=== PATIENT | male | born 1955 | race Caucasian/White ===

== ENCOUNTER → 2016-11-27 | Outpatient (CLI) | payer OTHER ==
[~2016-11-27] MED LIST: FURO20TA PO; LISI-461 PO; MAGN400T5 PO; NUTR-31 PO; OXYC1TAB3 PO; POTA1CAP2 PO
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
== END | disposition home or self-care (01) ==
LOC: C.RDSM 14:36
PROVIDERS: ATTEND Physical Medicine & Rehabilitation Sports Medicine
DX: S92.345A Nondisplaced fracture of fourth metatarsal bone, left foot, initial encounter for closed fracture (principal); X58.XXXA Exposure to other specified factors, initial encounter

== ENCOUNTER → 2016-12-22 | Outpatient (CLI) | payer OTHER | END | disposition home or self-care (01) | LOC: C.RDSM 09:00 | PROVIDERS: ATTEND Physical Medicine & Rehabilitation Sports Medicine | DX: S92.345A Nondisplaced fracture of fourth metatarsal bone, left foot, initial encounter for closed fracture (principal); X58.XXXA Exposure to other specified factors, initial encounter ==

== ENCOUNTER → 2017-01-19 | Outpatient (CLI) | payer OTHER | END | disposition home or self-care (01) | LOC: C.RDSM 12:11 | PROVIDERS: ATTEND Physical Medicine & Rehabilitation Sports Medicine | DX: S92.345A Nondisplaced fracture of fourth metatarsal bone, left foot, initial encounter for closed fracture (principal); X58.XXXA Exposure to other specified factors, initial encounter ==

== ENCOUNTER 2017-02-02 07:20 | Emergency (ER) | payer OTHER ==
[~2017-02-02] VITALS: Ht 180.3 cm; Wt 112.0 kg
[~2017-02-02 07:20] MED LIST changes: -FURO20TA PO; -MAGN400T5 PO; -NUTR-31 PO; -POTA1CAP2 PO
[2017-02-02 07:30] VITALS: TEMP 36.6; Ht 180.3 cm; Wt 112.0 kg
[2017-02-02] MEDS ORDERED: LISINOPRIL 10 MG TAB PO STA (07:32)
--- NOTE | 2017-02-02 07:52 | EMERGENCY ROOM VISIT NOTE ---
History Report prepared by June: Jesse Tay Under the Supervision of: Dr. Frankie Gibbons M.D. First contact with patient: 07:27 Chief Complaint: TESTICULAR PAIN Stated Complaint: SWOLLEN TESTICULAR History of Present Illness The patient is a 61 year old male who presents to the Emergency Room with complaints of persistent testicular swelling since last night. The patient has never experienced swelling like this before. He also has some swelling of the lower extremities. He has not had any problems urinating, and denies shortness of breath. He is not on a diuretic. 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 He denies excessive salt intake. The patient is on Lisinopril 10 mg for hypertension, which he has not taken this morning. The patient follows up with Dr. Del Toro ([facility]). The patient was prescribed drops for left otitis media when he last saw his family doctor. He did not have testicular swelling at that time. Source of History: patient Onset: last night Position: other (testicular) Quality: other (swelling) Timing: other (persistent) Associated Symptoms: No SOB, No urinary symptoms Review of Systems See HPI for pertinent positives & negatives. A total of 10 systems reviewed and were otherwise negative. Past Medical & Surgical Medical Problems: (1) HTN (hypertension) (2) Tongue cancer Family History Stroke Social History Smoking Status: Current Every Day Smoker Alcohol Use: heavy Marital Status: single Housing Status: lives with friends Current/Historical Medications Scheduled Furosemide (Lasix), 20 MG PO QD Lisinopril (Zestril), 10 MG PO DAILY Magnesium Oxide (Mag-Ox), 1 TAB PO DAILY Nutritional Supplements (Boost High Protein), 1 DOSE PO DAILY Potassium Chloride (Potassium Chloride Er), 1 CAP PO DAILY Allergies Coded Allergies: Acetaminophen (Verified Allergy, Intermediate, CONTRAINDICATED, 02/02/17) Aspirin (Verified Allergy, Intermediate, STOMACH BLEEDING, 02/02/17) NSAIDs (Verified Allergy, Intermediate, GI PROBLEMS, 02/02/17) Codeine (Verified Allergy, Mild, high fever, 02/02/17) Bumble Bee (Unverified Allergy, Unknown, go into shock, 02/02/17) I lay down on my back and put my legs up in the air Physical Exam Vital Signs Date Time Temp Pulse Resp B/P Pulse Ox O2 Delivery O2 Flow Rate FiO2 02/02/17 10:33 86 20 150/85 94 Room Air 02/02/17 09:48 83 02/02/17 09:44 89 02/02/17 08:58 84 18 143/90 95 Room Air 02/02/17 07:49 91 20 132/82 95 Room Air 02/02/17 07:45 91 02/02/17 07:30 36.6 90 16 168/103 94 Room Air Physical Exam GENERAL: Patient is in no acute distress. Smell of alcohol is on his breath. HEENT: No acute trauma, normocephalic atraumatic, mucous membranes moist, no nasal congestion, no scleral icterus. NECK: No stridor, no adenopathy, no meningismus, trachea is midline. LUNGS: Clear to auscultation bilaterally, no wheeze, no rhonchi, breath sounds equal. HEART: 3/6 systolic murmur with an irregular rhythm and mildly tachycardic rate. ABDOMEN: Soft, nontender, bowel sounds positive, no hernias, no peritonitis. EXTREMITIES: Mild bilateral pedal edema. NEUROLOGIC: Oriented x 3, no acute motor or sensory deficits, no focal weakness. SKIN: No rash, no jaundice, no diaphoresis. GROIN: Penile shaft and scrotal edema, no cellulitis, testicles appear normal, no obvious hernia, circumcised. Medical Decision & Procedures ER Provider Diagnostic Interpretation: Radiology results as stated below per my review and radiologist interpretation: CHEST ONE VIEW PORTABLE CLINICAL HISTORY: Altered mental status. Weakness. COMPARISON STUDY: 04/11/2014 FINDINGS: The cardiac and mediastinal contours remain stable. There is no failure. There is no focal pulmonary consolidation. There is stable left basilar scarring.[ IMPRESSION: Stable left basilar pleural scarring. No acute findings. Electronically signed by: Timothy Valentin M.D. 02/02/2017 8:12 AM Dictated Date/Time: 02/02/2017 8:11 AM TESTICULAR ULTRASOUND CLINICAL HISTORY: Scrotal swelling COMPARISON STUDY: No previous studies for comparison. FINDINGS: The right testis measures 23 x 12 x 18 mm. There are 2 hypoechoic intratesticular nodules on the right each of which measures 4 mm. The left testis measures 22 x 12 x 18 mm. No intratesticular masses are visualized on the left. There is no evidence of testicular torsion. There are small bilateral epididymal cysts. There is extensive scrotal wall edema. IMPRESSION: 1. There are 2 indeterminate hypoechoic right-sided intratesticular masses, each of which measures 4 mm 2. No evidence of testicular torsion 3. Extensive scrotal wall edema Electronically signed by: Timothy Valentin M.D. 02/02/2017 8:42 AM Dictated Date/Time: 02/02/2017 8:39 AM Laboratory Results 02/02/17 07:45 Red Blood Count 4.09, Mean Corpuscular Volume 96.3, Mean Corpuscular Hemoglobin 34.5, Mean Corpuscular Hemoglobin Concent 35.8, Mean Platelet Volume 9.6, Neutrophils (%) (Auto) 75.2, Lymphocytes (%) (Auto) 11.5, Monocytes (%) (Auto) 10.9, Eosinophils (%) (Auto) 2.0, Basophils (%) (Auto) 0.2, Neutrophils # (Auto ) 4.06, Lymphocytes # (Auto) 0.62, Monocytes # (Auto) 0.59, Eosinophils # (Auto ) 0.11, Basophils # (Auto) 0.01 02/02/17 07:45 Test 02/02/17 00:00 02/02/17 07:45 Urine Color YELLOW Urine Appearance CLEAR (CLEAR) Urine pH 6.0 (4.5-7.5) Urine Specific [place] 1.011 (1.000-1.030) Urine Protein NEG (NEG) Urine Glucose (UA) NEG (NEG) Urine Ketones NEG (NEG) Urine Occult Blood NEG (NEG) Urine Nitrite NEG (NEG) Urine Bilirubin NEG (NEG) Urine Urobilinogen NEG (NEG) Urine Leukocyte Esterase NEG (NEG) White Blood Count 5.40 K/uL (4.8-10.8) Red Blood Count 4.09 M/uL (4.7-6.1) Hemoglobin 14.1 g/dL (14.0-18.0) Hematocrit 39.4 % (42-52) Mean Corpuscular Volume 96.3 fL (80-100) Mean Corpuscular Hemoglobin 34.5 pg (25-34) Mean Corpuscular Hemoglobin Concent 35.8 g/dl (32-36) Platelet Count 162 K/uL (130-400) Mean Platelet Volume 9.6 fL (7.4-10.4) Neutrophils (%) (Auto) 75.2 % Lymphocytes (%) (Auto) 11.5 % Monocytes (%) (Auto) 10.9 % Eosinophils (%) (Auto) 2.0 % Basophils (%) (Auto) 0.2 % Neutrophils # (Auto) 4.06 K/uL (1.4-6.5) Lymphocytes # (Auto) 0.62 K/uL (1.2-3.4) Monocytes # (Auto) 0.59 K/uL (0.11-0.59) Eosinophils # (Auto) 0.11 K/uL (0-0.5) Basophils # (Auto) 0.01 K/uL (0-0.2) RDW Standard Deviation 48.7 fL (36.4-46.3) RDW Coefficient of Variation 13.9 % (11.5-14.5) Immature Granulocyte % (Auto) 0.2 % Immature Granulocyte # (Auto) 0.01 K/uL (0.00-0.02) Prothrombin Time 10.0 SECONDS (9.0-12.0) Prothromb Time International Ratio 0.9 (0.9-1.1) Activated Partial Thromboplast Time 28.2 SECONDS (21.0-31.0) Partial Thromboplastin Ratio 1.1 Anion Gap 8.0 mmol/L (3-11) Est Creatinine Clear Calc Drug Dose 163.2 ml/min Estimated GFR () 125.8 Estimated GFR (Non- 108.6 BUN/Creatinine Ratio 17.1 (10-20) Calcium Level 9.4 mg/dl (8.5-10.1) Magnesium Level 1.7 mg/dl (1.8-2.4) Total Bilirubin 0.6 mg/dl (0.2-1) Aspartate Amino Transf (AST/SGOT) 45 U/L (15-37) Alanine Aminotransferase (ALT/SGPT) 49 U/L (12-78) Alkaline Phosphatase 97 U/L (45-117) Troponin I < 0.015 ng/ml (0-0.045) Pro-B-Type Natriuretic Peptide 86 pg/ml (0-900) Total Protein 7.8 gm/dl (6.4-8.2) Albumin 3.7 gm/dl (3.4-5.0) Globulin 4.1 gm/dl (2.5-4.0) Albumin/Globulin Ratio 0.9 (0.9-2) Thyroid Stimulating Hormone (TSH) 2.100 uIu/ml (0.300-4.500) Laboratory results reviewed by me. Medications Administered Medications (Trade) Dose Ordered Sig/Misa Route Start Time Stop Time Status Last Admin Dose Admin Lisinopril (Zestril Tab) 10 mg NOW STAT PO 02/02/17 07:32 02/02/17 07:36 DC 02/02/17 07:48 10 MG Magnesium Sulfate (Magnesium Sulfate) 1 gm NOW STAT IV 02/02/17 08:29 02/02/17 08:30 DC 02/02/17 08:58 1 GM Furosemide (Lasix Inj) 20 mg NOW STAT IV 02/02/17 10:19 02/02/17 10:20 DC 02/02/17 10:33 20 MG ECG Indication: other (edema) Rate (beats per minute): 92 Rhythm: sinus rhythm Findings: PVC, no acute ischemic change ED Course 0729: The patient was evaluated in room A4b. A complete history and physical exam was performed. 0732: Zestril 10 mg PO. 0829: Magnesium Sulfate 1 gm IV. 1000: Updated the patient on the workup. 1016: Spoke with Dr. Del Toro, who said to go ahead with the Lasix. The patient should follow up this coming week. 1019: Lasix 20 mg IV. 1035: Reevaluated the patient. Discussed results and discharge instructions: He verbalized understanding and agreement. The patient is ready for discharge. Medical Decision Differential diagnosis includes fluid overload and CHF, A-fib or A-flutter, electrolyte imbalance, anemia, renal failure, UTI, venous insufficiency, alcoholism, liver failure. There is no leukocytosis or concerning anemia. Renal panel testing shows a low magnesium, no kidney failure. There is no hepatitis or thyroid dysfunction. Scrotal ultrasound shows some possible lesions to one testicle, the blood flow was adequate. Urologic follow-up was recommended. There was scrotal edema. Chest film does not show pneumonia or CHF. BNP is not elevated making CHF less likely. EKG shows a sinus rhythm with PVCs, no acute ischemic change. Cardiac enzyme testing times one is not elevated making cardiac ischemia less likely. Urinalysis does not show infection. The patient was given his typical dose of oral lisinopril, 10 mg. He was given a dose of IV Lasix and a gram of IV magnesium. The patient has edema to the scrotal area, there is no cellulitis currently. The patient is being discharged on Lasix, some magnesium and potassium. I discussed this case and the patient's care with his family doctor. The patient will be seen in the office in a few days for a recheck. The patient was told to follow with urology for the testicular lesions noted. He was told to try to stay off his feet and to watch closely for any signs of infection including redness or fever. Patient was encouraged to avoid salt in his diet. He was told return to this ER for worsening symptoms. Consults Time Called: 1000 Consulting Physician: Dr. Del Toro, [facility] Returned Call: [phone] She said to go ahead with the Lasix. The patient should follow up this coming week. Impression Primary Impression: Scrotal edema Additional Impression: Fluid overload Scribe Attestation The scribe's documentation has been prepared under my direction and personally reviewed by me in its entirety. I confirm that the note above accurately reflects all work, treatment, procedures, and medical decision making performed by me. Departure Information Dispostion Home / Self-Care Prescriptions Magnesium Oxide (MAG-OX) 400 Mg Tab 1 TAB PO DAILY for 5 Days, #5 TAB 5 Refills Prov: Frankie Gibbons M.D. 02/02/17 Potassium Chloride (POTASSIUM CHLORIDE ER) 10 Meq Cap 1 CAP PO DAILY for 5 Days, #5 CAP 3 Refills Prov: Frankie Gibbons M.D. 02/02/17 Furosemide (LASIX) 20 Mg Tab 20 MG PO QD for 5 Days, #5 TABS Prov: Frankie Gibbons M.D. 02/02/17 Referrals No Doctor, Assigned (PCP) Forms HOME CARE DOCUMENTATION FORM, IMPORTANT VISIT INFORMATION, WORK / SCHOOL INSTRUCTIONS Patient Instructions My [facility] Additional Instructions lasix daily for 5 more days try to stay off of your feet and off of the [employer] specialist for a few days use the potassium and magnesium as directed for now return for fever, worsening symptoms see your [facility] md next week--call for an appt for sunday or sunday Problem Qualifiers
[2017-02-02 07:57] LABS: BASO % 0.2 %; BASO ABS # 0.01 K/uL (0-0.2); COMPLETE YES; HEMATOCRIT 39.4 % (42-52); IG% 0.2 %; LYMPH % 11.5 %; LYMPH ABS # 0.62 K/uL (1.2-3.4); MEAN CELL VOLUME 96.3 fL (80-100); MEAN CORPUSCULAR HEMOGLOBIN 34.5 pg (25-34); MEAN CORPUSCULAR HGB CONC 35.8 g/dl (32-36); MEAN PLATELET VOLUME 9.6 fL (7.4-10.4); MONO % 10.9 %; NEUT % 75.2 %; PLATELET COUNT 162 K/uL (130-400); RED BLOOD COUNT 4.09 M/uL (4.7-6.1)
[2017-02-02 08:07] LABS: INR 0.9 (0.9-1.1); PARTIAL THROMBOPLASTIN RATIO 1.1
--- NOTE | 2017-02-02 08:14 | DIAGNOSTIC IMAGING REPORT ---
CHEST ONE VIEW PORTABLE CLINICAL HISTORY: Altered mental status. Weakness. COMPARISON STUDY: 04/11/2014 FINDINGS: The cardiac and mediastinal contours remain stable. There is no failure. There is no focal pulmonary consolidation. There is stable left basilar scarring.[ IMPRESSION: Stable left basilar pleural scarring. No acute findings. Electronically signed by: Timothy Valentin M.D. 02/02/2017 8:12 AM Dictated Date/Time: 02/02/2017 8:11 AM
[2017-02-02] MEDS ORDERED: NUTR-31 PO (08:16)
[2017-02-02 08:22] LABS: ALT/SGPT 49 U/L (12-78); AST/SGOT 45 U/L (15-37); BLOOD UREA NITROGEN 11 mg/dl (7-18); BUN/CREATININE RATIO 17.1 (10-20); CALCIUM 9.4 mg/dl (8.5-10.1); CARBON DIOXIDE 28 mmol/L (21-32); CHLORIDE 96 mmol/L (98-107); CREATININE 0.62 mg/dl (0.60-1.40); GLUCOSE 87 mg/dl (70-99); MAGNESIUM 1.7 mg/dl (1.8-2.4); POTASSIUM 3.4 mmol/L (3.5-5.1); SODIUM 132 mmol/L (136-145)
[2017-02-02] MEDS ORDERED: MAGNESIUM SULFATE 1GM / D5W 1 GM BAG IV STA (08:29)
[2017-02-02 08:33] LABS: ALB/GLOB RATIO 0.9 (0.9-2); ALKALINE PHOSPHATASE 97 U/L (45-117)
--- NOTE | 2017-02-02 08:43 | DIAGNOSTIC IMAGING REPORT ---
TESTICULAR ULTRASOUND CLINICAL HISTORY: Scrotal swelling COMPARISON STUDY: No previous studies for comparison. FINDINGS: The right testis measures 23 x 12 x 18 mm. There are 2 hypoechoic intratesticular nodules on the right each of which measures 4 mm. The left testis measures 22 x 12 x 18 mm. No intratesticular masses are visualized on the left. There is no evidence of testicular torsion. There are small bilateral epididymal cysts. There is extensive scrotal wall edema. IMPRESSION: 1. There are 2 indeterminate hypoechoic right-sided intratesticular masses, each of which measures 4 mm 2. No evidence of testicular torsion 3. Extensive scrotal wall edema Electronically signed by: Timothy Valentin M.D. 02/02/2017 8:42 AM Dictated Date/Time: 02/02/2017 8:39 AM
[2017-02-02 10:08] LABS: URINE APPEARANCE CLEAR (CLEAR); URINE BILIRUBIN NEG (NEG); URINE COLOR YELLOW; URINE NITRITE NEG (NEG); URINE SPECIFIC GRAVITY 1.011 (1.000-1.030); UROBILINOGEN NEG (NEG); ZZUR CULT IF INDIC CLEAN CATCH NO
[2017-02-02 10:10] LABS: MANUAL MICROSCOPIC REQUIRED? NO; REVIEW REQ? NO
[2017-02-02] MEDS ORDERED: FUROSEMIDE 40 MG/4 ML VIAL IV STA (10:19)
[2017-02-02] MEDS ORDERED: MAGN400T5 PO (10:32)
[2017-02-02] MEDS ORDERED: FURO20TA PO (10:32)
[2017-02-02] MEDS ORDERED: POTA1CAP2 PO (10:32)
[2017-02-02 10:33] VITALS: BP 150/85; PULSE 86; O2SAT 94
== END 2017-02-02 10:41 | disposition home or self-care (01) ==
LOC: C.EDB 07:21 → C.EDA 10:41
DX: N50.89 Other specified disorders of the male genital organs (principal); N50.3 Cyst of epididymis; E87.70 Fluid overload, unspecified; I10 Essential (primary) hypertension; F17.200 Nicotine dependence, unspecified, uncomplicated; Z85.810 Personal history of malignant neoplasm of tongue; Z79.899 Other long term (current) drug therapy; Z88.5 Allergy status to narcotic agent; Z88.6 Allergy status to analgesic agent; Z88.8 Allergy status to other drugs, medicaments and biological substances; Z82.3 Family history of stroke

== ENCOUNTER → 2017-03-02 | Outpatient (CLI) | payer OTHER ==
[~2017-03-02] MED LIST changes: +FURO20TA PO; +MAGN400T5 PO; +NUTR-31 PO; -OXYC1TAB3 PO; +POTA1CAP2 PO
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
== END | disposition home or self-care (01) ==
LOC: C.RDSM 09:40
PROVIDERS: ATTEND Physician Assistant
DX: M79.672 Pain in left foot (principal)

== ENCOUNTER 2017-09-02 17:16 | Inpatient (IN) | payer OTHER ==
[~2017-09-02] VITALS: Ht 180.3 cm; Wt 101.8 kg
--- NOTE | 2017-09-02 17:25 | EMERGENCY ROOM VISIT NOTE ---
History Report prepared by June: Barrie Irene Under the Supervision of: Dr. Amanuel Rangel D.O. First contact with patient: 17:19 Chief Complaint: ALLERGIC REACTION Stated Complaint: ALLERGIC REACTION History of Present Illness The patient is a 61 year old male who presents to the Emergency Room with complaints of persistent facial swelling and pain that started an hour and a half ago. 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 The patient states that after using the new tooth paste, he noticed facial swelling. He says that the swelling is only in the front, and is not affecting the tongue or the back of his throat. He notes that he has an infection in the bone of his jaw, and was on Amoxicillin for it but it ran out after a while. He denies any nausea, vomiting, shortness of breath, chest pain, or leg swelling. He does smoke cigarettes. Source of History: patient Onset: An hour and half ago Position: other (front of face) Symptom Intensity: using new tooth paste Quality: other (swelling, pain) Timing: other (persistent) Associated Symptoms: No chest pain, No SOB, No nausea, No vomiting Note: Denies leg swelling. Review of Systems See HPI for pertinent positives & negatives. A total of 10 systems reviewed and were otherwise negative. Past Medical & Surgical Medical Problems: (1) HTN (hypertension) (2) Tongue cancer Family History Stroke Social History Smoking Status: Current Every Day Smoker Alcohol Use: heavy Marital Status: single Housing Status: lives with friends Current/Historical Medications Scheduled Lisinopril/Hctz (Zestoretic 20MG/12.5MG), 1 TAB PO DAILY Magnesium Oxide (Mg Supplement (Magnesium Oxide), 1 TAB PO DAILY Potassium Chloride (K-Tabs), 2 TAB PO DAILY Sodium Fluoride (Dental) (Prevident [address]), 1 DOSE UD Scheduled PRN Diclofenac Sodium (Topical) (Voltaren 1% Top Gel), 1 APPL TOP QID PRN for Pain Furosemide (Furosemide), 1 TAB PO DAILY PRN for SWELLING Allergies Coded Allergies: Acetaminophen (Verified Allergy, Intermediate, CONTRAINDICATED, 09/02/17) Aspirin (Verified Allergy, Intermediate, STOMACH BLEEDING, 09/02/17) NSAIDs (Verified Allergy, Intermediate, GI PROBLEMS, 09/02/17) Codeine (Verified Allergy, Mild, high fever, 09/02/17) Bumble Bee (Unverified Allergy, Unknown, go into shock, 09/02/17) I lay down on my back and put my legs up in the air Physical Exam Vital Signs Date Time Temp Pulse Resp B/P (MAP) Pulse Ox O2 Delivery O2 Flow Rate FiO2 09/02/17 21:29 88 09/02/17 20:42 91 139/100 94 Room Air 09/02/17 19:30 90 18 123/88 96 Room Air 09/02/17 17:31 97 18 146/87 96 Room Air 09/02/17 17:30 100 09/02/17 17:26 97 Room Air 09/02/17 17:22 36.7 103 16 163/98 97 Room Air Physical Exam GENERAL: Patient is awake, alert, and in no acute distress. Patient is resting comfortably and showing no signs of anxiety EYES: The conjunctivae are clear. The pupils are round and reactive. EARS, NOSE, MOUTH AND THROAT: There was significant anterior angioedema involving mostly the upper lip. The posterior oropharynx was clear. NECK: The neck is nontender and supple. RESPIRATORY: Normal respiratory effort is noted there is no evidence of wheezing rhonchi or rales CARDIOVASCULAR: Regular rate and rhythm noted there no murmurs rubs or gallops normal S1 normal S2 GASTROINTESTINAL: The abdomen is soft. Bowel sounds are present in all quadrants. Abdomen is nontender MUSCULOSKELETAL/EXTREMITIES: There is no evidence of gross deformity full range of motion is noted in the hips and shoulders SKIN: There is no obvious evidence of any rash. There are no petechiae, pallor or cyanosis noted. NEUROLOGIC: Patient is awake alert and oriented x3. Medical Decision & Procedures ER Provider Diagnostic Interpretation: X-ray results as stated below per interpretation by me and the radiologist. CHEST ONE VIEW PORTABLE HISTORY: 61 years-old Male ABDOMINAL PAIN/GI acute generalized abdominal pain with allergic reaction COMPARISON: Chest radiograph 02/02/2017 TECHNIQUE: Portable AP view of the chest FINDINGS: Cardiomediastinal and hilar silhouettes are within normal limits. No pneumothorax, or overt pulmonary edema. Unchanged subsegmental left basilar opacity with blunting of the left costophrenic angle. Bones of the chest appear grossly intact. IMPRESSION: Unchanged scarring/atelectasis of the left lung base without acute cardiopulmonary process. The above report was generated using voice recognition software. It may contain grammatical, syntax or spelling errors. Electronically signed by: Luis F Curtis M.D. 09/02/2017 5:55 PM Dictated Date/Time: 09/02/2017 5:53 PM Laboratory Results 09/02/17 17:25 Red Blood Count 3.74, Mean Corpuscular Volume 98.7, Mean Corpuscular Hemoglobin 34.8, Mean Corpuscular Hemoglobin Concent 35.2, Mean Platelet Volume 8.9, Neutrophils (%) (Auto) 69.0, Lymphocytes (%) (Auto) 13.7, Monocytes (%) (Auto) 15.7, Eosinophils (%) (Auto) 1.2, Basophils (%) (Auto) 0.2, Neutrophils # (Auto ) 3.43, Lymphocytes # (Auto) 0.68, Monocytes # (Auto) 0.78, Eosinophils # (Auto ) 0.06, Basophils # (Auto) 0.01 09/02/17 17:25 Test 09/02/17 17:25 09/02/17 19:30 White Blood Count 4.97 K/uL (4.8-10.8) Red Blood Count 3.74 M/uL (4.7-6.1) Hemoglobin 13.0 g/dL (14.0-18.0) Hematocrit 36.9 % (42-52) Mean Corpuscular Volume 98.7 fL (80-100) Mean Corpuscular Hemoglobin 34.8 pg (25-34) Mean Corpuscular Hemoglobin Concent 35.2 g/dl (32-36) Platelet Count 196 K/uL (130-400) Mean Platelet Volume 8.9 fL (7.4-10.4) Neutrophils (%) (Auto) 69.0 % Lymphocytes (%) (Auto) 13.7 % Monocytes (%) (Auto) 15.7 % Eosinophils (%) (Auto) 1.2 % Basophils (%) (Auto) 0.2 % Neutrophils # (Auto) 3.43 K/uL (1.4-6.5) Lymphocytes # (Auto) 0.68 K/uL (1.2-3.4) Monocytes # (Auto) 0.78 K/uL (0.11-0.59) Eosinophils # (Auto) 0.06 K/uL (0-0.5) Basophils # (Auto) 0.01 K/uL (0-0.2) RDW Standard Deviation 49.4 fL (36.4-46.3) RDW Coefficient of Variation 13.8 % (11.5-14.5) Immature Granulocyte % (Auto) 0.2 % Immature Granulocyte # (Auto) 0.01 K/uL (0.00-0.02) Prothrombin Time 9.9 SECONDS (9.0-12.0) Prothromb Time International Ratio 0.9 (0.9-1.1) Activated Partial Thromboplast Time 28.4 SECONDS (21.0-31.0) Partial Thromboplastin Ratio 1.1 Anion Gap 7.0 mmol/L (3-11) Est Creatinine Clear Calc Drug Dose 151.8 ml/min Estimated GFR () 123.4 Estimated GFR (Non- 106.5 BUN/Creatinine Ratio 24.7 (10-20) Calcium Level 9.5 mg/dl (8.5-10.1) Total Bilirubin 0.4 mg/dl (0.2-1) Direct Bilirubin 0.1 mg/dl (0-0.2) Aspartate Amino Transf (AST/SGOT) 15 U/L (15-37) Alanine Aminotransferase (ALT/SGPT) 23 U/L (12-78) Alkaline Phosphatase 112 U/L (45-117) Total Creatine Kinase 51 U/L (39-308) Creatine Kinase MB 0.8 ng/ml (0.5-3.6) Creatine Kinase MB Ratio 1.6 (0-3.0) Troponin I < 0.015 ng/ml (0-0.045) Total Protein 8.1 gm/dl (6.4-8.2) Albumin 3.7 gm/dl (3.4-5.0) Lipase 141 U/L (73-393) Ethyl Alcohol mg/dL 92.0 mg/dl (0-3) Urine Color YELLOW Urine Appearance CLEAR (CLEAR) Urine pH 6.5 (4.5-7.5) Urine Specific [place] 1.011 (1.000-1.030) Urine Protein NEG (NEG) Urine Glucose (UA) NEG (NEG) Urine Ketones NEG (NEG) Urine Occult Blood NEG (NEG) Urine Nitrite NEG (NEG) Urine Bilirubin NEG (NEG) Urine Urobilinogen NEG (NEG) Urine Leukocyte Esterase NEG (NEG) Urine Opiates Screen NEG (NEG) Urine Methadone, Qualitative NEG (NEG) Urine Barbiturates NEG (NEG) Urine Phencyclidine (PCP) Level NEG (NEG) Ur Amphetamine/Methamphetamine NEG (NEG) MDMA (Ecstasy) Screen NEG (NEG) Urine Benzodiazepines Screen NEG (NEG) Urine Cocaine Metabolite NEG (NEG) Urine Marijuana (THC) POS (NEG) Laboratory results per my review. Medications Administered Medications (Trade) Dose Ordered Sig/Misa Route Start Time Stop Time Status Last Admin Dose Admin Dexamethasone Sodium Phosphate (Decadron Inj) 10 mg NOW STAT IV 09/02/17 17:29 09/02/17 17:31 DC 09/02/17 17:35 10 MG Diphenhydramine HCl (Benadryl Inj) 25 mg NOW STAT IV 09/02/17 17:29 09/02/17 17:31 DC 09/02/17 17:36 25 MG Famotidine (Pepcid 20mg Iv Push) 20 mg ONE STAT IV 09/02/17 17:29 09/02/17 17:31 DC 09/02/17 17:36 20 MG ECG Indication: other (allergic reaction) Rate (beats per minute): 90 Rhythm: normal sinus Findings: no ectopy, other (no acute ST segment abnormalities) Change: no significant change (from 02/02/17) ED Course 1719: The patient was evaluated in room B1. A complete history and physical examination were performed. 1729: Ordered Pepcid 20mg IV Push 20 mg, Benadryl Inj 25 mg IV, Decadron Inj 10 mg IV. 1825: I discussed the patient's case with Dr. Erwin Serrano publishing director. The patient will be evaluated for further management. 1830: Upon reevaluation, the patient is resting. I discussed results and treatment plan with him. He verbalizes agreement and understanding. The patient will be evaluated for further management and care. Medical Decision Differential diagnosis: Etiologies such as allergic reaction, anaphylaxis, urticaria, Ge-Walker syndrome, toxic epidermal necrolysis, erythema multiforme, cellulitis, as well as others were entertained. Nursing notes reviewed. Additional history is obtained from the patient's significant other. The patient is a 61-year-old male who presented to the emergency department for evaluation of lip swelling. The patient presented with angioedema of the upper lip. He was treated with steroids and antihistamines and H2 blockers in the emergency department. He was reevaluated multiple times. His condition did not improve. For this reason he was given FFP the emergency department. I discussed the patient's laboratory and radiographic studies with him. Given his ongoing symptoms I also discussed his case with the on-call [facility] hospitalist as well as the [employer]. They've agreed to evaluate the patient in the emergency apartment for further management and disposition. Medication Reconcilliation Current Medication List: was personally reviewed by me Blood Pressure Screening Patient's blood pressure: Elevated blood pressure Consults Time Called: 1819 Consulting Physician: Dr. Erwin Serrano publishing director Returned Call: 1824 I discussed the patient's case with Dr. Erwin Serrano publishing director. The patient will be evaluated for further management. Impression Primary Impression: Angioedema Critical Care I have personally spent greater than 45 minutes of critical care time in the direct management of this patient. This includes bedside care, interpretation of diagnostic studies, and testing, discussion with consultants, patient, and family members, and other required patient management activities. This 45 minutes is in excess of all separately billable procedures. Scribe Attestation The scribe's documentation has been prepared under my direction and personally reviewed by me in its entirety. I confirm that the note above accurately reflects all work, treatment, procedures, and medical decision making performed by me. Departure Information Dispostion Being Evaluated By Hospitalist Referrals No Doctor, Assigned (PCP) Patient Instructions My [facility] Problem Qualifiers Primary Impression: Angioedema Encounter type: initial encounter Qualified Codes: T78.3XXA - Angioneurotic edema, initial encounter
[2017-09-02] MEDS ORDERED: DEXAMETHASONE SOD INJ 4 MG/ML VIAL IV STA (17:29)
[2017-09-02] MEDS ORDERED: FAMOTIDINE 20MG/5ML IV PUSH IV STA (17:29)
[2017-09-02] MEDS ORDERED: DiphenhydrAMINE HCL 50 MG/ML VIAL IV STA (17:29)
[2017-09-02 17:42] LABS: BASO % 0.2 %; BASO ABS # 0.01 K/uL (0-0.2); EOS % 1.2 %; EOS ABS # 0.06 K/uL (0-0.5); HEMATOCRIT 36.9 % (42-52); IG# 0.01 K/uL (0.00-0.02); LYMPH % 13.7 %; LYMPH ABS # 0.68 K/uL (1.2-3.4); MEAN CELL VOLUME 98.7 fL (80-100); MEAN CORPUSCULAR HEMOGLOBIN 34.8 pg (25-34); MEAN CORPUSCULAR HGB CONC 35.2 g/dl (32-36); MEAN PLATELET VOLUME 8.9 fL (7.4-10.4); MONO % 15.7 %; MONO ABS # 0.78 K/uL (0.11-0.59); NEUT ABS # 3.43 K/uL (1.4-6.5); PLATELET COUNT 196 K/uL (130-400); RED CELL DISTRIBUTION WIDTH CV 13.8 % (11.5-14.5); RED CELL DISTRIBUTION WIDTH SD 49.4 fL (36.4-46.3); WHITE BLOOD COUNT 4.97 K/uL (4.8-10.8)
[2017-09-02 17:52] LABS: INR 0.9 (0.9-1.1); PTT PATIENT 28.4 SECONDS (21.0-31.0)
--- NOTE | 2017-09-02 17:56 | DIAGNOSTIC IMAGING REPORT ---
CHEST ONE VIEW PORTABLE HISTORY: 61 years-old Male ABDOMINAL PAIN/GI acute generalized abdominal pain with allergic reaction COMPARISON: Chest radiograph 02/02/2017 TECHNIQUE: Portable AP view of the chest FINDINGS: Cardiomediastinal and hilar silhouettes are within normal limits. No pneumothorax, or overt pulmonary edema. Unchanged subsegmental left basilar opacity with blunting of the left costophrenic angle. Bones of the chest appear grossly intact. IMPRESSION: Unchanged scarring/atelectasis of the left lung base without acute cardiopulmonary process. The above report was generated using voice recognition software. It may contain grammatical, syntax or spelling errors. Electronically signed by: Luis F Curtis M.D. 09/02/2017 5:55 PM Dictated Date/Time: 09/02/2017 5:53 PM
[2017-09-02] MEDS ORDERED: LISI-787 PO (18:01)
[2017-09-02] MEDS ORDERED: DICL1GEL12 TOP (18:10)
[2017-09-02] MEDS ORDERED: POTA10TA PO (18:10)
[2017-09-02] MEDS ORDERED: MAGN400T7 PO (18:10)
[2017-09-02] MEDS ORDERED: LSX20 PO (18:10)
[2017-09-02] MEDS ORDERED: SODI1PST (18:10)
[2017-09-02 18:12] LABS: ALBUMIN 3.7 gm/dl (3.4-5.0); ALKALINE PHOSPHATASE 112 U/L (45-117); ALT/SGPT 23 U/L (12-78); AST/SGOT 15 U/L (15-37); BLOOD UREA NITROGEN 16 mg/dl (7-18); CALCIUM 9.5 mg/dl (8.5-10.1); CARBON DIOXIDE 27 mmol/L (21-32); CREATININE 0.65 mg/dl (0.60-1.40); GLUCOSE 89 mg/dl (70-99); POTASSIUM 3.4 mmol/L (3.5-5.1); SODIUM 126 mmol/L (136-145); TOTAL PROTEIN 8.1 gm/dl (6.4-8.2)
[2017-09-02 18:20] LABS: CKMB 0.8 ng/ml (0.5-3.6); LIPASE 141 U/L (73-393)
--- NOTE | 2017-09-02 20:17 | Critical Care Consultation ---
Critical Care Consultation Date of Consultation: Sep 02, 2017. Attending Physician: Dr. Harris Thomas Reason for Consultation: Angioedema History of Present Illness Joaquín Cardoso is a 61 yo male who presented to the ED for swelling approx 1.5hrs after using a new prescription toothpaste prescribed by his dentist. Notably pt is also on Lisinopril. Pt did not report dysphagia, tongue swelling or difficulty breathing. He smokes about 4 cigarettes a day currently, but prior smoked 2.5 packs x 32 years. Pt drinks White [place] and Vodka and is at risk for DTs while hospitalized. 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 Pt states that he was suppose to undergo "replacement" of his jaw but he has refused because he has a cousin that was "put in a coma" for surgery and then never woke up. Pt has a 2x3" bandaid that he states he replaces 4 times a day. He was recently prescribed a 14 day course of Amoxicillin of which he only completed 13 days. Pt spoke to me about often forgetting to take his medications regularly, so I suspect noncompliance is playing a role. Pr documentation of Dr. 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 Pt is able to list a large number of medical providers that he see. He follows with Dr. Del Toro of [facility] for primary care. Outpt records were not assessable. Pt denies recent illness, myalgias, malaise. fever, chills or dizziness. He denies dysphagia, tongue swelling, shortness of breath, chest pain, palpitations , N/V/D, abd pain, change in bowel or bladder habits. Denies numbness, tingling , burning or weakness. Past Medical/Surgical History Medical Problems: HTN (hypertension) Metachronous floor of mouth SCC Leukoplakia Jaw Infection Tobacco Abuse Alcohol Abuse Chemo/Radiation therapy Cisplatin Surgical Hx: Excision of Mouth Tumor Laser Therapy to mouth tumor FNA Family History Stroke Social History Smoking Status: Current Every Day Smoker Alcohol Use: heavy Marital Status: single Housing Status: lives with friends Allergies Coded Allergies: Acetaminophen (Verified Allergy, Intermediate, CONTRAINDICATED, 09/02/17) Aspirin (Verified Allergy, Intermediate, STOMACH BLEEDING, 09/02/17) NSAIDs (Verified Allergy, Intermediate, GI PROBLEMS, 09/02/17) Codeine (Verified Allergy, Mild, high fever, 09/02/17) Bumble Bee (Unverified Allergy, Unknown, go into shock, 09/02/17) I lay down on my back and put my legs up in the air Home Medications Scheduled Lisinopril/Hctz (Zestoretic 20MG/12.5MG), 1 TAB PO DAILY Magnesium Oxide (Mg Supplement (Magnesium Oxide), 1 TAB PO DAILY Potassium Chloride (K-Tabs), 2 TAB PO DAILY Sodium Fluoride (Dental) (Prevident [address]), 1 DOSE UD Scheduled PRN Diclofenac Sodium (Topical) (Voltaren 1% Top Gel), 1 APPL TOP QID PRN for Pain Furosemide (Furosemide), 1 TAB PO DAILY PRN for SWELLING Review of Systems 12 systems reviewed and negative other than previously mentioned in the HPI. Physical Exam Date Time Temp Pulse Resp B/P (MAP) Pulse Ox O2 Delivery O2 Flow Rate FiO2 09/02/17 19:30 90 18 123/88 96 Room Air 09/02/17 17:31 97 18 146/87 96 Room Air 09/02/17 17:30 100 09/02/17 17:26 97 Room Air 09/02/17 17:22 36.7 103 16 163/98 97 Room Air Vital Signs - as noted Laboratory Data - as noted Physical Exam: General - NAD, Sitting in bed arguing on and off with Stephanie Head: Angioedema noted around mouth Eyes - PERRL, EOMI No icterus, gaze conjugate ENT - Mucosa dry, no swelling noted on the interior of mouth, many fillings and an upper partial in place, no loose teeth noted, bandaid in place. (Observed pt replacing, noted clean dry and intact, until pt bit down on single molar on left side then foul smell discharge noted) Neck - Supple, trachea midline, no masses or lymphadenopathy, no JVD or bruits Lungs - No paradoxical chest wall movement, clear to auscultation bilaterally, no wheezes, rales, or rhonchi Heart - Reg rate and rhythm, No murmur, rubs, clicks, or gallops appreciated Abdomen - BS present, no bruits noted, tympanic to percussion, soft, nontender, nondistended, no organomegaly Extremities - No edema, pedal pulses intact Neuro - A&OX4 Strength extremities equal and appropriate bilaterally Reflexes: normal and equal CN:PERRL, EOMI, no facial asymmetry, uvula/tongue midline Laboratory Results Last 24 Hours Test 09/02/17 17:25 09/02/17 19:30 White Blood Count 4.97 K/uL Red Blood Count 3.74 M/uL Hemoglobin 13.0 g/dL Hematocrit 36.9 % Mean Corpuscular Volume 98.7 fL Mean Corpuscular Hemoglobin 34.8 pg Mean Corpuscular Hemoglobin Concent 35.2 g/dl Platelet Count 196 K/uL Mean Platelet Volume 8.9 fL Neutrophils (%) (Auto) 69.0 % Lymphocytes (%) (Auto) 13.7 % Monocytes (%) (Auto) 15.7 % Eosinophils (%) (Auto) 1.2 % Basophils (%) (Auto) 0.2 % Neutrophils # (Auto) 3.43 K/uL Lymphocytes # (Auto) 0.68 K/uL Monocytes # (Auto) 0.78 K/uL Eosinophils # (Auto) 0.06 K/uL Basophils # (Auto) 0.01 K/uL RDW Standard Deviation 49.4 fL RDW Coefficient of Variation 13.8 % Immature Granulocyte % (Auto) 0.2 % Immature Granulocyte # (Auto) 0.01 K/uL Prothrombin Time 9.9 SECONDS Prothromb Time International Ratio 0.9 Activated Partial Thromboplast Time 28.4 SECONDS Partial Thromboplastin Ratio 1.1 Sodium Level 126 mmol/L Potassium Level 3.4 mmol/L Chloride Level 92 mmol/L Carbon Dioxide Level 27 mmol/L Anion Gap 7.0 mmol/L Blood Urea Nitrogen 16 mg/dl Creatinine 0.65 mg/dl Est Creatinine Clear Calc Drug Dose 151.8 ml/min Estimated GFR () 123.4 Estimated GFR (Non- 106.5 BUN/Creatinine Ratio 24.7 Random Glucose 89 mg/dl Calcium Level 9.5 mg/dl Total Bilirubin 0.4 mg/dl Direct Bilirubin 0.1 mg/dl Aspartate Amino Transf (AST/SGOT) 15 U/L Alanine Aminotransferase (ALT/SGPT) 23 U/L Alkaline Phosphatase 112 U/L Total Creatine Kinase 51 U/L Creatine Kinase MB 0.8 ng/ml Creatine Kinase MB Ratio 1.6 Troponin I < 0.015 ng/ml Total Protein 8.1 gm/dl Albumin 3.7 gm/dl Lipase 141 U/L Ethyl Alcohol mg/dL 92.0 mg/dl Urine Color YELLOW Urine Appearance CLEAR Urine pH 6.5 Urine Specific [place] 1.011 Urine Protein NEG Urine Glucose (UA) NEG Urine Ketones NEG Urine Occult Blood NEG Urine Nitrite NEG Urine Bilirubin NEG Urine Urobilinogen NEG Urine Leukocyte Esterase NEG Diagnostic Results CHEST ONE VIEW PORTABLE HISTORY: 61 years-old Male ABDOMINAL PAIN/GI acute generalized abdominal pain with allergic reaction COMPARISON: Chest radiograph 02/02/2017 TECHNIQUE: Portable AP view of the chest FINDINGS: Cardiomediastinal and hilar silhouettes are within normal limits. No pneumothorax, or overt pulmonary edema. Unchanged subsegmental left basilar opacity with blunting of the left costophrenic angle. Bones of the chest appear grossly intact. IMPRESSION: Unchanged scarring/atelectasis of the left lung base without acute cardiopulmonary process. The above report was generated using voice recognition software. It may contain grammatical, syntax or spelling errors. Electronically signed by: Luis F Curtis M.D. 09/02/2017 5:55 PM Dictated Date/Time: 09/02/2017 5:53 PM Assessment & Plan (1) Open wound (2) Noncompliance (3) Hypokalemia (4) Angioedema (5) HTN (hypertension) PLAN: Neuro: * Substance Abuse * ETOH, Tobacco, and Marijuana * Multivitamin, Thiamine and Folic Acid in place * CIWA precautions * Monitor for DTs; Alcohol 92.0 * Marijuana Positive Resp: * Airway Monitoring 2/2 Angioedema * Likely 2/2 Lisinopril use; however, pt susp of new toothpaste * Discontinue both ACEi and Toothpaste * Transfuse 2 Units of FFP: consent obtained in ED * Continue Solumedrol, Benadryl * Pt educated in regards to alerting staff immediately of dysphagia, tongue swelling or trouble breathing * Supplemental O2 as needed * Monitor closely CV: * Monitor on telemetry * Will require alternate antihypertensive therapy * Discontinue Lisinopril Fluids/Renal: * Hyponatremia: * Continue NSS @ 80 in addition to Multi Vit/Thiamine/Folic Acid * Cr WNL * Monitor daily ID: * Spoke with Dr. Fried, will hold on abx currently * Wound Consult place for drainage from jaw * Afebrile without leukocytosis GI/Nutrition: * NPO except meds overnight while monitoring airway * May advance diet tomorrow as swelling recedes Heme: Repeat CBC tomorrow Endocrine: Accu-Checks per protocol, started insulin infusion for 2 blood sugars greater than 180 CCT: 0 Minutes; Level 3 inpatient billing. This time is exclusive of all separately billable procedures. Thank you for involving us in the care of this patient. Please refer to Dr. Ramin Fried's addendum for further recommendations. I have personally evaluated and examined this patient. I agree with assessment and plan of Luc Stiles PA-C. Patient tolerating oral secretions, no difficulty in speaking, largest concern is angioedema secondary to KOREY inhibitor use. Problem Qualifiers (1) Angioedema: Encounter type: initial encounter Qualified Codes: T78.3XXA - Angioneurotic edema, initial encounter
--- NOTE | 2017-09-02 20:59 | History and Physical ---
History & Physical Date & Time of Service: Sep 02, 2017 at 20:59 Chief Complaint: Allergic Reaction Primary Care Physician: Britt Del Toro D.O. 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 Patient states he used a new prescription toothpaste given by his dentist today and 1 1/2 hours later he started noticing the upper lip getting swollen and later his face started swelling as well. Patient states he ate store bought chips and salsa today. He takes lisinopril for HTN but had no issues with its use previously. Denies any history of fever, chills, SOB, cough, wheezing, chest pain, nausea, vomiting, abd pain, headache, dizziness, dysphagia, odynophagia, no new medication use, Insect bite, trauma, recent travel, similar symptoms in the past. Past Medical/Surgical History Medical Problems: (1) HTN (hypertension) Status: Chronic (2) Tongue cancer Status: Chronic Family History Stroke No significant family history Social History Smoking Status: Current Every Day Smoker Alcohol Use: heavy Drug Use: marijuana Marital Status: single Immunizations History of Influenza Vaccine: N/A History of Tetanus Vaccine?: Unknown History of Pneumococcal: Unknown History of Hepatitis B Vaccine: Unknown Multi-Drug Resistant Organisms History of MDRO: No Allergies Coded Allergies: Acetaminophen (Verified Allergy, Intermediate, CONTRAINDICATED, 09/02/17) Aspirin (Verified Allergy, Intermediate, STOMACH BLEEDING, 09/02/17) NSAIDs (Verified Allergy, Intermediate, GI PROBLEMS, 09/02/17) Codeine (Verified Allergy, Mild, high fever, 09/02/17) Bumble Bee (Unverified Allergy, Unknown, go into shock, 09/02/17) I lay down on my back and put my legs up in the air Home Medications Scheduled Lisinopril/Hctz (Zestoretic 20MG/12.5MG), 1 TAB PO DAILY Magnesium Oxide (Mg Supplement (Magnesium Oxide), 1 TAB PO DAILY Potassium Chloride (K-Tabs), 2 TAB PO DAILY Sodium Fluoride (Dental) (Prevident [address]), 1 DOSE UD Scheduled PRN Diclofenac Sodium (Topical) (Voltaren 1% Top Gel), 1 APPL TOP QID PRN for Pain Furosemide (Furosemide), 1 TAB PO DAILY PRN for SWELLING Review of Systems See HPI for pertinent positives & negatives. A total of 10 systems reviewed and were otherwise negative. Physical Exam Vital Signs Date Time Temp Pulse Resp B/P (MAP) Pulse Ox O2 Delivery O2 Flow Rate FiO2 09/02/17 20:42 91 139/100 94 Room Air 09/02/17 19:30 90 18 123/88 96 Room Air 09/02/17 17:31 97 18 146/87 96 Room Air 09/02/17 17:30 100 09/02/17 17:26 97 Room Air 09/02/17 17:22 36.7 103 16 163/98 97 Room Air General Appearance: WD/WN, no apparent distress Head: normocephalic, atraumatic, + pertinent finding (Swelling of Upper lip, face) Eyes: normal inspection, PERRL, EOMI, sclerae normal ENT: normal ENT inspection, hearing grossly normal Neck: supple, trachea midline Respiratory/Chest: chest non-tender, lungs clear, normal breath sounds, no respiratory distress, no accessory muscle use Cardiovascular: regular rate, rhythm, no edema, no murmur Abdomen/GI: normal bowel sounds, non tender, soft Back: normal inspection Extremities/Musculoskelatal: normal inspection, no pedal edema 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, no motor/sensory deficits, alert, normal mood/affect, oriented x 3 Skin: normal color, warm/dry Diagnostics Laboratory Results Results Past 24 Hours Test 09/02/17 17:25 09/02/17 19:30 Range/Units White Blood Count 4.97 4.8-10.8 K/uL Red Blood Count 3.74 4.7-6.1 M/uL Hemoglobin 13.0 14.0-18.0 g/dL Hematocrit 36.9 42-52 % Mean Corpuscular Volume 98.7 80-100 fL Mean Corpuscular Hemoglobin 34.8 25-34 pg Mean Corpuscular Hemoglobin Concent 35.2 32-36 g/dl Platelet Count 196 130-400 K/uL Mean Platelet Volume 8.9 7.4-10.4 fL Neutrophils (%) (Auto) 69.0 % Lymphocytes (%) (Auto) 13.7 % Monocytes (%) (Auto) 15.7 % Eosinophils (%) (Auto) 1.2 % Basophils (%) (Auto) 0.2 % Neutrophils # (Auto) 3.43 1.4-6.5 K/uL Lymphocytes # (Auto) 0.68 1.2-3.4 K/uL Monocytes # (Auto) 0.78 0.11-0.59 K/uL Eosinophils # (Auto) 0.06 0-0.5 K/uL Basophils # (Auto) 0.01 0-0.2 K/uL RDW Standard Deviation 49.4 36.4-46.3 fL RDW Coefficient of Variation 13.8 11.5-14.5 % Immature Granulocyte % (Auto) 0.2 % Immature Granulocyte # (Auto) 0.01 0.00-0.02 K/uL Prothrombin Time 9.9 9.0-12.0 SECONDS Prothromb Time International Ratio 0.9 0.9-1.1 Activated Partial Thromboplast Time 28.4 21.0-31.0 SECONDS Partial Thromboplastin Ratio 1.1 Sodium Level 126 136-145 mmol/L Potassium Level 3.4 3.5-5.1 mmol/L Chloride Level 92 98-107 mmol/L Carbon Dioxide Level 27 21-32 mmol/L Anion Gap 7.0 3-11 mmol/L Blood Urea Nitrogen 16 7-18 mg/dl Creatinine 0.65 0.60-1.40 mg/dl Est Creatinine Clear Calc Drug Dose 151.8 ml/min Estimated GFR () 123.4 Estimated GFR (Non- 106.5 BUN/Creatinine Ratio 24.7 10-20 Random Glucose 89 70-99 mg/dl Calcium Level 9.5 8.5-10.1 mg/dl Total Bilirubin 0.4 0.2-1 mg/dl Direct Bilirubin 0.1 0-0.2 mg/dl Aspartate Amino Transf (AST/SGOT) 15 15-37 U/L Alanine Aminotransferase (ALT/SGPT) 23 12-78 U/L Alkaline Phosphatase 112 45-117 U/L Total Creatine Kinase 51 39-308 U/L Creatine Kinase MB 0.8 0.5-3.6 ng/ml Creatine Kinase MB Ratio 1.6 0-3.0 Troponin I < 0.015 0-0.045 ng/ml Total Protein 8.1 6.4-8.2 gm/dl Albumin 3.7 3.4-5.0 gm/dl Lipase 141 73-393 U/L Ethyl Alcohol mg/dL 92.0 0-3 mg/dl Urine Color YELLOW Urine Appearance CLEAR CLEAR Urine pH 6.5 4.5-7.5 Urine Specific [place] 1.011 1.000-1.030 Urine Protein NEG NEG Urine Glucose (UA) NEG NEG Urine Ketones NEG NEG Urine Occult Blood NEG NEG Urine Nitrite NEG NEG Urine Bilirubin NEG NEG Urine Urobilinogen NEG NEG Urine Leukocyte Esterase NEG NEG Urine Opiates Screen NEG NEG Urine Methadone, Qualitative NEG NEG Urine Barbiturates NEG NEG Urine Phencyclidine (PCP) Level NEG NEG Ur Amphetamine/Methamphetamine NEG NEG MDMA (Ecstasy) Screen NEG NEG Urine Benzodiazepines Screen NEG NEG Urine Cocaine Metabolite NEG NEG Urine Marijuana (THC) POS NEG Diagnostic Radiology CXR: Unchanged scarring/atelectasis of the left lung base without acute cardiopulmonary process. EKG EKG: NSR, Incomplete RBBB Impression Assessment and Plan Angioedema: Likely secondary to Lisinopril, ? 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
[2017-09-02] MEDS ORDERED: ALBUT/IPRATROP 3MG/0.5MG NEB 3 ML VIAL INH PRN (21:00)
[2017-09-02] MEDS ORDERED: LEVALBUTEROL 0.63MG/3 ML NEB INH PRN (21:00)
[2017-09-02] MEDS ORDERED: ONDANSETRON INJ 2 MG/ML 2 ML VIAL IV PRN (21:00)
[2017-09-02] MEDS ORDERED: DiphenhydrAMINE INJ 25 MG in SYRINGE 0 ML IV SCH (21:15)
[2017-09-02] MEDS ORDERED: LORAZEPAM 2 MG/ML 1 ML VIAL IV PRN (21:15)
[2017-09-02 21:38] VITALS: BP 139/93; PULSE 89; TEMP 36.7; O2SAT 94
[2017-09-02 21:45] VITALS: BP 141/90; PULSE 88; TEMP 36.8; O2SAT 93
[2017-09-02 22:00] VITALS: BP 151/91; PULSE 90; TEMP 36.8; O2SAT 94
[2017-09-02] MEDS ORDERED: ENOXAPARIN 40 MG/0.4 ML SYR SQ SCH (22:00)
[2017-09-02 22:27] VITALS: BP 163/104; PULSE 106; TEMP 37.1; O2SAT 94
[2017-09-02 22:30] VITALS: BP 163/104; PULSE 92; TEMP 37.1; O2SAT 93; Ht 180.3 cm; Wt 101.8 kg
[2017-09-02] MEDS: METHYLPREDNISOLONE IV 60 MG in SYRINGE 0 ML IV SCH (23:20)
[2017-09-02] MEDS: MULTI-VITAMIN INFUSION INJ 10 ML, THIAMINE HCL INJ 100 MG, FoLIC ACID INJ 1 MG in SODIU... IV SCH (23:21)
[2017-09-02] MEDS: NSS + 20MEQ KCL 1000ML 1,000 ML IV SCH (23:21)
[2017-09-03] VITALS (25 sets, daily range): BP systolic 126–161; BP diastolic 66–97; PULSE 73–96; TEMP 36.3–37.2; O2SAT 92–98
[2017-09-03] MEDS: DiphenhydrAMINE HCL 50 MG/ML VIAL IV. SCH ×3 (00:07→12:13)
[2017-09-03] MEDS ORDERED: FAMOTIDINE IV INJ 20 MG in SYRINGE 3 ML IV SCH ×2 (06:00→18:00)
[2017-09-03 06:32] LABS: HEMOGLOBIN 11.8 g/dL (14.0-18.0); LYMPH % 8.6 %; LYMPH ABS # 0.24 K/uL (1.2-3.4); MEAN CELL VOLUME 99.7 fL (80-100); MEAN CORPUSCULAR HEMOGLOBIN 34.6 pg (25-34); MEAN CORPUSCULAR HGB CONC 34.7 g/dl (32-36); MONO % 1.8 %; MONO ABS # 0.05 K/uL (0.11-0.59); NEUT % 89.6 %; NEUT ABS # 2.49 K/uL (1.4-6.5); PLATELET COUNT 182 K/uL (130-400); RED CELL DISTRIBUTION WIDTH CV 13.9 % (11.5-14.5); RED CELL DISTRIBUTION WIDTH SD 50.5 fL (36.4-46.3); WHITE BLOOD COUNT 2.78 K/uL (4.8-10.8)
[2017-09-03] MEDS: METHYLPREDNISOLONE IV 60 MG in SYRINGE 0 ML IV SCH ×2 (06:37→15:32)
[2017-09-03 07:08] LABS: ALBUMIN 3.3 gm/dl (3.4-5.0); CALCIUM 8.7 mg/dl (8.5-10.1); CREATININE 0.68 mg/dl (0.60-1.40); POTASSIUM 3.6 mmol/L (3.5-5.1)
[2017-09-03 07:11] LABS: TOTAL PROTEIN 7.3 gm/dl (6.4-8.2)
[2017-09-03] MEDS ORDERED: THIAMINE HCL 100 MG TAB PO SCH (09:00)
[2017-09-03] MEDS: MULTI-VITAMIN INFUSION INJ 10 ML, THIAMINE HCL INJ 100 MG, FoLIC ACID INJ 1 MG in SODIU... IV SCH (09:24)
[2017-09-03] MEDS ORDERED: HYDROCHLOROTHIAZIDE 25 MG TAB PO ONE (09:30)
--- NOTE | 2017-09-03 10:54 | Progress Note ---
Internal Med Progress Note Date of Service: Sep 03, 2017. Provider Documentation: SUBJECTIVE: sitting on the bed comfortably hemodynamics stable has swelling on rigt side of face and lips denies sob or dysphagia afebrile no pains OBJECTIVE: Vital Signs-as noted below Exam: General-alert and awake and not in distress HEENT- normal hearing. Right side face swelling involving lips Neck-no neck masses Lungs-cta b/l no wheezing no crackles present Heart-s1 and s2 heard regular rate and rhythm no murmurs Abdomen-soft BS present non tender no distension Extremities- no edema no erythema Neuro-alert and awake moves extremities Lab data as noted below. ASSESSMENT & PLAN: Angioedema: secondary to Lisinopril, ? 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 Pathological fracture of left mandible attributed to radiation therapy Consulted wound care needs f/u Alcohol use disorder Banana bag Will monitor for withdrawal Ativan PRN DVT Px: Lovenox SQ Code Status: Full Code Disposition: Monitor in ICU for now Vital Signs: Date Time Temp Pulse Resp B/P (MAP) Pulse Ox O2 Delivery O2 Flow Rate FiO2 09/03/17 08:01 36.8 84 16 140/95 (110) 97 Nasal Cannula 2.0 09/03/17 08:00 86 16 09/03/17 07:36 88 18 137/90 (106) 98 09/03/17 07:35 96 Room Air 09/03/17 07:00 73 19 95 09/03/17 06:00 78 18 134/89 (104) 95 Nasal Cannula 2.0 09/03/17 04:00 36.8 76 18 150/86 (107) 94 Nasal Cannula 2.0 09/03/17 04:00 94 Nasal Cannula 2.0 09/03/17 02:00 37.0 80 18 127/70 (89) 92 09/03/17 01:57 37.0 85 18 126/66 92 09/03/17 01:13 37.1 82 18 148/95 92 09/03/17 00:52 37.0 83 18 161/94 92 09/03/17 00:19 94 Room Air 93.0 09/03/17 00:00 37.2 80 18 154/94 (114) 93 Room Air 09/03/17 00:00 94 Room Air 09/02/17 22:30 37.1 92 18 163/104 93 Room Air 09/02/17 22:27 37.1 106 18 163/104 94 09/02/17 22:00 36.8 90 20 151/91 94 09/02/17 21:45 36.8 88 20 141/90 93 09/02/17 21:38 36.7 89 20 139/93 94 09/02/17 21:29 88 09/02/17 20:42 91 139/100 94 Room Air 09/02/17 19:30 90 18 123/88 96 Room Air 09/02/17 17:31 97 18 146/87 96 Room Air 09/02/17 17:30 100 09/02/17 17:26 97 Room Air 09/02/17 17:22 36.7 103 16 163/98 97 Room Air Lab Results: Results Past 24 Hours Test 09/02/17 17:25 09/02/17 19:30 09/03/17 00:57 09/03/17 05:25 Range/Units White Blood Count 4.97 4.8-10.8 K/uL Red Blood Count 3.74 4.7-6.1 M/uL Hemoglobin 13.0 14.0-18.0 g/dL Hematocrit 36.9 42-52 % Mean Corpuscular Volume 98.7 80-100 fL Mean Corpuscular Hemoglobin 34.8 25-34 pg Mean Corpuscular Hemoglobin Concent 35.2 32-36 g/dl Platelet Count 196 130-400 K/uL Mean Platelet Volume 8.9 7.4-10.4 fL Neutrophils (%) (Auto) 69.0 % Lymphocytes (%) (Auto) 13.7 % Monocytes (%) (Auto) 15.7 % Eosinophils (%) (Auto) 1.2 % Basophils (%) (Auto) 0.2 % Neutrophils # (Auto) 3.43 1.4-6.5 K/uL Lymphocytes # (Auto) 0.68 1.2-3.4 K/uL Monocytes # (Auto) 0.78 0.11-0.59 K/uL Eosinophils # (Auto) 0.06 0-0.5 K/uL Basophils # (Auto) 0.01 0-0.2 K/uL RDW Standard Deviation 49.4 36.4-46.3 fL RDW Coefficient of Variation 13.8 11.5-14.5 % Immature Granulocyte % (Auto) 0.2 % Immature Granulocyte # (Auto) 0.01 0.00-0.02 K/uL Prothrombin Time 9.9 9.0-12.0 SECONDS Prothromb Time International Ratio 0.9 0.9-1.1 Activated Partial Thromboplast Time 28.4 21.0-31.0 SECONDS Partial Thromboplastin Ratio 1.1 Sodium Level 126 136-145 mmol/L Potassium Level 3.4 3.5-5.1 mmol/L Chloride Level 92 98-107 mmol/L Carbon Dioxide Level 27 21-32 mmol/L Anion Gap 7.0 3-11 mmol/L Blood Urea Nitrogen 16 7-18 mg/dl Creatinine 0.65 0.60-1.40 mg/dl Est Creatinine Clear Calc Drug Dose 151.8 ml/min Estimated GFR () 123.4 Estimated GFR (Non- 106.5 BUN/Creatinine Ratio 24.7 10-20 Random Glucose 89 70-99 mg/dl Calcium Level 9.5 8.5-10.1 mg/dl Total Bilirubin 0.4 0.2-1 mg/dl Direct Bilirubin 0.1 0-0.2 mg/dl Aspartate Amino Transf (AST/SGOT) 15 15-37 U/L Alanine Aminotransferase (ALT/SGPT) 23 12-78 U/L Alkaline Phosphatase 112 45-117 U/L Total Creatine Kinase 51 39-308 U/L Creatine Kinase MB 0.8 0.5-3.6 ng/ml Creatine Kinase MB Ratio 1.6 0-3.0 Troponin I < 0.015 0-0.045 ng/ml Total Protein 8.1 6.4-8.2 gm/dl Albumin 3.7 3.4-5.0 gm/dl Lipase 141 73-393 U/L Ethyl Alcohol mg/dL 92.0 0-3 mg/dl Urine Color YELLOW Urine Appearance CLEAR CLEAR Urine pH 6.5 4.5-7.5 Urine Specific [place] 1.011 1.000-1.030 Urine Protein NEG NEG Urine Glucose (UA) NEG NEG Urine Ketones NEG NEG Urine Occult Blood NEG NEG Urine Nitrite NEG NEG Urine Bilirubin NEG NEG Urine Urobilinogen NEG NEG Urine Leukocyte Esterase NEG NEG Urine Opiates Screen NEG NEG Urine Methadone, Qualitative NEG NEG Urine Barbiturates NEG NEG Urine Phencyclidine (PCP) Level NEG NEG Ur Amphetamine/Methamphetamine NEG NEG MDMA (Ecstasy) Screen NEG NEG Urine Benzodiazepines Screen NEG NEG Urine Cocaine Metabolite NEG NEG Urine Marijuana (THC) POS NEG Bedside Glucose 159 152 70-99 mg/dl Test 09/03/17 05:59 Range/Units White Blood Count 2.78 4.8-10.8 K/uL Red Blood Count 3.41 4.7-6.1 M/uL Hemoglobin 11.8 14.0-18.0 g/dL Hematocrit 34.0 42-52 % Mean Corpuscular Volume 99.7 80-100 fL Mean Corpuscular Hemoglobin 34.6 25-34 pg Mean Corpuscular Hemoglobin Concent 34.7 32-36 g/dl Platelet Count 182 130-400 K/uL Mean Platelet Volume 9.0 7.4-10.4 fL Neutrophils (%) (Auto) 89.6 % Lymphocytes (%) (Auto) 8.6 % Monocytes (%) (Auto) 1.8 % Eosinophils (%) (Auto) 0.0 % Basophils (%) (Auto) 0.0 % Neutrophils # (Auto) 2.49 1.4-6.5 K/uL Lymphocytes # (Auto) 0.24 1.2-3.4 K/uL Monocytes # (Auto) 0.05 0.11-0.59 K/uL Eosinophils # (Auto) 0.00 0-0.5 K/uL Basophils # (Auto) 0.00 0-0.2 K/uL RDW Standard Deviation 50.5 36.4-46.3 fL RDW Coefficient of Variation 13.9 11.5-14.5 % Immature Granulocyte % (Auto) 0.0 % Immature Granulocyte # (Auto) 0.00 0.00-0.02 K/uL Sodium Level 133 136-145 mmol/L Potassium Level 3.6 3.5-5.1 mmol/L Chloride Level 98 98-107 mmol/L Carbon Dioxide Level 27 21-32 mmol/L Anion Gap 8.0 3-11 mmol/L Blood Urea Nitrogen 14 7-18 mg/dl Creatinine 0.68 0.60-1.40 mg/dl Est Creatinine Clear Calc Drug Dose 142.1 ml/min Estimated GFR () 121.2 Estimated GFR (Non- 104.5 BUN/Creatinine Ratio 20.2 10-20 Random Glucose 134 70-99 mg/dl Calcium Level 8.7 8.5-10.1 mg/dl Phosphorus Level 3.0 2.5-4.9 mg/dl Magnesium Level 2.1 1.8-2.4 mg/dl Total Bilirubin 0.5 0.2-1 mg/dl Direct Bilirubin 0.2 0-0.2 mg/dl Aspartate Amino Transf (AST/SGOT) 13 15-37 U/L Alanine Aminotransferase (ALT/SGPT) 22 12-78 U/L Alkaline Phosphatase 92 45-117 U/L Total Protein 7.3 6.4-8.2 gm/dl Albumin 3.3 3.4-5.0 gm/dl Microbiology Results 09/02/17 MRSA DNA Surveillance Screen - Final, Complete Specimen Negative for MRSA by DNA Probe
[2017-09-03] MEDS: NSS + 20MEQ KCL 1000ML 1,000 ML IV SCH (12:11)
[2017-09-03] MEDS ORDERED: LORAZEPAM 2 MG/ML 1 ML VIAL IV PRN ×2 (15:45)
[2017-09-03] MEDS ORDERED: PRED10TA PO (17:02)
[2017-09-03] MEDS ORDERED: THIA50TA3 PO (17:02)
[2017-09-03] MEDS ORDERED: CARV6.252 PO (17:02)
[2017-09-03] MEDS ORDERED: RANI150T3 PO (17:02)
[2017-09-03] MEDS ORDERED: HYDR25TA5 PO (17:02)
[2017-09-03] MEDS ORDERED: CETI10TA10 PO (17:02)
[2017-09-03] MEDS ORDERED: MULTTAB PO (17:02)
--- NOTE | 2017-09-03 17:05 | Discharge Instructions ---
Discharge Instructions Date of Service Sep 03, 2017. Admission Reason for Admission: Angioedema Discharge Discharge Diagnosis / Problem: angioedema Discharge Goals Goal(s): Decrease discomfort, Improve function Activity Recommendations Activity Limitations: resume your previous activity . Instructions / Follow-Up Instructions / Follow-Up FOLLOWUP WITH FAMILY DOCTOR ON Aug AT 1:15PM. Current Hospital Diet Patient's current hospital diet: AHA Diet (Heart Healthy) Discharge Diet Recommended Diet: AHA Diet (Heart Healthy) Pending Studies Studies pending at discharge: no Medical Emergencies . Who to Call and When: Medical Emergencies: If at any time you feel your situation is an emergency, please call 911 immediately. . Non-Emergent Contact Non-Emergency issues call your: Primary Care Provider . . "Provider Documentation" section prepared by Rocco Larry. . VTE Core Measure Inpt VTE Proph given/why not?: Enoxaparin (Lovenox)SQ
[2017-09-03] MEDS ORDERED: LISI-461 PO (17:12)
[2017-09-03] MEDS ORDERED: BUPR150T7 PO (17:12)
--- NOTE | 2017-09-03 18:40 | Critical Care Progress Note ---
Critical Care Progress Note Date of Service Sep 03, 2017. Attending Dr. Mo Subjective denies sob or chest pain, no pain in the jaw, no dysphagia, no dysphonia. Objective VSS, no hypoxia, minimal swelling in the lips, lower jaw deformity noted due to SBRT, S1S2, RRR, lungs are clear, abdomen is benign. no edema. Current SOFA Score SOFA Score Response (Comments) Value PaO2/FiO2 (mmHg) < 400 1 SaO2 / FIO2 221 - 301 1 Platelets (x10) > 150 0 Bilirubin (mg/dL) < 1.2 0 Noy Coma Score 15 0 Level of Hypotension No Hypotension 0 Creatinine (mg/dL) < 1.2 0 Total 2 Assessment & Plan 1- oral squamous CA, s/p XRTX, off chemo. 2- COPD, active smoker. 3- ETOH abuse. 4- angioedema related to recent use of toothpaste ( per pt). but also on ACEI. 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 Plan: 1- continue steroids, change to oral prednisone 40 mg po daily for 5 days total. 2- continue H2 blockers and H1 blockers for 14 days total. 3- the pt is needing more ativan but he is awake alert and answering properly. 4- oral intake. he tolerate all types of food. 5- DVT prophylaxis. 6- GI prophylaxis. 7- culture the fistula output. 8- the pt in fact can be discharge home with the above, since yaneli is a daily alcohol drinker and not willing to stop, it would be more reasonable to be discharge , advise him to seek help to quit alcohol and smoking, rather than going to a withdrawal storm. 9- follow up with his PCP and ONC. discussed with the staff on rounds in details. CCT 35 min. Consults & Procedures Consultants: ENT Procedures: none. Data I & O: 24-Hour Column 09/04/17 08:00 Intake Total 1630 ml Output Total 400 ml Balance 1230 ml Vital Signs: Date Time Temp Pulse Resp B/P (MAP) Pulse Ox O2 Delivery O2 Flow Rate FiO2 09/03/17 17:20 36.3 91 18 96 Room Air 09/03/17 16:00 36.3 91 18 141/97 (112) 96 Room Air 09/03/17 16:00 96 Room Air 09/03/17 15:00 82 15 09/03/17 14:00 83 18 09/03/17 13:57 83 17 146/90 (108) 96 Room Air 09/03/17 13:00 88 20 96 09/03/17 12:00 91 22 09/03/17 11:10 96 Nasal Cannula 2.0 09/03/17 11:00 36.8 85 27 97 Nasal Cannula 2.0 09/03/17 10:02 76 18 142/89 (106) 97 09/03/17 10:00 78 20 98 09/03/17 09:00 96 20 98 09/03/17 08:01 36.8 84 16 140/95 (110) 97 Nasal Cannula 2.0 09/03/17 08:00 86 16 09/03/17 07:36 88 18 137/90 (106) 98 09/03/17 07:35 96 Room Air 09/03/17 07:00 73 19 95 09/03/17 06:00 78 18 134/89 (104) 95 Nasal Cannula 2.0 09/03/17 04:00 36.8 76 18 150/86 (107) 94 Nasal Cannula 2.0 09/03/17 04:00 94 Nasal Cannula 2.0 09/03/17 02:00 37.0 80 18 127/70 (89) 92 09/03/17 01:57 37.0 85 18 126/66 92 09/03/17 01:13 37.1 82 18 148/95 92 09/03/17 00:52 37.0 83 18 161/94 92 09/03/17 00:19 94 Room Air 93.0 09/03/17 00:00 37.2 80 18 154/94 (114) 93 Room Air 09/03/17 00:00 94 Room Air 09/02/17 22:30 37.1 92 18 163/104 93 Room Air 09/02/17 22:27 37.1 106 18 163/104 94 09/02/17 22:00 36.8 90 20 151/91 94 09/02/17 21:45 36.8 88 20 141/90 93 09/02/17 21:38 36.7 89 20 139/93 94 09/02/17 21:29 88 09/02/17 20:42 91 139/100 94 Room Air 09/02/17 19:30 90 18 123/88 96 Room Air Laboratory Results: Last 24 Hours Test 09/02/17 19:30 09/03/17 00:57 09/03/17 05:25 09/03/17 05:59 Urine Color YELLOW Urine Appearance CLEAR Urine pH 6.5 Urine Specific [place] 1.011 Urine Protein NEG Urine Glucose (UA) NEG Urine Ketones NEG Urine Occult Blood NEG Urine Nitrite NEG Urine Bilirubin NEG Urine Urobilinogen NEG Urine Leukocyte Esterase NEG Urine Opiates Screen NEG Urine Methadone, Qualitative NEG Urine Barbiturates NEG Urine Phencyclidine (PCP) Level NEG Ur Amphetamine/Methamphetamine NEG MDMA (Ecstasy) Screen NEG Urine Benzodiazepines Screen NEG Urine Cocaine Metabolite NEG Urine Marijuana (THC) POS Bedside Glucose 159 mg/dl 152 mg/dl White Blood Count 2.78 K/uL Red Blood Count 3.41 M/uL Hemoglobin 11.8 g/dL Hematocrit 34.0 % Mean Corpuscular Volume 99.7 fL Mean Corpuscular Hemoglobin 34.6 pg Mean Corpuscular Hemoglobin Concent 34.7 g/dl Platelet Count 182 K/uL Mean Platelet Volume 9.0 fL Neutrophils (%) (Auto) 89.6 % Lymphocytes (%) (Auto) 8.6 % Monocytes (%) (Auto) 1.8 % Eosinophils (%) (Auto) 0.0 % Basophils (%) (Auto) 0.0 % Neutrophils # (Auto) 2.49 K/uL Lymphocytes # (Auto) 0.24 K/uL Monocytes # (Auto) 0.05 K/uL Eosinophils # (Auto) 0.00 K/uL Basophils # (Auto) 0.00 K/uL RDW Standard Deviation 50.5 fL RDW Coefficient of Variation 13.9 % Immature Granulocyte % (Auto) 0.0 % Immature Granulocyte # (Auto) 0.00 K/uL Sodium Level 133 mmol/L Potassium Level 3.6 mmol/L Chloride Level 98 mmol/L Carbon Dioxide Level 27 mmol/L Anion Gap 8.0 mmol/L Blood Urea Nitrogen 14 mg/dl Creatinine 0.68 mg/dl Est Creatinine Clear Calc Drug Dose 142.1 ml/min Estimated GFR () 121.2 Estimated GFR (Non- 104.5 BUN/Creatinine Ratio 20.2 Random Glucose 134 mg/dl Calcium Level 8.7 mg/dl Phosphorus Level 3.0 mg/dl Magnesium Level 2.1 mg/dl Total Bilirubin 0.5 mg/dl Direct Bilirubin 0.2 mg/dl Aspartate Amino Transf (AST/SGOT) 13 U/L Alanine Aminotransferase (ALT/SGPT) 22 U/L Alkaline Phosphatase 92 U/L Total Protein 7.3 gm/dl Albumin 3.3 gm/dl
--- NOTE | 2017-09-03 19:16 | Discharge Summary ---
Discharge Summary Date of Service Sep 03, 2017. Discharge Summary Admission Date: Sep 02, 2017 at 21:08 Discharge Date: Sep 03, 2017 Discharge Disposition: Home Principal Diagnosis: ANGIOEDEMA Secondary Diagnoses/Problems: (1) HTN (hypertension) Status: Chronic (2) Tongue cancer Status: Chronic Procedures: CXR: Unchanged scarring/atelectasis of the left lung base without acute cardiopulmonary process. Consultations: CRITICAL CARE Medication Reconciliation New Medications: Carvedilol (Coreg) 6.25 Mg Tab 1 TAB PO BID for 30 Days, #60 TAB 1 Refill Cetirizine Hcl (Zyrtec) 10 Mg Tab 10 MG PO DAILY for 14 Days, #14 TAB Multivitamins/Minerals (Mvi With Minerals) Tab 1 TAB PO DAILY for 30 Days, TAB Prednisone Tab (Prednisone) 10 Mg Tab 40 MG PO UD, #20 TAB PREDNISONE 40MG PO DAILY X 2 DAYS THEN PREDNISONE 30MG PO DAILY X 2 DAYS THEN PREDNISONE 20MG PO DAILY X 2 DAYS THEN PREDNISONE 10MG PO DAILY X 2 DAYS THEN STOP. Ranitidine Hcl (Zantac) 150 Mg Tab 150 MG PO BID for 14 Days, #28 TAB Thiamine Hcl (Vitamin B-1) 50 Mg Tab 50 MG PO DAILY for 30 Days, #30 TAB Continued Medications: Bupropion Hcl (Wellbutrin Sr) 150 Mg Tab 1 TAB PO BID for 30 Days, #60 TAB 2 Refills Diclofenac Sodium (Topical) (Voltaren 1% Top Gel) 1 % Gel 1 APPL TOP QID PRN for Pain Furosemide (Furosemide) 20 Mg Tab 1 TAB PO DAILY PRN for SWELLING Magnesium Oxide (Mg Supplement (Magnesium Oxide) 241.3 Mg Tab 1 TAB PO DAILY WITH LASIX Potassium Chloride (K-Tabs) 10 Meq Tab 2 TAB PO DAILY WITH LASIX Discontinued Medications: Lisinopril (Lisinopril) 10 Mg Tab 10 MG PO DAILY, #30 Sodium Fluoride (Dental) (Prevident [address]) 1.1 % Pst 1 DOSE UD Admission Information HPI (per Admitting provider): Patient is a 61 yr male with 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 Patient states he used a new prescription toothpaste given by his dentist today and 1 1/2 hours later he started noticing the upper lip getting swollen and later his face started swelling as well. Patient states he ate store bought chips and salsa today. He takes lisinopril for HTN but had no issues with its use previously. Denies any history of fever, chills, SOB, cough, wheezing, chest pain, nausea, vomiting, abd pain, headache, dizziness, dysphagia, odynophagia, no new medication use, Insect bite, trauma, recent travel, similar symptoms in the past. Physical Exam (per Admitting): General Appearance: WD/WN, no apparent distress Head: normocephalic, atraumatic, + pertinent finding (Swelling of Upper lip , face) Eyes: normal inspection, PERRL, EOMI, sclerae normal ENT: normal ENT inspection, hearing grossly normal Neck: supple, trachea midline Respiratory/Chest: chest non-tender, lungs clear, normal breath sounds, no respiratory distress, no accessory muscle use Cardiovascular: regular rate, rhythm, no edema, no murmur Abdomen/GI: normal bowel sounds, non tender, soft Back: normal inspection Extremities/Musculoskelatal: normal inspection, no pedal edema Neurologic/Psych: cotton baler II-XII nml as tested, no motor/sensory deficits, alert , normal mood/affect, oriented x 3 Skin: normal color, warm/dry Hospital Course Angioedema: secondary to Lisinopril, ? 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 Discharge Instructions Discharge Instructions Date of Service Sep 03, 2017. Admission Reason for Admission: Angioedema Discharge Discharge Diagnosis / Problem: angioedema Discharge Goals Goal(s): Decrease discomfort, Improve function Activity Recommendations Activity Limitations: resume your previous activity . Instructions / Follow-Up Instructions / Follow-Up FOLLOWUP WITH FAMILY DOCTOR ON Aug AT 1:15PM. Current Hospital Diet Patient's current hospital diet: AHA Diet (Heart Healthy) Discharge Diet Recommended Diet: AHA Diet (Heart Healthy) Pending Studies Studies pending at discharge: no Medical Emergencies . Who to Call and When: Medical Emergencies: If at any time you feel your situation is an emergency, please call 911 immediately. . Non-Emergent Contact Non-Emergency issues call your: Primary Care Provider . . "Provider Documentation" section prepared by Rocco Larry. . VTE Core Measure Inpt VTE Proph given/why not?: Enoxaparin (Lovenox)SQ
[2017-09-04] MEDS ORDERED: HYDROCHLOROTHIAZIDE 25 MG TAB PO SCH (09:00)
== END 2017-09-03 17:47 | disposition home or self-care (01) | DRG 916 ==
LOC: C.EDB 17:17 → C.MSICU 21:08 → ENRESERV 21:27
PROVIDERS: ADMIT Internal Medicine; ATTEND Internal Medicine
DX: T78.3XXA Angioneurotic edema, initial encounter (principal); E87.1 Hypo-osmolality and hyponatremia; I10 Essential (primary) hypertension; E87.6 Hypokalemia; E87.8 Other disorders of electrolyte and fluid balance, not elsewhere classified; J44.9 Chronic obstructive pulmonary disease, unspecified; F10.10 Alcohol abuse, uncomplicated; F17.210 Nicotine dependence, cigarettes, uncomplicated; T46.4X5A Adverse effect of angiotensin-converting-enzyme inhibitors, initial encounter; Z79.899 Other long term (current) drug therapy; Z85.810 Personal history of malignant neoplasm of tongue; Z88.6 Allergy status to analgesic agent; Z92.3 Personal history of irradiation; F12.10 Cannabis abuse, uncomplicated; X58.XXXA Exposure to other specified factors, initial encounter

== ENCOUNTER → 2017-11-19 | Outpatient (CLI) | payer OTHER ==
[~2017-11-19] MED LIST changes: +BUPR150T7 PO; +CARV6.252 PO; +DICL1GEL12 TOP; -FURO20TA PO; -LISI-461 PO; +LSX20 PO; -MAGN400T5 PO; +MAGN400T7 PO; -NUTR-31 PO; +POTA10TA PO; -POTA1CAP2 PO; +PRED10TA PO
== END | disposition home or self-care (01) ==
LOC: C.RDSM 12:01
PROVIDERS: ATTEND Physical Medicine & Rehabilitation Sports Medicine
DX: M25.561 Pain in right knee (principal)

== ENCOUNTER → 2018-04-19 | Outpatient (CLI) | payer OTHER ==
[~2018-04-19] MED LIST changes: -PRED10TA PO
--- NOTE | 2018-04-19 08:47 | DIAGNOSTIC IMAGING REPORT ---
R KNEE 3 VIEWS, R TIBIA/FIBULA 2 VIEWS HISTORY: 62 years-old Male RIGHT KNEE AND LOWER LEG PAIN acute right knee and right lower leg pain status post fall COMPARISON: MRI right knee 11/22/2017, right knee radiographs 11/19/2017 TECHNIQUE: 3 views of the right knee and 2 views of the right tibia and fibula FINDINGS: KNEE: Moderate osteoarthritis about the medial compartment with mild to moderate lateral and mild patellofemoral compartment osteoarthritis. Moderate sized joint effusion. Peripheral arterial calcifications are noted. There is an acute minimally displaced fracture involving the proximal metaphyseal portion of the fibula. Mild soft tissue swelling circumferentially about the knee. TIBIA/FIBULA: Acute proximal fibular fracture as above. No definite fracture of the tibia. Dystrophic appearing calcifications within the region of the posterior leg distally. IMPRESSION: 1. Acute minimally displaced fracture of the proximal metaphyseal fibula. 2. Soft tissue swelling about the knee with moderate joint effusion. 3. Tricompartmental osteoarthritis of the knee. The above report was generated using voice recognition software. It may contain grammatical, syntax or spelling errors. Electronically signed by: Luis F Curtis M.D. 04/19/2018 8:46 AM Dictated Date/Time: 04/19/2018 8:41 AM
== END | disposition home or self-care (01) ==
LOC: C.RDSM 13:06
PROVIDERS: ATTEND Physician Assistant
DX: M17.11 Unilateral primary osteoarthritis, right knee (principal); M25.461 Effusion, right knee; S89.201A Unspecified physeal fracture of upper end of right fibula, initial encounter for closed fracture; X58.XXXA Exposure to other specified factors, initial encounter

== ENCOUNTER → 2018-04-26 | Outpatient (CLI) | payer OTHER | END | disposition home or self-care (01) | LOC: C.RDSM 09:10 | PROVIDERS: ATTEND Physical Medicine & Rehabilitation Sports Medicine | DX: M25.561 Pain in right knee (principal); M25.571 Pain in right ankle and joints of right foot; S82.81 Torus fracture of upper end of fibula; X58.XXXA Exposure to other specified factors, initial encounter ==

== ENCOUNTER 2019-04-17 15:38 | Observation (INO) ==
--- OUTSIDE RECORDS SUMMARY | 2019-04-17 15:42 | External Medical Summary | Continuity of Care Document ---
:1955 Author Name Violetta Estrada, Provider Address Unavailable Unavailable , Care Team Providers Name Role Phone Jamila Del Toro PA-C Unavailable [email or web address] BERNA MORENO M.D., Haroon Unavailable Unavailable Anderson Stone Unavailable Unavailable Annie Cabral DO Unavailable [email or web address] [place] Todd TENORIO Unavailable Unavailable DERDEL Unavailable Unavailable KOURTNEY S Unavailable Unavailable Unavailable Unavailable Unavailable Problems Klinefelters syndrome (758.7) (Q98.4) Vitamin D deficiency (268.9) (E55.9) Lymphadenopathy (785.6) (R59.1) Osteoarthritis of knee (715.36) (M17.10) Impaired fasting glucose (790.21) (R73.01) Peripheral neuropathy (356.9) (G62.9) History of Hypercholesterolemia (272.0) (E78.00) Status: Resolved Hyponatremia (276.1) (E87.1) Depression (311) (F32.9) Dermatosis (709.9) (L98.9) Opioid abuse (305.50) (F11.10) Candidiasis (112.9) (B37.9) Noncompliance with treatment plan (V15.81) (Z91.11) Chronic Duodenitis (535.60) Iron Deficiency Anemia Secondary To Chronic Blood Loss (280. 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 Tdap On: 02-Mar-2011 12:17 Lot #: [id number], [employer] Social History - Smoking Status Smoker. current status unknown Plan of Treatment Planned Observations Planned Goals not documented Results No Known Results Results not documented
[2019-04-17 16:03] LABS: Eosinophils # (auto) 0.04 K/uL (0-0.5); Eosinophils % (auto) 0.5 %; Hematocrit (blood only) 37.9 % (42-52); Hemoglobin 12.9 g/dL (14.0-18.0); Immature Granulocytes # (auto) 0.03 K/uL (0.00-0.02); Immature Granulocytes % (auto) 0.3 %; Lymphocytes # (auto) 0.59 K/uL (1.2-3.4); Lymphocytes % (auto) 6.9 %; Mean Corpuscular Volume 98.7 fL (80-100); Mean Platelet Volume 9.8 fL (7.4-10.4); Monocytes # (auto) 0.59 K/uL (0.11-0.59); Monocytes % (auto) 6.9 %; Neutrophils # (auto) 7.33 K/uL (1.4-6.5); Neutrophils % (auto) 85.4 %; Platelet Count 140 K/uL (130-400); RDW Coefficient of Variation 14.6 % (11.5-14.5); RDW Standard Deviation 52.7 fL (36.4-46.3); Red Blood Count 3.84 M/uL (4.7-6.1); White Blood Count 8.58 K/uL (4.8-10.8)
[2019-04-17 16:11] LABS: Albumin Level 3.3 gm/dl (3.4-5.0); BUN Creatinine Ratio 35.8 (10-20); Calcium 8.9 mg/dl (8.5-10.1); Creatinine Clr Calc Pharmacy 158.1 ml/min; Est GFR (African American) 125.8; Est GFR (Non-African American) 108.5; Potassium 3.3 mmol/L (3.5-5.1)
[2019-04-17 16:14] LABS: Bilirubin,Total 0.6 mg/dl (0.2-1); Globulin 3.2 gm/dl (2.5-4.0); Total Protein 6.5 gm/dl (6.4-8.2)
--- NOTE | 2019-04-17 16:19 | CT Scan Report ---
CT SCAN OF THE BRAIN WITHOUT IV CONTRAST CLINICAL HISTORY: Fall. COMPARISON STUDY: CT of the brain dated 04/16/2018. TECHNIQUE: Unenhanced axial CT scan of the brain is performed from the vertex to the skull base. A d ose lowering technique was utilized adhering to the principles of ALARA. CT DOSE: 2206.54 mGy.cm FINDINGS: Brain parenchyma: Mild subcortical and periventricular microangiopathic disease is similar to previou s. There is no hemorrhage, mass effect, or evidence of acute territorial ischemia by CT criteria. Gra y-white matter differentiation is preserved. No extra-axial fluid collection is seen. Ventricles, sulci, cisterns: Normal in configuration. Intracranial vasculature: There is atherosclerotic calcification of the cavernous carotid and vertebr al arteries. Calvarium: There is no depressed calvarial fracture. Sinuses and mastoids: The visualized paranasal sinuses are clear. The mastoid air cells are well pneu matized. Orbits: The bony orbits are grossly intact. IMPRESSION: There is no hemorrhage, mass effect, or evidence of acute territorial ischemia by CT ashley arndt. Electronically signed by: Frankie Ma M.D. 04/17/2019 4:17 PM
--- NOTE | 2019-04-17 16:21 | CT Scan Report ---
CT cervical spine wo con CT DOSE: HISTORY: Trauma. Mental status change. fall hit head/ neck pain TECHNIQUE: Multiaxial CT images of the cervical spine were performed and reformatted in the sagittal and coronal plane without the use of contrast. A dose lowering technique was utilized adhering to th e principles of ALARA. COMPARISON: None. FINDINGS: Severe degenerative disc changes throughout the entire cervical region. No evidence for com pression deformity. Note is made of potential compression deformity of T2 which is only partially julius ntified on this study. Grade 2 anterolisthesis C4 on C5 secondary to a unilateral posterior spondylolysis with considerable superimposed bilateral degenerative change of the posterior facets. C1-C2 complex demonstrates moderate degenerative change with no acute process. IMPRESSION: 1. Severe degenerative change. 2. Grade 2 anterolisthesis C4 on C5 felt to be secondary to congenital and degenerative changes of th e posterior elements. 3. Probable compression deformity inadequately evaluated on this study of the T2 vertebral body. CT of the thoracic spine is suggested. The above report was generated using voice recognition software. It may contain grammatical, syntax or spelling errors. Electronically signed by: Fidencio Ramirez M.D. 04/17/2019 4:20 PM
--- NOTE | 2019-04-17 16:33 | CT Scan Report ---
CT SCAN OF THE THORACIC SPINE WITHOUT IV CONTRAST CLINICAL HISTORY: Fall. Thoracic back pain. COMPARISON STUDY: Chest CT dated 08/29/2018. PET/CT dated 07/03/2018. TECHNIQUE: CT scan of the thoracic spine is performed from the lower cervical spine to the upper lumb ar spine. Images are reviewed in the axial, sagittal, and coronal planes. IV contrast was not adminis tered for this examination. A dose lowering technique was utilized adhering to the principles of KINGS Pat[place]. FINDINGS: The skeletal structures are osteopenic.There is an acute compression fracture of the T2 ho tebral body with moderate loss of height. Fracture involves the anterior cortex, the posterior cortex , as well as the superior and inferior endplates. There are small fragments retropulsed by up to 3 mm . There is also a minimal acute superior endplate compression fracture of T3. No retropulsed fragment s are seen. There is a mild chronic superior endplate compression deformity of T6. This is unchanged from previous. Vertebral body height is otherwise maintained throughout the thoracic spine. There is mild hyperkyphosis. Small anterior osteophytes are seen throughout. The transverse and spinous proces ses are intact. Multilevel degenerative disc space narrowing is noted. Small posterior disc osteophyt e complexes are seen at several levels in the mid to lower thoracic region. The largest is at T5-T6. There is no evidence of large disc herniation or high-grade central canal stenosis by CT. Paravertebr al edema is noted at T2 and T3. The paraspinous soft tissues are otherwise normal in appearance. Emph ysematous change is noted. There is no evidence of pneumothorax involving the visualized lung parench yma. Scarring/atelectasis is seen at both lung bases. No airspace consolidation or pleural effusion i s identified. IMPRESSION: 1. There is a complex compression fracture of T2 with moderate loss of height, involvement of the pos terior cortex, and mildly retropulsed fragments. The posterior elements are not involved. This fractu re may be unstable. 2. There is a minimal acute superior endplate compression fracture of T3. 3. No additional fracture is identified. 4. Emphysema. 5. Additional findings as above. Electronically signed by: Frankie Ma M.D. 04/17/2019 4:31 PM
--- NOTE | 2019-04-17 17:46 | XRay Report ---
SINGLE VIEW CHEST CLINICAL HISTORY: Left-sided chest wall pain. FINDINGS: An AP, portable, upright chest radiograph is compared to study dated 12/18/2018. The examina tion is significantly degraded by portable technique and patient rotation. The patient's head partial ly obscures the lung apices. The heart is mildly enlarged and there is atherosclerotic calcification of the thoracic aorta. The pulmonary vasculature is noncongested. Patchy airspace opacities are iden tified at both lung bases. No large pleural effusion or pneumothorax is seen. The skeletal structures are osteopenic. There are healed left-sided rib fractures, similar to previous. IMPRESSION: 1. Cardiomegaly without radiographic evidence of congestive failure. 2. Dependent airspace opacities are present at both lung bases. This could represent atelectasis vers us pneumonia/aspiration pneumonitis. Clinical correlation will be required and radiographic follow-up to resolution is recommended. Electronically signed by: Frankie Ma M.D. 04/17/2019 5:45 PM
[2019-04-17] MEDS ORDERED: fentaNYL citrate 100 MCG/2 ML VIAL IV STA (17:56)
--- NOTE | 2019-04-17 19:17 | CT Scan Report ---
CT SCAN OF THE CHEST WITHOUT IV CONTRAST CLINICAL HISTORY: Fall. COMPARISON STUDY: Chest x-ray dated 12/18/2018. CT scan of the thoracic spine performed the same day 04/17/2019. Chest CT dated 08/29/2018. TECHNIQUE: CT scan of the thorax was performed from the thoracic inlet to the upper abdomen. Images are reviewed in the axial, sagittal, and coronal planes. IV contrast was not administered for this ex amination as per the referring clinician. Note that the examination is suboptimal without IV contrast . The examination is degraded by streak artifact from the arms which could not be elevated above the chest. A dose lowering technique was utilized adhering to the principles of ALARA. FINDINGS: Thyroid: Imaged portions of the thyroid gland are normal in size and attenuation. Low-attenuation thy roid nodules measure up to 1.6 cm. Thoracic aorta: There is mild atherosclerotic calcification of the thoracic aorta, which is normal in caliber and demonstrates standard 3-vessel arch anatomy. Heart: The heart is normal in size and without pericardial effusion. There is calcification of the ao rtic valve leaflets. The pulmonary trunk is normal in caliber. Lungs and pleural spaces: Emphysematous change is noted. There is no airspace consolidation, pleural effusion, or pneumothorax. Foci of scarring/atelectasis are present at the lung bases. The trachea an d central airways are clear. A 3 mm pleural-based nodule in the right lower lobe as seen on image #19 1. This is unchanged from previous. Mediastinum: There is no mediastinal hematoma or lymphadenopathy. May: Not well assessed without IV contrast. Axillae: There is no axillary lymphadenopathy. Upper abdomen: Partially visualized upper abdominal viscera is within normal limits. Skeletal structures: The skeletal structures are osteopenic. Again seen is an acute compression fract ure of the T2 vertebral body with moderate loss of height. Fracture involves the anterior cortex, the posterior cortex, as well as the superior and inferior endplates. There are small fragments retropul sed by up to 3 mm. There is also a minimal acute superior endplate compression fracture of T3. No ret ropulsed fragments are seen at T3. There is a mild chronic superior endplate compression deformity of T6. There are chronic/healed bilateral rib fractures. No acute rib fracture is seen. No lytic or elif stic bony lesions are seen. IMPRESSION: 1. Again seen are acute compression fractures of T2 and T3. See report of thoracic spine CT performed concurrently for detailed findings. 2. No additional acute fracture is identified. 3. Emphysema. 4. There is no airspace consolidation, pleural effusion, or pneumothorax. 5. Additional findings as above. Electronically signed by: Frankie Ma M.D. 04/17/2019 7:15 PM
[2019-04-17] MEDS ORDERED: LORazepam 1 MG/2 ML VIAL IV PRN (21:46)
[2019-04-17] MEDS ORDERED: DICLOFENAC SOD 1% GEL 100 GM TUBE EXT PRN (21:46)
[2019-04-17] MEDS ORDERED: ONDANSETRON INJ 2 MG/ML 2 ML VIAL IV PRN (21:46)
[2019-04-17] MEDS ORDERED: GABAPENTIN 1200MG ALCOHOL WITHDRAWAL LOAD PO STA (21:46)
[2019-04-17] MEDS ORDERED: LIDOCAINE HCL 5% OINT 30 GM TUBE TOP PRN (21:46)
[2019-04-17] MEDS ORDERED: NITROGLYCERIN SL 0.4 MG/TAB TAB SL PRN (21:46)
[2019-04-17] MEDS ORDERED: FUROSEMIDE 20 MG TAB PO PRN (21:46)
[2019-04-17] MEDS ORDERED: GABAPENTIN 600 MG TAB PO SCH (22:00)
[2019-04-17] MEDS: MoRPHine SULFATE 4 MG/ML 1 ML CARP\\VIAL IV PRN (22:03)
[2019-04-17] MEDS ORDERED: MULTI-VITAMIN INFUSION 10 ML, THIAMINE HCL 100 MG, FOLIC ACID 1 MG in SODIUM CHLORIDE 0... IV SCH (22:30)
[2019-04-17] MEDS: BusPIRone 15 MG TAB PO SCH (22:50)
[2019-04-17] MEDS: PENTOXIFYLLINE 400MG EXT REL TAB PO SCH (22:51)
--- NOTE | 2019-04-17 23:05 | Emergency Department Note ---
Entered by Juana Nguyen acting as a scribe for Iam Finn DO History of Present Illness General Chief complaint: Fall Stated complaint: FALL, BACK PAIN Source: patient History of Present Illness Provider complaint: fall Onset (ago): hour(s) ([employer]) Location: left Relieved By: + none Exacerbated By: + none Associated symptoms: + chest pain (left) and + other (+upper back pain, +lightheaded,+dizzy, -numbness or wekaness in legs); no headaches The patient is a 63 year old male who presents to the Emergency Room with complaints of a fall. The patient states that he was on his tractor when he felt lightheaded and dizzy and fell on his left side. The patient reports that he has left chest pain and upper back pain. He denies any headache, numbness or weakness in legs. He reports that he has a history of sickle cell carcinoma. No other exacerbating or remitting factors. Home Medications Home Medications Medication Instructions Recorded Confirmed Type atorvastatin 40 mg PO QAM 07/24/18 04/17/19 History diclofenac sodium 2 g TOPICAL QID PRN 07/24/18 04/17/19 History lidocaine 1 applic TOPICAL BID PRN 07/24/18 04/17/19 History metoprolol succinate 100 mg PO QAM 07/24/18 04/17/19 History oxycodone 5 mg PO Q6H PRN 07/24/18 04/17/19 History pentoxifylline 400 mg PO TID 07/24/18 04/17/19 History phenol [Chloraseptic] 1 - 2 spray MUCOUS MEMBRANE Q6 PRN 07/24/18 04/17/19 History Immunotherapy Drug 12/18/18 04/17/19 History furosemide [Lasix] 20 mg PO BID PRN 01/09/19 04/17/19 History buspirone 15 mg PO TID 04/17/19 04/17/19 History magnesium oxide 400 mg PO DAILY 04/17/19 04/17/19 History multivitamin with minerals 1 tab PO DAILY 04/17/19 04/17/19 History pembrolizumab [Keytruda] 0 mg IV .[id number] 04/17/19 04/17/19 History thiamine HCl (vitamin B1) 50 mg PO DAILY 04/17/19 04/17/19 History Allergies Allergy/AdvReac Type Severity Reaction Status Date / Time acetaminophen Allergy Intermediate CONTRAINDIC Verified 04/17/19 17:10 ATED aspirin Allergy Intermediate STOMACH Verified 04/17/19 17:10 BLEEDING NSAIDS (Non-Steroidal Allergy Intermediate GI PROBLEMS Verified 04/17/19 17:10 Anti-Inflamma codeine Allergy Mild high fever Verified 04/17/19 17:10 lisinopril Allergy Mild edema Verified 04/17/19 17:10 bee venom protein (honey bee) Allergy Unknown go into Verified 04/17/19 17:10 shock Past Med/Surg History Medical History Anxiety Brain aneurysm surgery scheduled @ [facility] [place] 08/20/18 Cardiac murmur Depression Hyperlipidemia Hypertension Osteoarthritis Spinal cord injury 16 yrs old---accident--broke neck and back--normal rom Tongue cancer 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", chemo Surgical History H/O skin graft off leg to mouth History of colonoscopy History of esophagogastroduodenoscopy (EGD) History of lung surgery "scrap inside and outside of my lungs for strep pneumonia" History of tooth extraction most of teeth Family History Other No pertinent family history Social History Preferred Language: [place] Communication Ability: Effective [employer] Teacher Required: No Beliefs That Will Affect Care: None Current Living Situation: Other Current Living Situation Comment: with friend Stephanie Other Information That Helps Us Care for You: No Feels Safe at Home: Yes Safety Concerns: Feels Safe At This Time Smoking Status: Current every day smoker Tobacco Type: cigarettes Cigarettes Per Day: 2-3 cigarettes/day Do You Dip or Chew Tobacco: No Second Hand Exposure: No Tobacco Cessation Education Requested by Patient: No Hx Alcohol Use: Yes Alcohol type: hard liquor Hx Substance Use: Yes substance use type: marijuana Substance Use Type Other:: CBD and THC Review of Systems See HPI for pertinent positives & negatives. and A total of 10 systems reviewed and were otherwise negative Physical Exam Vital Signs Vital Signs - 24 hr 04/17/19 15:50 04/17/19 16:05 04/17/19 17:25 Temperature 36.5 C Temperature Source Oral Sepsis Recent Fever Within 48 Hours No Sepsis Action Taken by Nursing No Action Required Pulse Rate 97 H Pulse Rate [Apical] 64 Pulse Rhythm [Apical] Regular Respiratory Rate 22 18 Respiratory Effort / Characteristics Non-Labored Non-Labored Respiratory Depth Normal Normal Blood Pressure [Right Arm] 141/81 H Blood Pressure Mean [Right Arm] 101 Pulse Oximetry 96 96 95 Oxygen Delivery Method Room Air Room Air Room Air 04/17/19 19:25 Temperature Temperature Source Sepsis Recent Fever Within 48 Hours Sepsis Action Taken by Nursing Pulse Rate Pulse Rate [Apical] 67 Pulse Rhythm [Apical] Respiratory Rate 21 Respiratory Effort / Characteristics Non-Labored Respiratory Depth Normal Blood Pressure [Right Arm] 135/81 Blood Pressure Mean [Right Arm] 99 Pulse Oximetry 94 Oxygen Delivery Method Room Air GENERAL: alert, well appearing, siting up in bed, well nourished, disheveled, non-toxic, talking in full sentences, hole in upper left mandible communicating with oropharynx. HEAD: normal cephalic, atraumatic EYE EXAM: normal conjunctiva OROPHARYNX: no exudate, no erythema, lips, buccal mucosa, and tongue normal and mucous membranes are moist EARS: TMs clear b/l NECK: supple, no nuchal rigidity, no adenopathy, non-tender CHEST: stable to compression anteriorly and posteriorly, acute reproducible te nderness to left chest wall. LUNGS: clear to auscultation. Normal chest wall mechanics HEART: no murmurs, S1 normal and S2 normal ABDOMEN: abdomen soft, non-tender, normo-active bowel sounds, no masses, no rebound or guarding. PELVIS: stable to compression anteriorly and posteriorly BACK: Back is symmetrical on inspection and there is no deformity, midline mid cervical tenderness tracking down to upper thoracic, no CVA tenderness. UPPER EXTREMITIES: full active and passive range of motion of all joints without tenderness to palpation LOWER EXTREMITIES: full active and passive range of motion of all joints without tenderness to palpation NEURO EXAM: Normal sensorium, cranial nerves II-XII grossly intact, normal speech, no gross weakness of arms, no gross weakness of legs. GCS: 15. Course 1549: The patient was evaluated in room A9B, and a complete history and physical examination were performed. 1727: I reevaluated the patient updated him on his results, the patient states that he is still in a lot of pain. 1805: I discussed the patient's case with Dr. Tiny Serrano Hospitalist, he will accept the patient for further evaluation. Consultations Consultation #1: Dr. Tiny Serrano Hospitalist Time: 18:06 Administered Medications Buspirone HCl (Buspar) 15 mg PO TID [facility] Stop: 05/17/19 21:45 Last Admin: 04/17/19 22:50 Dose: 15 mg Documented by: [id number] Morphine Sulfate (Morphine Sulfate) 3 mg IV Q3H PRN PRN Reason: Pain Stop: 05/01/19 21:45 Last Admin: 04/17/19 22:03 Dose: 3 mg Documented by: [id number] Pentoxifylline (Trental) 400 mg PO TID [facility] Stop: 05/17/19 21:45 Last Admin: 04/17/19 22:51 Dose: 400 mg Documented by: [id number] Discontinued Medications Fentanyl Citrate (Fentanyl Citrate) 50 mcg IV NOW STA Stop: 04/17/19 17:57 Last Admin: 04/17/19 18:03 Dose: 50 mcg Documented by: [id number] Gabapentin (Neurontin) 1,200 mg PO TODAY@2200 [facility] Stop: 04/17/19 22:01 Last Admin: 04/17/19 22:51 Dose: 1,200 mg Documented by: [id number] Medical Decision Making Differential Diagnosis Differential diagnoses include major intracranial, cervical, spinal, thoracic, abdominal, pelvic and neurologic injury. Fracture, contusion, sprain, strain, laceration, abrasions included as well. Medical Records Attestation: I reviewed the patient's medical records. Home Medications Current Medication List: was personally reviewed by me Laboratory Data Attestation: I reviewed the patient's lab results. Result diagrams: 04/17/19 15:23 04/17/19 15:23 Lab Results 04/17/19 04/17/19 04/17/19 Range/Units 15:23 15:23 15:23 WBC 8.58 (4.8-10.8) K/uL RBC 3.84 L (4.7-6.1) M/uL Hgb 12.9 L (14.0-18.0) g/dL Hct 37.9 L (42-52) % MCV 98.7 (80-100) fL MCH 33.6 (25-34) pg MCHC 34.0 (32-36) g/dL RDW Std Deviation 52.7 H (36.4-46.3) fL RDW Coeff of Ulises 14.6 H (11.5-14.5) % Plt Count 140 (130-400) K/uL MPV 9.8 (7.4-10.4) fL Immature Gran % (Auto) 0.3 % Neut % (Auto) 85.4 % Lymph % (Auto) 6.9 % Harlan % (Auto) 6.9 % Eos % (Auto) 0.5 % Baso % (Auto) 0.0 % Immature Gran # (Auto) 0.03 H (0.00-0.02) K/uL Neut # (Auto) 7.33 H (1.4-6.5) K/uL Lymph # (Auto) 0.59 L (1.2-3.4) K/uL Harlan # (Auto) 0.59 (0.11-0.59) K/uL Eos # (Auto) 0.04 (0-0.5) K/uL Baso # (Auto) 0.00 (0-0.2) K/uL Sodium 136 (136-145) mmol/L Potassium 3.3 L (3.5-5.1) mmol/L Chloride 100 (98-107) mmol/L Carbon Dioxide 30 (21-32) mmol/L Anion Gap 6.0 (3-11) BUN 21 H (7-18) mg/dl Creatinine 0.60 (0.6-1.4) mg/dl Est Cr Clr Drug Dosing 158.1 ml/min Est GFR ( Amer) 125.8 Est GFR (Non-Af Amer) 108.5 BUN/Creatinine Ratio 35.8 H (10-20) Glucose 79 (70-99) mg/dl Calcium 8.9 (8.5-10.1) mg/dl Total Bilirubin 0.6 (0.2-1) mg/dl AST 20 (15-37) U/L ALT 31 (12-78) U/L Alkaline Phosphatase 102 (45-117) U/L Total Protein 6.5 (6.4-8.2) gm/dl Albumin 3.3 L (3.4-5.0) gm/dl Globulin 3.2 (2.5-4.0) gm/dl Albumin/Globulin Ratio 1.0 (0.9-2) Hepatitis C Ab Screen Neg (Neg) Imaging Data Radiologist's Impression: Radiology results as stated below per my review and the radiologist's interpretation: CT cervical spine wo con CT DOSE: HISTORY: Trauma. Mental status change. fall hit head/ neck pain TECHNIQUE: Multiaxial CT images of the cervical spine were performed and reformatted in the sagittal and coronal plane without the use of contrast. A dose lowering technique was utilized adhering to the principles of ALARA. COMPARISON: None. FINDINGS: Severe degenerative disc changes throughout the entire cervical region. No evidence for compression deformity. Note is made of potential compression deformity of T2 which is only partially identified on this study. Grade 2 anterolisthesis C4 on C5 secondary to a unilateral posterior spondylolysis with considerable superimposed bilateral degenerative change of the posterior facets. C1-C2 complex demonstrates moderate degenerative change with no acute process. IMPRESSION: 1. Severe degenerative change. 2. Grade 2 anterolisthesis C4 on C5 felt to be secondary to congenital and degenerative changes of the posterior elements. 3. Probable compression deformity inadequately evaluated on this study of the T2 vertebral body. CT of the thoracic spine is suggested. The above report was generated using voice recognition software. It may contain grammatical, syntax or spelling errors. Electronically signed by: Fidencio Ramirez M.D. 04/17/2019 4:[address] SCAN OF THE BRAIN WITHOUT IV CONTRAST CLINICAL HISTORY: Fall. COMPARISON STUDY: CT of the brain dated 04/16/2018. TECHNIQUE: Unenhanced axial CT scan of the brain is performed from the vertex to the skull base. A dose lowering technique was utilized adhering to the principles of ALARA. CT DOSE: 2206.54 mGy.cm FINDINGS: Brain parenchyma: Mild subcortical and periventricular microangiopathic disease is similar to previous. There is no hemorrhage, mass effect, or evidence of acute territorial ischemia by CT criteria. Amaya-white matter differentiation is preserved. No extra-axial fluid collection is seen. Ventricles, sulci, cisterns: Normal in configuration. Intracranial vasculature: There is atherosclerotic calcification of the cavernous carotid and vertebral arteries. Calvarium: There is no depressed calvarial fracture. Sinuses and mastoids: The visualized paranasal sinuses are clear. The mastoid air cells are well pneumatized. Orbits: The bony orbits are grossly intact. IMPRESSION: There is no hemorrhage, mass effect, or evidence of acute territorial ischemia by CT criteria. Electronically signed by: Frankie Ma M.D. 04/17/2019 4:[address] SCAN OF THE THORACIC SPINE WITHOUT IV CONTRAST CLINICAL HISTORY: Fall. Thoracic back pain. COMPARISON STUDY: Chest CT dated 08/29/2018. PET/CT dated 07/03/2018. TECHNIQUE: CT scan of the thoracic spine is performed from the lower cervical spine to the upper lumbar spine. Images are reviewed in the axial, sagittal, and coronal planes. IV contrast was not administered for this examination. A dose lowering technique was utilized adhering to the principles of ALARA. FINDINGS: The skeletal structures are osteopenic.There is an acute compression fracture of the T2 vertebral body with moderate loss of height. Fracture involves the anterior cortex, the posterior cortex, as well as the superior and inferior endplates. There are small fragments retropulsed by up to 3 mm. There is also a minimal acute superior endplate compression fracture of T3. No retropulsed fragments are seen. There is a mild chronic superior endplate compression deformity of T6. This is unchanged from previous. Vertebral body height is otherwise maintained throughout the thoracic spine. There is mild hype rkyphosis. Small anterior osteophytes are seen throughout. The transverse and spinous processes are intact. Multilevel degenerative disc space narrowing is noted. Small posterior disc osteophyte complexes are seen at several levels in the mid to lower thoracic region. The largest is at T5-T6. There is no evidence of large disc herniation or high-grade central canal stenosis by CT. Paravertebral edema is noted at T2 and T3. The paraspinous soft tissues are otherwise normal in appearance. Emphysematous change is noted. There is no evidence of pneumothorax involving the visualized lung parenchyma. Scarring/atelectasis is seen at both lung bases. No airspace consolidation or pleural effusion is identified. IMPRESSION: 1. There is a complex compression fracture of T2 with moderate loss of height, involvement of the posterior cortex, and mildly retropulsed fragments. The posterior elements are not involved. This fracture may be unstable. 2. There is a minimal acute superior endplate compression fracture of T3. 3. No additional fracture is identified. 4. Emphysema. 5. Additional findings as above. Electronically signed by: Frankie Ma M.D. 04/17/2019 4:31 PM SINGLE VIEW CHEST CLINICAL HISTORY: Left-sided chest wall pain. FINDINGS: An AP, portable, upright chest radiograph is compared to study dated 12/18/2018. The examination is significantly degraded by portable technique and patient rotation. The patient's head partially obscures the lung apices. The heart is mildly enlarged and there is atherosclerotic calcification of the thoracic aorta. The pulmonary vasculature is noncongested. Patchy airspace opacities are identified at both lung bases. No large pleural effusion or pneumothorax is seen. The skeletal structures are osteopenic. There are healed left-sided rib fractures, similar to previous. IMPRESSION: 1. Cardiomegaly without radiographic evidence of congestive failure. 2. Dependent airspace opacities are present at both lung bases. This could represent atelectasis versus pneumonia/aspiration pneumonitis. Clinical correlation will be required and radiographic follow-up to resolution is recommended. Electronically signed by: Frankie Ma M.D. 04/17/2019 5:[address] SCAN OF THE CHEST WITHOUT IV CONTRAST CLINICAL HISTORY: Fall. COMPARISON STUDY: Chest x-ray dated 12/18/2018. CT scan of the thoracic spine performed the same day 04/17/2019. Chest CT dated 08/29/2018. TECHNIQUE: CT scan of the thorax was performed from the thoracic inlet to the upper abdomen. Images are reviewed in the axial, sagittal, and coronal planes. IV contrast was not administered for this examination as per the referring clinician. Note that the examination is suboptimal without IV contrast. The examination is degraded by streak artifact from the arms which could not be elevated above the chest. A dose lowering technique was utilized adhering to the principles of ALARA. FINDINGS: Thyroid: Imaged portions of the thyroid gland are normal in size and attenuation. Low-attenuation thyroid nodules measure up to 1.6 cm. Thoracic aorta: There is mild atherosclerotic calcification of the thoracic aorta, which is normal in caliber and demonstrates standard 3-vessel arch anatom y. Heart: The heart is normal in size and without pericardial effusion. There is calcification of the aortic valve leaflets. The pulmonary trunk is normal in caliber. Lungs and pleural spaces: Emphysematous change is noted. There is no airspace consolidation, pleural effusion, or pneumothorax. Foci of scarring/atelectasis are present at the lung bases. The trachea and central airways are clear. A 3 mm pleural-based nodule in the right lower lobe as seen on image #191. This is unchanged from previous. Mediastinum: There is no mediastinal hematoma or lymphadenopathy. May: Not well assessed without IV contrast. Axillae: There is no axillary lymphadenopathy. Upper abdomen: Partially visualized upper abdominal viscera is within normal limits. Skeletal structures: The skeletal structures are osteopenic. Again seen is an acute compression fracture of the T2 vertebral body with moderate loss of height. Fracture involves the anterior cortex, the posterior cortex, as well as the superior and inferior endplates. There are small fragments retropulsed by up to 3 mm. There is also a minimal acute superior endplate compression fracture of T3. No retropulsed fragments are seen at T3. There is a mild chronic superior endplate compression deformity of T6. There are chronic/healed bilateral rib fractures. No acute rib fracture is seen. No lytic or blastic bony lesions are seen. IMPRESSION: 1. Again seen are acute compression fractures of T2 and T3. See report of thoracic spine CT performed concurrently for detailed findings. 2. No additional acute fracture is identified. 3. Emphysema. 4. There is no airspace consolidation, pleural effusion, or pneumothorax. 5. Additional findings as above. Electronically signed by: Frankie Ma M.D. 04/17/2019 7:15 PM Blood Pressure Blood Pressure Findings: Elevated blood pressure Blood Pressure Disposition: further management by hospitalist PAO Narrative Patient is a 63-year-old male with past medical history of hypertension and cancer the presents the ER for mechanical fall where he was trying to SWAT a bug . He fell backwards and has having severe neck pain. No tingling numbness or weakness in his extremities. IV was established blood work was obtained. Labs show an anemia of 12.9. No significant leukocytosis. BP with mild hypokalemia. LFTs bilirubin was unremarkable. Patient was given IV fentanyl. CT of the head and cervical spine and thoracic spine are remarkable for T2-T3 fractures. Patient was placed in [facility]. CT of the chest was otherwise unremarkable. Chest x-ray with bilateral atelectasis. Patient was given IV fluids. He was updated bedside. Discussed with Dr. Schneider from orthopedics who recommended cervical collar. Due to pain patient was admitted to the hospital for further work-up. Impression & Plan T2 vertebral fracture, Neck pain Discharge Plan Visit Data *Final* Discharge Date/Time: 04/17/19 21:37 Chief Complaint: Fall Stated Complaint: FALL, BACK PAIN ED Provider: Iam Finn Discharge Problem: T2 vertebral fracture, Neck pain Patient Disposition: Admitted As Inpatient Discharge Instructions Interventions: ED Discharge Assessment Last Done: 04/17/19 21:37 The scribe's documentation has been prepared under my direction and personally reviewed by me in its entirety. I confirm that the note above accurately reflects all work, treatment, procedures, and medical decision making performed by me.
[2019-04-18] MEDS: MoRPHine SULFATE 4 MG/ML 1 ML CARP\\VIAL IV PRN ×3 (01:39→09:38)
[2019-04-18] MEDS: SODIUM CHLORIDE 0.9% 1000ML 1,000 ML IV SCH ×2 (02:11→13:46)
[2019-04-18] MEDS: OXYCODONE HCL IR 5 MG TAB (IMMEDIATE RELEASE) PO PRN ×2 (02:59→11:56)
[2019-04-18] MEDS: GABAPENTIN 600 MG TAB PO SCH ×2 (05:39→11:56)
[2019-04-18 06:05] LABS: Eosinophils # (auto) 0.05 K/uL (0-0.5); Hematocrit (blood only) 34.9 % (42-52); Hemoglobin 11.5 g/dL (14.0-18.0); Immature Granulocytes # (auto) 0.03 K/uL (0.00-0.02); Immature Granulocytes % (auto) 0.6 %; Lymphocytes # (auto) 0.34 K/uL (1.2-3.4); Lymphocytes % (auto) 6.7 %; Mean Corpuscular Volume 99.7 fL (80-100); Mean Platelet Volume 9.3 fL (7.4-10.4); Monocytes # (auto) 0.36 K/uL (0.11-0.59); Monocytes % (auto) 7.1 %; Neutrophils # (auto) 4.26 K/uL (1.4-6.5); Neutrophils % (auto) 84.6 %; Platelet Count 100 K/uL (130-400); RDW Coefficient of Variation 14.9 % (11.5-14.5); RDW Standard Deviation 53.5 fL (36.4-46.3); White Blood Count 5.04 K/uL (4.8-10.8)
[2019-04-18 06:44] LABS: BUN Creatinine Ratio 25.1 (10-20); Calcium 7.9 mg/dl (8.5-10.1); Creatinine Clr Calc Pharmacy 189.7 ml/min; Est GFR (African American) 135.6; Potassium 3.8 mmol/L (3.5-5.1)
--- NOTE | 2019-04-18 06:52 | History and Physical Report ---
DATE OF ADMISSION: 04/17/2019 CHIEF COMPLAINT: Status post fall and back pain. 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 The patient says he was riding his tractor and was trying to pluck berries when he fell off a tractor, he fell on his belly, he had significant pain able to go home and was complaining of back pain, so he was brought in here. Imaging studies revealed patient was having compression fracture of T2 with moderate loss of height, involvement of posterior cortex and mildly retropulsed fragments, the posterior elements were not involved, this fracture may be unstable and also end-plate compression fracture of T3. The patient was having severe pain, so we were called for admission. The patient is in a neck collar. He is also having wounds in both jaws, more on the left side and they are draining which is chronic as per patient. The patient says he is mostly on a soft diet. Has some headache. No blurred vision, no difficulty swallowing. He says he is having a lot of chest pain when he takes deep breath and also belly pain because he fell on the belly. Denies any nausea or vomiting. Had some diarrhea, no blood in the stools. Normal bladder movements. No burning micturition. Has some swelling in the lower extremities. The patient says he drinks about 7 shots of mixed drink every day and 2 cigarettes every day. His hemodynamics are stable. ALLERGIES: LISINOPRIL/HYDROCHLOROTHIAZIDE, YELLOW JACKET VENOM, ASPIRIN, HYDROCODONE, IBUPROFEN AND TYLENOL. PAST MEDICAL HISTORY: As mentioned above. PAST SURGICAL HISTORY: Colonoscopy, EGDs, several teeth extractions, face laceration repair, left thoracoscopy with decortication, vertebral artery catheter placement. CURRENT MEDICATIONS: The patient is on pentoxifylline ER 400 mg p.o. t.i.d., oxycodone 5 mg every 4 hours p.r.n., magnesium oxide 400 mg p.o. daily, buspirone 15 mg p.o. t.i.d., fentanyl 25 mcg q.3 days, lidocaine 5% ointment p.r.n., Toprol-XL 100 mg p.o. daily, thiamine 50 mg p.o. daily, probiotic 1 capsule daily, atorvastatin 40 mg p.o. daily, multivitamin 1 tablet daily, Boost 3 times a day, Voltaren 1% gel as directed. FAMILY HISTORY: Significant for father and mother are alive. SOCIAL HISTORY: Smokes 2 cigarettes every day for the last several years. Alcohol, says he drinks mixed drinks, about 7 drinks every day. Smokes marijuana at concerts as per the records. REVIEW OF SYMPTOMS: As per HPI. Rest of the review of systems is negative. PHYSICAL EXAMINATION: GENERAL: The patient is of moderate build, not in acute distress. VITAL SIGNS: Temperature 36.5, pulse 67, respiratory rate 21, blood pressure 135/81, oxygen 94% on room air. HEENT: No pallor, no icterus. Pupils equal, round, reactive to light. NECK: In neck collar. CARDIOVASCULAR: S1, S2 heard, regular rate and rhythm, no murmur, no gallop. RESPIRATORY SYSTEM: Normal AP diameter. No accessory muscle use. No wheezing, no crackles. ABDOMEN: mild erythema seen on the abdomen and diffuse tenderness. No distention. Mild guarding, no rigidity. CENTRAL NERVOUS SYSTEM: Alert and oriented. Moves extremities. Nonfocal. EXTREMITIES: Chronic lower extremity mild erythema and edema seen. LABORATORY DATA: WBC 8.5, hemoglobin 12.9, hematocrit 37.9, platelets 140. Sodium 136, potassium 3.6, chloride 100, bicarbonate 30, BUN 21, creatinine 0.6, serum glucose 79, calcium 8.9, total bilirubin 0.6, AST 20, ALT 31, alkaline phosphatase 102. CT of the chest; compression fracture of T2-T3. No additional fracture is identified. Emphysema. No evidence of consolidation, pleural effusions or pneumothorax. Chest x-ray; cardiomegaly without radiographic evidence of congestive failure. Thoracic spine CT; compression fracture of T2 with moderate loss of height, involvement of the posterior cortex and mild retropulsed fragments, the posterior elements are not involved, this fracture may be unstable, there is minimal acute superior end-plate compression fracture of T3. CT of the head; there is no hemorrhage, mass effect, or evidence of acute territorial ischemia seen by CT criteria. Cervical spine CT; grade 2 anterolisthesis of C4 on C5, probably secondary to congenital degenerative changes of the posterior elements, probable compression deformity not able to be clearly evaluated on the study of the T2 vertebral body. ASSESSMENT AND PLAN: This is a 63-year-old male who presents with fall and has a T2-T3 compression fracture. 1. Fall with T2-T3 compression fracture. Pain control, physical therapy and occupational therapy. Further management as per orthopedics. Monitor on medical floor. 2. Alcoholism. The patient has 7 shots of mixed drink every day. He says he never gets withdrawal symptoms but we will place him on alcohol withdrawal protocol with gabapentin and Ativan p.r.n., we will give banana bag. Continue home thiamine and multivitamins daily. 3. Squamous cell carcinoma of the floor of the mouth, status post surgery and radiation, currently on Keytruda immunotherapy. Has wounds on the jaws. We will consult wound care. Followup set up with hematology-oncology. 4. Hypertension, on Toprol-XL. We will monitor. 5. History of cerebral aneurysm without rupture, followed with neurosurgery. 6. Hyperlipidemia, on statin. 7. Deep vein thrombosis prophylaxis, sequential compression devices for now. 8. Disposition: Observe on medical/surgery telemetry. Level 1 full code. MTDD
[2019-04-18 07:57] LABS: Folate (Folic Acid) > 24.00 ng/ml (>5.38); Vitamin B12 291 pg/ml (211-911)
[2019-04-18] MEDS: PENTOXIFYLLINE 400MG EXT REL TAB PO SCH ×2 (08:32→13:43)
[2019-04-18] MEDS: BusPIRone 15 MG TAB PO SCH ×2 (08:32→13:43)
[2019-04-18] MEDS ORDERED: METOPROLOL SUCC 50MG EXT REL TAB PO SCH (09:00)
[2019-04-18] MEDS ORDERED: MAGNESIUM OXIDE 400 MG TAB PO SCH (09:00)
[2019-04-18] MEDS ORDERED: ATORVASTATIN 40 MG TAB PO SCH (09:00)
[2019-04-18] MEDS ORDERED: THIAMINE HCL 50 MG TABLET PO SCH (09:00)
[2019-04-18] MEDS ORDERED: CEROVITE ADV FORMULA TAB PO SCH (09:00)
--- NOTE | 2019-04-18 10:29 | Consultation Report ---
DATE OF CONSULTATION: 04/18/2019 CHIEF COMPLAINT: Neck pain. HISTORY OF PRESENT ILLNESS: The patient is pleasant, I am meeting him for the first time this morning at approximately 7:30. He was on a tractor. He fell off evidently swatting a fly, fell off to his lumbar spine, cervical spine, complained of back pain, neck pain and trapezius pain and some chest discomfort. He was brought via emergency transport to our hospital for evaluation and treatment. I am seeing him this morning. He has upper back pain. He has neck pain as well. He has pain with inhalation and exhalation and some chest discomfort. He does have a compression fracture of the T2 of the thoracic spine with moderate height loss. The posterior elements are not involved, so I do think it is a relatively stable injury. It is an injury where it is a borderline stability or instability. He was admitted because of pain control. He could not be discharged home. PAST MEDICAL HISTORY: Significant and pertinent for status post chemoradiation, immunotherapy, depression, alcohol abuse, hypertension. He also has had fairly major jaw surgery with arthritis and chemotherapy, has some erosion of the skin underneath the mandible. This part lays him to the fact that to brace him and even operate on him would be very, very difficult and could be fraught with many complicating issues. PAST SURGICAL HISTORY: Colonoscopy, teeth extraction, face laceration repair, left thoracoscopy with decortication of jaw. He also has facial surgery and facial wound surgery from his cancer and his osteoarthritis. MEDICATIONS: Listed. FAMILY HISTORY: Insignificant. SOCIAL HISTORY: Two packs a day. Drinks alcohol 7-8 drinks every day. REVIEW OF SYSTEMS: Denies any blurred vision, double vision, tinnitus or vertigo. Does have some chest discomfort. Does have some chest pain, some shortness of breath. Denies any abdominal discomfort. He is alert, oriented, moves extremities. No deficits to the extremities. X-rays were evaluated. He has a significant spondylosis of cervical spine pseudosubluxation of 4 and 5, severe degenerative changes, now a new injury which is a T2 compression fracture. IMPRESSION: A 63-year-old gentleman with a T2-T3 compression fracture of the spine, alcoholism, squamous cell carcinoma status post surgery, status post immunotherapy, several wounds on his jaw, hypertension, hyperlipidemia. PLAN: This is a very difficult call if it was a little higher up in the spine or cervical spine, any neurological issues, surgery would be a good alternative. Surgery, although not contraindicated is not indicated today as I think his fracture is relatively stable. In addition, he has so many other comorbidities including skin issues that I do think his surgery coming from the front of the spine, splitting his chest or at least taking down the clavicle on the left hand side could lead to some really grave consequences. In addition, I explained to the patient that to fix this from an anterior approach or a posterior approach from a surgical point of view would be on my level of expertise and the patient is well aware of this as well. On the other hand, brace treatment is ideal to a certain degree, but compliance I know will be a difficult. I know that the brace will probably erode into his skin. He will need a collar component plus a chest component to stabilize his spine. I will order a brace to see if it can be fitted, to see if he may wear the brace. He will need pain control. He will need outpatient management. On the serious side of things, if his condition worsens particularly from a neurological deficit, he would have to be transferred out to a Spine Center or Trauma Reconstructive Center. I do not know that could be hand up in [facility] or down in [place] or even a more major [facility] which may be in the [facility] area. I will continue to follow the patient.
--- NOTE | 2019-04-18 15:07 | Hospitalist Progress Note ---
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 Fall with T2-T3 compression fracture. -Mechanical fall/leading to loss of balance and fell backward CT of thoracic spine: -there is a complex compression fracture of T2 with moderate loss of height, involvement of the posterior cortex, and mildly retropulsed fragments. The posterior elements are not involved. This fracture may be unstable. - There is a minimal acute superior endplate compression fracture of T3. Spinal orthopedics consulted, appreciate input, patient does not have any neurological deficit, Poor surgical candidate secondary to metastatic malignancy-squamous cell carcinoma(risk of poor wound healing) multiple comorbidities Conservative approach would be appropriate Patient has minimum pain or discomfort Already takes pain medication for metastatic cancer, reports has been helping with his back pain Stable to be discharged home, with outpatient follow-up with orthopedics (3) Squamous cell carcinoma: Squamous cell carcinoma of the floor of the mouth-with a history of smoking/alcohol abuse status post surgery and radiation treatment Currently on palliative Keytruda immunotherapy. Has metastatic open wound on jaw, Follows with hematology oncology (4) Alcohol abuse: he patient has 7 shots of mixed drink every day. Last drink was on Sunday per patient No sign of withdrawal symptom-patient insist he never gets withdrawal symptoms when he stopped drinking for 2 to 3 days for travel Continue with home medication of thiamine multivitamin Counseling provided to quit alcohol drinking given advanced, cell carcinoma Patient is not convinced, says he "has been drinking like this his whole life, does not feel it will make any difference at this stage after quitting ' (5) Tobacco abuse disorder: History of long-term heavy tobacco abuse Used to smoke in spite of advanced, cell carcinoma Smoking cessation counseling provided Subjective Patient states that he feels fine, Back pain has almost gone, able to sit up, walk around Insist that he needs to be out of hospital by 4 PM No fever or chills, no cough Evaluated by doctors after spine orthopedics earlier patient is not a surgical candidate, recommends back brace But given patient is ambulatory without much symptoms do not need any brace or support Orthopedic follow-up in clinic in 3 to 4 weeks/earlier for any worsening of symptoms Physical Exam Constitutional: + ill appearing Eyes: PERRL, conjunctivae normal, anicteric sclerae ENMT: Open wound on left lower cheek from squamous cell carcinoma with active drainage Severe erosion and oral cavity, secondary to invasive squamous cell carcinoma Respiratory: normal respiratory effort, lungs clear to auscultation Cardiovascular: RRR, no murmur, no edema Gastrointestinal (Abdomen): normal bowel sounds, soft, nontender, no hepa tosplenomegaly Musculoskeletal: Spine: + limited thoraco-lumbar ROM (Due to pain, no loss of balance ambulating independently, patient managed to get out of bed to chair and stand up without any discomfort at all) Has minimum pain on back Skin: Open drainage ulcer on left cheek secondary to invasive small cell carcinoma Neurologic: PERRL, EOMI, accommodation nl, no face palsy, no dysarthria Results & Data Vital Signs (Past 12 Hours) Vital Signs Temp Pulse Pulse Resp BP BP Pulse Ox 04/18/19 14:33 36.8 C 70 18 131/81 150/82 H 95 04/18/19 14:00 68 04/18/19 11:33 36.8 C 70 18 150/82 H 95 04/18/19 07:36 37.0 C 66 18 157/80 H 97 04/18/19 04:00 36.8 C 73 18 131/81 96 (1) T2 vertebral fracture Encounter type: initial encounter Fracture morphology: unspecified fracture morphology Fracture type: closed Qualified Code(s): S22.029A - Unspecified fracture of second thoracic vertebra, initial encounter for closed fracture
--- NOTE | 2019-04-18 16:10 | Discharge Summary ---
Date of Service April 18, 2019 Admission HPI Per Admitting Provider DICTATED BY: Rocco Larry MD DATE OF ADMISSION: 04/17/2019 CHIEF COMPLAINT: Status post fall and back pain. 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 The patient says he was riding his tractor and was trying to pluck berries when he fell off a tractor, he fell on his belly, he had significant pain able to go home and was complaining of back pain, so he was brought in here. Imaging studies revealed patient was having compression fracture of T2 with moderate loss of height, involvement of posterior cortex and mildly retropulsed fragments, the posterior elements were not involved, this fracture may be unstable and also end-plate compression fracture of T3. The patient was having severe pain, so we were called for admission. The patient is in a neck collar. He is also having wounds in both jaws, more on the left side and they are draining which is chronic as per patient. The patient says he is mostly on a soft diet. Has some headache. No blurred vision, no difficulty swallowing. He says he is having a lot of chest pain when he takes deep breath and also belly pain because he fell on the belly. Denies any nausea or vomiting. Had some diarrhea, no blood in the stools. Normal bladder movements. No burning micturition. Has some swelling in the lower extremities. The patient says he drinks about 7 shots of mixed drink every day and 2 cigarettes every day. His hemodynamics are stable. Principal Diagnosis Squamous cell carcinoma face/alcohol abuse/tobacco abuse, fall, compression fracture of thoracic vertebrae Discharge Exam Constitutional + ill appearing Eyes PERRL, conjunctivae normal, anicteric sclerae Respiratory normal respiratory effort, lungs clear to auscultation Cardiovascular RRR, no murmur, no edema Gastrointestinal (Abdomen) normal bowel sounds, soft, nontender, no hepatosplenomegaly Musculoskeletal Spine: + limited thoraco-lumbar ROM (Due to pain, no loss of balance ambulating independently, patient managed to get out of bed to chair and stand up without any discomfort at all) Neurologic PERRL, EOMI, accommodation nl, no face palsy, no dysarthria Discharge Data Allergies Allergy/AdvReac Type Severity Reaction Status Date / Time acetaminophen Allergy Intermediate CONTRAINDIC Verified 04/17/19 17:10 ATED aspirin Allergy Intermediate STOMACH Verified 04/17/19 17:10 BLEEDING NSAIDS (Non-Steroidal Allergy Intermediate GI PROBLEMS Verified 04/17/19 17:10 Anti-Inflamma codeine Allergy Mild high fever Verified 04/17/19 17:10 lisinopril Allergy Mild edema Verified 04/17/19 17:10 bee venom protein (honey bee) Allergy Unknown go into Verified 04/17/19 17:10 shock Consultations 04/17/19 21:46 Consult Case Management - Discharge Planning Routine 04/18/19 08:00 Consult Orthopedic Surgery Routine Ordered Studies 04/17/19 15:53 CT cervical spine wo con Stat CT head/brain wo con Stat CT thoracic spine wo con Stat 04/17/19 17:55 CT chest wo con Stat Hospital Course (1) Fall: 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 Fall with T2-T3 compression fracture. -Mechanical fall/leading to loss of balance and fell backward CT of thoracic spine: -there is a complex compression fracture of T2 with moderate loss of height, involvement of the posterior cortex, and mildly retropulsed fragments. The posterior elements are not involved. This fracture may be unstable. - There is a minimal acute superior endplate compression fracture of T3. Spinal orthopedics consulted, appreciate input, patient does not have any neurological deficit, Poor surgical candidate secondary to metastatic malignancy-squamous cell carcinoma(risk of poor wound healing) multiple comorbidities Conservative approach would be appropriate Patient has minimum pain or discomfort Already takes pain medication for metastatic cancer, reports has been helping with his back pain Stable to be discharged home, with outpatient follow-up with orthopedics (3) Squamous cell carcinoma: Squamous cell carcinoma of the floor of the mouth-with a history of smoking/alcohol abuse status post surgery and radiation treatment Currently on palliative Keytruda immunotherapy. Has metastatic open wound on jaw, Follows with hematology oncology (4) Alcohol abuse: he patient has 7 shots of mixed drink every day. Last drink was on Sunday per patient No sign of withdrawal symptom-patient insist he never gets withdrawal symptoms when he stopped drinking for 2 to 3 days for travel Continue with home medication of thiamine multivitamin Counseling provided to quit alcohol drinking given advanced, cell carcinoma Patient is not convinced, says he "has been drinking like this his whole life, does not feel it will make any difference at this stage after quitting ' (5) Tobacco abuse disorder: History of long-term heavy tobacco abuse Used to smoke in spite of advanced, cell carcinoma Smoking cessation counseling provided Total Time Total Time Spent Total Time Spent (In Minutes): Approximately 40 minutes Total Time Includes: Examination of the Patient, Discharge Planning, Medication Reconciliation and Communication With Other Providers Discharge Plan Discharge Items Patient Disposition: Home - Self-Care Reason For Visit: FALL Discharge Diagnosis: Squamous cell carcinoma face/alcohol abuse/tobacco abuse, fall, compression fracture of thoracic vertebrae Discharge Goals: Decrease discomfort Activity: As commented below Activity Comment: As tolerated Non-emergency contact: Primary Care Provider Call non-emergency contact if: you have any medication questions Follow-up/Referrals: Britt Del Toro DO [Primary Care Provider] - 04/24/19 1:15 pm Raj Romero DO [Surgeon] - (In 4-6 weeks) Diet: Regular Addtl Provider Instructions: Hospital follow-up with Dr. Britt Sherman on , April 24, 2019 at 1:15 PM Orthopedics follow-up with Dr. Romero in 4 to 6 weeks Prescriptions: Continued lidocaine 5 % Ointment 1 applic TOPICAL BID PRN (Reason: Pain) RF: 0 atorvastatin 40 mg Tablet 40 mg PO QAM RF: 0 Chloraseptic 0.5 % Aerosol,Melrude 1 - 2 spray Mucous Membrane Q6 PRN (Reason: Pain) RF: 0 metoprolol succinate 100 mg Tablet Extended Release 24 Hr 100 mg PO QAM RF: 0 pentoxifylline 400 mg Tablet Extended Release 400 mg PO TID RF: 0 oxycodone 5 mg Tablet 5 mg PO Q6H PRN (Reason: Pain) RF: 0 diclofenac sodium 1 % Gel 2 g TOPICAL QID PRN (Reason: Pain) RF: 0 Immunotherapy Drug 1 RF: 0 furosemide [Lasix] 20 mg Tablet 20 mg PO BID PRN (Reason: EDEMA/FLUID RETENTION) RF: 0 Keytruda 25 mg/mL Solution IV .[id number] RF: 0 magnesium oxide 400 mg 400 mg PO DAILY RF: 0 multivitamin with minerals 1 tab 1 tab PO DAILY RF: 0 buspirone 15 mg 15 mg PO TID RF: 0 thiamine HCl (vitamin B1) 50 mg 50 mg PO DAILY RF: 0 Stand-Alone Forms: [facility] Discharge Orders: Discharge Order (Routine); Ordered 04/18/19 Ordered By: Shelby Palomino Admission Data Admit Date/Time: 04/17/19 20:32 Attending Provider: Shelby Palomino Admit Provider: Rocco Larry Primary Care Provider: Britt Del Toro Other Providers: Raj Romero Service: Telemetry Medical Other Interventions: Discharge Summary Assessment (RN) Last Done: 04/18/19 14:33
[2019-04-18] MEDS ORDERED: GABAPENTIN 600 MG TAB PO SCH (22:00)
[2019-04-20] MEDS ORDERED: GABAPENTIN 600 MG TAB PO SCH
[2019-04-21] MEDS ORDERED: GABAPENTIN 600 MG TAB PO SCH (12:00)
== END 2019-04-18 16:29 | disposition home or self-care (01) ==
LOC: 2N 15:38 → ED 15:38 → 2N 21:37

== ENCOUNTER 2020-05-25 09:54 | Inpatient (IN) ==
[2020-05-25 11:26] LABS: Hemoglobin 10.9 g/dL (14.0-18.0); Immature Granulocytes # (auto) 0.08 K/uL (0.00-0.02); Lymphocytes # (auto) 0.66 K/uL (1.2-3.4); Lymphocytes % (auto) 8.1 %; Mean Corpuscular Hemoglobin 31.8 pg (25-34); Mean Corpuscular Hgb Conc 32.1 g/dL (32-36); Mean Corpuscular Volume 99.1 fL (80-100); Mean Platelet Volume 9.3 fL (7.4-10.4); Monocytes # (auto) 0.34 K/uL (0.11-0.59); Monocytes % (auto) 4.2 %; Neutrophils # (auto) 7.04 K/uL (1.4-6.5); Neutrophils % (auto) 86.7 %; Nucleated RBC # (auto) 0.03 K/uL (0-0); Nucleated RBC % (auto) 0.4 %; Platelet Count 139 K/uL (130-400); RDW Coefficient of Variation 17.1 % (11.5-14.5); RDW Standard Deviation 60.6 fL (36.4-46.3); Red Blood Count 3.43 M/uL (4.7-6.1); White Blood Count 8.12 K/uL (4.8-10.8)
[2020-05-25 11:43] LABS: Partial Thromboplastin Ratio 0.7; Partial Thromboplastin Time 20.9 Seconds (21.0-31.0); Prothrombin Time 10.6 Seconds (9.0-12.0)
[2020-05-25 11:45] LABS: Albumin Level 3.2 gm/dl (3.4-5.0); BUN Creatinine Ratio 25.4 (10-20); Calcium 9.3 mg/dl (8.5-10.1); Creatinine Clr Calc Pharmacy 166.4 ml/min; Est GFR (African American) 128.5; Est GFR (Non-African American) 110.9; Potassium 3.9 mmol/L (3.5-5.1)
[2020-05-25 11:48] LABS: Bilirubin,Total 0.5 mg/dl (0.2-1); Globulin 3.2 gm/dl (2.5-4.0); Total Protein 6.4 gm/dl (6.4-8.2)
[2020-05-25] MEDS ORDERED: MULTI-VITAMIN INFUSION 10 ML, THIAMINE HCL 100 MG, FOLIC ACID 1 MG in SODIUM CHLORIDE 0... IV ONE (13:37)
--- NOTE | 2020-05-25 13:45 | History & Physical Report ---
Date of Service May 25, 2020 Assessment & Plan (1) Venous stasis ulcer: (2) Infestation by maggots: (3) Stage II pressure ulcer of left buttock: This is a 64-year-old male who has significant past medical history of HTN, HLD, alcoholism, chronic tobacco abuse, squamous cell carcinoma of the mouth, brain aneurysm, depression who presents to ED at recommendation of wound care secondary to worsening wounds of the left lower extremity with visibility of maggots. admit to med/surg consult wound care physician and nurse obtain wound cultures, blood cultures already drawn consult general surgery given maggots to wound cover with broad spectrum IV antibiotics Zosyn and Vanco XR to LLE B/L Arterial Duplex MRI to LLE to r/o osteomyelitis (4) Alcohol abuse: heavy ETOH use with 5 white russians 18oz daily Give Banana Bag x 1 daily folic acid and thiamine supplementation Librum Taper with prn IV lorazepam (5) Tobacco abuse disorder: encourage smoking cessation pt declined nicotine patch (6) Squamous cell carcinoma: SCC of mouth, follows Dr. Cohen Has been receiving Keytruda since 09/2018, currently on hold due to deteriorating condition s/p surgery and radiation therapy s/p excision with split thickness skin graft Dr. Stone in 2012 (7) HTN (hypertension): Bp controlled continue metoprolol Disposition: admit to med/surg Follow up: PCP Dr. Del Toro upon discharge Pt was seen and examined alongside with Dr. Carter, please see addendum History of Present Illness Chief Complaint: Worsening LLE wound with maggots. Primary Care Provider: Britt Del Toro, This is a 64-year-old male who has significant past medical history of HTN, HLD, alcoholism, chronic tobacco abuse, squamous cell carcinoma of the mouth, brain aneurysm, depression who presents to ED at recommendation of wound care secondary to worsening wounds of the left lower extremity with visibility of maggots. He was initially seen and evaluated by wound clinic on 05/19/2020 and found to have venostasis ulcerations on the left lower extremity along with a stage II pressure ulcer of left buttock. He underwent debridement at that time, cultures were obtained and he was started on Bactrim DS. Wound culture grew Serratia marcescens and stenotrophomonas maltophilia, both sensitive to Bactrim. He elicits increased pain and swelling in the left lower extremity. He denies any known history of arterial disease to the lower extremities. He did undergo CANDACE to the lower extremities which was negative. Per patient wound has been worsening and he noted maggots attached to wound, which prompted him to seek care immediately. He denies any recent fever, chills, sweats, lightheadedness, dizziness, chest pain, shortness of breath, nausea, vomiting, abdominal pain. Patient is mostly confined to wheelchair secondary to prior cervical and thoracic vertebral fractures due to injury. He is a everyday smoker and does drink 5 white Nepalese alcoholic beverages daily. His last drink was at 9 AM. Overall appetite has been stable. He notes his immunotherapy for squamous cell carcinoma of mouth is currently on hold. He had been receiving Keytruda. Follows Dr. Singh. In ED patient remained hemodynamically stable. Lab work notable for WBC 8.12, H&H 10.9 and 34.0, platelet 139, sodium 135, creatinine 0.56, ethyl alcohol less than 3.0. Prior to my evaluation he did not undergo any imaging studies and was not treated with any IV medications. Per ED provider patient did have visible maggots on wound of left lower extremity, which have since been removed. Allergies Allergy/AdvReac Type Severity Reaction Status Date / Time acetaminophen Allergy Intermediate CONTRAINDIC Verified 05/25/20 12:57 ATED aspirin Allergy Intermediate STOMACH Verified 05/25/20 12:57 BLEEDING NSAIDS (Non-Steroidal Allergy Intermediate GI PROBLEMS Verified 05/25/20 12:57 Anti-Inflamma codeine Allergy Mild high fever Verified 05/25/20 12:57 lisinopril Allergy Mild edema Verified 05/25/20 12:57 bee venom protein (honey bee) Allergy Unknown go into Verified 05/25/20 12:57 shock Home Medications Home Medications Medication Instructions Recorded Confirmed Type atorvastatin 40 mg PO QAM 07/24/18 05/25/20 History diclofenac sodium 2 g TOPICAL QID PRN 07/24/18 05/25/20 History lidocaine 1 applic TOPICAL DAILY PRN 07/24/18 05/25/20 History oxycodone 5 mg PO Q6H PRN 07/24/18 05/25/20 History pentoxifylline 400 mg PO TID 07/24/18 05/25/20 History Immunotherapy Drug 12/18/18 05/25/20 History furosemide [Lasix] 20 mg PO BID PRN 01/09/19 05/25/20 History albuterol sulfate 90 mcg/actuation 2 puff INHALATION Q4H PRN 05/19/20 05/25/20 History aerosol inhaler bupropion HCl 150 mg 24 hr tablet, 150 mg PO QAM 05/19/20 05/25/20 History extended release dexamethasone 4 mg tablet 4 mg PO DAILY 05/19/20 05/25/20 History fentanyl 50 mcg/hr transdermal 1 patch TRANSDERMAL Q72H 05/19/20 05/25/20 History patch magnesium oxide,aspartate,citr 400 mg PO DAILY cap 05/19/20 05/25/20 History metoprolol succinate 100 mg 100 mg PO BID 05/19/20 05/25/20 History tablet,extended release 24 hr mirtazapine 15 mg tablet 15 mg PO HS 05/19/20 05/25/20 History ondansetron HCl 4 mg tablet 4 - 8 mg PO Q8H PRN 05/19/20 05/25/20 History ascorbic acid (vitamin C) [Vitamin 500 mg PO DAILY 05/25/20 05/25/20 History C] buspirone 15 mg PO TID 05/25/20 05/25/20 History fentanyl 12 mcg TRANSDERMAL Q72H 05/25/20 05/25/20 History ljalyprojcc-vrwrr-xcp-vit C-Mn 2 tab PO BID 05/25/20 05/25/20 History lactobacillus combination no.4 0 mmu cells PO DAILY 05/25/20 05/25/20 History [Probiotic] menthol-zinc oxide [Calmoseptine] 1 applic TOPICAL DAILY PRN 05/25/20 05/25/20 History nystatin 1 applic TOPICAL TID 05/25/20 05/25/20 History potassium chloride 40 meq PO DAILY 05/25/20 05/25/20 History thiamine HCl (vitamin B1) [Vitamin 50 mg PO DAILY 05/25/20 05/25/20 History B-1] Past Med/Surg History Medical History Anxiety Brain aneurysm LILIA Aneursym Cardiac murmur Depression Hyperlipidemia Hypertension Major depressive disorder Osteoarthritis 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", chemo Surgical History H/O skin graft off leg to mouth History of colonoscopy History of esophagogastroduodenoscopy (EGD) History of lung surgery "scrap inside and outside of my lungs for strep pneumonia" History of tooth extraction most of teeth Family History Other No pertinent family history Social History (Updated 05/25/20 @ 13:52 by Sammi Adorno PA-C) Smoking Status: Light tobacco smoker Cigarettes Per Day: 5 cigarettes/day; Second Hand Exposure: No; Tobacco Cessation Education Requested by Patient: No Hx Alcohol Use: Yes Alcohol type: hard liquor Alcohol Intake Frequency: 4 or More x per/Week Alcohol Intake Frequency Comment: daily 5 -18oz drinks with 2-3 shots per drink Hx Substance Use: Yes Last Used Substance: Hours (ago) Last Used Substance Other:: last night Substance Use Type Other:: occasioally Preferred Language: [place] Communication Ability: Effective 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: No Beliefs That Will Affect Care: None marital status: Current Living Situation: Significant Other Current Living Situation Comment: with friend Stephanie current occupational status: retired and disabled Other Information That Helps Us Care for You: No Feels Safe at Home: Yes Review of Systems Review of Systems: All systems reviewed & are unremarkable except as noted in HPI & below Physical Exam Physical Exam: Constitutional: Chronically ill appearing M, poor nutritional status, arshad facies,vitals as above, NAD, sitting up in bed, answers questions appropriately, poorly groomed Head: Normocephalic, Atraumatic Eyes: PERRL, conjunctivae normal, anicteric sclerae ENMT: external ear and nose normal, oropharynx +thrush, absent dentition Neck: trachea midline, no thyromegaly normal visual inspection Respiratory: normal respiratory effort, lungs clear to auscultation, no wheeze, rales, rhonchi. Normal insp/exp effort, no accessory muscle use Cardiovascular: RRR, no murmur, b/l edema R > L, cool extremities, b/l pedal pulse +1 Vessels: no JVD or carotid bruit Chest: normal inspection of chest Abdomen: normal bowel sounds, soft, nontender, no hepatosplenomegaly Musculoskeletal: no cyanosis or clubbing,active ROM to all ext Skin: +LLE pre tibial surface wounds with yellow/white wound bodies, surrounding erythema, erythema to b/l lower ext, no visible maggots during my eval, warm and dry normal turgor Neurologic: PERRL, EOMI, accommodation nl, no face palsy, no dysarthria CN's II-XI intact bilaterally and moves all extremities Psychiatric: A+Ox3, euthymic affect Lymphatic: no cervical or axillary lymphadenopathy : deferred Results & Data Results & Data ([facility]) Vital Signs (Past 12 Hours) Vital Signs Temp Pulse Resp BP Pulse Ox 05/25/20 13:00 105 H 23 141/82 H 95 05/25/20 12:31 86 21 148/66 H 96 05/25/20 12:00 81 19 141/83 H 96 05/25/20 11:30 98 H 15 133/76 96 05/25/20 11:00 91 H 15 137/64 98 05/25/20 10:31 81 19 111/66 98 05/25/20 10:08 36.8 C 88 18 149/78 H 96 Laboratory Results Short CBC 05/25/20 Range/Units 11:12 WBC 8.12 (4.8-10.8) K/uL Hgb 10.9 L (14.0-18.0) g/dL Hct 34.0 L (42-52) % Plt Count 139 (130-400) K/uL BMP 05/25/20 11:12 Sodium 135 L Potassium 3.9 Chloride 102 Carbon Dioxide 26 BUN 14 Creatinine 0.56 L Glucose 75 Calcium 9.3 Liver Function 05/25/20 Range/Units 11:12 Total Bilirubin 0.5 (0.2-1) mg/dl AST 12 L (15-37) U/L ALT 17 (12-78) U/L Alkaline Phosphatase 101 (45-117) U/L Albumin 3.2 L (3.4-5.0) gm/dl Code Status & VTE Plan Code Status Full Code VTE Prophylaxis Plan VTE Prophylaxis will be ordered: Yes (1) Venous stasis ulcer Laterality: left Non-pressure ulcer stage: unspecified non-pressure ulcer stage Varicose vein presence: without varicose veins Venous stasis ulcer site: other part of lower leg Qualified Code(s): I87.2 - Venous insufficiency (chronic) (peripheral); L97.829 - Non-pressure chronic ulcer of other part of left lower leg with unspecified severity
--- NOTE | 2020-05-25 14:10 | XRay Report ---
XR tibia fibula LT 2V CLINICAL HISTORY: Open wounds. Evaluate for osteomyelitis. COMPARISON: Left knee radiographs and CT of the left knee January 09, 2019. FINDINGS: There is no fracture or evidence for osteomyelitis within the left tibia or fibula. Anteri or left lower leg soft tissue swelling is noted with several lucencies suggestive of wounds. No radio paque foreign bodies identified. IMPRESSION: Multiple left lower leg wounds. No radiographic evidence for osteomyelitis. ACT 112: Negative or not required by law. Electronically signed by: Francisco Fuller M.D. 05/25/2020 2:08 PM
--- NOTE | 2020-05-25 14:20 | Communication Note ---
Date of Service: May 25, 2020 Attending Addendum: care coordinated with GYPSY Adorno please refer to her notes for full details, I agree with her notes patient seen and examined, records reviewed by myself as well on exam, patient seen resting in bed, comfortable not in distress minimal discomfort LLE no fever/chills no other symptoms VS noted and reviewed oriented x 3, not in distress, speaks in sentences with no effort nor accessory muscle use head and neck: (+) poor dentition, oral thrush normal rate, regular rhythm, no murmurs clear breath sounds bilaterally non distended, soft, nontender RLE: (+) grade 1 edema, no warmth, tenderness; (+) dry sking LLE: (+) small open wounds, with surrounding mild erythema, warmth, (+ )moderate tenderness pulses- fair no neuro deficits WBC 8.1 Hg 10.9 Crea 0.56 Tib/Fib xray: There is no fracture or evidence for osteomyelitis within the left tibia or fibula. Anterior left lower leg soft tissue swelling is noted with several lucencies suggestive of wounds. No radiopaque foreign bodies identified. IMPRESSION: Multiple left lower leg wounds. No radiographic evidence for osteomyelitis. Arterial Doppler: 1. There is no sonographic evidence of high-grade stenosis or focal vessel cutoff throughout the arteries of the right or left lower extremity. 2. Extensive left lower extremity deep venous thrombosis as above. ASSESSMENT AND PLAN 64 year old male with history of chronic LLE wounds, follows with wound care center, history of squamous cell CA of the mouth s/p Chemo presenting with worsening of LLE leg swelling and pain. Infection of chronic right lower extremity wounds maggots noted to be present during initial evaluation by ER GYPSY Tib/fib x-ray: No signs of osteomyelitis Lower extremity MRI: Pending Wound culture and blood cultures ordered IV vancomycin and Zosyn started General surgery, wound care service consulted Acute DVT right lower extremity Risk factors: Poor mobilization at home, underlying cancer of the tongue--> follows with Dr. Cohen Doppler study: Extensive deep venous thrombosis is identified throughout the left lower extremity. This extends from the common femoral vein distally to the popliteal vein. This is occlusive in the midportion of the superficial femoral vein. Superficial venous thrombus is seen within the profunda femoris vein. Patient has cerebral artery aneurysm measuring 7 to 8 mm in length, 6 to 7 mm in width-follows with [facility] with neurosurgery, per follow-up visit last year, recommendation is continued yearly surveillance, CT angiogram performed as an outpatient April 2020 showed aneurysm is overall similar to 2018 Patient also has osteoradionecrosis Discussed above with Dr. Diaz, recommendation to proceed with heparin anticoagulation with bolus and standard dose Dr. Cohen will be back tomorrow as per Dr. Diaz, recommend to discuss discharge anticoagulation regimen with him Alcoholism Alcohol withdrawal protocol, including Librium taper Plan of care discussed with patient in detail and at length All questions were answered He is understanding, agreeable, comfortable plan of care other diagnoses and plan of care as per GYPSY Cottrell'mauricio notes Temo Carter MD
--- NOTE | 2020-05-25 14:33 | Emergency Department Note ---
History of Present Illness General Chief complaint: Wound Time Seen by Provider: 05/25/20 10:04 History of Present Illness Maximum Pain Intensity: 0 This is a 64-year-old male presenting to the emergency department for evaluation of venous stasis ulcers to the left lower extremity. The patient has a past history of tongue cancer and is considered immunocompromised. The patient is currently under the care of the wound clinic, who currently have him on an unknown antibiotic. They did recently start him on Bactrim, as he has had past cultures showing a Bactrim sensitivity. The patient has not had fevers or chills, but noticed maggots on his leg coming from his wounds today. He did contact the wound clinic who referred him to the ER for further evaluation. The patient rates his current discomfort a 0/10. He has not had fevers or chills Home Medications Home Medications Medication Instructions Recorded Confirmed Type atorvastatin 40 mg PO QAM 07/24/18 05/25/20 History diclofenac sodium 2 g TOPICAL QID PRN 07/24/18 05/25/20 History lidocaine 1 applic TOPICAL DAILY PRN 07/24/18 05/25/20 History oxycodone 5 mg PO Q6H PRN 07/24/18 05/25/20 History pentoxifylline 400 mg PO TID 07/24/18 05/25/20 History Immunotherapy Drug 12/18/18 04/17/19 History furosemide [Lasix] 20 mg PO BID PRN 01/09/19 05/25/20 History albuterol sulfate 90 mcg/actuation 2 puff INHALATION Q4H PRN 05/19/20 05/25/20 History aerosol inhaler bupropion HCl 150 mg 24 hr tablet, 150 mg PO QAM 05/19/20 05/25/20 History extended release dexamethasone 4 mg tablet 4 mg PO DAILY 05/19/20 05/25/20 History fentanyl 50 mcg/hr transdermal 1 patch TRANSDERMAL Q72H 05/19/20 05/25/20 History patch magnesium oxide,aspartate,citr 400 mg PO DAILY cap 05/19/20 05/25/20 History metoprolol succinate 100 mg 100 mg PO BID 05/19/20 05/25/20 History tablet,extended release 24 hr mirtazapine 15 mg tablet 15 mg PO HS 05/19/20 05/25/20 History ondansetron HCl 4 mg tablet 4 - 8 mg PO Q8H PRN 05/19/20 05/25/20 History ascorbic acid (vitamin C) [Vitamin 500 mg PO DAILY 05/25/20 05/25/20 History C] buspirone 15 mg PO BID 05/25/20 05/25/20 History fentanyl 12 mcg TRANSDERMAL Q72H 05/25/20 05/25/20 History jriomdzxmkt-qgnuz-ids-vit C-Mn 2 tab PO BID 05/25/20 05/25/20 History lactobacillus combination no.4 0 mmu cells PO DAILY 05/25/20 05/25/20 History [Probiotic] menthol-zinc oxide [Calmoseptine] 1 applic TOPICAL DAILY PRN 05/25/20 05/25/20 History nystatin 1 applic TOPICAL TID 05/25/20 05/25/20 History potassium chloride 40 meq PO DAILY 05/25/20 05/25/20 History thiamine HCl (vitamin B1) [Vitamin 50 mg PO DAILY 05/25/20 05/25/20 History B-1] Allergies Allergy/AdvReac Type Severity Reaction Status Date / Time acetaminophen Allergy Intermediate CONTRAINDIC Verified 05/25/20 12:57 ATED aspirin Allergy Intermediate STOMACH Verified 05/25/20 12:57 BLEEDING NSAIDS (Non-Steroidal Allergy Intermediate GI PROBLEMS Verified 05/25/20 12:57 Anti-Inflamma codeine Allergy Mild high fever Verified 05/25/20 12:57 lisinopril Allergy Mild edema Verified 05/25/20 12:57 bee venom protein (honey bee) Allergy Unknown go into Verified 05/25/20 12:57 shock Past Med/Surg History Medical History Anxiety Brain aneurysm LILIA Aneursym Cardiac murmur Depression Hyperlipidemia Hypertension Major depressive disorder Osteoarthritis 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", chemo Surgical History H/O skin graft off leg to mouth History of colonoscopy History of esophagogastroduodenoscopy (EGD) History of lung surgery "scrap inside and outside of my lungs for strep pneumonia" History of tooth extraction most of teeth Family History Other No pertinent family history Social History (Updated 05/25/20 @ 13:52 by Sammi Adorno PA-C) Smoking Status: Current every day smoker Cigarettes Per Day: 5 cigarettes/day; Second Hand Exposure: No; Hx Alcohol Use: Yes Alcohol type: hard liquor Alcohol Intake Frequency: 4 or More x per/Week Alcohol Intake Frequency Comment: daily 5 -18oz drinks with 2-3 shots per drink Hx Substance Use: Yes Substance Use Type Other:: CBD and THC Preferred Language: [place] Communication Ability: Effective Career Services Representative Required: No Beliefs That Will Affect Care: None marital status: Current Living Situation: Other Current Living Situation Comment: with friend Stephanie current occupational status: retired and disabled Feels Safe at Home: Yes Review of Systems A total of 10 systems reviewed and were otherwise negative Physical Exam Vital Signs Vital Signs - 24 hr 05/25/20 10:08 05/25/20 10:31 05/25/20 11:00 Temperature 36.8 C Temperature Source Oral Pulse Rate 88 81 91 H Pulse Rate from SpO2 Sensor 79 Respiratory Rate 18 19 15 Respiratory Effort / Characteristics Non-Labored Spontaneous Respiratory Depth Normal Respiratory Pattern Regular Blood Pressure 149/78 H 111/66 137/64 Blood Pressure Mean 101 82 99 Pulse Oximetry 96 98 98 Oxygen Delivery Method Room Air Sepsis Recent Fever Within 48 Hours No Sepsis New/Unexplained Change in Mental Status No Sepsis Action Taken by Nursing No Action Required 05/25/20 11:30 05/25/20 12:00 05/25/20 12:31 Temperature Temperature Source Pulse Rate 98 H 81 86 Pulse Rate from SpO2 Sensor Respiratory Rate 15 19 21 Respiratory Effort / Characteristics Respiratory Depth Respiratory Pattern Blood Pressure 133/76 141/83 H 148/66 H Blood Pressure Mean 103 104 95 Pulse Oximetry 96 96 96 Oxygen Delivery Method Sepsis Recent Fever Within 48 Hours Sepsis New/Unexplained Change in Mental Status Sepsis Action Taken by Nursing 05/25/20 13:00 05/25/20 13:30 05/25/20 14:00 Temperature Temperature Source Pulse Rate 105 H 83 81 Pulse Rate from SpO2 Sensor Respiratory Rate 23 13 15 Respiratory Effort / Characteristics Respiratory Depth Respiratory Pattern Blood Pressure 141/82 H 133/73 129/73 Blood Pressure Mean 98 93 105 Pulse Oximetry 95 98 96 Oxygen Delivery Method Sepsis Recent Fever Within 48 Hours Sepsis New/Unexplained Change in Mental Status Sepsis Action Taken by Nursing 05/25/20 14:12 Temperature Temperature Source Pulse Rate Pulse Rate from SpO2 Sensor Respiratory Rate Respiratory Effort / Characteristics Respiratory Depth Respiratory Pattern Blood Pressure Blood Pressure Mean Pulse Oximetry Oxygen Delivery Method Room Air Sepsis Recent Fever Within 48 Hours Sepsis New/Unexplained Change in Mental Status Sepsis Action Taken by Nursing VITALS: Vitals are noted on the nurse's note and reviewed by myself. Vital signs stable. GENERAL: Chronically ill-appearing white male who is seated upright in a fully lit ER room. HEAD: Normocephalic atraumatic. EARS: External ear normal. External auditory canals clear, tympanic membranes p early katz without erythema or effusion bilaterally. HEART: Regular rate and rhythm without murmurs gallops or rubs. LUNGS: Clear to auscultation bilaterally without wheezes, rales or rhonchi. No retractions or accessory muscle use. ABDOMEN: Positive normal bowel sounds x 4. Soft, nontender, without masses or organomegaly. No guarding or rebound tenderness. MUSCULOSKELETAL: No tenderness to palpation. Mild bilateral lower extremity edema. NEURO: Patient was alert and oriented to person place and time. CN II through XII grossly intact. SKIN: The skin was with several 1 to 2 cm venous stasis ulcers noted on the left lower extremity essentially over the anterior tibia as well as 1 over the top of the left foot. There are 2 maggots distinctly noted with in the most proximal wound, which were removed. Course Administered Medications Multivitamins 10 ml/ Thiamine HCl 100 mg/ Folic Acid 1 mg/Sodium Chloride 1,011.2 mls @ 500 mls/hr IV .Q2H2M ONE Stop: 05/25/20 15:38 Last Admin: 05/25/20 14:23 Dose: 500 mls/hr Documented by: [id number] Medical Decision Making Differential Diagnosis Differential diagnosis includes: Etiologies such as cellulitis, abscess, osteomyelitis, MRSA infection, DVT, necrotizing fasciitis, dermatitis, drug eruption, as well as others were entertained Laboratory Data Result diagrams: 05/25/20 11:12 05/25/20 11:12 Lab Results 05/25/20 05/25/20 05/25/20 Range/Units 10:59 11:10 11:12 WBC 8.12 (4.8-10.8) K/uL RBC 3.43 L (4.7-6.1) M/uL Hgb 10.9 L (14.0-18.0) g/dL Hct 34.0 L (42-52) % MCV 99.1 (80-100) fL MCH 31.8 (25-34) pg MCHC 32.1 (32-36) g/dL RDW Std Deviation 60.6 H (36.4-46.3) fL RDW Coeff of Ulises 17.1 H (11.5-14.5) % Plt Count 139 (130-400) K/uL MPV 9.3 (7.4-10.4) fL Immature Gran % (Auto) 1.0 % Neut % (Auto) 86.7 % Lymph % (Auto) 8.1 % Barton % (Auto) 4.2 % Eos % (Auto) 0.0 % Baso % (Auto) 0.0 % Neut # (Auto) 7.04 H (1.4-6.5) K/uL Lymph # (Auto) 0.66 L (1.2-3.4) K/uL Barton # (Auto) 0.34 (0.11-0.59) K/uL Eos # (Auto) 0.00 (0-0.5) K/uL Baso # (Auto) 0.00 (0-0.2) K/uL Immature Gran # (Auto) 0.08 H (0.00-0.02) K/uL Absolute Nucleated RBC 0.03 H (0-0) K/uL Nucleated RBC % (auto) 0.4 % PT (9.0-12.0) Seconds INR (0.9-1.1) APTT (21.0-31.0) Seconds PTT Ratio Sodium (136-145) mmol/L Potassium (3.5-5.1) mmol/L Chloride (98-107) mmol/L Carbon Dioxide (21-32) mmol/L Anion Gap (3-11) BUN (7-18) mg/dl Creatinine (0.6-1.4) mg/dl Est Cr Clr Drug Dosing ml/min Est GFR ( Amer) Est GFR (Non-Af Amer) BUN/Creatinine Ratio (10-20) Glucose (70-99) mg/dl Lactate 1.9 (0.4-2.0) mmol/L Calcium (8.5-10.1) mg/dl Total Bilirubin (0.2-1) mg/dl AST (15-37) U/L ALT (12-78) U/L Alkaline Phosphatase (45-117) U/L Total Protein (6.4-8.2) gm/dl Albumin (3.4-5.0) gm/dl Globulin (2.5-4.0) gm/dl Albumin/Globulin Ratio (0.9-2) Ethyl Alcohol mg/dL < 3.0 (0-3) mg/dl 05/25/20 05/25/20 Range/Units 11:12 11:12 WBC (4.8-10.8) K/uL RBC (4.7-6.1) M/uL Hgb (14.0-18.0) g/dL Hct (42-52) % MCV (80-100) fL MCH (25-34) pg MCHC (32-36) g/dL RDW Std Deviation (36.4-46.3) fL RDW Coeff of Ulises (11.5-14.5) % Plt Count (130-400) K/uL MPV (7.4-10.4) fL Immature Gran % (Auto) % Neut % (Auto) % Lymph % (Auto) % Barton % (Auto) % Eos % (Auto) % Baso % (Auto) % Neut # (Auto) (1.4-6.5) K/uL Lymph # (Auto) (1.2-3.4) K/uL Barton # (Auto) (0.11-0.59) K/uL Eos # (Auto) (0-0.5) K/uL Baso # (Auto) (0-0.2) K/uL Immature Gran # (Auto) (0.00-0.02) K/uL Absolute Nucleated RBC (0-0) K/uL Nucleated RBC % (auto) % PT 10.6 (9.0-12.0) Seconds INR 1.0 (0.9-1.1) APTT 20.9 L (21.0-31.0) Seconds PTT Ratio 0.7 Sodium 135 L (136-145) mmol/L Potassium 3.9 (3.5-5.1) mmol/L Chloride 102 (98-107) mmol/L Carbon Dioxide 26 (21-32) mmol/L Anion Gap 8.0 (3-11) BUN 14 (7-18) mg/dl Creatinine 0.56 L (0.6-1.4) mg/dl Est Cr Clr Drug Dosing 166.4 ml/min Est GFR ( Amer) 128.5 Est GFR (Non-Af Amer) 110.9 BUN/Creatinine Ratio 25.4 H (10-20) Glucose 75 (70-99) mg/dl Lactate (0.4-2.0) mmol/L Calcium 9.3 (8.5-10.1) mg/dl Total Bilirubin 0.5 (0.2-1) mg/dl AST 12 L (15-37) U/L ALT 17 (12-78) U/L Alkaline Phosphatase 101 (45-117) U/L Total Protein 6.4 (6.4-8.2) gm/dl Albumin 3.2 L (3.4-5.0) gm/dl Globulin 3.2 (2.5-4.0) gm/dl Albumin/Globulin Ratio 1.0 (0.9-2) Ethyl Alcohol mg/dL (0-3) mg/dl MDM Narrative Physical exam and history were performed. Nursing notes, EMR, and Medication List were personally reviewed. Patient appears to have multiple venous stasis ulcers as well as infestation by maggots. This is highly concerning considering the patient's chronicity of his ulcers and immunocompromised status. IV access was established and labs were obtained. The patient was hydrated with normal saline. Blood cultures were gathered. The patient's blood work is as above and was reviewed. He does not have a significantly elevated white blood cell count. He is slightly anemic at 10.9. INR is 1.0. He does not have significant electrolyte imbalance. Glucose is 75. Transaminases are not diagnostic. Alcohol is negative. Overall the patient does not appear well for discharge home. He is currently on outpatient antibiotics, and admittedly he feels that his wounds are improving, although now he does have maggots distinctly within the wounds on my examination. At this time the case was discussed with the on-call hospitalist team, who agreed to evaluate the patient here in the ER. The patient certainly may need surgical evaluation for cleanout, however I will leave that to the hospitalist team to determine. The patient was pleased with this plan and remained in stable condition until evaluated by the hospitalist team. The chart was completed utilizing [employer] Speech Voice Recognition Software. Grammatical errors, random word insertions, pronoun errors, and incomplete sentences are an occasional consequence of this system due to software limitations, ambient noise, and hardware issues. Any formal questions or concerns about the content, text, or information contained within the body of this dictation should be directly addressed to the provider for clarification. . Impression & Plan Venous stasis ulcer, Infestation by maggots Discharge Plan Visit Data Chief Complaint: Wound ED Provider: Amanuel Rangel ED Midlevel Provider: Shayan Sprague Discharge Problem: Venous stasis ulcer, Infestation by maggots Discharge Instructions Interventions: ED Discharge Assessment Last Done: 05/25/20 14:12 Forms Stand Alone Forms: [facility] Prescriptions Prescriptions: No Action potassium chloride 10 mEq capsule, extended release 10 meq PO BID RF: 0 bupropion HCl [Wellbutrin XL] 150 mg tablet extended release 24 hr 150 mg PO QAM RF: 0 metoprolol succinate [Toprol XL] 100 mg tablet extended release 24 hr 100 mg PO BID RF: 0 mirtazapine [Remeron] 15 mg tablet 15 mg PO HS RF: 0 albuterol sulfate 90 mcg/actuation HFA aerosol inhaler 2 puff inhalation Q4H PRN (Reason: shortness of breath or wheezing) RF: 0 fentanyl [Duragesic] 50 mcg/hr patch 72 hour 1 patch transdermal Q72H RF: 0 ondansetron HCl [Zofran] 4 mg tablet 4 - 8 mg PO Q8H PRN (Reason: nausea and vomiting) RF: 0 magnesium oxide,aspartate,citr 400 mg magnesium capsule 400 mg PO DAILY RF: 0 dexamethasone [Decadron] 4 mg tablet 4 mg PO DAILY RF: 0 lidocaine 5 % Ointment 1 applic TOPICAL DAILY PRN (Reason: Pain) RF: 0 atorvastatin 40 mg Tablet 40 mg PO QAM RF: 0 pentoxifylline 400 mg Tablet Extended Release 400 mg PO TID RF: 0 oxycodone 5 mg Tablet 5 mg PO Q6H PRN (Reason: Pain) RF: 0 diclofenac sodium 1 % Gel 2 g TOPICAL QID PRN (Reason: Pain) RF: 0 (DME) Immunotherapy Drug 1 RF: 0 furosemide [Lasix] 20 mg Tablet 20 mg PO BID PRN (Reason: EDEMA/FLUID RETENTION) RF: 0 potassium chloride 20 mEq packet 40 meq PO DAILY RF: 0 ascorbic acid (vitamin C) [Vitamin C] 500 mg Tablet 500 mg PO DAILY RF: 0 nystatin 100,000 unit/gram powder 1 applic TOPICAL TID RF: 0 thiamine HCl (vitamin B1) [Vitamin B-1] 50 mg tablet 50 mg PO DAILY RF: 0 buspirone 15 mg tablet 15 mg PO BID RF: 0 anfjmdowcpk-nemzm-kke-vit C-Mn 500-400-166.6 mg Tablet 2 tab PO BID RF: 0 fentanyl 12 mcg/hr patch 72 hour 12 mcg transdermal Q72H RF: 0 Calmoseptine 0.44-20.6 % ointment 1 applic TOPICAL DAILY PRN (Reason: .) RF: 0 Probiotic 3 billion cell Capsule 0 mmu cells PO DAILY RF: 0 Referrals Referrals: Britt Del Toro DO [Primary Care Provider] - Discharge Problem: Venous stasis ulcer Qualifiers: Venous stasis ulcer site: other part of lower leg Varicose vein presence: without varicose veins Laterality: left Non-pressure ulcer stage: unspecified non-pressure ulcer stage Qualified Code(s): I87.2 - Venous insufficiency (chronic) (peripheral)
[2020-05-25] MEDS ORDERED: PIPERACILL/TAZOBAC CONSULT ACTIVE PRN (14:51)
[2020-05-25] MEDS ORDERED: OXYCODONE HCL IR 5 MG TAB (IMMEDIATE RELEASE) PO PRN (14:51)
[2020-05-25] MEDS ORDERED: POLYETHYLENE (MIRALAX) 17 GM PACK PO PRN (14:51)
[2020-05-25] MEDS ORDERED: ALUMINUM/MAGNESIUM SUSP 30 ML UDC PO PRN (14:51)
[2020-05-25] MEDS ORDERED: VANCOMYCIN CONSULT ACTIVE PRN (14:51)
[2020-05-25] MEDS ORDERED: ONDANSETRON INJ 2 MG/ML 2 ML VIAL IV PRN (14:51)
[2020-05-25] MEDS ORDERED: chlordiazePOXIDE ALCOHOL WITHDRAWL 50MG PO STA (14:51)
[2020-05-25] MEDS ORDERED: MAGNESIUM HYDROXIDE SUSP 30 ML UDC PO PRN (14:51)
[2020-05-25] MEDS ORDERED: ALBUTEROL HFA 8 GM INHALER INH PRN (14:51)
--- NOTE | 2020-05-25 15:35 | Surgery Consultation ---
Date of Consultation May 25, 2020 Assessment & Plan (1) Venous stasis ulcer: Multiple small venous stasis ulcers of the anterior left lower extremity with fibrinous tissue present. No induration or fluctuance to suggest abscess formation in setting of maggot infestation. Good distal pulses present. + 2 edema of the foot/ankle. Plan: No surgical intervention required at this time. Wound doctor seeing patient tomorrow, may need superficial debridement vs Santyl Continue abx Please call us with any further concerns/questions. (2) Infestation by maggots: Dr. Lang was present during my examination and agrees with above. Supervising Physician Co-Signing Physician Notes We interviewed and examined this patient I agree with the above note. He has multiple superficial ulceration-like lesions on his left lower leg anterior foot and heel. There is no evidence of abscess. There is minimal cellulitis. These lesions are being cared for by the the wound care team. There is no indication for surgical intervention at this time. History of Present Illness Reason for Consultation: Lower extremity wound with maggot infestation Requesting Physician: Temo Carter MD Attending Physician: Temo Carter MD History of Present Illness Joaquín is a 64 year-old male with history of squamous cell carcinoma of tongue, HTN,, alcohol abuse, and venous stasis ulcers of left lower extremity and foot who follows with wound care center who presented to emergency department today with complaint of maggots in his one wound on his left leg. Just recently saw wound care clinic on 05/19/20 in which there was superficial debridement of wounds. Our services consulted for possible wound debridement/washout given maggot infestation. Dr. Fajardo with wound care also consulted and contacted and is going to see patient tomorrow. Advised imaging and antibiotics. Tib/fib xray showing no signs of osteomyelitis Allergies Allergy/AdvReac Type Severity Reaction Status Date / Time acetaminophen Allergy Intermediate CONTRAINDIC Verified 05/25/20 12:57 ATED aspirin Allergy Intermediate STOMACH Verified 05/25/20 12:57 BLEEDING NSAIDS (Non-Steroidal Allergy Intermediate GI PROBLEMS Verified 05/25/20 12:57 Anti-Inflamma codeine Allergy Mild high fever Verified 05/25/20 12:57 lisinopril Allergy Mild edema Verified 05/25/20 12:57 bee venom protein (honey bee) Allergy Unknown go into Verified 05/25/20 12:57 shock Home Medications Home Medications Medication Instructions Recorded Confirmed Type atorvastatin 40 mg PO QAM 07/24/18 05/25/20 History diclofenac sodium 2 g TOPICAL QID PRN 07/24/18 05/25/20 History lidocaine 1 applic TOPICAL DAILY PRN 07/24/18 05/25/20 History oxycodone 5 mg PO Q6H PRN 07/24/18 05/25/20 History pentoxifylline 400 mg PO TID 07/24/18 05/25/20 History Immunotherapy Drug 12/18/18 05/25/20 History furosemide [Lasix] 20 mg PO BID PRN 01/09/19 05/25/20 History albuterol sulfate 90 mcg/actuation 2 puff INHALATION Q4H PRN 05/19/20 05/25/20 History aerosol inhaler bupropion HCl 150 mg 24 hr tablet, 150 mg PO QAM 05/19/20 05/25/20 History extended release dexamethasone 4 mg tablet 4 mg PO DAILY 05/19/20 05/25/20 History fentanyl 50 mcg/hr transdermal 1 patch TRANSDERMAL Q72H 05/19/20 05/25/20 History patch magnesium oxide,aspartate,citr 400 mg PO DAILY cap 05/19/20 05/25/20 History metoprolol succinate 100 mg 100 mg PO BID 05/19/20 05/25/20 History tablet,extended release 24 hr mirtazapine 15 mg tablet 15 mg PO HS 05/19/20 05/25/20 History ondansetron HCl 4 mg tablet 4 - 8 mg PO Q8H PRN 05/19/20 05/25/20 History ascorbic acid (vitamin C) [Vitamin 500 mg PO DAILY 05/25/20 05/25/20 History C] buspirone 15 mg PO TID 05/25/20 05/25/20 History fentanyl 12 mcg TRANSDERMAL Q72H 05/25/20 05/25/20 History clobjriicez-bjawm-ugm-vit C-Mn 2 tab PO BID 05/25/20 05/25/20 History lactobacillus combination no.4 0 mmu cells PO DAILY 05/25/20 05/25/20 History [Probiotic] menthol-zinc oxide [Calmoseptine] 1 applic TOPICAL DAILY PRN 05/25/20 05/25/20 History nystatin 1 applic TOPICAL TID 05/25/20 05/25/20 History potassium chloride 40 meq PO DAILY 05/25/20 05/25/20 History thiamine HCl (vitamin B1) [Vitamin 50 mg PO DAILY 05/25/20 05/25/20 History B-1] Patient History Medical History Anxiety Brain aneurysm LILIA Aneursym Cardiac murmur Depression Hyperlipidemia Hypertension Major depressive disorder Osteoarthritis 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", chemo Surgical History H/O skin graft off leg to mouth History of colonoscopy History of esophagogastroduodenoscopy (EGD) History of lung surgery "scrap inside and outside of my lungs for strep pneumonia" History of tooth extraction most of teeth Family History Other No pertinent family history Social History (Updated 05/25/20 @ 13:52 by Sammi Adorno PA-C) Smoking Status: Light tobacco smoker Cigarettes Per Day: 5 cigarettes/day; Second Hand Exposure: No; Tobacco Cessation Education Requested by Patient: No Hx Alcohol Use: Yes Alcohol type: hard liquor Alcohol Intake Frequency: 4 or More x per/Week Alcohol Intake Frequency Comment: daily 5 -18oz drinks with 2-3 shots per drink Hx Substance Use: Yes Last Used Substance: Hours (ago) Last Used Substance Other:: last night Substance Use Type Other:: occasioally Preferred Language: Cypriot Communication Ability: Effective 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 Erythema surrounding however no induration or fluctuance to suggest abscess formation. No identifiable maggots which were previsously removed. Psychiatric: Orientation: alert and oriented x 3 Results & Data ([facility]) Vital Signs (Past 12 Hours) Vital Signs Temp Pulse Resp BP Pulse Ox 05/25/20 14:00 81 15 129/73 96 05/25/20 13:30 83 13 133/73 98 05/25/20 13:00 105 H 23 141/82 H 95 05/25/20 12:31 86 21 148/66 H 96 05/25/20 12:00 81 19 141/83 H 96 05/25/20 11:30 98 H 15 133/76 96 05/25/20 11:00 91 H 15 137/64 98 05/25/20 10:31 81 19 111/66 98 05/25/20 10:08 36.8 C 88 18 149/78 H 96 Laboratory Results 05/25/20 05/25/20 05/25/20 Range/Units 11:12 11:12 11:12 WBC 8.12 (4.8-10.8) K/uL RBC 3.43 L (4.7-6.1) M/uL Hgb 10.9 L (14.0-18.0) g/dL Hct 34.0 L (42-52) % MCV 99.1 (80-100) fL MCH 31.8 (25-34) pg MCHC 32.1 (32-36) g/dL RDW Std Deviation 60.6 H (36.4-46.3) fL RDW Coeff of Ulises 17.1 H (11.5-14.5) % Plt Count 139 (130-400) K/uL MPV 9.3 (7.4-10.4) fL Immature Gran % (Auto) 1.0 % Neut % (Auto) 86.7 % Lymph % (Auto) 8.1 % [place] % (Auto) 4.2 % Eos % (Auto) 0.0 % Baso % (Auto) 0.0 % Neut # (Auto) 7.04 H (1.4-6.5) K/uL Lymph # (Auto) 0.66 L (1.2-3.4) K/uL [place] # (Auto) 0.34 (0.11-0.59) K/uL Eos # (Auto) 0.00 (0-0.5) K/uL Baso # (Auto) 0.00 (0-0.2) K/uL Immature Gran # (Auto) 0.08 H (0.00-0.02) K/uL Absolute Nucleated RBC 0.03 H (0-0) K/uL Nucleated RBC % (auto) 0.4 % PT 10.6 (9.0-12.0) Seconds INR 1.0 (0.9-1.1) APTT 20.9 L (21.0-31.0) Seconds PTT Ratio 0.7 Sodium 135 L (136-145) mmol/L Potassium 3.9 (3.5-5.1) mmol/L Chloride 102 (98-107) mmol/L Carbon Dioxide 26 (21-32) mmol/L Anion Gap 8.0 (3-11) BUN 14 (7-18) mg/dl Creatinine 0.56 L (0.6-1.4) mg/dl Est Cr Clr Drug Dosing 166.4 ml/min Est GFR ( Amer) 128.5 Est GFR (Non-Af Amer) 110.9 BUN/Creatinine Ratio 25.4 H (10-20) Glucose 75 (70-99) mg/dl Lactate (0.4-2.0) mmol/L Calcium 9.3 (8.5-10.1) mg/dl Total Bilirubin 0.5 (0.2-1) mg/dl AST 12 L (15-37) U/L ALT 17 (12-78) U/L Alkaline Phosphatase 101 (45-117) U/L Total Protein 6.4 (6.4-8.2) gm/dl Albumin 3.2 L (3.4-5.0) gm/dl Globulin 3.2 (2.5-4.0) gm/dl Albumin/Globulin Ratio 1.0 (0.9-2) Ethyl Alcohol mg/dL (0-3) mg/dl 05/25/20 05/25/20 Range/Units 11:10 10:59 WBC (4.8-10.8) K/uL RBC (4.7-6.1) M/uL Hgb (14.0-18.0) g/dL Hct (42-52) % MCV (80-100) fL MCH (25-34) pg MCHC (32-36) g/dL RDW Std Deviation (36.4-46.3) fL RDW Coeff of Ulises (11.5-14.5) % Plt Count (130-400) K/uL MPV (7.4-10.4) fL Immature Gran % (Auto) % Neut % (Auto) % Lymph % (Auto) % [place] % (Auto) % Eos % (Auto) % Baso % (Auto) % Neut # (Auto) (1.4-6.5) K/uL Lymph # (Auto) (1.2-3.4) K/uL [place] # (Auto) (0.11-0.59) K/uL Eos # (Auto) (0-0.5) K/uL Baso # (Auto) (0-0.2) K/uL Immature Gran # (Auto) (0.00-0.02) K/uL Absolute Nucleated RBC (0-0) K/uL Nucleated RBC % (auto) % PT (9.0-12.0) Seconds INR (0.9-1.1) APTT (21.0-31.0) Seconds PTT Ratio Sodium (136-145) mmol/L Potassium (3.5-5.1) mmol/L Chloride (98-107) mmol/L Carbon Dioxide (21-32) mmol/L Anion Gap (3-11) BUN (7-18) mg/dl Creatinine (0.6-1.4) mg/dl Est Cr Clr Drug Dosing ml/min Est GFR ( Amer) Est GFR (Non-Af Amer) BUN/Creatinine Ratio (10-20) Glucose (70-99) mg/dl Lactate 1.9 (0.4-2.0) mmol/L Calcium (8.5-10.1) mg/dl Total Bilirubin (0.2-1) mg/dl AST (15-37) U/L ALT (12-78) U/L Alkaline Phosphatase (45-117) U/L Total Protein (6.4-8.2) gm/dl Albumin (3.4-5.0) gm/dl Globulin (2.5-4.0) gm/dl Albumin/Globulin Ratio (0.9-2) Ethyl Alcohol mg/dL < 3.0 (0-3) mg/dl Diagnostic Findings XR tibia fibula LT 2V CLINICAL HISTORY: Open wounds. Evaluate for osteomyelitis. COMPARISON: Left knee radiographs and CT of the left knee January 09, 2019. FINDINGS: There is no fracture or evidence for osteomyelitis within the left tibia or fibula. Anterior left lower leg soft tissue swelling is noted with several lucencies suggestive of wounds. No radiopaque foreign bodies identified. IMPRESSION: Multiple left lower leg wounds. No radiographic evidence for osteomyelitis. (1) Venous stasis ulcer Laterality: left Non-pressure ulcer stage: unspecified non-pressure ulcer stage Varicose vein presence: without varicose veins Venous stasis ulcer site: other part of lower leg Qualified Code(s): I87.2 - Venous insufficiency (chronic) (peripheral); L97.829 - Non-pressure chronic ulcer of other part of left lower leg with unspecified severity
[2020-05-25] MEDS ORDERED: PIPERACILLIN/TAZOBACTAM 3.375 GM in DEXTROSE 5% 100 ML IV ONE (16:00)
--- NOTE | 2020-05-25 16:08 | Pharmacy Report ---
Pharmacy Abx Initial Consult - Date of Service May 25, 2020 - Pharmacy Dosing Scope Date of Consult: 05/25/20 Consultation requested by: Sammi Adorno Pharmacy is consulted to initiate Zosyn/Vancomycin IV dosing therapy, order appropriate labs and adjust drug dose/frequency. - Subjective The patient is a 64 year old M admitted on 05/25/20 13:00 with LLE extremity cellulitis and Stage II buttock ulcer - Objective Height: 6 ft Weight: 98.7 kg Vital Signs (Past 12hrs): Vital Signs Temp Pulse Resp BP Pulse Ox 05/25/20 14:00 81 15 129/73 96 05/25/20 13:30 83 13 133/73 98 05/25/20 13:00 105 H 23 141/82 H 95 05/25/20 12:31 86 21 148/66 H 96 05/25/20 12:00 81 19 141/83 H 96 05/25/20 11:30 98 H 15 133/76 96 05/25/20 11:00 91 H 15 137/64 98 05/25/20 10:31 81 19 111/66 98 05/25/20 10:08 36.8 C 88 18 149/78 H 96 Lab Results (24hrs): Laboratory Tests (24 Hours) 05/25/20 05/25/20 11:12 11:12 WBC 8.12 Neut # (Auto) 7.04 H Creatinine 0.56 L Est Cr Clr Drug Dosing 166.4 Micro Results: 05/25/20 15:15 Gram Stain - Pending Leg,Right Wound Culture - Pending 05/25/20 10:50 Aerobic Blood Culture - Pending Blood Anaerobic Blood Culture - Pending 05/25/20 11:12 Aerobic Blood Culture - Pending Blood Anaerobic Blood Culture - Pending - Risk Factors for Resistance * Immunocompromised (chronic steroid therapy) - Assessment & Plan Assessment 64 year old M with h/o squamous cell carcinoma of the mouth and chronic steroid use with LLE extremity cellulitis and Stage II buttock ulcer SCr 0.56, will dose cautiously although stated CrCl above 100, especially with concomitant IV Zosyn Plan Vancomycin/Zosyn for treatment of cellulitis Vancomycin IV * Estimated PK Parameters: Vd 0.7 L/kg, Jakob 0.112 hr-1, t1/2 6.1 hr * Loading dose: 2500 mg (25.3 mg/kg) * Maintenance dose: 1250 mg IV (12.7 mg/kg) every 8 hours * Goal trough level for cellulitis: 13 to 20 mcg/mL * Trough level ordered for 05/27/20 before the noon dose Piperacillin/tazobactam * 3.375 g bolus administered over 30 minutes, then 3.375 g IV extended infusion every 8 hours for CrCl greater than 20 mL/min Pharmacy will continue to follow and will adjust dose/frequency as necessary. Thank you.
[2020-05-25] MEDS ORDERED: VANCOMYCIN HCL 2,500 MG in SODIUM CHLORIDE 0.9% 500 ML IV ONE (17:30)
[2020-05-25] MEDS: FOLIC ACID 1 MG TAB PO SCH (17:53)
[2020-05-25] MEDS: THIAMINE HCL 100 MG TAB PO SCH (17:53)
[2020-05-25] MEDS: NYSTATIN SUSP 500,000 U/5 ML UDC PO SCH ×2 (17:55→21:05)
[2020-05-25] MEDS: chlordiazePOXIDE HCl 25 MG CAP PO SCH ×2 (17:55→21:14)
[2020-05-25] MEDS: CHECK FENTANYL PATCH PLACEMENT SCH (17:56)
[2020-05-25] MEDS ORDERED: fentaNYL 50 MCG/HR TDSY TD SCH ×2 (18:30→21:00)
[2020-05-25] MEDS ORDERED: fentaNYL 12 MCG/HR TDSY TD SCH ×2 (18:30→21:00)
--- NOTE | 2020-05-25 18:48 | Ultrasound Report ---
ULTRASOUND BILATERAL LOWER EXTREMITY ARTERIAL CLINICAL HISTORY: Venous ulcers. COMPARISON STUDY: No priors. TECHNIQUE: Real-time, grayscale, and color Doppler sonography of the arteries of the right and left l ower extremities performed from the inguinal crease to the foot. FINDINGS: Right lower extremity: Atherosclerotic plaque and irregularity is seen throughout the arteries of the right lower extremity: There are triphasic waveforms in the common femoral artery with velocities me asuring up to 81 cm/s. The profunda femoris artery is patent with velocities measuring up to 72 cm/s. There are triphasic waveforms seen in the superficial femoral and popliteal arteries. Velocities in the superficial femoral artery measure up to 107 cm/s, and velocities in the popliteal artery measure up to 64 cm/s. There is three-vessel runoff to the foot. Velocities within the calf arteries measure up to 94 cm/s. The dorsalis pedis artery is patent with velocities measuring up to 37 cm/s. Left lower extremity: Atherosclerotic plaque and irregularity seen throughout the arteries of the lef t lower extremity. There are triphasic waveforms in the common femoral artery with velocities measuri ng up to 100 cm/s. The profunda femoris artery is patent with velocities measuring up to 56 cm/s. The re are triphasic waveforms seen throughout the superficial femoral and popliteal arteries. Velocities in the superficial femoral artery measure up to 117 cm/s and velocities in the popliteal artery rasheed ure up to 85 cm/s. There is three-vessel runoff to the foot. Velocities within the calf arteries rasheed ure up to 104 cm/s. The dorsalis pedis artery is patent with velocities measuring up to 83 cm/s. Extensive deep venous thrombosis is identified throughout the left lower extremity. This extends from the common femoral vein distally to the popliteal vein. This is occlusive in the midportion of the s uperficial femoral vein. Superficial venous thrombus is seen within the profunda femoris vein. IMPRESSION: 1. There is no sonographic evidence of high-grade stenosis or focal vessel cutoff throughout the fabi antoine of the right or left lower extremity. 2. Extensive left lower extremity deep venous thrombosis as above. Dictated: 05/25/2020 5:59 PM Transcribed: 05/25/2020 6:30 PM Valentina [id number] [facility] Electronically signed by: Frankie Ma M.D. 05/25/2020 6:46 PM
[2020-05-25] MEDS ORDERED: HEPARIN IV BOLUS 7,000 UNITS in SYRINGE 0 ML IV ONE (20:15)
[2020-05-25 20:18] LABS: Eosinophils # (auto) 0.01 K/uL (0-0.5); Eosinophils % (auto) 0.2 %; Immature Granulocytes # (auto) 0.05 K/uL (0.00-0.02); Immature Granulocytes % (auto) 0.9 %; Lymphocytes # (auto) 0.51 K/uL (1.2-3.4); Lymphocytes % (auto) 9.2 %; Monocytes # (auto) 0.38 K/uL (0.11-0.59); Monocytes % (auto) 6.9 %; Neutrophils # (auto) 4.57 K/uL (1.4-6.5); Neutrophils % (auto) 82.8 %; Nucleated RBC # (auto) 0.02 K/uL (0-0); Nucleated RBC % (auto) 0.3 %; Platelet Count 120 K/uL (130-400); RDW Coefficient of Variation 16.9 % (11.5-14.5); RDW Standard Deviation 60.2 fL (36.4-46.3); Red Blood Count 3.03 M/uL (4.7-6.1); White Blood Count 5.52 K/uL (4.8-10.8)
[2020-05-25 20:22] LABS: Mean Corpuscular Hgb Conc 33.3 g/dL (32-36)
[2020-05-25 20:29] LABS: Partial Thromboplastin Ratio 0.8; Partial Thromboplastin Time 21.9 Seconds (21.0-31.0); Prothrombin Time 10.9 Seconds (9.0-12.0)
[2020-05-25] MEDS: HEPARIN SODIUM/DEXTROSE 25,000 UNITS/500 ML BAG IV SCH (20:58)
[2020-05-25] MEDS ORDERED: ENOXAPARIN INJ 40 MG/0.4 ML SYR SQ SCH (21:00)
[2020-05-25] MEDS ORDERED: [UNRECOGNIZED DRUG - OTHER] PO SCH (21:00)
[2020-05-25] MEDS: BusPIRone 15 MG TAB PO SCH (21:04)
[2020-05-25] MEDS: MIRTAZAPINE TAB 15 MG TAB PO SCH (21:06)
[2020-05-25] MEDS: METOPROLOL SUCC 50MG EXT REL TAB PO SCH (21:07)
[2020-05-25] MEDS: PENTOXIFYLLINE 400MG EXT REL TAB PO SCH (21:09)
[2020-05-26] MEDS ORDERED: GADOBUTROL 65ML VIAL IV ONE (00:23)
[2020-05-26] MEDS: CHECK FENTANYL PATCH PLACEMENT SCH ×4 (00:49→23:44)
[2020-05-26] MEDS: PIPERACILLIN/TAZOBACTAM 3.375 GM in DEXTROSE 5% 100 ML IV SCH ×4 (00:49→22:14)
[2020-05-26 03:11] LABS: Eosinophils # (auto) 0.02 K/uL (0-0.5); Eosinophils % (auto) 0.4 %; Hematocrit (blood only) 28.4 % (42-52); Hemoglobin 9.4 g/dL (14.0-18.0); Immature Granulocytes # (auto) 0.06 K/uL (0.00-0.02); Immature Granulocytes % (auto) 1.3 %; Lymphocytes # (auto) 0.55 K/uL (1.2-3.4); Lymphocytes % (auto) 11.9 %; Mean Corpuscular Hemoglobin 32.1 pg (25-34); Mean Corpuscular Hgb Conc 33.1 g/dL (32-36); Mean Corpuscular Volume 96.9 fL (80-100); Monocytes % (auto) 6.5 %; Neutrophils % (auto) 79.9 %; Platelet Count 106 K/uL (130-400); RDW Standard Deviation 59.4 fL (36.4-46.3); Red Blood Count 2.93 M/uL (4.7-6.1); White Blood Count 4.63 K/uL (4.8-10.8)
[2020-05-26 03:32] LABS: Ovalocytes 1+
[2020-05-26 03:36] LABS: BUN Creatinine Ratio 27.8 (10-20); Calcium 8.1 mg/dl (8.5-10.1); Creatinine Clr Calc Pharmacy 182.8 ml/min; Est GFR (African American) 133.5; Est GFR (Non-African American) 115.2; Potassium 3.2 mmol/L (3.5-5.1)
[2020-05-26] MEDS: VANCOMYCIN HCL 1,250 MG in SODIUM CHLORIDE 0.9% 250 ML IV SCH ×3 (03:54→20:08)
[2020-05-26] MEDS: chlordiazePOXIDE HCl 25 MG CAP PO SCH ×4 (03:54→23:44)
[2020-05-26 05:11] LABS: Partial Thromboplastin Ratio > 5.0
[2020-05-26 05:13] LABS: Partial Thromboplastin Time > 139.0 Seconds (21.0-31.0)
[2020-05-26 06:53] LABS: Partial Thromboplastin Ratio > 5.0
[2020-05-26 07:03] LABS: Partial Thromboplastin Time > 139.0 Seconds (21.0-31.0)
[2020-05-26 08:37] LABS: Partial Thromboplastin Time 54.6 Seconds (21.0-31.0)
--- NOTE | 2020-05-26 08:46 | Magnetic Resonance Report ---
MR lower leg LT wo/w con HISTORY: 64 years-old Male rule out osteomyelitis patient presents with reported cellulitis of the l eft lower extremity. COMPARISON: Left tibia and fibula radiographs of same day TECHNIQUE: Planar multisequence MRI of the left lower leg was obtained both with and without the use of 9.8 mL Gadavist FINDINGS: Motion degraded exam. There is at least moderate diffuse muscular atrophy. Study is not tailored to a ssess the intrinsic structures of the knee and ankle. No acute fracture, medullary or cortical bone m arrow edema. No marrow replacing lesion or osseous erosions. The visualized portions of the tendons a nd ligaments appear unremarkable. There is moderate to extensive diffuse subcutaneous edema. Mild dif fuse muscular edema is noted within the anterior and posterior compartments. No abnormal enhancement. There are multiple cutaneous ulcerations noted within the pretibial distribution. There is an ovoid 1.1 x 2.3 x 5.3 cm subcutaneous fluid collection noted along the lateral left mid leg approximately 1 8 cm from the knee articulation. This lesion is T1 intermediate signal demonstrates minimal periphera l enhancement. IMPRESSION: 1. Motion degraded exam. 2. Moderate to extensive diffuse subcutaneous edema suggestive of probable cellulitis. Additionally, there are multiple pretibial cutaneous ulcerations. 3. Ovoid peripherally enhancing subcutaneous 1.1 x 2.3 x 5.3 cm fluid collection within the lateral l eft mid leg. Correlate clinically to exclude abscess. 4. Mild diffuse intramuscular edema may reflect concomitant myositis. 5. No acute fracture, bone marrow edema or osseous erosions to suggest osteomyelitis. ACT 112: Negative or not required by law. The above report was generated using voice recognition software. It may contain grammatical, syntax o r spelling errors. Electronically signed by: Luis F Curtis M.D. 05/26/2020 8:45 AM
[2020-05-26] MEDS: BusPIRone 15 MG TAB PO SCH ×3 (08:59→20:10)
[2020-05-26] MEDS: METOPROLOL SUCC 50MG EXT REL TAB PO SCH ×2 (08:59→20:11)
[2020-05-26] MEDS: PENTOXIFYLLINE 400MG EXT REL TAB PO SCH ×3 (08:59→20:10)
[2020-05-26] MEDS: ASCORBIC ACID 500 MG TAB PO SCH (09:00)
[2020-05-26] MEDS: THIAMINE HCL 100 MG TAB PO SCH (09:00)
[2020-05-26] MEDS: ATORVASTATIN 40 MG TAB PO SCH (09:00)
[2020-05-26] MEDS: BuPROPion XL 150 MG TABCR PO SCH (09:01)
[2020-05-26] MEDS: dexAMETHasone 4 MG TAB PO SCH (09:01)
[2020-05-26] MEDS: FOLIC ACID 1 MG TAB PO SCH (09:01)
[2020-05-26] MEDS: POTASSIUM CHLORIDE PWD 20 MEQ PACK PO SCH (09:02)
[2020-05-26] MEDS: NYSTATIN SUSP 500,000 U/5 ML UDC PO SCH ×4 (09:04→20:11)
[2020-05-26] MEDS: MAGNESIUM OXIDE 400 MG TAB PO SCH (09:04)
[2020-05-26] MEDS ORDERED: SODIUM CHLORIDE 0.9% 1000ML 1,000 ML IV ONE (12:19)
--- NOTE | 2020-05-26 12:20 | Surgery Progress Note ---
Date of Service May 26, 2020 Assessment & Plan (1) Venous stasis ulcer: Multiple small venous stasis ulcers of the anterior left lower extremity with fibrinous tissue present. No induration or fluctuance to suggest abscess formation in setting of maggot infestation. Good distal pulses present. + 2 edema of the foot/ankle. Plan: No surgical intervention required at this time. Wound care team evaluated patient, planning to continue Santyl and Antibiotics for now. Continue medical management our services signing off (2) Infestation by maggots: Dr. Lang has seen patient and agrees with above. Admission and Anticipated Discharge Date Admission Date: May 25, 2020 Supervising Physician Co-Signing Physician Notes I interviewed and examined this patient I agree with the above note. There is no need for surgical intervention at this time. Wound management as per the wound care team. We can sign off. Please let us know if there is anything else we can do to help with this patient. Subjective no new complaints by patient wound care nurse and Dr. Fajardo in the room, just finished evaluation patient and wounds dressed. Plan is to continue Santyl and antibiotics. No need for debridement at this time. Physical Exam Constitutional: no acute distress and not ill appearing Respiratory: normal respiratory effort; no respiratory distress Psychiatric: Orientation: alert and oriented x 3 Results & Data ([facility]) Vital Signs (Past 12 Hours) Vital Signs Temp Pulse Resp BP Pulse Ox 05/26/20 07:45 36.7 C 65 16 99/54 L 94 05/26/20 03:40 36.4 C L 67 16 106/68 96 Laboratory Results 05/26/20 05/26/20 05/26/20 Range/Units 07:56 06:17 04:18 WBC (4.8-10.8) K/uL RBC (4.7-6.1) M/uL Hgb (14.0-18.0) g/dL Hct (42-52) % MCV (80-100) fL MCH (25-34) pg MCHC (32-36) g/dL RDW Std Deviation (36.4-46.3) fL RDW Coeff of Ulises (11.5-14.5) % Plt Count (130-400) K/uL MPV (7.4-10.4) fL Immature Gran % (Auto) % Neut % (Auto) % Lymph % (Auto) % [place] % (Auto) % Eos % (Auto) % Baso % (Auto) % Neut # (Auto) (1.4-6.5) K/uL Lymph # (Auto) (1.2-3.4) K/uL [place] # (Auto) (0.11-0.59) K/uL Eos # (Auto) (0-0.5) K/uL Baso # (Auto) (0-0.2) K/uL Immature Gran # (Auto) (0.00-0.02) K/uL Absolute Nucleated RBC (0-0) K/uL Nucleated RBC % (auto) % Ovalocytes PT (9.0-12.0) Seconds INR (0.9-1.1) APTT 54.6 H* > 139.0 H* (21.0-31.0) Seconds PTT Ratio 2.0 > 5.0 Sodium (136-145) mmol/L Potassium (3.5-5.1) mmol/L Chloride (98-107) mmol/L Carbon Dioxide (21-32) mmol/L Anion Gap (3-11) BUN (7-18) mg/dl Creatinine (0.6-1.4) mg/dl Est Cr Clr Drug Dosing ml/min Est GFR ( Amer) Est GFR (Non-Af Amer) BUN/Creatinine Ratio (10-20) Glucose (70-99) mg/dl Calcium (8.5-10.1) mg/dl Hepatitis C Ab Screen Neg 05/26/20 05/26/20 05/26/20 Range/Units 04:18 03:01 03:01 WBC 4.63 L (4.8-10.8) K/uL RBC 2.93 L (4.7-6.1) M/uL Hgb 9.4 L (14.0-18.0) g/dL Hct 28.4 L (42-52) % MCV 96.9 (80-100) fL MCH 32.1 (25-34) pg MCHC 33.1 (32-36) g/dL RDW Std Deviation 59.4 H (36.4-46.3) fL RDW Coeff of Ulises 17.0 H (11.5-14.5) % Plt Count 106 L (130-400) K/uL MPV 9.0 (7.4-10.4) fL Immature Gran % (Auto) 1.3 % Neut % (Auto) 79.9 % Lymph % (Auto) 11.9 % [place] % (Auto) 6.5 % Eos % (Auto) 0.4 % Baso % (Auto) 0.0 % Neut # (Auto) 3.70 (1.4-6.5) K/uL Lymph # (Auto) 0.55 L (1.2-3.4) K/uL [place] # (Auto) 0.30 (0.11-0.59) K/uL Eos # (Auto) 0.02 (0-0.5) K/uL Baso # (Auto) 0.00 (0-0.2) K/uL Immature Gran # (Auto) 0.06 H (0.00-0.02) K/uL Absolute Nucleated RBC (0-0) K/uL Nucleated RBC % (auto) % Ovalocytes 1+ PT (9.0-12.0) Seconds INR (0.9-1.1) APTT > 139.0 H* (21.0-31.0) Seconds PTT Ratio > 5.0 Sodium 141 (136-145) mmol/L Potassium 3.2 L D (3.5-5.1) mmol/L Chloride 109 H (98-107) mmol/L Carbon Dioxide 25 (21-32) mmol/L Anion Gap 7.0 (3-11) BUN 14 (7-18) mg/dl Creatinine 0.51 L (0.6-1.4) mg/dl Est Cr Clr Drug Dosing 182.8 ml/min Est GFR ( Amer) 133.5 Est GFR (Non-Af Amer) 115.2 BUN/Creatinine Ratio 27.8 H (10-20) Glucose 75 (70-99) mg/dl Calcium 8.1 L (8.5-10.1) mg/dl Hepatitis C Ab Screen 05/26/20 05/26/20 05/25/20 Range/Units 03:01 03:01 20:04 WBC (4.8-10.8) K/uL RBC (4.7-6.1) M/uL Hgb (14.0-18.0) g/dL Hct (42-52) % MCV (80-100) fL MCH (25-34) pg MCHC (32-36) g/dL RDW Std Deviation (36.4-46.3) fL RDW Coeff of Ulises (11.5-14.5) % Plt Count (130-400) K/uL MPV (7.4-10.4) fL Immature Gran % (Auto) % Neut % (Auto) % Lymph % (Auto) % [place] % (Auto) % Eos % (Auto) % Baso % (Auto) % Neut # (Auto) (1.4-6.5) K/uL Lymph # (Auto) (1.2-3.4) K/uL [place] # (Auto) (0.11-0.59) K/uL Eos # (Auto) (0-0.5) K/uL Baso # (Auto) (0-0.2) K/uL Immature Gran # (Auto) (0.00-0.02) K/uL Absolute Nucleated RBC (0-0) K/uL Nucleated RBC % (auto) % Ovalocytes PT 10.9 (9.0-12.0) Seconds INR 1.0 (0.9-1.1) APTT Cancelled 21.9 (21.0-31.0) Seconds PTT Ratio Cancelled 0.8 Sodium (136-145) mmol/L Potassium (3.5-5.1) mmol/L Chloride (98-107) mmol/L Carbon Dioxide (21-32) mmol/L Anion Gap (3-11) BUN (7-18) mg/dl Creatinine (0.6-1.4) mg/dl Est Cr Clr Drug Dosing ml/min Est GFR ( Amer) Est GFR (Non-Af Amer) BUN/Creatinine Ratio (10-20) Glucose (70-99) mg/dl Calcium (8.5-10.1) mg/dl Hepatitis C Ab Screen Cancelled 05/25/20 Range/Units 20:04 WBC 5.52 (4.8-10.8) K/uL RBC 3.03 L (4.7-6.1) M/uL Hgb 10.0 L (14.0-18.0) g/dL Hct 30.0 L (42-52) % MCV 99.0 (80-100) fL MCH 33.0 (25-34) pg MCHC 33.3 (32-36) g/dL RDW Std Deviation 60.2 H (36.4-46.3) fL RDW Coeff of Ulises 16.9 H (11.5-14.5) % Plt Count 120 L (130-400) K/uL MPV 9.0 (7.4-10.4) fL Immature Gran % (Auto) 0.9 % Neut % (Auto) 82.8 % Lymph % (Auto) 9.2 % [place] % (Auto) 6.9 % Eos % (Auto) 0.2 % Baso % (Auto) 0.0 % Neut # (Auto) 4.57 (1.4-6.5) K/uL Lymph # (Auto) 0.51 L (1.2-3.4) K/uL [place] # (Auto) 0.38 (0.11-0.59) K/uL Eos # (Auto) 0.01 (0-0.5) K/uL Baso # (Auto) 0.00 (0-0.2) K/uL Immature Gran # (Auto) 0.05 H (0.00-0.02) K/uL Absolute Nucleated RBC 0.02 H (0-0) K/uL Nucleated RBC % (auto) 0.3 % Ovalocytes PT (9.0-12.0) Seconds INR (0.9-1.1) APTT (21.0-31.0) Seconds PTT Ratio Sodium (136-145) mmol/L Potassium (3.5-5.1) mmol/L Chloride (98-107) mmol/L Carbon Dioxide (21-32) mmol/L Anion Gap (3-11) BUN (7-18) mg/dl Creatinine (0.6-1.4) mg/dl Est Cr Clr Drug Dosing ml/min Est GFR ( Amer) Est GFR (Non-Af Amer) BUN/Creatinine Ratio (10-20) Glucose (70-99) mg/dl Calcium (8.5-10.1) mg/dl Hepatitis C Ab Screen (1) Venous stasis ulcer Laterality: left Non-pressure ulcer stage: unspecified non-pressure ulcer stage Varicose vein presence: without varicose veins Venous stasis ulcer site: other part of lower leg Qualified Code(s): I87.2 - Venous insufficiency (ch ronic) (peripheral); L97.829 - Non-pressure chronic ulcer of other part of left lower leg with unspecified severity
--- NOTE | 2020-05-26 12:42 | Hospitalist Progress Note ---
Date of Service May 26, 2020 Assessment & Plan (1) Venous stasis ulcer: (2) Infestation by maggots: (3) Stage II pressure ulcer of left buttock: Patient is a 64 yr male with H/O HTN, HLD, alcoholism, chronic tobacco abuse, squamous cell carcinoma of the mouth, brain aneurysm, depression who presents with worsening wounds of the left lower extremity with visibility of maggots. Multiple leg wound infection Venous stasis ulcer Stage II left buttock pressure ulcer Myositis Immunocompromised state--on chronic prednisone for SCC --Left LE MRI:Motion degraded exam. Moderate to extensive diffuse subcutaneous edema suggestive of probable cellulitis. Additionally, there are multiple pretibial cutaneous ulcerations. Ovoid peripherally enhancing subcutaneous 1.1 x 2.3 x 5.3 cm fluid collection within the lateral left mid leg. Correlate clinically to exclude abscess. Mild diffuse intramuscular edema may reflect concomitant myositis. No acute fracture, bone marrow edema or osseous erosions to suggest osteomyelitis. --Arterial Doppler:There is no sonographic evidence of high-grade stenosis or focal vessel cutoff throughout the arteries of the right or left lower extremity. Extensive left lower extremity deep venous thrombosis as above. --Blood Culture: No growth to date --Wound Culture:pending --No osteomyelitis on imaging studies. --Continue vancomycin, Zosyn --Appreciate surgery input --Continue wound care --IV fluids --Wound care provider consulted Acute Left LE DVT Arterial Doppler as above Risk Factors: Poor mobilization, H/O cancer Started on IV heparin We will plan to initiate oral anticoagulation as able Plan to discuss with oncology Dr. Cohen prior to transitioning to oral anticoagulation Hypokalemia Likely secondary to poor oral intake, diuretics Normal magnesium levels Currently diuretics held Replete electrolytes as needed (4) Alcohol abuse: Continue alcohol withdrawal protocol with Librium Monitor for withdrawal symptoms Continue thiamine, folic acid Counseled to quit drinking (5) Tobacco abuse disorder: Encourage smoking cessation Declined nicotine patch (6) Squamous cell carcinoma: SCC of mouth S/P Surgery and Radiation therapy Had excision with split thickness skin graft Dr. Stone in [address] Cohen Received Keytruda since 09/2018 Currently Keytruda held due to deteriorating condition Follow-up with oncology as outpatient (7) HTN (hypertension): Blood pressure relatively low continue metoprolol with holding parameters IV fluids DVT Px: IV Heparin Code Status Full Code Disposition: To be determined Admission and Anticipated Discharge Date Admission Date: May 25, 2020 Subjective Patient is seen and examined at bedside Complains of leg pain, chronic jaw pain Denies chest pain, shortness of breath, dizziness, nausea, abdominal pain Requesting to increase pain medication No significant withdrawal symptoms Offers no other complaints Review of Systems Review of Systems: All systems reviewed & are unremarkable except as noted in HPI & below Physical Exam Physical Exam: Physical Exam: Vitals signs as noted above General Appearance: Chronically appearing, poorly groomed, no apparent distress Head: normocephalic, Atraumatic, +Thrush,+ poor dentition, +Jaw deformity Eyes: normal inspection, EOMI Neck: supple, Trachea midline Respiratory/Chest: Normal breath sounds, CTA, No accessory muscle use Cardiovascular: S1, S2, No murmur Abdomen/GI:Soft, Non tender, Bowel sounds present Extremities/Musculoskelatal:normal inspection, Venous stasis changes, LLE open wounds, erythema, edema, tender, RLE edema Neurologic/Psych:AAOX3, Bedbound, could not perform complete neurological exam. Skin: normal color, warm Results & Data Results & Data ([facility]) Vital Signs (Past 12 Hours) Vital Signs Temp Pulse Resp BP Pulse Ox 05/26/20 07:45 36.7 C 65 16 99/54 L 94 05/26/20 03:40 36.4 C L 67 16 106/68 96 Laboratory Results Short CBC 05/25/20 05/26/20 Range/Units 20:04 03:01 WBC 5.52 4.63 L (4.8-10.8) K/uL Hgb 10.0 L 9.4 L (14.0-18.0) g/dL Hct 30.0 L 28.4 L (42-52) % Plt Count 120 L 106 L (130-400) K/uL BMP 05/26/20 03:01 Sodium 141 Potassium 3.2 L D Chloride 109 H Carbon Dioxide 25 BUN 14 Creatinine 0.51 L Glucose 75 Calcium 8.1 L (1) Venous stasis ulcer Venous stasis ulcer site: other part of lower leg Varicose vein presence: without varicose veins Laterality: left Non-pressure ulcer stage: unspecified non-pressure ulcer stage Qualified Code(s): I87.2 - Venous insufficiency (chronic) (peripheral); L97.829 - Non-pressure chronic ulcer of other part of left lower leg with unspecified severity
--- NOTE | 2020-05-26 15:11 | Wound Consultation ---
Date of Consultation May 26, 2020 Assessment & Plan (1) Venous stasis ulcer: No debridement was done. We will continue to dress wounds with Santyl. Discussed case with Dr. Lang. There is no plan for surgical debridement at this time as clinically there is no signs of abscess. Continue antibiotics. We will see patient in the office after discharge. Thank you for limited to spent the care of this patient. Please call with any questions. (2) Infestation by maggots: (3) Stage III pressure ulcer of left buttock: Is present on admission. No debridement was required at this time. Wound will be dressed with Aquacel Ag and OPTi foam. History of Present Illness Reason for Consultation: cellulitis of leg Attending Physician: Harris Thomas MD History of Present Illness This is a 64-year-old male with a history of T2 vertebral fracture, squamous cell carcinoma of the jaw, hypertension and venous stasis ulcer who was admitted with infestation by maggots and cellulitis of his leg. Patient was seen last week in the wound clinic today establish care. In the room patient called stating that he had maggot infestation. Patient was seen in the emergency department and was admitted. Patient with no new complaints. Allergies Allergy/AdvReac Type Severity Reaction Status Date / Time acetaminophen Allergy Intermediate CONTRAINDIC Verified 05/25/20 12:57 ATED aspirin Allergy Intermediate STOMACH Verified 05/25/20 12:57 BLEEDING NSAIDS (Non-Steroidal Allergy Intermediate GI PROBLEMS Verified 05/25/20 12:57 Anti-Inflamma codeine Allergy Mild high fever Verified 05/25/20 12:57 lisinopril Allergy Mild edema Verified 05/25/20 12:57 bee venom protein (honey bee) Allergy Unknown go into Verified 05/25/20 12:57 shock Home Medications Home Medications Medication Instructions Recorded Confirmed Type atorvastatin 40 mg PO QAM 07/24/18 05/25/20 History diclofenac sodium 2 g TOPICAL QID PRN 07/24/18 05/25/20 History lidocaine 1 applic TOPICAL DAILY PRN 07/24/18 05/25/20 History oxycodone 5 mg PO Q6H PRN 07/24/18 05/25/20 History pentoxifylline 400 mg PO TID 07/24/18 05/25/20 History Immunotherapy Drug 12/18/18 05/25/20 History furosemide [Lasix] 20 mg PO BID PRN 01/09/19 05/25/20 History albuterol sulfate 90 mcg/actuation 2 puff INHALATION Q4H PRN 05/19/20 05/25/20 History aerosol inhaler bupropion HCl 150 mg 24 hr tablet, 150 mg PO QAM 05/19/20 05/25/20 History extended release dexamethasone 4 mg tablet 4 mg PO DAILY 05/19/20 05/25/20 History fentanyl 50 mcg/hr transdermal 1 patch TRANSDERMAL Q72H 05/19/20 05/25/20 History patch magnesium oxide,aspartate,citr 400 mg PO DAILY cap 05/19/20 05/25/20 History metoprolol succinate 100 mg 100 mg PO BID 05/19/20 05/25/20 History tablet,extended release 24 hr mirtazapine 15 mg tablet 15 mg PO HS 05/19/20 05/25/20 History ondansetron HCl 4 mg tablet 4 - 8 mg PO Q8H PRN 05/19/20 05/25/20 History ascorbic acid (vitamin C) [Vitamin 500 mg PO DAILY 05/25/20 05/25/20 History C] buspirone 15 mg PO TID 05/25/20 05/25/20 History fentanyl 12 mcg TRANSDERMAL Q72H 05/25/20 05/25/20 History gplodinfvuq-acylw-bdz-vit C-Mn 2 tab PO BID 05/25/20 05/25/20 History lactobacillus combination no.4 0 mmu cells PO DAILY 05/25/20 05/25/20 History [Probiotic] menthol-zinc oxide [Calmoseptine] 1 applic TOPICAL DAILY PRN 05/25/20 05/25/20 History nystatin 1 applic TOPICAL TID 05/25/20 05/25/20 History potassium chloride 40 meq PO DAILY 05/25/20 05/25/20 History thiamine HCl (vitamin B1) [Vitamin 50 mg PO DAILY 05/25/20 05/25/20 History B-1] Patient History Medical History Anxiety Brain aneurysm LILIA Aneursym Cardiac murmur Depression Hyperlipidemia Hypertension Major depressive disorder Osteoarthritis 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", chemo Surgical History H/O skin graft off leg to mouth History of colonoscopy History of esophagogastroduodenoscopy (EGD) History of lung surgery "scrap inside and outside of my lungs for strep pneumonia" History of tooth extraction most of teeth Family History Other No pertinent family history Social History Smoking Status: Light tobacco smoker Cigarettes Per Day: 5 cigarettes/day; Second Hand Exposure: No; Tobacco Cessation Education Requested by Patient: No Hx Alcohol Use: Yes Alcohol type: hard liquor Alcohol Intake Frequency: 4 or More x per/Week Alcohol Intake Frequency Comment: daily 5 -18oz drinks with 2-3 shots per drink Hx Substance Use: Yes Last Used Substance: Hours (ago) Last Used Substance Other:: last night Substance Use Type Other:: occasioally Preferred Language: Bulgarian Communication Ability: Effective Blending Supervisor Required: No Beliefs That Will Affect Care: None marital status: Current Living Situation: Significant Other Current Living Situation Comment: with friend Stephanie current occupational status: retired and disabled Other Information That Helps Us Care for You: No Feels Safe at Home: Yes Review of Systems Review of Systems: All systems reviewed & are unremarkable except as noted in HPI & below Physical Exam Physical Exam: Temp Pulse Resp BP Pulse Ox 36.3 C L 68 17 99/65 L 94 05/26/20 15:03 05/26/20 15:03 05/26/20 15:03 05/26/20 15:03 05/26/20 15:03 Constitutional: WD/WN, vitals as above Eyes: PERRL, conjunctivae normal, anicteric sclerae ENMT: external ear and nose normal, oropharynx normal Skin: Wound measuring as recorded by nursing documentation. Wounds are covered with fibrin and slough. Left leg is erythematous and tender. Neurologic: awake; not confused Psychiatric: A+Ox3, euthymic affect Results & Data ([facility]) Vital Signs (Past 12 Hours) Vital Signs Temp Pulse Resp BP Pulse Ox 05/26/20 07:45 36.7 C 65 16 99/54 L 94 05/26/20 03:40 36.4 C L 67 16 106/68 96 Laboratory Results 05/26/20 05/26/20 05/26/20 Range/Units 07:56 06:17 04:18 WBC (4.8-10.8) K/uL RBC (4.7-6.1) M/uL Hgb (14.0-18.0) g/dL Hct (42-52) % MCV (80-100) fL MCH (25-34) pg MCHC (32-36) g/dL RDW Std Deviation (36.4-46.3) fL RDW Coeff of Ulises (11.5-14.5) % Plt Count (130-400) K/uL MPV (7.4-10.4) fL Immature Gran % (Auto) % Neut % (Auto) % Lymph % (Auto) % Borden % (Auto) % Eos % (Auto) % Baso % (Auto) % Neut # (Auto) (1.4-6.5) K/uL Lymph # (Auto) (1.2-3.4) K/uL Borden # (Auto) (0.11-0.59) K/uL Eos # (Auto) (0-0.5) K/uL Baso # (Auto) (0-0.2) K/uL Immature Gran # (Auto) (0.00-0.02) K/uL Absolute Nucleated RBC (0-0) K/uL Nucleated RBC % (auto) % Ovalocytes PT (9.0-12.0) Seconds INR (0.9-1.1) APTT 54.6 H* > 139.0 H* (21.0-31.0) Seconds PTT Ratio 2.0 > 5.0 Sodium (136-145) mmol/L Potassium (3.5-5.1) mmol/L Chloride (98-107) mmol/L Carbon Dioxide (21-32) mmol/L Anion Gap (3-11) BUN (7-18) mg/dl Creatinine (0.6-1.4) mg/dl Est Cr Clr Drug Dosing ml/min Est GFR ( Amer) Est GFR (Non-Af Amer) BUN/Creatinine Ratio (10-20) Glucose (70-99) mg/dl Calcium (8.5-10.1) mg/dl Hepatitis C Ab Screen Neg 05/26/20 05/26/20 05/26/20 Range/Units 04:18 03:01 03:01 WBC 4.63 L (4.8-10.8) K/uL RBC 2.93 L (4.7-6.1) M/uL Hgb 9.4 L (14.0-18.0) g/dL Hct 28.4 L (42-52) % MCV 96.9 (80-100) fL MCH 32.1 (25-34) pg MCHC 33.1 (32-36) g/dL RDW Std Deviation 59.4 H (36.4-46.3) fL RDW Coeff of Ulises 17.0 H (11.5-14.5) % Plt Count 106 L (130-400) K/uL MPV 9.0 (7.4-10.4) fL Immature Gran % (Auto) 1.3 % Neut % (Auto) 79.9 % Lymph % (Auto) 11.9 % Borden % (Auto) 6.5 % Eos % (Auto) 0.4 % Baso % (Auto) 0.0 % Neut # (Auto) 3.70 (1.4-6.5) K/uL Lymph # (Auto) 0.55 L (1.2-3.4) K/uL Borden # (Auto) 0.30 (0.11-0.59) K/uL Eos # (Auto) 0.02 (0-0.5) K/uL Baso # (Auto) 0.00 (0-0.2) K/uL Immature Gran # (Auto) 0.06 H (0.00-0.02) K/uL Absolute Nucleated RBC (0-0) K/uL Nucleated RBC % (auto) % Ovalocytes 1+ PT (9.0-12.0) Seconds INR (0.9-1.1) APTT > 139.0 H* (21.0-31.0) Seconds PTT Ratio > 5.0 Sodium 141 (136-145) mmol/L Potassium 3.2 L D (3.5-5.1) mmol/L Chloride 109 H (98-107) mmol/L Carbon Dioxide 25 (21-32) mmol/L Anion Gap 7.0 (3-11) BUN 14 (7-18) mg/dl Creatinine 0.51 L (0.6-1.4) mg/dl Est Cr Clr Drug Dosing 182.8 ml/min Est GFR ( Amer) 133.5 Est GFR (Non-Af Amer) 115.2 BUN/Creatinine Ratio 27.8 H (10-20) Glucose 75 (70-99) mg/dl Calcium 8.1 L (8.5-10.1) mg/dl Hepatitis C Ab Screen 05/26/20 05/26/20 05/25/20 Range/Units 03:01 03:01 20:04 WBC (4.8-10.8) K/uL RBC (4.7-6.1) M/uL Hgb (14.0-18.0) g/dL Hct (42-52) % MCV (80-100) fL MCH (25-34) pg MCHC (32-36) g/dL RDW Std Deviation (36.4-46.3) fL RDW Coeff of Ulises (11.5-14.5) % Plt Count (130-400) K/uL MPV (7.4-10.4) fL Immature Gran % (Auto) % Neut % (Auto) % Lymph % (Auto) % Borden % (Auto) % Eos % (Auto) % Baso % (Auto) % Neut # (Auto) (1.4-6.5) K/uL Lymph # (Auto) (1.2-3.4) K/uL Borden # (Auto) (0.11-0.59) K/uL Eos # (Auto) (0-0.5) K/uL Baso # (Auto) (0-0.2) K/uL Immature Gran # (Auto) (0.00-0.02) K/uL Absolute Nucleated RBC (0-0) K/uL Nucleated RBC % (auto) % Ovalocytes PT 10.9 (9.0-12.0) Seconds INR 1.0 (0.9-1.1) APTT Cancelled 21.9 (21.0-31.0) Seconds PTT Ratio Cancelled 0.8 Sodium (136-145) mmol/L Potassium (3.5-5.1) mmol/L Chloride (98-107) mmol/L Carbon Dioxide (21-32) mmol/L Anion Gap (3-11) BUN (7-18) mg/dl Creatinine (0.6-1.4) mg/dl Est Cr Clr Drug Dosing ml/min Est GFR ( Amer) Est GFR (Non-Af Amer) BUN/Creatinine Ratio (10-20) Glucose (70-99) mg/dl Calcium (8.5-10.1) mg/dl Hepatitis C Ab Screen Cancelled 05/25/20 Range/Units 20:04 WBC 5.52 (4.8-10.8) K/uL RBC 3.03 L (4.7-6.1) M/uL Hgb 10.0 L (14.0-18.0) g/dL Hct 30.0 L (42-52) % MCV 99.0 (80-100) fL MCH 33.0 (25-34) pg MCHC 33.3 (32-36) g/dL RDW Std Deviation 60.2 H (36.4-46.3) fL RDW Coeff of Ulises 16.9 H (11.5-14.5) % Plt Count 120 L (130-400) K/uL MPV 9.0 (7.4-10.4) fL Immature Gran % (Auto) 0.9 % Neut % (Auto) 82.8 % Lymph % (Auto) 9.2 % Borden % (Auto) 6.9 % Eos % (Auto) 0.2 % Baso % (Auto) 0.0 % Neut # (Auto) 4.57 (1.4-6.5) K/uL Lymph # (Auto) 0.51 L (1.2-3.4) K/uL Borden # (Auto) 0.38 (0.11-0.59) K/uL Eos # (Auto) 0.01 (0-0.5) K/uL Baso # (Auto) 0.00 (0-0.2) K/uL Immature Gran # (Auto) 0.05 H (0.00-0.02) K/uL Absolute Nucleated RBC 0.02 H (0-0) K/uL Nucleated RBC % (auto) 0.3 % Ovalocytes PT (9.0-12.0) Seconds INR (0.9-1.1) APTT (21.0-31.0) Seconds PTT Ratio Sodium (136-145) mmol/L Potassium (3.5-5.1) mmol/L Chloride (98-107) mmol/L Carbon Dioxide (21-32) mmol/L Anion Gap (3-11) BUN (7-18) mg/dl Creatinine (0.6-1.4) mg/dl Est Cr Clr Drug Dosing ml/min Est GFR ( Amer) Est GFR (Non-Af Amer) BUN/Creatinine Ratio (10-20) Glucose (70-99) mg/dl Calcium (8.5-10.1) mg/dl Hepatitis C Ab Screen Diagnostic Findings X-ray tibia fibula left 2 view IMPRESSION: Multiple left lower leg wounds. No radiographic evidence for osteomyelitis. Lower extremity MRI:IMPRESSION: 1. Motion degraded exam. 2. Moderate to extensive diffuse subcutaneous edema suggestive of probable cellulitis. Additionally, there are multiple pretibial cutaneous ulcerations. 3. Ovoid peripherally enhancing subcutaneous 1.1 x 2.3 x 5.3 cm fluid collection within the lateral left mid leg. Correlate clinically to exclude abscess. 4. Mild diffuse intramuscular edema may reflect concomitant myositis. 5. No acute fracture, bone marrow edema or osseous erosions to suggest osteomyelitis. Ultrasound bilateral lower extremity arterial:IMPRESSION: 1. There is no sonographic evidence of high-grade stenosis or focal vessel cutoff throughout the arteries of the right or left lower extremity. 2. Extensive left lower extremity deep venous thrombosis as above. PG Care Time/CCT Total # of Minutes Spent Total Time Spent with Patient: Total time spent is greater than 50% in coordination of care (as documented) at patient's floor/unit and/or counseling patient: Coding Level of Care Code 31388 Inpt Consult Level 3 Diagnoses Venous stasis ulcer I87.2; L97.829 Laterality: left Non-pressure ulcer stage: unspecified non-pressure ulcer stage Varicose vein presence: without varicose veins Venous stasis ulcer site: other part of lower leg Infestation by maggots B87.9 Stage III pressure ulcer of left buttock L89.323 (1) Venous stasis ulcer Laterality: left Non-pressure ulcer stage: unspecified non-pressure ulcer stage Varicose vein presence: without varicose veins Venous stasis ulcer site: other part of lower leg Qualified Code(s): I87.2 - Venous insufficiency (chronic) (peripheral); L97.829 - Non-pressure chronic ulcer of other part of left lower leg with unspecified severity
[2020-05-26] MEDS: COLLAGENASE OINT 30 GM TUBE EXT SCH (15:48)
[2020-05-26 15:51] LABS: Partial Thromboplastin Ratio 2.8
[2020-05-26 15:53] LABS: Partial Thromboplastin Time 77.2 Seconds (21.0-31.0)
[2020-05-26] MEDS ORDERED: POTASSIUM CHLORIDE 20 MEQ TABCR PO ONE (16:00)
[2020-05-26] MEDS: HEPARIN SODIUM/DEXTROSE 25,000 UNITS/500 ML BAG IV SCH (18:47)
[2020-05-26] MEDS: MIRTAZAPINE TAB 15 MG TAB PO SCH (20:11)
[2020-05-26] MEDS: OXYCODONE HCL IR 5 MG TAB (IMMEDIATE RELEASE) PO PRN (20:12)
[2020-05-26 22:58] LABS: Partial Thromboplastin Ratio 3.1
[2020-05-26 23:00] LABS: Partial Thromboplastin Time 86.3 Seconds (21.0-31.0)
[2020-05-27] MEDS: OXYCODONE HCL IR 5 MG TAB (IMMEDIATE RELEASE) PO PRN ×2 (00:26→06:16)
[2020-05-27] MEDS: VANCOMYCIN HCL 1,250 MG in SODIUM CHLORIDE 0.9% 250 ML IV SCH (04:09)
[2020-05-27 05:59] LABS: Hematocrit (blood only) 28.6 % (42-52); Hemoglobin 9.2 g/dL (14.0-18.0); Mean Corpuscular Hemoglobin 32.2 pg (25-34); Mean Corpuscular Hgb Conc 32.2 g/dL (32-36); Mean Platelet Volume 9.2 fL (7.4-10.4); Platelet Count 120 K/uL (130-400); RDW Coefficient of Variation 17.4 % (11.5-14.5); RDW Standard Deviation 63.1 fL (36.4-46.3); Red Blood Count 2.86 M/uL (4.7-6.1); White Blood Count 3.58 K/uL (4.8-10.8)
[2020-05-27 06:19] LABS: Partial Thromboplastin Ratio 2.5
[2020-05-27 06:35] LABS: BUN Creatinine Ratio 31.4 (10-20); Calcium 8.1 mg/dl (8.5-10.1); Creatinine Clr Calc Pharmacy 211.8 ml/min; Est GFR (African American) 141.9; Est GFR (Non-African American) 122.4; Magnesium 1.8 mg/dl (1.8-2.4); Potassium 3.4 mmol/L (3.5-5.1)
[2020-05-27] MEDS: PIPERACILLIN/TAZOBACTAM 3.375 GM in DEXTROSE 5% 100 ML IV SCH ×3 (07:18→22:13)
[2020-05-27] MEDS: CHECK FENTANYL PATCH PLACEMENT SCH ×3 (07:32→23:26)
[2020-05-27] MEDS: chlordiazePOXIDE HCl 25 MG CAP PO SCH ×3 (07:36→23:28)
[2020-05-27] MEDS: BuPROPion XL 150 MG TABCR PO SCH (08:37)
[2020-05-27] MEDS: ASCORBIC ACID 500 MG TAB PO SCH (08:37)
[2020-05-27] MEDS: POTASSIUM CHLORIDE PWD 20 MEQ PACK PO SCH (08:40)
[2020-05-27] MEDS: ATORVASTATIN 40 MG TAB PO SCH (08:40)
[2020-05-27] MEDS: dexAMETHasone 4 MG TAB PO SCH (08:40)
[2020-05-27] MEDS: METOPROLOL SUCC 50MG EXT REL TAB PO SCH ×2 (08:41→20:43)
[2020-05-27] MEDS: MAGNESIUM OXIDE 400 MG TAB PO SCH (08:42)
[2020-05-27] MEDS: BusPIRone 15 MG TAB PO SCH ×3 (08:42→20:43)
[2020-05-27] MEDS: THIAMINE HCL 100 MG TAB PO SCH (08:42)
[2020-05-27] MEDS: PENTOXIFYLLINE 400MG EXT REL TAB PO SCH ×3 (08:43→20:52)
[2020-05-27] MEDS: FOLIC ACID 1 MG TAB PO SCH (08:43)
[2020-05-27] MEDS: NYSTATIN SUSP 500,000 U/5 ML UDC PO SCH ×4 (08:44→20:43)
[2020-05-27] MEDS ORDERED: VANCOMYCIN TROUGH ONE (11:30)
--- NOTE | 2020-05-27 12:27 | Pharmacy Report ---
Pharmacy Abx Dose Short Note - Date of Service May 27, 2020 - Assessment & Plan Assessment 64 year old M receiving vancomycin/zosyn for treatment of LLE skin cellulitis/buttock ulcer Day # 3 of antimicrobial therapy. Plan Vancomycin * Trough level came back supratherapeutic at ~24 mcg/ml - goal 15-20 mcg/ml * Will hold current vancomycin dosing and adjust to vancomycin Q12 hr dosing to achieve a lower trough level * Estimated kinetics based upon level: t1/2~10 hrs, ke~0.069hr-1, CrCl >100 * Plan to restart vancomycin dosing when estimated level closer to ~15 mcg/ml Pharmacy will continue to follow and will adjust dose/frequency as necessary. Thank you.
[2020-05-27 13:34] LABS: Partial Thromboplastin Ratio 1.5
[2020-05-27] MEDS ORDERED: HEPARIN SODIUM/DEXTROSE 25,000 UNITS/500 ML BAG IV SCH (14:30)
--- NOTE | 2020-05-27 14:57 | Hospitalist Progress Note ---
Date of Service May 27, 2020 Assessment & Plan (1) Venous stasis ulcer: (2) Infestation by maggots: (3) Stage II pressure ulcer of left buttock: Patient is a 64 yr male with H/O HTN, HLD, alcoholism, chronic tobacco abuse, squamous cell carcinoma of the mouth, brain aneurysm, depression who presents with worsening wounds of the left lower extremity with visibility of maggots. Multiple leg wound infection Venous stasis ulcer Stage II left buttock pressure ulcer Myositis Immunocompromised state--on chronic prednisone for SCC --Left LE MRI:Motion degraded exam. Moderate to extensive diffuse subcutaneous edema suggestive of probable cellulitis. Additionally, there are multiple pretibial cutaneous ulcerations. Ovoid peripherally enhancing subcutaneous 1.1 x 2.3 x 5.3 cm fluid collection within the lateral left mid leg. Correlate clinically to exclude abscess. Mild diffuse intramuscular edema may reflect concomitant myositis. No acute fracture, bone marrow edema or osseous erosions to suggest osteomyelitis. --Arterial Doppler:There is no sonographic evidence of high-grade stenosis or focal vessel cutoff throughout the arteries of the right or left lower extremity. Extensive left lower extremity deep venous thrombosis as above. --Blood Culture: No growth to date --Left foot Wound Culture: Morganella, Serratia --Buttock wound Culture: Low counts next probable skin microbiota --No osteomyelitis on imaging studies. --Continue Zosyn Day #3 --IV Vancomycin discontinued --Appreciate surgery/Wound Care input --Received IV fluids --Continue local Wound care --No plan for debridement --Needs follow-up with wound clinic upon discharge Acute Left LE DVT Arterial Doppler as above Risk Factors: Poor mobilization, H/O cancer Continue IV heparin for today Discussed with Oncology Dr. Cohen on 05/27/20 Plan to transition to Eliquis as able Hypokalemia Likely secondary to poor oral intake, diuretics Normal magnesium levels Currently diuretics held Replete electrolytes as needed (4) Alcohol abuse: Continue alcohol withdrawal protocol with Librium Monitor for withdrawal symptoms Continue thiamine, folic acid Counseled to quit drinking (5) Tobacco abuse disorder: Encourage smoking cessation Declined nicotine patch (6) Squamous cell carcinoma: SCC of mouth S/P Surgery and Radiation therapy Had excision with split thickness skin graft Dr. Stone in [address] Cohen Received Keytruda since 09/2018 Currently Keytruda held due to deteriorating condition No plan to restart Keytruda unless co-morbidities improved/resolved Discussed with on 05/27/20 Palliative care consulted to address goals of care (7) HTN (hypertension): Blood pressure stable continue metoprolol monitor DVT Px: IV Heparin Plan to transition to Eliquis Code Status Full Code Disposition: To be determined Palliative care consulted to address goals of care Case management consult Admission and Anticipated Discharge Date Admission Date: May 25, 2020 Subjective Patient is seen and examined at bedside Reports persistent left leg pain Feels better when compared to yesterday Discussed with oncology, palliative care today Plan to transition to Eliquis as able Denies chest pain, shortness of breath, dizziness, nausea, abdominal pain No alcohol withdrawal symptoms Review of Systems Review of Systems: All systems reviewed & are unremarkable except as noted in HPI & below Physical Exam Physical Exam: Physical Exam: Vitals signs as noted above General Appearance: Chronically appearing, poorly groomed, no apparent distress Head: normocephalic, Atraumatic, +Thrush,+ poor dentition, +Jaw deformity Eyes: normal inspection, EOMI Neck: supple, Trachea midline Respiratory/Chest: Normal breath sounds, CTA, No accessory muscle use Cardiovascular: S1, S2, No murmur Abdomen/GI:Soft, Non tender, Bowel sounds present Extremities/Musculoskelatal:normal inspection, Venous stasis changes, LLE open wounds, erythema, edema, tender, RLE edema Neurologic/Psych:AAOX3, Bedbound, could not perform complete neurological exam. Skin: normal color, warm Results & Data Results & Data ([facility]) Vital Signs (Past 12 Hours) Vital Signs Temp Pulse Resp BP Pulse Ox 05/27/20 07:30 36.3 C L 82 16 126/82 92 Laboratory Results Short CBC 05/27/20 Range/Units 05:38 WBC 3.58 L (4.8-10.8) K/uL Hgb 9.2 L (14.0-18.0) g/dL Hct 28.6 L (42-52) % Plt Count 120 L (130-400) K/uL BMP 05/27/20 05:38 Sodium 139 Potassium 3.4 L Chloride 108 H Carbon Dioxide 25 BUN 14 Creatinine 0.44 L Glucose 95 Calcium 8.1 L (1) Venous stasis ulcer Venous stasis ulcer site: other part of lower leg Varicose vein presence: without varicose veins Laterality: left Non-pressure ulcer stage: unspecified non-pressure ulcer stage Qualified Code(s): I87.2 - Venous insufficiency (chronic) (peripheral); L97.829 - Non-pressure chronic ulcer of other part of left lower leg with unspecified severity
--- NOTE | 2020-05-27 15:16 | Palliative Care Consultation ---
Date of Consultation May 27, 2020 Assessment & Plan (1) Palliative care encounter: Patient is well-known to me-has been a patient in the palliative care clinic since September [id number]. 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 He has left lower extremity vascular wounds-followed by wound clinic. Has been on multiple p.o. antibiotics at home. Patient was sent to the emergency room when he called wound clinic and reported maggots in his wounds. Patient started on IV Zosyn. -Patient seen and examined alone in his room, was called back to his room after his friend and Stephanie FORDE arrived. -Patient is active with [facility]-his functional status is declining to the point where he will no longer be able to receive his Keytruda -Discussed transitioning to hospice with patient and his friend, MAURISIO Brown at bedside. -If patient would like to continue IV antibiotics he will need to continue with home health until course of IV antibiotics is completed and then can transition to hospice-patient is agreeable. -Patient's cancer is progressing-has eaten through the mandible-increased pain due to dislocation of bone. Patient is on Decadron for bone pain as well as fentanyl patches at 100 mcg every 72 hours with oxycodone as needed. Patient takes 5 to 10 mg as needed to control pain. -Patient is not a surgical candidate for repair of his mandible -Patient with draining wounds from both sides of the jaw-has been on Flagyl in the past to control odor and halitosis. -Have addressed CODE STATUS in the past-do not have access to my clinic charts at this time, would advise patient to transition to hospice and agreed to DNR status -Patient has named Stephanie as his healthcare surrogate if KATHARINEA. -Informed Stephanie that patient is good and needs paid caregivers to help with care at home, patient has a brother who does assist financially. -PPS 30 to 40% (2) Squamous cell carcinoma: No longer a candidate for further Keytruda due to poor functional status (3) Cancer associated pain: Was increased to fentanyl 100 mcg on 05/17, continue oxycodone codon 5 to 10 mg as needed (4) Mouth cancer: (5) Ulcer of left foot: Followed at wound care clinic History of Present Illness Requesting Physician: Dr Thomas Attending Physician: Harris Thomas MD History of Present Illness Patient is well-known to me-has been a patient in the palliative care clinic since September [id number]. 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 He has left lower extremity vascular wounds-followed by wound clinic. Has been on multiple p.o. antibiotics at home. Patient was sent to the emergency room when he called wound clinic and reported maggots in his wounds. Patient started on IV Zosyn. -Patient seen and examined alone in his room, was called back to his room after his friend and Stephanie FORDE arrived. -Patient is active with [facility]-his functional status is declining to the point where he will no longer be able to receive his Keytruda -Discussed transitioning to hospice with patient and his friend, MAURISIO Brown at bedside. -If patient would like to continue IV antibiotics he will need to continue with home health until course of IV antibiotics is completed and then can transition to hospice-patient is agreeable. -Patient's cancer is progressing-has eaten through the mandible-increased pain due to dislocation of bone. Patient is on Decadron for bone pain as well as fentanyl patches at 100 mcg every 72 hours with oxycodone as needed. Patient takes 5 to 10 mg as needed to control pain. -Patient is not a surgical candidate for repair of his mandible -Patient with draining wounds from both sides of the jaw-has been on Flagyl in the past to control odor and halitosis. -Have addressed CODE STATUS in the past-do not have access to my clinic charts at this time, would advise patient to transition to hospice and agreed to DNR status -Patient has named Stephnaie as his healthcare surrogate if KATHARINEA. -Informed Stephanie that patient is good and needs paid caregivers to help with care at home, patient has a brother who does assist financially. -PPS 30 to 40% Allergies Allergy/AdvReac Type Severity Reaction Status Date / Time acetaminophen Allergy Intermediate CONTRAINDIC Verified 05/25/20 12:57 ATED aspirin Allergy Intermediate STOMACH Verified 05/25/20 12:57 BLEEDING NSAIDS (Non-Steroidal Allergy Intermediate GI PROBLEMS Verified 05/25/20 12:57 Anti-Inflamma codeine Allergy Mild high fever Verified 05/25/20 12:57 lisinopril Allergy Mild edema Verified 05/25/20 12:57 bee venom protein (honey bee) Allergy Unknown go into Verified 05/25/20 12:57 shock Home Medications Home Medications Medication Instructions Recorded Confirmed Type atorvastatin 40 mg PO QAM 07/24/18 05/25/20 History diclofenac sodium 2 g TOPICAL QID PRN 07/24/18 05/25/20 History lidocaine 1 applic TOPICAL DAILY PRN 07/24/18 05/25/20 History oxycodone 5 mg PO Q6H PRN 07/24/18 05/25/20 History pentoxifylline 400 mg PO TID 07/24/18 05/25/20 History Immunotherapy Drug 12/18/18 05/25/20 History furosemide [Lasix] 20 mg PO BID PRN 01/09/19 05/25/20 History albuterol sulfate 90 mcg/actuation 2 puff INHALATION Q4H PRN 05/19/20 05/25/20 History aerosol inhaler bupropion HCl 150 mg 24 hr tablet, 150 mg PO QAM 05/19/20 05/25/20 History extended release dexamethasone 4 mg tablet 4 mg PO DAILY 05/19/20 05/25/20 History fentanyl 50 mcg/hr transdermal 1 patch TRANSDERMAL Q72H 05/19/20 05/25/20 History patch magnesium oxide,aspartate,citr 400 mg PO DAILY cap 05/19/20 05/25/20 History metoprolol succinate 100 mg 100 mg PO BID 05/19/20 05/25/20 History tablet,extended release 24 hr mirtazapine 15 mg tablet 15 mg PO HS 05/19/20 05/25/20 History ondansetron HCl 4 mg tablet 4 - 8 mg PO Q8H PRN 05/19/20 05/25/20 History ascorbic acid (vitamin C) [Vitamin 500 mg PO DAILY 05/25/20 05/25/20 History C] buspirone 15 mg PO TID 05/25/20 05/25/20 History fentanyl 12 mcg TRANSDERMAL Q72H 05/25/20 05/25/20 History kzkyxpzqjpq-pyasq-auf-vit C-Mn 2 tab PO BID 05/25/20 05/25/20 History lactobacillus combination no.4 0 mmu cells PO DAILY 05/25/20 05/25/20 History [Probiotic] menthol-zinc oxide [Calmoseptine] 1 applic TOPICAL DAILY PRN 05/25/20 05/25/20 History nystatin 1 applic TOPICAL TID 05/25/20 05/25/20 History potassium chloride 40 meq PO DAILY 05/25/20 05/25/20 History thiamine HCl (vitamin B1) [Vitamin 50 mg PO DAILY 05/25/20 05/25/20 History B-1] Patient History Medical History Anxiety Brain aneurysm LILIA Aneursym Cardiac murmur Depression Hyperlipidemia Hypertension Major depressive disorder Osteoarthritis 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", chemo Surgical History H/O skin graft off leg to mouth History of colonoscopy History of esophagogastroduodenoscopy (EGD) History of lung surgery "scrap inside and outside of my lungs for strep pneumonia" History of tooth extraction most of teeth Family History Other No pertinent family history Social History Smoking Status: Light tobacco smoker Cigarettes Per Day: 5 cigarettes/day; Second Hand Exposure: No; Tobacco Cessation Education Requested by Patient: No Hx Alcohol Use: Yes Alcohol type: hard liquor Alcohol Intake Frequency: 4 or More x per/Week Alcohol Intake Frequency Comment: daily 5 -18oz drinks with 2-3 shots per drink Hx Substance Use: Yes Last Used Substance: Hours (ago) Last Used Substance Other:: last night Substance Use Type Other:: occasioally Preferred Language: Thai Communication Ability: Effective 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 Beliefs That Will Affect Care: None marital status: Current Living Situation: Significant Other Current Living Situation Comment: with friend Stephanie current occupational status: retired and disabled Other Information That Helps Us Care for You: No Feels Safe at Home: Yes Review of Systems Review of Systems: Patient denies fever, chills, chest pain, increased shortness of breath, or abdominal pain Positive for left lower extremity wounds, bilateral draining jaw wounds, pain related to his cancer as well as dysphasia Physical Exam Physical Exam: PE: Patient awake and alert, no acute distress HEENT: Minimal drainage from his jaw wounds, increased facial swelling significant from the last time I saw him. Respiratory: Unlabored CV: Regular rate, no edema Abdomen: Soft, nontender Neuro: Alert, oriented, confused at times Results & Data ([facility]) Vital Signs (Past 12 Hours) Vital Signs Temp Pulse Resp BP Pulse Ox 05/27/20 07:30 97.3 F L 82 16 126/82 92 PG Care Time/CCT Total # of Minutes Spent Total Time Spent with Patient: Total time spent 70 minutes with greater than 50% of the time spent at bedside on 2 separate visits discussing patient's current status, and goals of care. Discussed with patient's healthcare surrogate and Stephanie FORDE, collaborated with attending physician. Coding Level of Care Code 42602 Inpt Consult Level 3 Diagnoses Palliative care encounter Z51.5 Squamous cell carcinoma Cancer associated pain G89.3 Mouth cancer C06.9 Ulcer of left foot L97.529 Time Spent (min) 70
[2020-05-27] MEDS ORDERED: fentaNYL 100 MCG/HR TDSY TD SCH (15:30)
[2020-05-27] MEDS ORDERED: LORazepam 1 MG/2 ML VIAL IV ONE (16:15)
[2020-05-27] MEDS: COLLAGENASE OINT 30 GM TUBE EXT SCH (16:42)
[2020-05-27] MEDS: HEPARIN SODIUM/DEXTROSE 25,000 UNITS/500 ML BAG IV SCH (17:50)
[2020-05-27] MEDS ORDERED: VANCOMYCIN HCL 1,250 MG in SODIUM CHLORIDE 0.9% 250 ML IV SCH (20:00)
[2020-05-27] MEDS: LORazepam 1 MG/2 ML VIAL IV PRN (20:39)
[2020-05-27] MEDS: MIRTAZAPINE TAB 15 MG TAB PO SCH (20:43)
[2020-05-27 21:38] LABS: Partial Thromboplastin Ratio 1.8; Partial Thromboplastin Time 51.1 Seconds (21.0-31.0)
[2020-05-28] MEDS: LORazepam 1 MG/2 ML VIAL IV PRN ×2 (00:51→21:59)
[2020-05-28] MEDS ORDERED: LORazepam 1 MG/2 ML VIAL IV PRN ×2 (02:16→05:00)
[2020-05-28] MEDS: HEPARIN SODIUM/DEXTROSE 25,000 UNITS/500 ML BAG IV SCH ×2 (03:33→16:10)
[2020-05-28] MEDS ORDERED: LORazepam 1.5 MG/3 ML VIAL IV PRN (04:53)
[2020-05-28] MEDS ORDERED: ATIVAN IV ALCOHOL WITHDRAWL IV PRN (05:00)
[2020-05-28] MEDS ORDERED: LORazepam 3 MG/6 ML VIAL IV PRN (05:00)
[2020-05-28] MEDS: LORazepam 2 MG/4 ML VIAL IV PRN ×5 (05:19→16:29)
[2020-05-28] MEDS: PIPERACILLIN/TAZOBACTAM 3.375 GM in DEXTROSE 5% 100 ML IV SCH ×3 (05:24→20:54)
[2020-05-28 05:30] LABS: Hematocrit (blood only) 30.1 % (42-52); Hemoglobin 9.7 g/dL (14.0-18.0); Mean Corpuscular Hemoglobin 31.9 pg (25-34); Mean Corpuscular Hgb Conc 32.2 g/dL (32-36); Mean Platelet Volume 9.2 fL (7.4-10.4); Platelet Count 140 K/uL (130-400); RDW Coefficient of Variation 17.7 % (11.5-14.5); RDW Standard Deviation 63.3 fL (36.4-46.3); Red Blood Count 3.04 M/uL (4.7-6.1)
[2020-05-28 05:52] LABS: Partial Thromboplastin Ratio 1.8
[2020-05-28 05:54] LABS: Partial Thromboplastin Time 51.1 Seconds (21.0-31.0)
[2020-05-28 06:12] LABS: BUN Creatinine Ratio 30.6 (10-20); Calcium 8.6 mg/dl (8.5-10.1); Creatinine Clr Calc Pharmacy 186.4 ml/min; Est GFR (African American) 134.6; Est GFR (Non-African American) 116.1; Magnesium 1.9 mg/dl (1.8-2.4); Potassium 4.2 mmol/L (3.5-5.1)
[2020-05-28] MEDS: D5W AND NSS 1,000 ML IV SCH ×2 (06:44→19:56)
--- NOTE | 2020-05-28 08:38 | Hospitalist Progress Note ---
Date of Service May 28, 2020 Assessment & Plan (1) Encephalopathy: Confused, lethargic, agitated. 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 Suspect delirium secondary to alcohol withdrawal as discussed below. Meds (benzodiazepines, narcotics) may be contributing factors. (2) Alcohol withdrawal: Reportedly drinks 5 White Russians / day. Confusion / agitation / tremors consistent with alcohol withdrawal. Receiving thiamine, folate, chlordiazepoxide, lorazepam. Chlordiazepoxide may be contributing to lethargy / confusion. Try transitioning to gabapentin protocol (although may not be able to take oral meds). (3) Venous stasis ulcer: Multiple ulcers left lower extremity. Infested with maggots. Seen by Wound Care Team and General Surgery. No apparent osteo per MRI. Wound culture growing Morganella morganii and Serratia marcescens. Continue IV antibiotic therapy with piperacillin / tazobactam. (4) Stage III pressure ulcer of left buttock: Wound Care Team consulted. Local care + repositioning. (5) DVT (deep venous thrombosis): Duplex left lower extremity demonstrated extensive DVT- present on admission. Started on IV heparin. History of intracranial aneurysm noted. Benefits of anticoagulation outweigh risks. Patient pulling on IV lines. Transition from IV heparin to SQ enoxaparin. Probable discharge on DOAC. 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 Status post surgical resection, radiation therapy, chemotherapy, immunotherapy with Keytruda. [place] not to be candidate for ongoing treatments due to poor functional status. (7) Cancer associated pain: Titrate analgesics. (8) Palliative care encounter: Recurrent squamous cell carcinoma of mouth. Palliative Medicine consulted. (9) HTN (hypertension): Continue metoprolol- change to IV if unable to take oral meds. (10) Do not resuscitate status: Advanced directives discussed with Palliative Medicine & his friend Stephanie who is his Health Care Proxy. Patient completed a POLST indicating no attempted resuscitation, no feeding tubes, no other extraordinary measures. Stephanie confirms that POLST is consistent with his wishes. Code status changed to DNR. (11) Discharge planning issues: Tentative plan at this time is discharge to home with hospice. Critically ill with poor prognosis. Not medically stable for safe discharge at this time. Friend Stephanie given update by phone. Admission and Anticipated Discharge Date Admission Date: May 25, 2020 Subjective Recheck for multiple. Patient seen in their room around 0810. Very confused and agitated. Denies any problems. Review of Systems: (unreliable due to confusion) Constitutional- no fever. Cardiac- no chest pain. Pulmonary- no cough or SOB. GI- no nausea, vomiting, diarrhea - no urinary symptoms. Otherwise, as noted above. Physical Exam Constitutional: + ill appearing and + altered mental status Respiratory: no respiratory distress Auscultation: lungs clear to auscultation bilaterally Cardiovascular: Rate/Rhythm: regular rate and regular rhythm Vessels: no JVD Extremities: + edema (trace pretibal); no calf tenderness Gastrointestinal (Abdomen): normal bowel sounds, soft, nontender, no h epatosplenomegaly Musculoskeletal: Extremities: + extremities abnormal to inspection (wounds left leg dressed) and no cyanosis Skin: some mottling of lower extremities Psychiatric: Orientation: + not alert and + not oriented x 3 (oriented to person, place, not year or circumstances) Motor Behavior: + tremor Results & Data Results & Data ([facility]) Vital Signs (Past 12 Hours) Vital Signs Temp Pulse Resp BP Pulse Ox 05/28/20 07:50 36.4 C L 67 18 122/77 95 05/28/20 03:45 36.8 C 59 L 18 123/68 97 05/28/20 02:45 36.5 C 60 18 118/74 93 05/28/20 01:50 36.5 C 62 20 128/74 93 05/27/20 22:57 36.5 C 67 18 112/80 94 05/27/20 22:00 36.3 C L 67 22 118/80 94 Laboratory Results Laboratory Results - last 24 hr 05/28/20 05/28/20 05/28/20 05:13 05:13 05:13 WBC 4.60 L RBC 3.04 L Hgb 9.7 L Hct 30.1 L MCV 99.0 MCH 31.9 MCHC 32.2 RDW Std Deviation 63.3 H RDW Coeff of Ulises 17.7 H Plt Count 140 MPV 9.2 APTT 51.1 H* PTT Ratio 1.8 Sodium 140 Potassium 4.2 D Chloride 109 H Carbon Dioxide 25 Anion Gap 6.0 BUN 15 Creatinine 0.50 L Est Cr Clr Drug Dosing 186.4 Est GFR ( Amer) 134.6 Est GFR (Non-Af Amer) 116.1 BUN/Creatinine Ratio 30.6 H Glucose 69 L Calcium 8.6 Magnesium 1.9 Folate 05/28/20 05:13 WBC RBC Hgb Hct MCV MCH MCHC RDW Std Deviation RDW Coeff of Ulises Plt Count MPV APTT PTT Ratio Sodium Potassium Chloride Carbon Dioxide Anion Gap BUN Creatinine Est Cr Clr Drug Dosing Est GFR ( Amer) Est GFR (Non-Af Amer) BUN/Creatinine Ratio Glucose Calcium Magnesium Folate 6.62 Microbiology 05/25/20 11:12 Blood Aerobic Blood Culture - Preliminary No growth in Aerobic bottle after 48 hours. 05/25/20 11:12 Blood Anaerobic Blood Culture - Preliminary No growth in Anaerobic bottle after 48 hours. 05/25/20 10:50 Blood Aerobic Blood Culture - Preliminary No growth in Aerobic bottle after 48 hours. 05/25/20 10:50 Blood Anaerobic Blood Culture - Preliminary No growth in Anaerobic bottle after 48 hours. 05/25/20 15:25 Buttock Gram Stain - Final 05/25/20 15:25 Buttock Wound Culture - Final Low counts mixed probable skin microbiota. No further identifications or sensitivities to follow. 05/25/20 15:15 Leg,Right Gram Stain - Final 05/25/20 15:15 Leg,Right Wound Culture - Final Morganella morganii Serratia marcescens (1) Venous stasis ulcer Venous stasis ulcer site: other part of lower leg Varicose vein presence: without varicose veins Laterality: left Non-pressure ulcer stage: unspecified non-pressure ulcer stage Qualified Code(s): I87.2 - Venous insufficiency (chronic) (peripheral); L97.829 - Non-pressure chronic ulcer of other part of left lower leg with unspecified severity
[2020-05-28] MEDS: CHECK FENTANYL PATCH PLACEMENT SCH ×2 (09:47→16:15)
[2020-05-28] MEDS: chlordiazePOXIDE HCl 25 MG CAP PO SCH (09:52)
[2020-05-28] MEDS: COLLAGENASE OINT 30 GM TUBE EXT SCH (09:53)
[2020-05-28] MEDS: POTASSIUM CHLORIDE PWD 20 MEQ PACK PO SCH (09:55)
[2020-05-28] MEDS: ATORVASTATIN 40 MG TAB PO SCH (11:33)
[2020-05-28] MEDS: FOLIC ACID 1 MG TAB PO SCH (11:33)
[2020-05-28] MEDS: NYSTATIN SUSP 500,000 U/5 ML UDC PO SCH ×4 (11:33→20:10)
[2020-05-28] MEDS: BusPIRone 15 MG TAB PO SCH ×3 (11:33→20:10)
[2020-05-28] MEDS: MAGNESIUM OXIDE 400 MG TAB PO SCH (11:33)
[2020-05-28] MEDS: dexAMETHasone 4 MG TAB PO SCH (11:33)
[2020-05-28] MEDS: PENTOXIFYLLINE 400MG EXT REL TAB PO SCH ×3 (11:34→20:11)
[2020-05-28] MEDS: ASCORBIC ACID 500 MG TAB PO SCH (11:34)
[2020-05-28] MEDS: THIAMINE HCL 100 MG TAB PO SCH (11:34)
[2020-05-28] MEDS: METOPROLOL SUCC 50MG EXT REL TAB PO SCH (11:34)
[2020-05-28] MEDS: BuPROPion XL 150 MG TABCR PO SCH (11:35)
[2020-05-28] MEDS ORDERED: GABAPENTIN 800MG ALCOHOL WITHDRAWAL LOAD PO STA (12:10)
[2020-05-28] MEDS ORDERED: GABAPENTIN 400 MG CAP PO ONE (12:30)
[2020-05-28] MEDS ORDERED: MULTI-VITAMIN INFUSION 10 ML, THIAMINE HCL 100 MG, FOLIC ACID 1 MG in SODIUM CHLORIDE 0... IV ONE (12:30)
[2020-05-28] MEDS ORDERED: GABAPENTIN 250 MG/5 ML 470 ML BTL PO ONE (12:30)
[2020-05-28] MEDS ORDERED: SOD PHOSPHATE/SOD BIPHOSPHATE ENEMA 132 ML BTL PR ONE (16:58)
[2020-05-28] MEDS ORDERED: bisacodyL 10 MG SUPP PR PRN (16:58)
[2020-05-28] MEDS: GABAPENTIN 250 MG/5 ML 470 ML BTL PO SCH ×2 (18:27→23:57)
[2020-05-28] MEDS: MIRTAZAPINE TAB 15 MG TAB PO SCH (20:11)
[2020-05-28] MEDS ORDERED: ALBUTEROL 0.083% NEBU SOLN 3 ML VIAL NEB PRN (20:48)
[2020-05-28] MEDS ORDERED: METOPROLOL SUCC 50MG EXT REL TAB PO SCH (21:00)
[2020-05-28] MEDS: HYDROmorphone INJ 0.5 MG/0.5 ML SYR IV PRN (21:59)
[2020-05-28] MEDS: POTASSIUM CHLORIDE 20 MEQ, MAGNESIUM SULFATE 50% 1 GM in D5W AND 1/2NSS 1,000 ML IV SCH (21:59)
[2020-05-28] MEDS: HYDROCORTISONE SOD 50 MG in SYRINGE 0 ML IV SCH (22:00)
[2020-05-28] MEDS: ENOXAPARIN 100 MG/1ML SYR SQ SCH (22:00)
[2020-05-29] MEDS: METOPROLOL TARTRATE 1 MG/ML VIAL IV SCH ×7 (00:23→23:14)
[2020-05-29] MEDS: LORazepam 1 MG/2 ML VIAL IV PRN ×2 (00:41→03:06)
[2020-05-29] MEDS: HYDROmorphone INJ 0.5 MG/0.5 ML SYR IV PRN ×2 (03:07→23:13)
[2020-05-29] MEDS: PIPERACILLIN/TAZOBACTAM 3.375 GM in DEXTROSE 5% 100 ML IV SCH ×3 (05:27→21:07)
[2020-05-29] MEDS: HYDROCORTISONE SOD 50 MG in SYRINGE 0 ML IV SCH ×3 (05:27→20:59)
[2020-05-29 06:31] LABS: Hematocrit (blood only) 30.3 % (42-52); Hemoglobin 9.4 g/dL (14.0-18.0); Mean Corpuscular Hemoglobin 31.5 pg (25-34); Mean Corpuscular Volume 101.7 fL (80-100); Platelet Count 131 K/uL (130-400); RDW Coefficient of Variation 18.4 % (11.5-14.5); RDW Standard Deviation 68.2 fL (36.4-46.3); Red Blood Count 2.98 M/uL (4.7-6.1); White Blood Count 5.22 K/uL (4.8-10.8)
[2020-05-29 07:07] LABS: Alanine Aminotransferase 18 U/L (12-78); Albumin Globulin Ratio 0.9 (0.9-2); Albumin Level 2.4 gm/dl (3.4-5.0); Alkaline Phosphatase 74 U/L (45-117); Aspartate Aminotransferase 13 U/L (15-37); BUN Creatinine Ratio 23.6 (10-20); Bilirubin Direct < 0.1 mg/dl (0-0.2); Bilirubin,Total 0.5 mg/dl (0.2-1); Blood Urea Nitrogen 11 mg/dl (7-18); Calcium 8.1 mg/dl (8.5-10.1); Carbon Dioxide 22 mmol/L (21-32); Chloride 111 mmol/L (98-107); Creatinine Clr Calc Pharmacy 207.1 ml/min; Est GFR (African American) 140.6; Est GFR (Non-African American) 121.3; Globulin 2.7 gm/dl (2.5-4.0); Glucose 84 mg/dl (70-99); Magnesium 2.1 mg/dl (1.8-2.4); Potassium 3.4 mmol/L (3.5-5.1); Sodium 141 mmol/L (136-145); Total Protein 5.1 gm/dl (6.4-8.2)
[2020-05-29] MEDS: POTASSIUM CHLORIDE 20 MEQ, MAGNESIUM SULFATE 50% 1 GM in D5W AND 1/2NSS 1,000 ML IV SCH ×2 (07:43→17:55)
[2020-05-29] MEDS: BusPIRone 15 MG TAB PO SCH ×3 (07:43→20:59)
[2020-05-29] MEDS: COLLAGENASE OINT 30 GM TUBE EXT SCH (07:44)
[2020-05-29] MEDS: NYSTATIN SUSP 500,000 U/5 ML UDC PO SCH ×4 (07:44→20:58)
[2020-05-29] MEDS: ENOXAPARIN 100 MG/1ML SYR SQ SCH ×2 (07:44→20:58)
[2020-05-29] MEDS: FOLIC ACID 1 MG in SYRINGE 9.8 ML IV SCH (07:45)
[2020-05-29] MEDS: THIAMINE HCL 200 MG in SODIUM CHLORIDE 0.9% 50 ML IV SCH (07:45)
[2020-05-29] MEDS: BuPROPion XL 150 MG TABCR PO SCH (07:48)
[2020-05-29] MEDS: GABAPENTIN 250 MG/5 ML 470 ML BTL PO SCH ×3 (07:49→23:25)
--- NOTE | 2020-05-29 09:12 | XRay Report ---
XR chest 1V portable HISTORY: hypoxia COMPARISON: Chest 04/17/2019. FINDINGS: The heart is enlarged. This is increased in size. Perihilar interstitial and vascular thick ening suggestive of mild congestive change. Bibasilar patchy airspace opacities persist. Suspect trac e bilateral pleural effusions. The lung apices are obscured by the patient's overlying chin. No defin ite pneumothorax. IMPRESSION: 1. Interval development of cardiomegaly and mild congestive change. 2. Persistent bibasilar airspace opacities. This may represent atelectasis or pneumonia. ACT 112: Negative or not required by law. Electronically signed by: Rock Hart M.D. 05/29/2020 9:11 AM
[2020-05-29] MEDS: fentaNYL 50 MCG/HR TDSY TD SCH (09:19)
[2020-05-29] MEDS ORDERED: FUROSEMIDE 40 MG/4 ML VIAL IV ONE (11:00)
[2020-05-29] MEDS: POTASSIUM CHLORIDE / WTR 10 MEQ/100 ML PLCT IV SCH ×4 (12:14→15:31)
[2020-05-29] MEDS: CHECK FENTANYL PATCH PLACEMENT SCH ×2 (15:32→23:11)
[2020-05-29] MEDS: CLOTRIMAZOLE 1% CR 15 GM TUBE EXT SCH (20:58)
[2020-05-29] MEDS: MIRTAZAPINE TAB 15 MG TAB PO SCH (20:58)
--- NOTE | 2020-05-29 22:36 | Hospitalist Progress Note ---
Date of Service May 29, 2020 Assessment & Plan (1) Encephalopathy: Confused, lethargic, agitated. Significant change 05/28. Suspect delirium secondary to alcohol withdrawal as discussed below. Meds (benzodiazepines, narcotics) may be contributing factors. (2) Alcohol withdrawal: Reportedly drinks 5 White Russians / day. Confusion / agitation / tremors consistent with alcohol withdrawal. Received thiamine, folate, chlordiazepoxide, lorazepam. Chlordiazepoxide may be contributing to lethargy / confusion. Transitioned to gabapentin protocol (although has not be able to take oral meds). (3) Venous stasis ulcer: Multiple ulcers left lower extremity. Infested with maggots. Seen by Wound Care Team and General Surgery. No apparent osteo per MRI. Wound culture growing Morganella morganii and Serratia marcescens. Continue IV antibiotic therapy with piperacillin / tazobactam. (4) Stage III pressure ulcer of left buttock: Wound Care Team consulted. Local care + repositioning. (5) DVT (deep venous thrombosis): Duplex left lower extremity demonstrated extensive DVT- present on admission. Started on IV heparin. History of intracranial aneurysm noted. Benefits of anticoagulation outweigh risks. Transitioned from IV heparin to SQ enoxaparin. Probable discharge on DOAC. 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 Status post surgical resection, radiation therapy, chemotherapy, immunotherapy with Keytruda. Not candidate for ongoing treatments due to poor functional status. (7) Cancer associated pain: Fentanyl dose decreased to 50 mcg due to lethargy and change of mental status. Monitor symptoms and titrate therapy as necessary. (8) Palliative care encounter: Recurrent squamous cell carcinoma of mouth. Palliative Medicine consulted. (9) HTN (hypertension): Continue metoprolol- changed to IV because unable to take oral meds. (10) Do not resuscitate status: Advanced directives discussed with Palliative Medicine & his friend Stephanie who is his Health Care Proxy on 05/28. Patient completed a POLST indicating no attempted resuscitation, no feeding tubes, no other extraordinary measures. Stephanie confirms that POLST is consistent with his wishes. Code status changed to DNR. (11) Discharge planning issues: Tentative plan at this time is discharge to home with hospice. Critically ill with poor prognosis. Not medically stable for safe discharge at this time. Friend Stephanie given update at bedside this afternoon. Admission and Anticipated Discharge Date Admission Date: May 25, 2020 Subjective Recheck for multiple. Patient seen in their room around 1020. Confused and agitated during the night. Received several doses of lorazepam. Somnolent at time of my assessment. Review of Systems: Unable to obtain due to lethargy. Physical Exam Constitutional: + ill appearing and + altered mental status Respiratory: no respiratory distress Auscultation: + rhonchi and + wheezes Cardiovascular: Rate/Rhythm: regular rate and regular rhythm Vessels: no JVD Extremities: + edema (trace pretibal; upper extr edema L > R); no calf tenderness Gastrointestinal (Abdomen): normal bowel sounds, soft, nontender, no hepatos plenomegaly Musculoskeletal: Extremities: + extremities abnormal to inspection (wounds left leg dressed) and no cyanosis Psychiatric: Orientation: + not alert (somnolent) Results & Data Results & Data ([facility]) Vital Signs (Past 12 Hours) Vital Signs Temp Pulse Pulse Resp BP BP BP 05/29/20 19:17 36.5 C 66 16 134/77 05/29/20 16:00 64 05/29/20 15:49 36.5 C 65 20 154/81 H 05/29/20 15:33 63 157/84 H 05/29/20 12:14 63 153/79 H 05/29/20 11:10 36.4 C L 69 20 153/79 H Pulse Ox 05/29/20 19:17 96 05/29/20 16:00 05/29/20 15:49 95 05/29/20 15:33 05/29/20 12:14 05/29/20 11:10 98 Laboratory Results Laboratory Results - last 24 hr 05/29/20 05/29/20 06:07 06:07 WBC 5.22 RBC 2.98 L Hgb 9.4 L Hct 30.3 L MCV 101.7 H MCH 31.5 MCHC 31.0 L RDW Std Deviation 68.2 H RDW Coeff of Ulises 18.4 H Plt Count 131 MPV 9.0 Sodium 141 Potassium 3.4 L D Chloride 111 H Carbon Dioxide 22 Anion Gap 8.0 BUN 11 Creatinine 0.45 L Est Cr Clr Drug Dosing 207.1 Est GFR ( Amer) 140.6 Est GFR (Non-Af Amer) 121.3 BUN/Creatinine Ratio 23.6 H Glucose 84 Calcium 8.1 L Magnesium 2.1 Total Bilirubin 0.5 Direct Bilirubin < 0.1 AST 13 L ALT 18 Alkaline Phosphatase 74 Total Protein 5.1 L Albumin 2.4 L Globulin 2.7 Albumin/Globulin Ratio 0.9 Microbiology 05/25/20 11:12 Blood Aerobic Blood Culture - Preliminary No growth in Aerobic bottle after 48 hours. 05/25/20 11:12 Blood Anaerobic Blood Culture - Preliminary No growth in Anaerobic bottle after 48 hours. 05/25/20 10:50 Blood Aerobic Blood Culture - Preliminary No growth in Aerobic bottle after 48 hours. 05/25/20 10:50 Blood Anaerobic Blood Culture - Preliminary No growth in Anaerobic bottle after 48 hours. 05/25/20 15:25 Buttock Gram Stain - Final 05/25/20 15:25 Buttock Wound Culture - Final Low counts mixed probable skin microbiota. No further identifications or sensitivities to follow. 05/25/20 15:15 Leg,Right Gram Stain - Final 05/25/20 15:15 Leg,Right Wound Culture - Final Morganella morganii Serratia marcescens (1) Venous stasis ulcer Venous stasis ulcer site: other part of lower leg Varicose vein presence: without varicose veins Laterality: left Non-pressure ulcer stage: unspecified non-pressure ulcer stage Qualified Code(s): I87.2 - Venous insufficiency (chronic) (peripheral); L97.829 - Non-pressure chronic ulcer of other part of left lower leg with unspecified severity
[2020-05-30] MEDS: POTASSIUM CHLORIDE 20 MEQ, MAGNESIUM SULFATE 50% 1 GM in D5W AND 1/2NSS 1,000 ML IV SCH ×2 (03:31→13:46)
[2020-05-30] MEDS: METOPROLOL TARTRATE 1 MG/ML VIAL IV SCH ×4 (05:43→16:45)
[2020-05-30] MEDS: PIPERACILLIN/TAZOBACTAM 3.375 GM in DEXTROSE 5% 100 ML IV SCH ×3 (05:43→20:59)
[2020-05-30] MEDS: HYDROCORTISONE SOD 50 MG in SYRINGE 0 ML IV SCH ×2 (05:43→13:48)
[2020-05-30 07:13] LABS: Eosinophils # (auto) 0.01 K/uL (0-0.5); Eosinophils % (auto) 0.2 %; Hematocrit (blood only) 30.7 % (42-52); Hemoglobin 10.1 g/dL (14.0-18.0); Immature Granulocytes # (auto) 0.05 K/uL (0.00-0.02); Immature Granulocytes % (auto) 0.9 %; Lymphocytes # (auto) 0.47 K/uL (1.2-3.4); Lymphocytes % (auto) 8.8 %; Mean Corpuscular Hemoglobin 32.7 pg (25-34); Mean Corpuscular Hgb Conc 32.9 g/dL (32-36); Mean Corpuscular Volume 99.4 fL (80-100); Mean Platelet Volume 8.8 fL (7.4-10.4); Monocytes # (auto) 0.09 K/uL (0.11-0.59); Monocytes % (auto) 1.7 %; Neutrophils # (auto) 4.74 K/uL (1.4-6.5); Neutrophils % (auto) 88.4 %; Platelet Count 123 K/uL (130-400); RDW Coefficient of Variation 18.3 % (11.5-14.5); RDW Standard Deviation 66.1 fL (36.4-46.3); Red Blood Count 3.09 M/uL (4.7-6.1); White Blood Count 5.36 K/uL (4.8-10.8)
[2020-05-30 07:28] LABS: BUN Creatinine Ratio 12.1 (10-20); Calcium 8.2 mg/dl (8.5-10.1); Creatinine Clr Calc Pharmacy 208.9 ml/min; Est GFR (African American) 133.5; Est GFR (Non-African American) 115.2; Magnesium 2.7 mg/dl (1.8-2.4); Potassium 3.5 mmol/L (3.5-5.1)
[2020-05-30] MEDS: CHECK FENTANYL PATCH PLACEMENT SCH ×3 (08:52→23:33)
[2020-05-30] MEDS: fentaNYL 50 MCG/HR TDSY TD SCH (08:52)
[2020-05-30] MEDS: FOLIC ACID 1 MG in SYRINGE 9.8 ML IV SCH (08:53)
[2020-05-30] MEDS: ENOXAPARIN 100 MG/1ML SYR SQ SCH ×2 (08:54→20:59)
[2020-05-30] MEDS: CLOTRIMAZOLE 1% CR 15 GM TUBE EXT SCH ×2 (08:54→21:00)
[2020-05-30] MEDS: COLLAGENASE OINT 30 GM TUBE EXT SCH (08:54)
[2020-05-30] MEDS: NYSTATIN SUSP 500,000 U/5 ML UDC PO SCH ×4 (08:55→21:00)
[2020-05-30] MEDS: BusPIRone 15 MG TAB PO SCH ×3 (08:55→21:00)
[2020-05-30] MEDS: THIAMINE HCL 200 MG in SODIUM CHLORIDE 0.9% 50 ML IV SCH (09:03)
[2020-05-30] MEDS: BuPROPion XL 150 MG TABCR PO SCH (09:04)
[2020-05-30] MEDS: GABAPENTIN 250 MG/5 ML 470 ML BTL PO SCH ×2 (11:50→23:33)
[2020-05-30] MEDS: DICLOFENAC SOD 1% GEL 100 GM TUBE EXT PRN ×2 (13:48→20:12)
--- NOTE | 2020-05-30 19:31 | Hospitalist Progress Note ---
Date of Service May 30, 2020 Assessment & Plan (1) Encephalopathy: Confused, lethargic, agitated. Significant change 05/28. Suspect delirium secondary to alcohol withdrawal as discussed below. Meds (benzodiazepines, narcotics) may be contributing factors. Improving. (2) Alcohol withdrawal: Reportedly drinks 5 White Russians / day. Confusion / agitation / tremors 05/28 consistent with alcohol withdrawal. Received thiamine, folate, chlordiazepoxide, lorazepam. Chlordiazepoxide may have been contributing to lethargy / confusion. Transitioned to gabapentin protocol. Improved. (3) Venous stasis ulcer: Multiple ulcers left lower extremity. Infested with maggots. Seen by Wound Care Team and General Surgery. No apparent osteo per MRI. Wound culture growing Morganella morganii and Serratia marcescens. Continue IV antibiotic therapy with piperacillin / tazobactam. (4) Stage III pressure ulcer of left buttock: Wound Care Team consulted. Local care + repositioning. (5) DVT (deep venous thrombosis): Duplex left lower extremity demonstrated extensive DVT- present on admission. Started on IV heparin. History of intracranial aneurysm noted. Benefits of anticoagulation outweigh risks. Transitioned from IV heparin to SQ enoxaparin. Probable discharge on DOAC. 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 Status post surgical resection, radiation therapy, chemotherapy, immunotherapy with Keytruda. Not candidate for ongoing treatments due to poor functional status. (7) Cancer associated pain: Fentanyl dose decreased to 50 mcg due to lethargy and change of mental status. Monitor symptoms and titrate therapy as necessary. (8) Palliative care encounter: Recurrent squamous cell carcinoma of mouth. Palliative Medicine consulted. (9) HTN (hypertension): Continue metoprolol. (10) Do not resuscitate status: Advanced directives discussed with Palliative Medicine & his friend Stephanie who is his Health Care Proxy on 05/28. Patient completed a POLST indicating no attempted resuscitation, no feeding tubes, no other extraordinary measures. Stephanie confirms that POLST is consistent with his wishes. Code status changed to DNR. (11) Discharge planning issues: Tentative plan at this time is discharge to home with hospice, but need to ensure adequate support at home. Case Management following. Not medically stable for safe discharge at this time. Family Medicine follow-up with Dr. Britt Del Toro. Palliative Medicine follow-up with Dr. Chery. Sister and friend Stephanie given updates today. Admission and Anticipated Discharge Date Admission Date: May 25, 2020 Subjective Recheck for multiple problems. Patient seen in their room around 0720. More alert, less confused. Afebrile. Occasional cough. Denies SOB. Off O2. No chest pain. No nausea, vomiting, diarrhea. Marroquin catheter. Denies hallucinations. Review of Systems: As noted above. Physical Exam Constitutional: + ill appearing Respiratory: no respiratory distress Auscultation: + rhonchi and + wheezes Cardiovascular: Rate/Rhythm: regular rate and regular rhythm Vessels: no JVD Extremities: + edema (trace pretibal; upper extr edema L > R); no calf tenderness Gastrointestinal (Abdomen): normal bowel sounds, soft, nontender, no hepatosplenomegaly Musculoskeletal: Extremities: + extremities abnormal to inspection (wounds left leg dressed) and no cyanosis Psychiatric: Orientation: alert and oriented x 3 (mild confusion, but oriented to person, place, year, president) Motor Behavior: + tremor Results & Data Results & Data ([facility]) Vital Signs (Past 12 Hours) Vital Signs Temp Pulse Pulse Resp BP BP BP 05/30/20 15:38 36.7 C 88 17 05/30/20 11:49 83 136/76 05/30/20 10:45 36.6 C 70 19 134/76 05/30/20 08:53 73 147/75 H 05/30/20 07:26 36.4 C L 73 23 147/75 H BP Pulse Ox 05/30/20 15:38 158/90 H 91 05/30/20 11:49 05/30/20 10:45 92 05/30/20 08:53 05/30/20 07:26 94 Laboratory Results Laboratory Results - last 24 hr 05/30/20 05/30/20 05/30/20 06:46 07:01 07:01 WBC 5.36 RBC 3.09 L Hgb 10.1 L Hct 30.7 L MCV 99.4 MCH 32.7 MCHC 32.9 RDW Std Deviation 66.1 H RDW Coeff of Ulises 18.3 H Plt Count 123 L MPV 8.8 Immature Gran % (Auto) 0.9 Neut % (Auto) 88.4 Lymph % (Auto) 8.8 [place] % (Auto) 1.7 Eos % (Auto) 0.2 Baso % (Auto) 0.0 Neut # (Auto) 4.74 Lymph # (Auto) 0.47 L [place] # (Auto) 0.09 L Eos # (Auto) 0.01 Baso # (Auto) 0.00 Immature Gran # (Auto) 0.05 H Sodium 141 Potassium 3.5 Chloride 107 Carbon Dioxide 25 Anion Gap 8.0 BUN 6 L D Creatinine 0.51 L Est Cr Clr Drug Dosing 208.9 Est GFR ( Amer) 133.5 Est GFR (Non-Af Amer) 115.2 BUN/Creatinine Ratio 12.1 Glucose 119 H Calcium 8.2 L Magnesium 2.7 H Ammonia 11.5 (1) Venous stasis ulcer Venous stasis ulcer site: other part of lower leg Varicose vein presence: without varicose veins Laterality: left Non-pressure ulcer stage: unspecified non-pressure ulcer stage Qualified Code(s): I87.2 - Venous insufficiency ( chronic) (peripheral); L97.829 - Non-pressure chronic ulcer of other part of left lower leg with unspecified severity
[2020-05-30] MEDS: METOPROLOL SUCC 50MG EXT REL TAB PO SCH (21:00)
[2020-05-30] MEDS: MIRTAZAPINE TAB 15 MG TAB PO SCH (21:00)
[2020-05-31] MEDS: HYDROmorphone INJ 0.5 MG/0.5 ML SYR IV PRN ×2 (05:44→16:36)
[2020-05-31] MEDS: PIPERACILLIN/TAZOBACTAM 3.375 GM in DEXTROSE 5% 100 ML IV SCH (05:45)
[2020-05-31 06:39] LABS: Eosinophils # (auto) 0.04 K/uL (0-0.5); Eosinophils % (auto) 0.7 %; Hematocrit (blood only) 28.9 % (42-52); Hemoglobin 9.3 g/dL (14.0-18.0); Immature Granulocytes # (auto) 0.05 K/uL (0.00-0.02); Immature Granulocytes % (auto) 0.8 %; Lymphocytes # (auto) 0.48 K/uL (1.2-3.4); Lymphocytes % (auto) 7.9 %; Mean Corpuscular Hgb Conc 32.2 g/dL (32-36); Mean Corpuscular Volume 99.3 fL (80-100); Mean Platelet Volume 9.6 fL (7.4-10.4); Monocytes # (auto) 0.31 K/uL (0.11-0.59); Monocytes % (auto) 5.1 %; Neutrophils # (auto) 5.23 K/uL (1.4-6.5); Neutrophils % (auto) 85.5 %; Platelet Count 124 K/uL (130-400); RDW Coefficient of Variation 18.6 % (11.5-14.5); Red Blood Count 2.91 M/uL (4.7-6.1); White Blood Count 6.11 K/uL (4.8-10.8)
[2020-05-31 07:11] LABS: BUN Creatinine Ratio 19.5 (10-20); Calcium 7.8 mg/dl (8.5-10.1); Creatinine Clr Calc Pharmacy 218.5 ml/min; Est GFR (African American) 136.9; Est GFR (Non-African American) 118.1; Potassium 3.7 mmol/L (3.5-5.1)
[2020-05-31 07:13] LABS: RBC Morphology Unremarkable
[2020-05-31] MEDS: BuPROPion XL 150 MG TABCR PO SCH (08:32)
[2020-05-31] MEDS: METOPROLOL SUCC 50MG EXT REL TAB PO SCH ×2 (08:32→20:05)
[2020-05-31] MEDS: THIAMINE HCL 100 MG TAB PO SCH (08:33)
[2020-05-31] MEDS: BusPIRone 15 MG TAB PO SCH ×3 (08:33→20:01)
[2020-05-31] MEDS: FOLIC ACID 1 MG TAB PO SCH (08:33)
[2020-05-31] MEDS: ENOXAPARIN 100 MG/1ML SYR SQ SCH (08:35)
[2020-05-31] MEDS: CLOTRIMAZOLE 1% CR 15 GM TUBE EXT SCH ×2 (08:36→20:01)
[2020-05-31] MEDS: NYSTATIN SUSP 500,000 U/5 ML UDC PO SCH ×4 (08:38→20:05)
[2020-05-31] MEDS: OXYCODONE HCL IR 5 MG TAB (IMMEDIATE RELEASE) PO PRN (08:49)
--- NOTE | 2020-05-31 08:50 | Hospitalist Progress Note ---
Date of Service May 31, 2020 Assessment & Plan (1) Encephalopathy: Confused, lethargic, agitated. Significant change 05/28. Suspect delirium secondary to alcohol withdrawal as discussed below. Meds (benzodiazepines, narcotics) may be contributing factors. Improving. (2) Alcohol withdrawal: Reportedly drinks 5 White Russians / day (maybe more). Confusion / agitation / tremors 05/28 consistent with alcohol withdrawal. Received thiamine, folate, chlordiazepoxide, lorazepam. Chlordiazepoxide may have been contributing to lethargy / confusion. Transitioned to gabapentin protocol. Improved. Taper gabapentin. (3) Venous stasis ulcer: Multiple ulcers left lower extremity, infested with maggots at time of admission.. Seen by Wound Care Team and General Surgery. No apparent osteo per MRI. Wound culture growing Morganella morganii and Serratia marcescens. Receiving IV antibiotic therapy with piperacillin / tazobactam. Transition to ceftriaxone 2 gms IV daily per sensitivities. (4) Stage III pressure ulcer of left buttock: Present on admission. Wound Care Team consulted. Local care + repositioning. (5) DVT (deep venous thrombosis): Duplex left lower extremity demonstrated extensive DVT- present on admission. Started on IV heparin. History of intracranial aneurysm noted. Benefits of anticoagulation outweigh risks. Transitioned from IV heparin to SQ enoxaparin. Probable discharge on DOAC. 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 Status post surgical resection, radiation therapy, chemotherapy, immunotherapy with Keytruda. Not candidate for ongoing treatments due to poor functional status. (7) Cancer associated pain: Fentanyl dose decreased to 50 mcg 05/29 due to lethargy and change of mental status. Increase dose to 75 mcg/hr. Monitor symptoms and titrate therapy as necessary. (8) Palliative care encounter: Recurrent squamous cell carcinoma of mouth. Palliative Medicine consulted. (9) HTN (hypertension): Continue metoprolol. (10) Do not resuscitate status: Advanced directives discussed with Palliative Medicine & his friend Stephanie who is his Health Care Proxy on 05/28. Patient completed a POLST indicating no attempted resuscitation, no feeding tubes, no other extraordinary measures. Stephanie confirms that POLST is consistent with his wishes. Code status changed to DNR. (11) Discharge planning issues: Tentative plan at this time is discharge to home with hospice, but need to ensure adequate support at home. Case Management following. Not medically stable for safe discharge at this time. Family Medicine follow-up with Dr. Britt Del Toro. Palliative Medicine follow-up with Dr. Chery. Admission and Anticipated Discharge Date Admission Date: May 25, 2020 Subjective Recheck for multiple problems. Patient seen in their room around 0800. More alert, less confused (although tangential). Afebrile. Occasional cough. No SOB. No chest pain. No nausea, vomiting, diarrhea. Constipated. Would like to go home to use his own bathroom. Marroquin catheter removed. Voiding without difficulty. Denies hallucinations. Mandibular pain fairly well-controlled. Review of Systems: As noted above. Physical Exam Constitutional: + ill appearing Respiratory: no respiratory distress Auscultation: + rhonchi (few) Cardiovascular: Rate/Rhythm: regular rate and regular rhythm Vessels: no JVD Extremities: + edema (trace pretibal); no calf tenderness Gastrointestinal (Abdomen): normal bowel sounds, soft, nontender, no hepatosplenomegaly Musculoskeletal: Extremities: + extremities abnormal to inspection (wounds left leg dressed) and no cyanosis LUE edema improved Psychiatric: Orientation: alert and oriented x 3 (mild confusion, but essentially oriented) Motor Behavior: + tremor Results & Data Results & Data ([facility]) Vital Signs (Past 12 Hours) Vital Signs Temp Pulse Resp BP Pulse Ox 05/30/20 23:27 36.6 C 82 16 113/77 94 Laboratory Results Laboratory Results - last 24 hr 05/30/20 05/31/20 05/31/20 06:46 05:57 05:57 WBC 6.11 RBC 2.91 L Hgb 9.3 L Hct 28.9 L MCV 99.3 MCH 32.0 MCHC 32.2 RDW Std Deviation 68.0 H RDW Coeff of Ulises 18.6 H Plt Count 124 L MPV 9.6 Immature Gran % (Auto) 0.8 Neut % (Auto) 85.5 Lymph % (Auto) 7.9 [place] % (Auto) 5.1 Eos % (Auto) 0.7 Baso % (Auto) 0.0 Neut # (Auto) 5.23 Lymph # (Auto) 0.48 L [place] # (Auto) 0.31 Eos # (Auto) 0.04 Baso # (Auto) 0.00 Immature Gran # (Auto) 0.05 H RBC Morphology Unremarkable Sodium 141 Potassium 3.7 Chloride 109 H Carbon Dioxide 26 Anion Gap 6.0 BUN 6 L D 9 Creatinine 0.48 L Est Cr Clr Drug Dosing 218.5 Est GFR ( Amer) 136.9 Est GFR (Non-Af Amer) 118.1 BUN/Creatinine Ratio 19.5 Glucose 73 Calcium 7.8 L (1) Venous stasis ulcer Venous stasis ulcer site: other part of lower leg Varicose vein presence: without varicose veins Laterality: left Non-pressure ulcer stage: unspecified non-pressure ulcer stage Qualified Code(s): I87.2 - Venous insufficiency (chronic) (peripheral); L97.829 - Non-pressure chronic ulcer of other part of left lower leg with unspecified severity
[2020-05-31] MEDS: fentaNYL 50 MCG/HR TDSY TD SCH (08:51)
[2020-05-31] MEDS: CHECK FENTANYL PATCH PLACEMENT SCH ×2 (08:51→09:52)
[2020-05-31] MEDS: ASCORBIC ACID 500 MG TAB PO SCH (09:51)
[2020-05-31] MEDS: ATORVASTATIN 40 MG TAB PO SCH (09:51)
[2020-05-31] MEDS: POTASSIUM CHLORIDE PWD 20 MEQ PACK PO SCH (09:52)
[2020-05-31] MEDS: dexAMETHasone 4 MG TAB PO SCH (09:52)
[2020-05-31] MEDS: fentaNYL 75 MCG/HR TDSY TD SCH (09:52)
[2020-05-31] MEDS: COLLAGENASE OINT 30 GM TUBE EXT SCH (09:53)
[2020-05-31] MEDS: MAGNESIUM OXIDE 400 MG TAB PO SCH (09:53)
[2020-05-31] MEDS: SOD PHOSPHATE/SOD BIPHOSPHATE ENEMA 132 ML BTL PR PRN ×2 (13:59→14:30)
[2020-05-31] MEDS ORDERED: SOD PHOSPHATE/SOD BIPHOSPHATE ENEMA 132 ML BTL PR ONE (14:21)
[2020-05-31] MEDS: bisacodyL 5 MG TABEC PO SCH (17:22)
[2020-05-31] MEDS: POLYETHYLENE (MIRALAX) 17 GM PACK PO SCH (20:02)
[2020-05-31] MEDS: MIRTAZAPINE TAB 15 MG TAB PO SCH (20:04)
[2020-05-31] MEDS: ENOXAPARIN INJ 120 MG/0.8 ML SYR SQ SCH (20:22)
[2020-05-31] MEDS: cefTRIAXone SODIUM 2,000 MG in DEXTROSE 5% 50 ML IV SCH (20:23)
[2020-06-01] MEDS ORDERED: GABAPENTIN 250 MG/5 ML 470 ML BTL PO SCH
[2020-06-01] MEDS: CHECK FENTANYL PATCH PLACEMENT SCH ×4 (00:39→23:25)
[2020-06-01] MEDS: OXYCODONE HCL IR 5 MG TAB (IMMEDIATE RELEASE) PO PRN ×3 (05:40→23:36)
[2020-06-01] MEDS: DICLOFENAC SOD 1% GEL 100 GM TUBE EXT PRN (05:41)
[2020-06-01] MEDS: dexAMETHasone 4 MG TAB PO SCH (07:54)
[2020-06-01] MEDS: BusPIRone 15 MG TAB PO SCH ×3 (07:54→20:58)
[2020-06-01] MEDS: FOLIC ACID 1 MG TAB PO SCH (07:55)
[2020-06-01] MEDS: ENOXAPARIN INJ 120 MG/0.8 ML SYR SQ SCH (07:55)
[2020-06-01] MEDS: CLOTRIMAZOLE 1% CR 15 GM TUBE EXT SCH ×2 (07:55→21:01)
[2020-06-01] MEDS: ATORVASTATIN 40 MG TAB PO SCH (07:55)
[2020-06-01] MEDS: MAGNESIUM OXIDE 400 MG TAB PO SCH (07:56)
[2020-06-01] MEDS: NYSTATIN SUSP 500,000 U/5 ML UDC PO SCH ×4 (07:56→20:57)
[2020-06-01] MEDS: METOPROLOL SUCC 50MG EXT REL TAB PO SCH ×2 (07:57→20:57)
[2020-06-01] MEDS: THIAMINE HCL 100 MG TAB PO SCH (07:57)
[2020-06-01] MEDS: ASCORBIC ACID 500 MG TAB PO SCH (07:57)
[2020-06-01] MEDS: COLLAGENASE OINT 30 GM TUBE EXT SCH (07:57)
[2020-06-01] MEDS: POTASSIUM CHLORIDE PWD 20 MEQ PACK PO SCH (07:58)
[2020-06-01] MEDS: BuPROPion XL 150 MG TABCR PO SCH (07:58)
[2020-06-01 08:04] LABS: Hematocrit (blood only) 28.4 % (42-52); Mean Corpuscular Hemoglobin 31.8 pg (25-34); Mean Corpuscular Hgb Conc 31.7 g/dL (32-36); Mean Corpuscular Volume 100.4 fL (80-100); Mean Platelet Volume 9.5 fL (7.4-10.4); Platelet Count 121 K/uL (130-400); RDW Coefficient of Variation 18.3 % (11.5-14.5); RDW Standard Deviation 65.9 fL (36.4-46.3); Red Blood Count 2.83 M/uL (4.7-6.1); White Blood Count 5.32 K/uL (4.8-10.8)
[2020-06-01] MEDS: HYDROmorphone INJ 0.5 MG/0.5 ML SYR IV PRN (08:17)
[2020-06-01] MEDS: POLYETHYLENE (MIRALAX) 17 GM PACK PO SCH ×2 (08:22→20:58)
[2020-06-01 08:43] LABS: Calcium 8.3 mg/dl (8.5-10.1); Est GFR (African American) 139.3; Est GFR (Non-African American) 120.2; Potassium 3.8 mmol/L (3.5-5.1)
--- NOTE | 2020-06-01 15:18 | Palliative Care Progress Note ---
Date of Service June 01, 2020 Assessment & Plan (1) Palliative care encounter: Patient is well-known to me-has been a patient in the palliative care clinic since September [id number]. 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 He has left lower extremity vascular wounds-followed by wound clinic. Has been on multiple p.o. antibiotics at home. Patient was sent to the emergency room when he called wound clinic and reported maggots in his wounds. Patient started on IV Zosyn-now on IV Rocephin. -Patient seen and examined alone in his room, was called back to his room after his friend and Stephanie FORDE arrived. -Patient is active with [facility]-his functional status is declining to the point where he will no longer be able to receive his Keytruda. Patient overestimates his ability to care for himself-he will need increased caregivers if he is to return home. -Patient's cancer is progressing-has eaten through the mandible-increased pain due to dislocation of bone. Patient is on Decadron for bone pain as well as fentanyl patches -he was on 100 mcg every 72 hours at home-this is been weaned back down to 75 mcg. At home his breakthrough pain was treated with oxycodone 5 -10 mg as needed. -Patient is not a surgical candidate for repair of his mandible -Patient with draining wounds from both sides of the jaw-has been on Flagyl in the past to control odor and halitosis. -CODE STATUS was discussed in outpatient clinic-patient had requested DO NOT RESUSCITATE, no feeding tube if needed, limited interventions as far as IV antibiotics. -Patient has named Stephanie as his healthcare surrogate if POA. -Patient reports his brother is able to assist financially -Stephanie is not sure that that is true. -Collaborated with case management -PPS 30% (2) Squamous cell carcinoma: No longer a candidate for further Keytruda due to poor functional status (3) Cancer associated pain: Doing well on fentanyl patch at 75 mcg with as needed oxycodone and occasional IV Dilaudid (4) Mouth cancer: (5) Ulcer of left foot: Followed at wound care clinic Admission and Anticipated Discharge Date Admission Date: May 25, 2020 Subjective Patient seen and examined early this afternoon, also met with patient's friend and POAStehpanie outside the room to discuss plan of care. Patient continues to have hallucinations-discussed seeing a mouse earlier today as well as trying to squash ants on his meal tray. Patient states his appetite is good-requested a second lunch tray-eating pured foods and thickened liquids without cough or signs of aspiration. Patient is currently on a fentanyl past at 75 mcg, he did require 2 doses of IV Dilaudid and 2 doses of p.o. oxycodone in the past 24 hours for pain control. Patient continues on IV Rocephin-lower extremity wounds are healing slowly. Spoke with patient's POA at length-discussed plan of care-[facility] he receives more services under the home health branch that he would with home hospice. Patient has no family to help with care. Stephanie requested a meeting with case management to help with exploring options for continued care. Patient overestimates his abilities to care for himself, patient will require nearly 24-hour care at home. Notified case management. Review of Systems Review of Systems: Patient denies fever, chills, chest pain, shortness of breath, or abdominal pain. Positive for jaw pain and confusion Physical Exam Physical Exam: PE: Patient awake and alert, confused, seeing ants crawling on his dinner tray. HEENT: EOMI, hearing within normal limits. Patient with facial edema-increased from prior clinic visit Patient with draining wounds both sides of the jaw-drainage is intermittent, small amounts on exam today Respirations: Unlabored, adequate saturation on room air CV: Regular rate Abdomen: No increased distention Extremities: Left lower extremity wounds appear to be healing Neuro: Confused, hallucinating -due to alcohol withdrawal Results & Data ([facility]) Vital Signs (Past 12 Hours) Vital Signs Temp Pulse Resp BP Pulse Ox 06/01/20 07:48 97.5 F L 65 18 147/97 H 94 PG Care Time/CCT Total # of Minutes Spent Total Time Spent with Patient: Total time spent 40 minutes with greater than 50% of that time spent at bedside and collaborating with patient's POA as well as case management regarding goals of care. Coding Level of Care Code 00749 Subseq Hosp Care Lvl 3 Diagnoses Palliative care encounter Z51.5 Squamous cell carcinoma Cancer associated pain G89.3 Mouth cancer C06.9 Ulcer of left foot L97.529 Time Spent (min) 40
[2020-06-01] MEDS: bisacodyL 5 MG TABEC PO SCH (17:57)
[2020-06-01] MEDS: cefTRIAXone SODIUM 2,000 MG in DEXTROSE 5% 50 ML IV SCH (20:49)
[2020-06-01] MEDS: MIRTAZAPINE TAB 15 MG TAB PO SCH (20:57)
--- NOTE | 2020-06-01 21:42 | Hospitalist Progress Note ---
Date of Service June 01, 2020 Assessment & Plan (1) Encephalopathy: Confused, lethargic, agitated. Significant change 05/28. Suspect delirium secondary to alcohol withdrawal as discussed below. Meds (benzodiazepines, narcotics) may be contributing factors. = toxic / metabolic encephalopathy. Improving. (2) Alcohol withdrawal: Reportedly drinks 5 White Russians / day (maybe more). Confusion / agitation / tremors 05/28 consistent with alcohol withdrawal. Received thiamine, folate, chlordiazepoxide, lorazepam. Chlordiazepoxide may have been contributing to lethargy / confusion. Transitioned to gabapentin protocol. Improved. Tapering gabapentin. (3) Venous stasis ulcer: Multiple ulcers left lower extremity, infested with maggots at time of admission.. Seen by Wound Care Team and General Surgery. No apparent osteo per MRI. Wound culture growing Morganella morganii and Serratia marcescens. Receiving IV antibiotic therapy with piperacillin / tazobactam. Transitioned to ceftriaxone 2 gms IV daily per sensitivities. (4) Stage III pressure ulcer of left buttock: Present on admission. Wound Care Team consulted. Local care + repositioning. (5) DVT (deep venous thrombosis): Duplex left lower extremity demonstrated extensive DVT- present on admission. Started on IV heparin. History of intracranial aneurysm noted. Benefits of anticoagulation outweigh risks. Transitioned from IV heparin to SQ enoxaparin. Patient would like oral anticoagulant. Transition to apixaban 10 mg BID x 7 days, then 5 mg BID. 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 Status post surgical resection, radiation therapy, chemotherapy, immunotherapy with Keytruda. Not candidate for ongoing treatments due to poor functional status. (7) Cancer associated pain: Fentanyl dose decreased to 50 mcg 05/29 due to lethargy and change of mental status. Increased dose to 75 mcg/hr. Monitor symptoms and titrate therapy as necessary. (8) Palliative care encounter: Recurrent squamous cell carcinoma of mouth. Palliative Medicine consulted. (9) HTN (hypertension): Continue metoprolol. (10) Do not resuscitate status: Advanced directives discussed with Palliative Medicine & his friend Stephanie who is his Health Care Proxy on 05/28. Patient completed a POLST indicating no attempted resuscitation, no feeding tubes, no other extraordinary measures. Stephanie confirmed that POLST is consistent with his wishes. Code status changed to DNR. (11) Discharge planning issues: Poor functional status. Not safe for discharge to home at this time. Needs skilled care or inpt rehab. Pt unrealistic about his functional status and ability to care for himself. His friend Stephanie has been very supportive, but his care needs exceed her capacity. PT / OT evaluations requested. Case Management following. Family Medicine follow-up with Dr. Britt Del Toro. Palliative Medicine follow-up with Dr. Chery. Admission and Anticipated Discharge Date Admission Date: May 25, 2020 Subjective Recheck for multiple problems. Patient seen in their room around 1220. Afebrile. Minimal cough. No SOB. No chest pain. No nausea, vomiting, diarrhea. Received enema and laxatives for constipation with results. Voiding without difficulty. Denies hallucinations. Mandibular pain fairly well-controlled; had fentanyl patch + oxycodone PRN. Review of Systems: As noted above. Physical Exam Constitutional: + ill appearing ENMT: Cushingoid facies Respiratory: no respiratory distress Cardiovascular: Rate/Rhythm: regular rate and regular rhythm Vessels: no JVD Extremities: + edema (trace pretibal); no calf tenderness Gastrointestinal (Abdomen): normal bowel sounds, soft, nontender, no hepatosplenomegaly Musculoskeletal: Extremities: + extremities abnormal to inspection (wounds left leg dressed) and no cyanosis Psychiatric: Orientation: alert and oriented x 3 (mild confusion, but essentially oriented) Motor Behavior: + tremor (improved) Results & Data Results & Data ([facility]) Vital Signs (Past 12 Hours) Vital Signs Temp Pulse Resp BP Pulse Ox 06/01/20 15:13 36.4 C L 75 19 128/81 93 Laboratory Results 06/01/20 07:08 06/01/20 07:08 (1) Venous stasis ulcer Venous stasis ulcer site: other part of lower leg Varicose vein presence: without varicose veins Laterality: left Non-pressure ulcer stage: unspecified non-pressure ulcer stage Qualified Code(s): I87.2 - Venous insufficiency (chronic) (peripheral); L97.829 - Non-pressure chronic ulcer of other part of left lower leg with unspecified severity
[2020-06-01] MEDS: APIXABAN 5 MG TABLET PO SCH (22:01)
[2020-06-02] MEDS: CHECK FENTANYL PATCH PLACEMENT SCH ×3 (09:00→21:10)
[2020-06-02] MEDS: ASCORBIC ACID 500 MG TAB PO SCH (09:09)
[2020-06-02] MEDS: APIXABAN 5 MG TABLET PO SCH ×2 (09:09→21:05)
[2020-06-02] MEDS: POLYETHYLENE (MIRALAX) 17 GM PACK PO SCH ×2 (09:10→21:04)
[2020-06-02] MEDS: BusPIRone 15 MG TAB PO SCH ×3 (09:11→21:05)
[2020-06-02] MEDS: NYSTATIN SUSP 500,000 U/5 ML UDC PO SCH ×4 (09:11→21:04)
[2020-06-02] MEDS: POTASSIUM CHLORIDE PWD 20 MEQ PACK PO SCH (09:12)
[2020-06-02] MEDS: METOPROLOL SUCC 50MG EXT REL TAB PO SCH ×2 (09:12→21:08)
[2020-06-02] MEDS: dexAMETHasone 4 MG TAB PO SCH (09:13)
[2020-06-02] MEDS: MAGNESIUM OXIDE 400 MG TAB PO SCH (09:13)
[2020-06-02] MEDS: BuPROPion XL 150 MG TABCR PO SCH (09:13)
[2020-06-02] MEDS: FOLIC ACID 1 MG TAB PO SCH (09:13)
[2020-06-02] MEDS: ATORVASTATIN 40 MG TAB PO SCH (09:14)
[2020-06-02] MEDS: THIAMINE HCL 100 MG TAB PO SCH (09:14)
[2020-06-02] MEDS: CLOTRIMAZOLE 1% CR 15 GM TUBE EXT SCH ×2 (09:15→19:38)
[2020-06-02] MEDS: COLLAGENASE OINT 30 GM TUBE EXT SCH (09:15)
--- NOTE | 2020-06-02 13:27 | Orthopedic Consultation ---
Date of Consultation June 02, 2020 Assessment & Plan (1) Bilateral knee pain: Patient has a history of bilateral knee pain and DJD. He states his current knee pain is chronic with no acute changes. No findings on exam to suggest knee infection. Will update Bilateral knee xrays. Dr Flaherty will review. Will discuss option of knee aspirations and cortisone injections. However, in setting of patient currently being treated for venous stasis ulcers and IV ABX, not sure this is the best time for injections. Encourage therapy and overall conditioning and strengthening. No restrictions with mobility from ortho standpoint. Dr Flaherty to see patient later today or tomorrow am. Present on Admission?: Yes History of Present Illness Reason for Consultation: Bilateral knee pain Requesting Physician: Dr Flaherty Attending Physician: Harris Thomas MD History of Present Illness He is a 64-year-old male with a history of H/O HTN, HLD, alcoholism, ETOH withdrawal, encephalopathy, chronic tobacco abuse, squamous cell carcinoma of the mouth, brain aneurysm. He has history of venous stasis ulcers and stage 3 pressure ulcer to left buttock. He was admitted to hospital with infestation of maggots found in left leg wounds. He was seen by wound care team and general surgery. No apparent osteo per MRI. Wound cultures growing morganella morganii and serratia marcescens. He is on IV ceftriaxone. No surgery recommended. He had Duplex of left lower extremity demonstrating extensive DVT, started IV heparin and transitioned to PO blood thinner. He is on significant narcotics including fentanyl patch. Ortho was consulted for bilateral knee pain. Patient has seen Dr Flaherty in the past for bilateral knee pain R > L. History of bilateral knee DJD and right knee injury with history of MCL sprain and chronic LCL laxity, fibular head fracture. Patient has done well in the past with knee aspirations and cortisone injections for DJD. Last being about 2 yrs ago He has tried knee braces. He says over the last few years he has become less mobile. He does not ambulate more than using a walker for transfers. However, this has become more difficult. He recently got an electric w/s just a few weeks ago. He admits he is deconditioned. He says his right knee is worse than his left regarding pain and feeling like it wants to give way. These symptoms are chronic. He denies any acute symptoms such as fever, chills, sweats, redness, or warmth to knees. Denies recent injury. He denies groin pain, radicular pain. He was hoping that he would be a candidate for knee aspirations and cortisone injections to increase his mobility. Allergies Allergy/AdvReac Type Severity Reaction Status Date / Time acetaminophen Allergy Intermediate CONTRAINDIC Verified 05/25/20 12:57 ATED aspirin Allergy Intermediate STOMACH Verified 05/25/20 12:57 BLEEDING NSAIDS (Non-Steroidal Allergy Intermediate GI PROBLEMS Verified 05/25/20 12:57 Anti-Inflamma codeine Allergy Mild high fever Verified 05/25/20 12:57 lisinopril Allergy Mild edema Verified 05/25/20 12:57 bee venom protein (honey bee) Allergy Unknown go into Verified 05/25/20 12:57 shock Home Medications Home Medications Medication Instructions Recorded Confirmed Type atorvastatin 40 mg PO QAM 07/24/18 05/25/20 History diclofenac sodium 2 g TOPICAL QID PRN 07/24/18 05/25/20 History lidocaine 1 applic TOPICAL DAILY PRN 07/24/18 05/25/20 History oxycodone 5 mg PO Q6H PRN 07/24/18 05/25/20 History pentoxifylline 400 mg PO TID 07/24/18 05/25/20 History Immunotherapy Drug 12/18/18 05/25/20 History furosemide [Lasix] 20 mg PO BID PRN 01/09/19 05/25/20 History albuterol sulfate 90 mcg/actuation 2 puff INHALATION Q4H PRN 05/19/20 05/25/20 History aerosol inhaler bupropion HCl 150 mg 24 hr tablet, 150 mg PO QAM 05/19/20 05/25/20 History extended release dexamethasone 4 mg tablet 4 mg PO DAILY 05/19/20 05/25/20 History fentanyl 50 mcg/hr transdermal 1 patch TRANSDERMAL Q72H 05/19/20 05/25/20 History patch magnesium oxide,aspartate,citr 400 mg PO DAILY cap 05/19/20 05/25/20 History metoprolol succinate 100 mg 100 mg PO BID 05/19/20 05/25/20 History tablet,extended release 24 hr mirtazapine 15 mg tablet 15 mg PO HS 05/19/20 05/25/20 History ondansetron HCl 4 mg tablet 4 - 8 mg PO Q8H PRN 05/19/20 05/25/20 History ascorbic acid (vitamin C) [Vitamin 500 mg PO DAILY 05/25/20 05/25/20 History C] fentanyl 12 mcg TRANSDERMAL Q72H 05/25/20 05/25/20 History ishuuhqzrnv-yfvdk-kco-vit C-Mn 2 tab PO BID 05/25/20 05/25/20 History lactobacillus combination no.4 0 mmu cells PO DAILY 05/25/20 05/25/20 History [Probiotic] menthol-zinc oxide [Calmoseptine] 1 applic TOPICAL DAILY PRN 05/25/20 05/25/20 History nystatin 1 applic TOPICAL TID 05/25/20 05/25/20 History potassium chloride 40 meq PO DAILY 05/25/20 05/25/20 History thiamine HCl (vitamin B1) [Vitamin 50 mg PO DAILY 05/25/20 05/25/20 History B-1] buspirone 15 mg PO TID 05/28/20 05/28/20 History Patient History Medical History Anxiety Brain aneurysm LILIA Aneursym Cardiac murmur Depression Do not resuscitate status Hyperlipidemia Hypertension Major depressive disorder Osteoarthritis 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", chemo Surgical History H/O skin graft off leg to mouth History of colonoscopy History of esophagogastroduodenoscopy (EGD) History of lung surgery "scrap inside and outside of my lungs for strep pneumonia" History of tooth extraction most of teeth Family History Other No pertinent family history Social History Smoking Status: Light tobacco smoker Cigarettes Per Day: 5 cigarettes/day; Second Hand Exposure: No; Tobacco Cessation Education Requested by Patient: No Hx Alcohol Use: Yes Alcohol type: hard liquor Alcohol Intake Frequency: 4 or More x per/Week Alcohol Intake Frequency Comment: daily 5 -18oz drinks with 2-3 shots per drink Hx Substance Use: Yes Last Used Substance: Hours (ago) Last Used Substance Other:: last night Substance Use Type Other:: occasioally Preferred Language: Greek Communication Ability: Effective 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 Alert. Eating lunch. Painless log rolling to bilateral hips. B knees with no open sores or redness. Right knee 2+ effusion, Left 1+. No warmth. Bilateral knee motion is -5 to 115 active a ssistive. Atrophy to bilateral quads. Trace crepitus on exam. Normal patellofemoral tracking. Right knee with subtle laxity to varus and valgus stress but no pain. Stable lachmans bilaterally. Bilateral LE's with venous stasis changes, LLE open wounds that are covered with dressings. RLE 1+ edema. Calves selin soft and nontender. 1+ pedal pulses. Results & Data ([facility]) Vital Signs (Past 12 Hours) Vital Signs Temp Pulse Resp BP BP Pulse Ox 06/02/20 08:32 36.8 C 69 18 159/83 H 97 06/02/20 04:19 36.4 C L 66 14 158/85 H 97
[2020-06-02] MEDS ORDERED: NURSING DECISION MEDICATION ONE (15:00)
[2020-06-02] MEDS ORDERED: MICONAZOLE NITRATE POWDER 43 GM EXT PRN (15:02)
--- NOTE | 2020-06-02 15:47 | XRay Report ---
XR knee LT 3V CLINICAL HISTORY: Left knee pain. COMPARISON STUDY: Left knee 01/09/2019. FINDINGS: No fracture or dislocation. Trace knee effusion. Chondrocalcinosis and moderate cartilage s pace narrowing within the medial compartment of the left knee. There are tricompartmental marginal os teophytes. There is also moderate cartilage space narrowing at the patellofemoral joint with subchond ral sclerosis and cystic change. The bones are osteopenic. IMPRESSION: 1. No fractures within the left knee. 2. Moderate osteoarthritis and chondrocalcinosis. 3. Trace knee effusion. ACT 112: Negative or not required by law. Electronically signed by: Rock Hart M.D. 06/02/2020 3:46 PM
--- NOTE | 2020-06-02 15:48 | XRay Report ---
XR knee RT 3V HISTORY: 64 years-old Male knee pain, hx of djd chronic bilateral knee pain COMPARISON: Left knee radiographs of same day TECHNIQUE: 3 views of the right knee FINDINGS: There is moderate to severe tricompartmental osteoarthritis. 5 mm medial subluxation of the distal fe mur in relation to the tibia is likely on a degenerative basis. Lateral tilt of the patella within th e trochlear groove. [id number]-yy-fliutlkc joint effusion. Arterial calcifications. No acute fracture or d islocation. Cortical thickening of the proximal fibula is suggestive of healed remote fracture deform ity. Mild diffuse soft tissue prominence. IMPRESSION: 1. No acute fracture or dislocation. 2. Small to moderate joint effusion with tricompartmental osteoarthritis as above. ACT 112: Negative or not required by law. The above report was generated using voice recognition software. It may contain grammatical, syntax o r spelling errors. Electronically signed by: Luis F Curtis M.D. 06/02/2020 3:46 PM
--- NOTE | 2020-06-02 18:24 | Consultation Report ---
DATE OF CONSULTATION: 06/02/2020 The patient is seen in conjunction with Jennifer Salinas, please refer to her dictation for further information. Joaquín is known to me from outpatient treatment of his knee arthritis among other issues. Currently having some increased knee pain and mobility issues. He has range of motion of about 90 degrees on the right and a little less on the left. There is no significant redness or effusion in either knee. He is also on a blood thinner and has an infected wound on his right leg. At this time, I have advised him that if we can wait until some of these problems are more under control, we would consider cortisone shots into his knees. We will continue to monitor him while he is here. Follow up as an outpatient. PT for mobility, strengthening, and safe ambulation. X-rays are reviewed and demonstrate bilateral knee arthritis without evidence of fracture. Patellofemoral and medial compartment mostly. Reports are noted. Thank you for consultation.
--- NOTE | 2020-06-02 18:35 | Hospitalist Progress Note ---
Date of Service June 02, 2020 Assessment & Plan (1) Encephalopathy: Likely Multifactorial Metabolic/toxic encephalopathy, delirium/Alcohol withdrawal Monitor B/L Knee Pain Chronic arthritis Received Cortisone shots in the past R Knee X ray:No acute fracture or dislocation. Small to moderate joint effusion with tricompartmental osteoarthritis as above. L knee X ray: No fractures within the left knee. Moderate osteoarthritis and chondrocalcinosis. Trace knee effusion. (2) Alcohol withdrawal: Reports drinking 5 White Russians per day On alcohol withdrawal protocol Continue thiamine, folic acid (3) Venous stasis ulcer: Multiple ulcers left lower extremity, infested with maggots at time of admission.. Evaluated by Wound Care and Surgery No osteomyelitis on MRI Wound culture: Morganella morganii and Serratia marcescens. Receiving IV Zosyn >> transitioned to Ceftriaxone Continue wound Care Needs follow up with wound clinic upon discharge (4) Stage III pressure ulcer of left buttock: Present on admission. Wound Care consulted (5) DVT (deep venous thrombosis): Acute Left LE DVT H/O Intracranial aneurysm --Arterial Doppler:There is no sonographic evidence of high-grade stenosis or focal vessel cutoff throughout the arteries of the right or left lower extremity. Extensive left lower extremity deep venous thrombosis as above. 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 S/P surgical resection, radiation therapy, chemotherapy, immunotherapy with Keytruda. Not candidate for ongoing treatments due to poor functional status. Follows with [facility] as outpatient (7) Cancer associated pain: continue current meds (8) Palliative care encounter: Recurrent squamous cell carcinoma of mouth. Palliative care on board (9) HTN (hypertension): Continue metoprolol. (10) Do not resuscitate status: DNI/DNR POLST: No attempted resuscitation, No feeding tubes, No other extraordinary measures. (11) Discharge planning issues: Case Management to help with discharge planning Family Medicine follow-up with Dr. Britt Del Toro. Palliative Medicine follow-up with Dr. Chery. Admission and Anticipated Discharge Date Admission Date: May 25, 2020 Subjective Patient is seen and examined at bedside Complains of bilateral knee pain Reports intermittent cough Denies chest pain, shortness of breath, dizziness, nausea, abdominal pain Offers no other complaints Review of Systems Review of Systems: All systems reviewed & are unremarkable except as noted in HPI & below Physical Exam Physical Exam: Physical Exam: Vitals signs as noted above General Appearance: Chronically appearing, poorly groomed, no apparent distress Head: normocephalic, Atraumatic, +Thrush,+ poor dentition, +Jaw deformity Eyes: normal inspection, EOMI Neck: supple, Trachea midline Respiratory/Chest: Normal breath sounds, CTA, No accessory muscle use Cardiovascular: S1, S2, No murmur Abdomen/GI:Soft, Non tender, Bowel sounds present Extremities/Musculoskelatal:normal inspection, Venous stasis changes, LLE open wounds, erythema, edema, tender, RLE edema Neurologic/Psych:AAOX3, Bedbound, could not perform complete neurological exam. Skin: normal color, warm Results & Data Results & Data ([facility]) Vital Signs (Past 12 Hours) Vital Signs Temp Pulse Resp BP BP Pulse Ox 06/02/20 15:35 36.8 C 81 20 149/87 H 92 06/02/20 08:32 36.8 C 69 18 159/83 H 97 (1) Venous stasis ulcer Venous stasis ulcer site: other part of lower leg Varicose vein presence: without varicose veins Laterality: left Non-pressure ulcer stage: unspecified non-pressure ulcer stage Qualified Code(s): I87.2 - Venous insufficiency (chronic) (peripheral); L97.829 - Non-pressure chronic ulcer of other part of left lower leg with unspecified severity
[2020-06-02] MEDS: bisacodyL 5 MG TABEC PO SCH (19:50)
[2020-06-02] MEDS: MIRTAZAPINE TAB 15 MG TAB PO SCH (21:05)
[2020-06-02] MEDS: cefTRIAXone SODIUM 2,000 MG in DEXTROSE 5% 50 ML IV SCH (21:06)
[2020-06-03] MEDS: CHECK FENTANYL PATCH PLACEMENT SCH ×2 (09:00→17:00)
[2020-06-03] MEDS: ASCORBIC ACID 500 MG TAB PO SCH (10:00)
[2020-06-03] MEDS: COLLAGENASE OINT 30 GM TUBE EXT SCH (10:00)
[2020-06-03] MEDS: NYSTATIN SUSP 500,000 U/5 ML UDC PO SCH ×4 (10:00→20:40)
[2020-06-03] MEDS: FOLIC ACID 1 MG TAB PO SCH (10:00)
[2020-06-03] MEDS: APIXABAN 5 MG TABLET PO SCH ×2 (10:00→20:39)
[2020-06-03] MEDS: BusPIRone 15 MG TAB PO SCH ×3 (10:00→20:40)
[2020-06-03] MEDS: ATORVASTATIN 40 MG TAB PO SCH (10:00)
[2020-06-03] MEDS: METOPROLOL SUCC 50MG EXT REL TAB PO SCH ×2 (10:00→21:30)
[2020-06-03] MEDS: fentaNYL 75 MCG/HR TDSY TD SCH (10:00)
[2020-06-03] MEDS: POLYETHYLENE (MIRALAX) 17 GM PACK PO SCH ×2 (10:00→20:40)
[2020-06-03] MEDS: THIAMINE HCL 100 MG TAB PO SCH (10:00)
[2020-06-03] MEDS: CLOTRIMAZOLE 1% CR 15 GM TUBE EXT SCH ×2 (10:00→20:38)
[2020-06-03] MEDS: BuPROPion XL 150 MG TABCR PO SCH (10:00)
[2020-06-03] MEDS: dexAMETHasone 4 MG TAB PO SCH (10:00)
[2020-06-03] MEDS: POTASSIUM CHLORIDE PWD 20 MEQ PACK PO SCH (10:00)
[2020-06-03] MEDS: MAGNESIUM OXIDE 400 MG TAB PO SCH (10:00)
[2020-06-03] MEDS: OXYCODONE HCL IR 5 MG TAB (IMMEDIATE RELEASE) PO PRN (13:46)
[2020-06-03] MEDS: bisacodyL 5 MG TABEC PO SCH (17:59)
--- NOTE | 2020-06-03 18:16 | Hospitalist Progress Note ---
Date of Service June 03, 2020 Assessment & Plan (1) Encephalopathy: Likely Multifactorial Metabolic/toxic encephalopathy, delirium/Alcohol withdrawal Monitor B/L Knee Pain Chronic arthritis Received Cortisone shots in the past R Knee X ray:No acute fracture or dislocation. Small to moderate joint effusion with tricompartmental osteoarthritis as above. L knee X ray: No fractures within the left knee. Moderate osteoarthritis and chondrocalcinosis. Trace knee effusion. Appreciate orthopedics input Needs follow-up with Ortho as outpatient (2) Alcohol withdrawal: Reports drinking 5 White Russians per day On alcohol withdrawal protocol Continue thiamine, folic acid No withdrawal symptoms currently (3) Venous stasis ulcer: Multiple ulcers left lower extremity, infested with maggots at time of admission.. Evaluated by Wound Care and Surgery No osteomyelitis on MRI Wound culture: Morganella morganii and Serratia marcescens. Receiving IV Zosyn >> transitioned to Ceftriaxone Continue wound Care Needs follow up with wound clinic upon discharge (4) Stage III pressure ulcer of left buttock: Present on admission. Wound Care consulted (5) DVT (deep venous thrombosis): Acute Left LE DVT H/O Intracranial aneurysm --Arterial Doppler:There is no sonographic evidence of high-grade stenosis or focal vessel cutoff throughout the arteries of the right or left lower extremity. Extensive left lower extremity deep venous thrombosis as above. 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 S/P surgical resection, radiation therapy, chemotherapy, immunotherapy with Keytruda. Not candidate for ongoing treatments due to poor functional status. [facility] (7) Cancer associated pain: continue current meds (8) Palliative care encounter: Recurrent squamous cell carcinoma of mouth. Palliative care on board (9) HTN (hypertension): Continue metoprolol. (10) Do not resuscitate status: DNI/DNR POLST: No attempted resuscitation, No feeding tubes, No other extraordinary measures. (11) Discharge planning issues: [facility] refuses SNF placement Likely discharge home with home health services. Case Management to help with discharge planning Family Medicine follow-up with Dr. Britt Del Toro. Palliative Medicine follow-up with Dr. Chery. Admission and Anticipated Discharge Date Admission Date: May 25, 2020 Subjective Patient is seen and examined at bedside Emotional during my encounter secondary to family/social issues Eager to get discharged Still has minimal cough Denies chest pain, shortness of breath, dizziness, nausea, abdominal pain Leg pain is controlled Review of Systems Review of Systems: All systems reviewed & are unremarkable except as noted in HPI & below Physical Exam Physical Exam: Physical Exam: Vitals signs as noted above General Appearance: Chronically appearing, poorly groomed, no apparent distress Head: normocephalic, Atraumatic, +Thrush,+ poor dentition, +Jaw deformity Eyes: normal inspection, EOMI Neck: supple, Trachea midline Respiratory/Chest: Normal breath sounds, CTA, No accessory muscle use Cardiovascular: S1, S2, No murmur Abdomen/GI:Soft, Non tender, Bowel sounds present Extremities/Musculoskelatal:normal inspection, Venous stasis changes, LLE open wounds, erythema, edema, tender, RLE edema Neurologic/Psych:AAOX3, Bedbound, could not perform complete neurological exam. Skin: normal color, warm Results & Data Results & Data ([facility]) Vital Signs (Past 12 Hours) Vital Signs Temp Pulse Pulse Resp BP BP BP 06/03/20 14:59 36.4 C L 70 22 127/86 06/03/20 12:35 06/03/20 10:43 76 157/74 H 06/03/20 07:31 36.8 C 66 18 174/71 H Pulse Ox 06/03/20 14:59 94 06/03/20 12:35 95 06/03/20 10:43 06/03/20 07:31 97 (1) Venous stasis ulcer Venous stasis ulcer site: other part of lower leg Varicose vein presence: without varicose veins Laterality: left Non-pressure ulcer stage: unspecified non-pressure ulcer stage Qualified Code(s): I87.2 - Venous insufficiency (chronic) (peripheral); L97.829 - Non-pressure chronic ulcer of other part of left lower leg with unspecified severity
[2020-06-03] MEDS: MIRTAZAPINE TAB 15 MG TAB PO SCH (20:41)
[2020-06-03] MEDS: cefTRIAXone SODIUM 2,000 MG in DEXTROSE 5% 50 ML IV SCH (20:47)
[2020-06-04] MEDS: CHECK FENTANYL PATCH PLACEMENT SCH ×4 (00:02→23:26)
[2020-06-04 06:51] LABS: BUN Creatinine Ratio 36.2 (10-20); Calcium 8.6 mg/dl (8.5-10.1); Creatinine Clr Calc Pharmacy 191.8 ml/min; Est GFR (African American) 136.9; Est GFR (Non-African American) 118.1; Potassium 3.5 mmol/L (3.5-5.1)
[2020-06-04] MEDS: BusPIRone 15 MG TAB PO SCH ×3 (08:51→20:37)
[2020-06-04] MEDS: APIXABAN 5 MG TABLET PO SCH (08:52)
[2020-06-04] MEDS: dexAMETHasone 4 MG TAB PO SCH (08:52)
[2020-06-04] MEDS: POTASSIUM CHLORIDE PWD 20 MEQ PACK PO SCH (08:53)
[2020-06-04] MEDS: FOLIC ACID 1 MG TAB PO SCH (08:53)
[2020-06-04] MEDS: ATORVASTATIN 40 MG TAB PO SCH (08:55)
[2020-06-04] MEDS: MAGNESIUM OXIDE 400 MG TAB PO SCH (08:56)
[2020-06-04] MEDS: NYSTATIN SUSP 500,000 U/5 ML UDC PO SCH ×2 (08:57→15:12)
[2020-06-04] MEDS: POLYETHYLENE (MIRALAX) 17 GM PACK PO SCH ×2 (08:58→20:38)
[2020-06-04] MEDS: METOPROLOL SUCC 50MG EXT REL TAB PO SCH ×2 (08:59→20:39)
[2020-06-04] MEDS: ASCORBIC ACID 500 MG TAB PO SCH (09:00)
[2020-06-04] MEDS: BuPROPion XL 150 MG TABCR PO SCH (09:00)
[2020-06-04] MEDS: THIAMINE HCL 100 MG TAB PO SCH (09:00)
[2020-06-04] MEDS ORDERED: SOD PHOSPHATE/SOD BIPHOSPHATE ENEMA 132 ML BTL PR PRN (12:00)
--- NOTE | 2020-06-04 14:50 | Orthopedic Progress Note ---
Date of Service June 04, 2020 Assessment & Plan (1) Bilateral knee pain: Known DJD bilateral knees. He's interested in doing some rehab to strengthen his muscles both legs to help with the arthritis. Encouraged ROM, strengthening and rehab. Will follow knees as outpatient in 2 weeks for recheck. Will order PT/OT while in the hospital. At this time no other orthopedic concerns. Please call us if needed. Admission and Anticipated Discharge Date Admission Date: May 25, 2020 Subjective Resting in bed, states that his knees feel better today. 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 He states that he's "signed up for rehab". Physical Exam Physical Exam: Patient seen and evaluated by DR. Flaherty today. No effusions to either knee. able to actively flex knees to 105 degrees today bilaterally. Able to independently SLR. No effusions, erythema or warmth. Left lower leg superficial ulcers noted, redressed by nursing. Results & Data ([facility]) Vital Signs (Past 12 Hours) Vital Signs Temp Pulse Resp BP Pulse Ox 06/04/20 07:43 36.7 C 69 20 151/83 H 95
[2020-06-04] MEDS: COLLAGENASE OINT 30 GM TUBE EXT SCH (15:11)
[2020-06-04] MEDS: DOCUSATE SODIUM 100 MG CAP PO SCH ×2 (15:15→20:37)
[2020-06-04] MEDS: CLOTRIMAZOLE 1% CR 15 GM TUBE EXT SCH ×2 (15:15→20:37)
--- NOTE | 2020-06-04 15:18 | Gastrointestinal Consultation ---
Date of Consultation June 04, 2020 Assessment & Plan (1) Hematochezia: 64 y/o male admitted with venous stasis ulcers infected with maggots, acute DVT on Eliquis, and GI consulted for episode of hematochezia earlier today after large BM, h/o constipation. H/H stable, he's had no further GIB, and VSS; abd soft. Etiology likely hemorrhoidal. - Would recommend HC cream per rectum for hemorrhoids - Trend H&H, transfuse PRN - Monitor GI output - For constipation would recommend daily regimen with Miralax 1 capful 8 oz liquid, can use up to TID, along with stool softeners, Benefiber, to keep stool soft and make BMs easier to pass. GI will sign off, please call with questions Supervising Physician Co-Signing Physician Notes I performed a history and physical examination of the patient today, including specifically on physical exam - soft abdomen. I have discussed the patient's management with the advanced practitioner. Please refer to the nurse practitioner's note for the documented findings and plan of care. Patient has chronic constipation, did not move his bowel for a week, today had a large BM, half a foot long stool, followed by bright red blood. Likely hemorrhoidal. Recommend: Start on daily Miralax for constipation. Hemorrhoidal supp. Consider colonoscopy as OP if patient agrees, he does not seem to be interested in pursuing one. Recall GI if needed. 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 GI consulted to day for episode of hematochezia that occurred after a large firm BM; pt had not had a BM in > 7 days and was given an enema earlier today. Pt reports no further bleeding. HGB stable; 9.7, improved from 3 days ago, BUN/cr WNL. VSS. Denies abd pain, n/v, melena, CP, SOB, fever. He tolerated diet today. EGD/colonoscopy 2007 for iron deficiency anemia: EGD with duodenitis, bx neg for Celiac; colonoscopy = hemorrhoids Allergies Allergy/AdvReac Type Severity Reaction Status Date / Time acetaminophen Allergy Intermediate CONTRAINDIC Verified 05/25/20 12:57 ATED aspirin Allergy Intermediate STOMACH Verified 05/25/20 12:57 BLEEDING NSAIDS (Non-Steroidal Allergy Intermediate GI PROBLEMS Verified 05/25/20 12:57 Anti-Inflamma codeine Allergy Mild high fever Verified 05/25/20 12:57 lisinopril Allergy Mild edema Verified 05/25/20 12:57 bee venom protein (honey bee) Allergy Unknown go into Verified 05/25/20 12:57 shock Home Medications Home Medications Medication Instructions Recorded Confirmed Type atorvastatin 40 mg PO QAM 07/24/18 05/25/20 History diclofenac sodium 2 g TOPICAL QID PRN 07/24/18 05/25/20 History lidocaine 1 applic TOPICAL DAILY PRN 07/24/18 05/25/20 History oxycodone 5 mg PO Q6H PRN 07/24/18 05/25/20 History pentoxifylline 400 mg PO TID 07/24/18 05/25/20 History Immunotherapy Drug 12/18/18 05/25/20 History furosemide [Lasix] 20 mg PO BID PRN 01/09/19 05/25/20 History albuterol sulfate 90 mcg/actuation 2 puff INHALATION Q4H PRN 05/19/20 05/25/20 History aerosol inhaler bupropion HCl 150 mg 24 hr tablet, 150 mg PO QAM 05/19/20 05/25/20 History extended release dexamethasone 4 mg tablet 4 mg PO DAILY 05/19/20 05/25/20 History fentanyl 50 mcg/hr transdermal 1 patch TRANSDERMAL Q72H 05/19/20 05/25/20 History patch magnesium oxide,aspartate,citr 400 mg PO DAILY cap 05/19/20 05/25/20 History metoprolol succinate 100 mg 100 mg PO BID 05/19/20 05/25/20 History tablet,extended release 24 hr mirtazapine 15 mg tablet 15 mg PO HS 05/19/20 05/25/20 History ondansetron HCl 4 mg tablet 4 - 8 mg PO Q8H PRN 05/19/20 05/25/20 History ascorbic acid (vitamin C) [Vitamin 500 mg PO DAILY 05/25/20 05/25/20 History C] fentanyl 12 mcg TRANSDERMAL Q72H 05/25/20 05/25/20 History gyslvgunqai-qncyw-jmt-vit C-Mn 2 tab PO BID 05/25/20 05/25/20 History lactobacillus combination no.4 0 mmu cells PO DAILY 05/25/20 05/25/20 History [Probiotic] menthol-zinc oxide [Calmoseptine] 1 applic TOPICAL DAILY PRN 05/25/20 05/25/20 History nystatin 1 applic TOPICAL TID 05/25/20 05/25/20 History potassium chloride 40 meq PO DAILY 05/25/20 05/25/20 History thiamine HCl (vitamin B1) [Vitamin 50 mg PO DAILY 05/25/20 05/25/20 History B-1] buspirone 15 mg PO TID 05/28/20 05/28/20 History Patient History Medical History (Updated 06/04/20 @ 16:48 by Amalia Han PA-C) Anxiety Bilateral knee pain Brain aneurysm LILIA Aneursym Cardiac murmur Depression Do not resuscitate status Hyperlipidemia Hypertension Major depressive disorder Osteoarthritis 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", chemo Surgical History H/O skin graft off leg to mouth History of colonoscopy History of esophagogastroduodenoscopy (EGD) History of lung surgery "scrap inside and outside of my lungs for strep pneumonia" History of tooth extraction most of teeth Family History Other No pertinent family history Social History Smoking Status: Light tobacco smoker Cigarettes Per Day: 5 cigarettes/day; Second Hand Exposure: No; Tobacco Cessation Education Requested by Patient: No Hx Alcohol Use: Yes Alcohol type: hard liquor Alcohol Intake Frequency: 4 or More x per/Week Alcohol Intake Frequency Comment: daily 5 -18oz drinks with 2-3 shots per drink Hx Substance Use: Yes Last Used Substance: Hours (ago) Last Used Substance Other:: last night Substance Use Type Other:: occasioally Preferred Language: Zambian Communication Ability: Effective General Intern Required: No Beliefs That Will Affect Care: None marital status: Current Living Situation: Significant Other Current Living Situation Comment: with friend Stephanie current occupational status: retired and disabled Other Information That Helps Us Care for You: No Feels Safe at Home: Yes Review of Systems Constitutional: as per Subjective / HPI; no fever Respiratory: no cough and no dyspnea Cardiovascular: no chest pain and no dyspnea at rest Gastrointestinal: as per Subjective / HPI Hematologic / Lymphatic: as per Subjective / HPI Physical Exam Constitutional: + chronically ill appearing, no acute distress Respiratory: normal respiratory effort Gastrointestinal (Abdomen): normal bowel sounds, soft, nontender, no hepatosplenomegaly Skin: no rashes, warm and dry Psychiatric: A+Ox3, euthymic affect Results & Data ([facility]) Vital Signs (Past 12 Hours) Vital Signs Temp Pulse Resp BP Pulse Ox 06/04/20 15:03 36.6 C 69 20 122/78 95 06/04/20 07:43 36.7 C 69 20 151/83 H 95 Laboratory Results 06/04/20 06/04/20 Range/Units 15:11 05:34 Hgb 9.7 L (14.0-18.0) g/dL Hct 30.2 L (42-52) % Sodium 139 (136-145) mmol/L Potassium 3.5 (3.5-5.1) mmol/L Chloride 103 (98-107) mmol/L Carbon Dioxide 30 (21-32) mmol/L Anion Gap 6.0 (3-11) BUN 17 (7-18) mg/dl Creatinine 0.48 L (0.6-1.4) mg/dl Est Cr Clr Drug Dosing 191.8 ml/min Est GFR ( Amer) 136.9 Est GFR (Non-Af Amer) 118.1 BUN/Creatinine Ratio 36.2 H (10-20) Glucose 73 (70-99) mg/dl Calcium 8.6 (8.5-10.1) mg/dl
[2020-06-04 15:27] LABS: Hematocrit (blood only) 30.2 % (42-52); Hemoglobin 9.7 g/dL (14.0-18.0)
--- NOTE | 2020-06-04 18:10 | XRay Report ---
KUB CLINICAL HISTORY: constipation COMPARISON STUDY: PET/CT July 03, 2018. FINDINGS: The bowel gas pattern is normal. There is a moderate to large amount of stool within the re ctum and distal colon. There is no evidence for a bowel obstruction. Mild dextroscoliosis of the lumb ar spine is incidentally noted. IMPRESSION: 1. Moderate to large amount stool within the rectum and distal colon. 2. No evidence for a bowel obstruction. ACT 112: Negative or not required by law. Electronically signed by: Francisco Fuller M.D. 06/04/2020 6:09 PM
[2020-06-04] MEDS ORDERED: HYDROCORTISONE ACETATE 25 MG SUPP PR PRN (19:18)
--- NOTE | 2020-06-04 19:25 | Hospitalist Progress Note ---
Date of Service June 04, 2020 Assessment & Plan (1) Encephalopathy: Likely Multifactorial Metabolic/toxic encephalopathy, delirium/Alcohol withdrawal Monitor B/L Knee Pain Chronic arthritis Received Cortisone shots in the past R Knee X ray:No acute fracture or dislocation. Small to moderate joint effusion with tricompartmental osteoarthritis as above. L knee X ray: No fractures within the left knee. Moderate osteoarthritis and chondrocalcinosis. Trace knee effusion. Appreciate orthopedics input Needs follow-up with Ortho as outpatient Rectal Bleeding Likely secondary to Hemorrhoids Constipation KUB:Moderate to large amount stool within the rectum and distal colon. No evidence for a bowel obstruction. Hb stable Monitor H&H and transfuse PRBCs as needed Appreciate GI Input HC cream, bowel regimen, Benefiber Hold Eliquis tonight (2) Alcohol withdrawal: Reports drinking 5 White Russians per day On alcohol withdrawal protocol Continue thiamine, folic acid No withdrawal symptoms currently (3) Venous stasis ulcer: Multiple ulcers left lower extremity, infested with maggots at time of admission.. Evaluated by Wound Care and Surgery No osteomyelitis on MRI Wound culture: Morganella morganii and Serratia marcescens. Receiving IV Zosyn >> transitioned to Ceftriaxone Continue wound Care Needs follow up with wound clinic upon discharge Plan to transition to p.o. antibiotics tomorrow (4) Stage III pressure ulcer of left buttock: Present on admission. Wound Care consulted (5) DVT (deep venous thrombosis): Acute Left LE DVT H/O Intracranial aneurysm --Arterial Doppler:There is no sonographic evidence of high-grade stenosis or focal vessel cutoff throughout the arteries of the right or left lower extremity. Extensive left lower extremity deep venous thrombosis as above. 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 S/P surgical resection, radiation therapy, chemotherapy, immunotherapy with Keytruda. Not candidate for ongoing treatments due to poor functional status. Follows with [facility] as outpatient (7) Cancer associated pain: continue current meds (8) Palliative care encounter: Recurrent squamous cell carcinoma of mouth. Palliative care on board (9) HTN (hypertension): Continue metoprolol. (10) Do not resuscitate status: DNI/DNR POLST: No attempted resuscitation, No feeding tubes, No other extraordinary measures. (11) Discharge planning issues: Adam[facility] refused SNF placement initially Currently agreeable to Rehab placement Case Management to help with discharge planning Family Medicine follow-up with Dr. Britt Del Toro. Palliative Medicine follow-up with Dr. Chery. Admission and Anticipated Discharge Date Admission Date: May 25, 2020 Subjective Patient is seen and examined at bedside Reports having minimal rectal bleed States having abdominal distention, constipation Knee pain is better today Patient agrees to go to rehab facility Discussed with patient's rib trim separator in detail at bedside Denies chest pain, shortness of breath, dizziness, nausea Ongoing left leg pain Review of Systems Review of Systems: All systems reviewed & are unremarkable except as noted in HPI & below Physical Exam Physical Exam: Physical Exam: Vitals signs as noted above General Appearance: Chronically appearing, poorly groomed, no apparent distress Head: normocephalic, Atraumatic, +Thrush,+ poor dentition, +Jaw deformity Eyes: normal inspection, EOMI Neck: supple, Trachea midline Respiratory/Chest: Normal breath sounds, CTA, No accessory muscle use Cardiovascular: S1, S2, No murmur Abdomen/GI:Soft, Non tender, Bowel sounds present Extremities/Musculoskelatal:normal inspection, Venous stasis changes, LLE open wounds, erythema, edema, tender, RLE edema Neurologic/Psych:AAOX3, Bedbound, could not perform complete neurological exam. Skin: normal color, warm Results & Data Results & Data ([facility]) Vital Signs (Past 12 Hours) Vital Signs Temp Pulse Resp BP Pulse Ox 06/04/20 15:03 36.6 C 69 20 122/78 95 06/04/20 07:43 36.7 C 69 20 151/83 H 95 Laboratory Results Short CBC 06/04/20 Range/Units 15:11 Hgb 9.7 L (14.0-18.0) g/dL Hct 30.2 L (42-52) % BMP 06/04/20 05:34 Sodium 139 Potassium 3.5 Chloride 103 Carbon Dioxide 30 BUN 17 Creatinine 0.48 L Glucose 73 Calcium 8.6 (1) Venous stasis ulcer Venous stasis ulcer site: other part of lower leg Varicose vein presence: without varicose veins Laterality: left Non-pressure ulcer stage: unspecified non-pressure ulcer stage Qualified Code(s): I87.2 - Venous insufficiency (chronic) (peripheral); L97.829 - Non-pressure chronic ulcer of other part of left lower leg with unspecified severity
[2020-06-04] MEDS: bisacodyL 5 MG TABEC PO SCH (19:44)
[2020-06-04] MEDS: MIRTAZAPINE TAB 15 MG TAB PO SCH (20:38)
[2020-06-04] MEDS: cefTRIAXone SODIUM 2,000 MG in DEXTROSE 5% 50 ML IV SCH (20:48)
[2020-06-04 21:23] LABS: Hematocrit (blood only) 29.1 % (42-52); Hemoglobin 9.3 g/dL (14.0-18.0)
[2020-06-04] MEDS: OXYCODONE HCL IR 5 MG TAB (IMMEDIATE RELEASE) PO PRN (21:36)
[2020-06-05 03:10] LABS: Hematocrit (blood only) 28.2 % (42-52); Mean Corpuscular Hemoglobin 31.7 pg (25-34); Mean Corpuscular Hgb Conc 31.9 g/dL (32-36); Mean Corpuscular Volume 99.3 fL (80-100); Mean Platelet Volume 9.1 fL (7.4-10.4); Nucleated RBC # (auto) 0.02 K/uL (0-0); Nucleated RBC % (auto) 0.4 %; Platelet Count 123 K/uL (130-400); RDW Coefficient of Variation 18.4 % (11.5-14.5); Red Blood Count 2.84 M/uL (4.7-6.1); White Blood Count 4.78 K/uL (4.8-10.8)
[2020-06-05 08:32] LABS: Hematocrit (blood only) 31.9 % (42-52); Hemoglobin 10.2 g/dL (14.0-18.0)
[2020-06-05] MEDS: POLYETHYLENE (MIRALAX) 17 GM PACK PO SCH ×2 (08:33→21:22)
[2020-06-05] MEDS: POTASSIUM CHLORIDE PWD 20 MEQ PACK PO SCH (08:35)
[2020-06-05] MEDS: DOCUSATE SODIUM 100 MG CAP PO SCH ×2 (08:58→21:21)
[2020-06-05] MEDS: BusPIRone 15 MG TAB PO SCH ×3 (08:58→21:21)
[2020-06-05] MEDS: CHECK FENTANYL PATCH PLACEMENT SCH ×3 (08:58→23:35)
[2020-06-05] MEDS: dexAMETHasone 4 MG TAB PO SCH (08:59)
[2020-06-05] MEDS: FOLIC ACID 1 MG TAB PO SCH (09:00)
[2020-06-05] MEDS: ATORVASTATIN 40 MG TAB PO SCH (09:00)
[2020-06-05] MEDS: MAGNESIUM OXIDE 400 MG TAB PO SCH (09:01)
[2020-06-05] MEDS: PSYLLIUM 58.6% POWDER PACKET PO SCH (09:01)
[2020-06-05] MEDS: THIAMINE HCL 100 MG TAB PO SCH (09:02)
[2020-06-05] MEDS: ASCORBIC ACID 500 MG TAB PO SCH (09:02)
[2020-06-05] MEDS: METOPROLOL SUCC 50MG EXT REL TAB PO SCH ×2 (09:02→21:23)
[2020-06-05] MEDS: BuPROPion XL 150 MG TABCR PO SCH (09:03)
[2020-06-05 15:12] LABS: Hematocrit (blood only) 33.6 % (42-52); Hemoglobin 10.3 g/dL (14.0-18.0)
[2020-06-05] MEDS: COLLAGENASE OINT 30 GM TUBE EXT SCH (15:39)
[2020-06-05] MEDS: CLOTRIMAZOLE 1% CR 15 GM TUBE EXT SCH ×2 (15:39→22:29)
--- NOTE | 2020-06-05 16:18 | Hospitalist Progress Note ---
Date of Service June 05, 2020 Assessment & Plan (1) Encephalopathy: Likely Multifactorial Metabolic/toxic encephalopathy, delirium/Alcohol withdrawal Monitor B/L Knee Pain Chronic arthritis Received Cortisone shots in the past R Knee X ray:No acute fracture or dislocation. Small to moderate joint effusion with tricompartmental osteoarthritis as above. L knee X ray: No fractures within the left knee. Moderate osteoarthritis and chondrocalcinosis. Trace knee effusion. Appreciate orthopedics input Needs follow-up with Ortho as outpatient Rectal Bleeding Likely secondary to Hemorrhoids Constipation KUB:Moderate to large amount stool within the rectum and distal colon. No evidence for a bowel obstruction. Monitor H&H and transfuse PRBCs as needed Appreciate GI Input HC cream, bowel regimen, Benefiber Currently no active bleeding Hemoglobin stable (2) Alcohol withdrawal: Reports drinking 5 White Russians per day On alcohol withdrawal protocol Continue thiamine, folic acid No withdrawal symptoms currently (3) Venous stasis ulcer: Multiple ulcers left lower extremity, infested with maggots at time of admission.. Evaluated by Wound Care and Surgery No osteomyelitis on MRI Wound culture: Morganella morganii and Serratia marcescens. Receiving IV Zosyn >> transitioned to Ceftriaxone>>>Omnicef Continue wound Care Needs follow up with wound clinic upon discharge Improving (4) Stage III pressure ulcer of left buttock: Present on admission. Wound Care consulted (5) DVT (deep venous thrombosis): Acute Left LE DVT H/O Intracranial aneurysm --Arterial Doppler:There is no sonographic evidence of high-grade stenosis or focal vessel cutoff throughout the arteries of the right or left lower extremity. Extensive left lower extremity deep venous thrombosis as above. 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 S/P surgical resection, radiation therapy, chemotherapy, immunotherapy with Keytruda. Not candidate for ongoing treatments due to poor functional status. Follows with [facility] as outpatient (7) Cancer associated pain: continue current meds (8) Palliative care encounter: Recurrent squamous cell carcinoma of mouth. Palliative care on board (9) HTN (hypertension): Continue metoprolol. (10) Do not resuscitate status: DNI/DNR POLST: No attempted resuscitation, No feeding tubes, No other extraordinary measures. (11) Discharge planning issues: [facility] refused SNF placement initially Currently agreeable to Rehab placement Case Management to help with discharge planning Family Medicine follow-up with Dr. Britt Del Toro. Palliative Medicine follow-up with Dr. Chery. Admission and Anticipated Discharge Date Admission Date: May 25, 2020 Subjective Patient is seen and examined at bedside States feeling better today No recurrence of rectal bleeding Abdominal discomfort improved No new complaints Denies chest pain, SOB, dizziness, nausea Ongoing left leg pain Review of Systems Review of Systems: All systems reviewed & are unremarkable except as noted in HPI & below Physical Exam Physical Exam: Physical Exam: Vitals signs as noted above General Appearance: Chronically appearing, poorly groomed, no apparent distress Head: normocephalic, Atraumatic, +Thrush,+ poor dentition, +Jaw deformity Eyes: normal inspection, EOMI Neck: supple, Trachea midline Respiratory/Chest: Normal breath sounds, CTA, No accessory muscle use Cardiovascular: S1, S2, No murmur Abdomen/GI:Soft, Non tender, Bowel sounds present Extremities/Musculoskelatal:normal inspection, Venous stasis changes, LLE open wounds, erythema, edema, tender, RLE edema Neurologic/Psych:AAOX3, Bedbound, could not perform complete neurological exam. Skin: normal color, warm Results & Data Results & Data ([facility]) Vital Signs (Past 12 Hours) Vital Signs Temp Pulse Resp BP Pulse Ox 06/05/20 07:48 36.6 C 64 16 148/79 H 94 Laboratory Results Short CBC 06/04/20 06/05/20 06/05/20 Range/Units 21:14 03:01 08:22 WBC 4.78 L (4.8-10.8) K/uL Hgb 9.3 L 9.0 L 10.2 L (14.0-18.0) g/dL Hct 29.1 L 28.2 L 31.9 L (42-52) % Plt Count 123 L (130-400) K/uL 06/05/20 Range/Units 14:59 WBC (4.8-10.8) K/uL Hgb 10.3 L (14.0-18.0) g/dL Hct 33.6 L (42-52) % Plt Count (130-400) K/uL (1) Venous stasis ulcer Venous stasis ulcer site: other part of lower leg Varicose vein presence: without varicose veins Laterality: left Non-pressure ulcer stage: unspecified non-pressure ulcer stage Qualified Code(s): I87.2 - Venous insufficiency (chr onic) (peripheral); L97.829 - Non-pressure chronic ulcer of other part of left lower leg with unspecified severity
[2020-06-05] MEDS: bisacodyL 5 MG TABEC PO SCH (19:54)
[2020-06-05] MEDS: APIXABAN 5 MG TABLET PO SCH (21:21)
[2020-06-05] MEDS: CEFDINIR 300 MG CAP PO SCH (21:22)
[2020-06-05] MEDS: MIRTAZAPINE TAB 15 MG TAB PO SCH (21:22)
[2020-06-05] MEDS: OXYCODONE HCL IR 5 MG TAB (IMMEDIATE RELEASE) PO PRN (21:23)
[2020-06-06 05:56] LABS: Hematocrit (blood only) 28.5 % (42-52); Hemoglobin 9.1 g/dL (14.0-18.0); Mean Corpuscular Hemoglobin 32.5 pg (25-34); Mean Corpuscular Hgb Conc 31.9 g/dL (32-36); Mean Corpuscular Volume 101.8 fL (80-100); Mean Platelet Volume 9.2 fL (7.4-10.4); Nucleated RBC # (auto) 0.02 K/uL (0-0); Nucleated RBC % (auto) 0.3 %; Platelet Count 123 K/uL (130-400); RDW Coefficient of Variation 18.7 % (11.5-14.5); RDW Standard Deviation 68.7 fL (36.4-46.3); White Blood Count 5.73 K/uL (4.8-10.8)
[2020-06-06] MEDS: POLYETHYLENE (MIRALAX) 17 GM PACK PO SCH ×2 (08:40→21:59)
[2020-06-06] MEDS: POTASSIUM CHLORIDE PWD 20 MEQ PACK PO SCH (08:40)
[2020-06-06] MEDS: METOPROLOL SUCC 50MG EXT REL TAB PO SCH ×2 (08:42→21:57)
[2020-06-06] MEDS: MAGNESIUM OXIDE 400 MG TAB PO SCH (08:42)
[2020-06-06] MEDS: dexAMETHasone 4 MG TAB PO SCH (08:43)
[2020-06-06] MEDS: ASCORBIC ACID 500 MG TAB PO SCH (08:44)
[2020-06-06] MEDS: BuPROPion XL 150 MG TABCR PO SCH (08:44)
[2020-06-06] MEDS: ATORVASTATIN 40 MG TAB PO SCH (08:44)
[2020-06-06] MEDS: APIXABAN 5 MG TABLET PO SCH ×2 (08:45→21:58)
[2020-06-06] MEDS: FOLIC ACID 1 MG TAB PO SCH (08:45)
[2020-06-06] MEDS: DOCUSATE SODIUM 100 MG CAP PO SCH ×2 (08:46→21:57)
[2020-06-06] MEDS: BusPIRone 15 MG TAB PO SCH ×3 (08:46→21:57)
[2020-06-06] MEDS: CEFDINIR 300 MG CAP PO SCH ×2 (08:47→21:57)
[2020-06-06] MEDS: THIAMINE HCL 100 MG TAB PO SCH (08:47)
[2020-06-06] MEDS: fentaNYL 75 MCG/HR TDSY TD SCH (08:56)
[2020-06-06] MEDS: CHECK FENTANYL PATCH PLACEMENT SCH ×2 (08:57→18:02)
[2020-06-06] MEDS: PSYLLIUM 58.6% POWDER PACKET PO SCH (12:03)
--- NOTE | 2020-06-06 15:02 | Hospitalist Progress Note ---
Date of Service June 06, 2020 Assessment & Plan (1) Encephalopathy: Likely Multifactorial Metabolic/toxic encephalopathy, delirium/Alcohol withdrawal Monitor B/L Knee Pain Chronic arthritis Received Cortisone shots in the past R Knee X ray:No acute fracture or dislocation. Small to moderate joint effusion with tricompartmental osteoarthritis as above. L knee X ray: No fractures within the left knee. Moderate osteoarthritis and chondrocalcinosis. Trace knee effusion. Appreciate orthopedics input Needs follow-up with Ortho as outpatient Rectal Bleeding Likely secondary to Hemorrhoids Constipation KUB:Moderate to large amount stool within the rectum and distal colon. No evidence for a bowel obstruction. Monitor H&H and transfuse PRBCs as needed Appreciate GI Input Continue HC cream, bowel regimen, Benefiber Denies any recurrence of bleeding Monitor H&H (2) Alcohol withdrawal: Reports drinking 5 White Russians per day Continue thiamine, folic acid No withdrawal symptoms currently Monitor (3) Venous stasis ulcer: Multiple ulcers left lower extremity, infested with maggots at time of admission.. Evaluated by Wound Care and Surgery No osteomyelitis on MRI Wound culture: Morganella morganii and Serratia marcescens. Receiving IV Zosyn >> transitioned to Ceftriaxone>>>Omnicef Continue wound Care Needs follow up with wound clinic upon discharge Continue current medications (4) Stage III pressure ulcer of left buttock: Present on admission. Wound Care consulted (5) DVT (deep venous thrombosis): Acute Left LE DVT H/O Intracranial aneurysm --Arterial Doppler:There is no sonographic evidence of high-grade stenosis or focal vessel cutoff throughout the arteries of the right or left lower extremity. Extensive left lower extremity deep venous thrombosis as above. 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 S/P surgical resection, radiation therapy, chemotherapy, immunotherapy with Keytruda. Not candidate for ongoing treatments due to poor functional status. Follows with [facility] as outpatient (7) Cancer associated pain: continue current meds (8) Palliative care encounter: Recurrent squamous cell carcinoma of mouth. Palliative care on board (9) HTN (hypertension): Continue metoprolol. (10) Do not resuscitate status: DNI/DNR POLST: No attempted resuscitation, No feeding tubes, No other extraordinary measures. (11) Discharge planning issues: Waiting for rehab--SNF placement Case Management to help with discharge planning Family Medicine follow-up with Dr. Britt Del Toro. Palliative Medicine follow-up with Dr. Chery. Admission and Anticipated Discharge Date Admission Date: May 25, 2020 Subjective Patient is seen and examined at bedside States doing well today No new complaints Waiting for rehab placement Leg pain is controlled Denies chest pain, SOB, dizziness, nausea Denies recurrence of any bleeding issues Review of Systems Review of Systems: All systems reviewed & are unremarkable except as noted in HPI & below Physical Exam Physical Exam: Physical Exam: Vitals signs as noted above General Appearance: Chronically appearing, poorly groomed, no apparent distress Head: normocephalic, Atraumatic, +Thrush,+ poor dentition, +Jaw deformity Eyes: normal inspection, EOMI Neck: supple, Trachea midline Respiratory/Chest: Normal breath sounds, CTA, No accessory muscle use Cardiovascular: S1, S2, No murmur Abdomen/GI:Soft, Non tender, Bowel sounds present Extremities/Musculoskelatal:normal inspection, Venous stasis changes, LLE open wounds, erythema, edema, tender, RLE edema Neurologic/Psych:AAOX3, Bedbound mostly, could not perform complete neurological exam. Skin: normal color, warm Results & Data Results & Data ([facility]) Vital Signs (Past 12 Hours) Vital Signs Temp Pulse Resp BP Pulse Ox 06/06/20 07:10 36.0 C L 61 16 125/72 93 Laboratory Results Short CBC 06/05/20 06/06/20 Range/Units 14:59 05:04 WBC 5.73 (4.8-10.8) K/uL Hgb 10.3 L 9.1 L (14.0-18.0) g/dL Hct 33.6 L 28.5 L (42-52) % Plt Count 123 L (130-400) K/uL (1) Venous stasis ulcer Venous stasis ulcer site: other part of lower leg Varicose vein presence: without varicose veins Laterality: left Non-pressure ulcer stage: unspecified non-pressure ulcer stage Qualified Code(s): I87.2 - Venous insufficiency (chronic) (peripheral); L97.829 - Non-pressure chronic ulcer of other part of left lower leg with unspecified severity
[2020-06-06] MEDS: CLOTRIMAZOLE 1% CR 15 GM TUBE EXT SCH ×2 (18:01→21:58)
[2020-06-06] MEDS: COLLAGENASE OINT 30 GM TUBE EXT SCH (18:02)
[2020-06-06] MEDS: bisacodyL 5 MG TABEC PO SCH (19:22)
[2020-06-06] MEDS: MIRTAZAPINE TAB 15 MG TAB PO SCH (21:57)
[2020-06-06] MEDS: OXYCODONE HCL IR 5 MG TAB (IMMEDIATE RELEASE) PO PRN (22:02)
[2020-06-07] MEDS: CHECK FENTANYL PATCH PLACEMENT SCH ×4 (00:24→23:29)
[2020-06-07] MEDS: DICLOFENAC SOD 1% GEL 100 GM TUBE EXT PRN ×3 (00:35→20:39)
[2020-06-07 05:51] LABS: Hematocrit (blood only) 28.4 % (42-52); Hemoglobin 9.1 g/dL (14.0-18.0)
[2020-06-07 06:18] LABS: Est GFR (African American) 135.7; Est GFR (Non-African American) 117.1
[2020-06-07] MEDS: ATORVASTATIN 40 MG TAB PO SCH (09:00)
[2020-06-07] MEDS: FOLIC ACID 1 MG TAB PO SCH (09:00)
[2020-06-07] MEDS: ASCORBIC ACID 500 MG TAB PO SCH (09:00)
[2020-06-07] MEDS: MAGNESIUM OXIDE 400 MG TAB PO SCH (09:01)
[2020-06-07] MEDS: THIAMINE HCL 100 MG TAB PO SCH (09:01)
[2020-06-07] MEDS: BuPROPion XL 150 MG TABCR PO SCH (09:01)
[2020-06-07] MEDS: dexAMETHasone 4 MG TAB PO SCH (09:01)
[2020-06-07] MEDS: METOPROLOL SUCC 50MG EXT REL TAB PO SCH ×2 (09:01→20:36)
[2020-06-07] MEDS: BusPIRone 15 MG TAB PO SCH ×3 (09:01→20:36)
[2020-06-07] MEDS: APIXABAN 5 MG TABLET PO SCH ×2 (09:02→20:36)
[2020-06-07] MEDS: POTASSIUM CHLORIDE PWD 20 MEQ PACK PO SCH (09:02)
[2020-06-07] MEDS: CEFDINIR 300 MG CAP PO SCH ×2 (09:02→20:36)
[2020-06-07] MEDS: DOCUSATE SODIUM 100 MG CAP PO SCH ×2 (09:03→20:35)
[2020-06-07] MEDS: POLYETHYLENE (MIRALAX) 17 GM PACK PO SCH ×2 (09:03→20:36)
[2020-06-07] MEDS: PSYLLIUM 58.6% POWDER PACKET PO SCH (09:04)
[2020-06-07] MEDS: COLLAGENASE OINT 30 GM TUBE EXT SCH (09:13)
[2020-06-07] MEDS: CLOTRIMAZOLE 1% CR 15 GM TUBE EXT SCH ×2 (09:15→20:38)
--- NOTE | 2020-06-07 16:11 | Hospitalist Progress Note ---
Date of Service June 07, 2020 Assessment & Plan (1) Encephalopathy: Likely Multifactorial Metabolic/toxic encephalopathy, delirium/Alcohol withdrawal Monitor B/L Knee Pain Chronic arthritis Received Cortisone shots in the past R Knee X ray:No acute fracture or dislocation. Small to moderate joint effusion with tricompartmental osteoarthritis as above. L knee X ray: No fractures within the left knee. Moderate osteoarthritis and chondrocalcinosis. Trace knee effusion. Appreciate orthopedics input Needs follow-up with Ortho as outpatient Rectal Bleeding Likely secondary to Hemorrhoids Constipation KUB:Moderate to large amount stool within the rectum and distal colon. No evidence for a bowel obstruction. Monitor H&H and transfuse PRBCs as needed Appreciate GI Input Continue HC cream, bowel regimen, Benefiber No active bleeding issues Hb stable (2) Alcohol withdrawal: Reports drinking 5 White Russians per day Continue thiamine, folic acid No withdrawal symptoms currently Monitor (3) Venous stasis ulcer: Multiple ulcers left lower extremity, infested with maggots at time of admission.. Evaluated by Wound Care and Surgery No osteomyelitis on MRI Wound culture: Morganella morganii and Serratia marcescens. Receiving IV Zosyn >> transitioned to Ceftriaxone>>>Omnicef Continue wound Care Needs follow up with wound clinic upon discharge (4) Stage III pressure ulcer of left buttock: Present on admission. Wound Care consulted (5) DVT (deep venous thrombosis): Acute Left LE DVT H/O Intracranial aneurysm --Arterial Doppler:There is no sonographic evidence of high-grade stenosis or focal vessel cutoff throughout the arteries of the right or left lower extremity. Extensive left lower extremity deep venous thrombosis as above. 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 S/P surgical resection, radiation therapy, chemotherapy, immunotherapy with Keytruda. Not candidate for ongoing treatments due to poor functional status. Follows with [facility] as outpatient (7) Cancer associated pain: continue current meds (8) Palliative care encounter: Recurrent squamous cell carcinoma of mouth. Palliative care on board (9) HTN (hypertension): Continue metoprolol. (10) Do not resuscitate status: DNI/DNR POLST: No attempted resuscitation, No feeding tubes, No other extraordinary measures. (11) Discharge planning issues: Waiting for rehab--SNF placement Case Management to help with discharge planning Family Medicine follow-up with Dr. Britt Del Toro. Palliative Medicine follow-up with Dr. Chery. Admission and Anticipated Discharge Date Admission Date: May 25, 2020 Subjective Patient is seen and examined at bedside Lying in bed comfortably this morning Waiting for rehab placement Leg pain is controlled Denies chest pain, SOB, dizziness, nausea, abd pain Offers no other complaint Review of Systems Review of Systems: All systems reviewed & are unremarkable except as noted in HPI & below Physical Exam Physical Exam: Physical Exam: Vitals signs as noted above General Appearance: Chronically appearing, poorly groomed, no apparent distress Head: normocephalic, Atraumatic, +Thrush,+ poor dentition, +Jaw deformity Eyes: normal inspection, EOMI Neck: supple, Trachea midline Respiratory/Chest: Normal breath sounds, CTA, No accessory muscle use Cardiovascular: S1, S2, No murmur Abdomen/GI:Soft, Non tender, Bowel sounds present Extremities/Musculoskelatal:normal inspection, Venous stasis changes, LLE open wounds, erythema, edema, tender, RLE edema Neurologic/Psych:AAOX3, Bedbound mostly, could not perform complete neurological exam. Skin: normal color, warm Results & Data Results & Data ([facility]) Vital Signs (Past 12 Hours) Vital Signs Temp Pulse Pulse Resp BP Pulse Ox 06/07/20 15:43 36.7 C 72 22 106/70 95 06/07/20 07:59 64 16 96 06/07/20 07:42 36.4 C L 61 16 129/62 97 Laboratory Results Short CBC 06/07/20 Range/Units 05:25 Hgb 9.1 L (14.0-18.0) g/dL Hct 28.4 L (42-52) % BMP 06/07/20 05:25 Creatinine 0.49 L (1) Venous stasis ulcer Venous stasis ulcer site: other part of lower leg Varicose vein presence: without varicose veins Laterality: left Non-pressure ulcer stage: unspecified non-pressure ulcer stage Qualified Code(s): I87.2 - Venous insufficiency (chronic) (peripheral); L97.829 - Non-pressure chronic ulcer of other part of left lower leg with unspecified severity
[2020-06-07] MEDS: bisacodyL 5 MG TABEC PO SCH (18:42)
[2020-06-07] MEDS: MIRTAZAPINE TAB 15 MG TAB PO SCH (20:36)
[2020-06-08 06:33] LABS: Hematocrit (blood only) 30.1 % (42-52); Hemoglobin 9.1 g/dL (14.0-18.0)
[2020-06-08] MEDS: POLYETHYLENE (MIRALAX) 17 GM PACK PO SCH ×2 (08:58→21:39)
[2020-06-08] MEDS: PSYLLIUM 58.6% POWDER PACKET PO SCH (08:58)
[2020-06-08] MEDS: DOCUSATE SODIUM 100 MG CAP PO SCH ×2 (08:58→21:41)
[2020-06-08] MEDS: CHECK FENTANYL PATCH PLACEMENT SCH ×3 (08:58→23:32)
[2020-06-08] MEDS: THIAMINE HCL 100 MG TAB PO SCH (08:59)
[2020-06-08] MEDS: METOPROLOL SUCC 50MG EXT REL TAB PO SCH ×2 (08:59→21:42)
[2020-06-08] MEDS: BusPIRone 15 MG TAB PO SCH ×3 (08:59→21:41)
[2020-06-08] MEDS: APIXABAN 5 MG TABLET PO SCH ×2 (08:59→21:39)
[2020-06-08] MEDS: FOLIC ACID 1 MG TAB PO SCH (08:59)
[2020-06-08] MEDS: dexAMETHasone 4 MG TAB PO SCH (09:00)
[2020-06-08] MEDS: ATORVASTATIN 40 MG TAB PO SCH (09:00)
[2020-06-08] MEDS: MAGNESIUM OXIDE 400 MG TAB PO SCH (09:00)
[2020-06-08] MEDS: ASCORBIC ACID 500 MG TAB PO SCH (09:00)
[2020-06-08] MEDS: POTASSIUM CHLORIDE PWD 20 MEQ PACK PO SCH (09:00)
[2020-06-08] MEDS: BuPROPion XL 150 MG TABCR PO SCH (09:00)
[2020-06-08] MEDS: CEFDINIR 300 MG CAP PO SCH ×2 (09:01→21:42)
[2020-06-08] MEDS: COLLAGENASE OINT 30 GM TUBE EXT SCH (10:54)
[2020-06-08] MEDS: CLOTRIMAZOLE 1% CR 15 GM TUBE EXT SCH ×2 (10:54→21:38)
--- NOTE | 2020-06-08 18:40 | Hospitalist Progress Note ---
Date of Service June 08, 2020 Assessment & Plan (1) Encephalopathy: Likely Multifactorial Metabolic/toxic encephalopathy, delirium/Alcohol withdrawal Monitor B/L Knee Pain Chronic arthritis Received Cortisone shots in the past R Knee X ray:No acute fracture or dislocation. Small to moderate joint effusion with tricompartmental osteoarthritis as above. L knee X ray: No fractures within the left knee. Moderate osteoarthritis and chondrocalcinosis. Trace knee effusion. Appreciate orthopedics input Needs follow-up with Ortho as outpatient Rectal Bleeding Likely secondary to Hemorrhoids Constipation KUB:Moderate to large amount stool within the rectum and distal colon. No evidence for a bowel obstruction. Monitor H&H and transfuse PRBCs as needed Appreciate GI Input Continue HC cream, bowel regimen, Benefiber No recurrence of bleeding Hb stable:9.1 today (2) Alcohol withdrawal: Reports drinking 5 White Russians per day Continue thiamine, folic acid No withdrawal symptoms currently Monitor (3) Venous stasis ulcer: Multiple ulcers left lower extremity, infested with maggots at time of admission.. Evaluated by Wound Care and Surgery No osteomyelitis on MRI Wound culture: Morganella morganii and Serratia marcescens. Receiving IV Zosyn >> transitioned to Ceftriaxone>>>Omnicef Continue wound Care Needs follow up with wound clinic upon discharge Wound care provider plans to reevaluate patient tomorrow Discussed with Dr. Fajardo today--would recommend course of antibiotic duration tomorrow after evaluation of the wounds. (4) Stage III pressure ulcer of left buttock: Present on admission. Wound Care consulted (5) DVT (deep venous thrombosis): Acute Left LE DVT H/O Intracranial aneurysm --Arterial Doppler:There is no sonographic evidence of high-grade stenosis or focal vessel cutoff throughout the arteries of the right or left lower extremity. Extensive left lower extremity deep venous thrombosis as above. 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 S/P surgical resection, radiation therapy, chemotherapy, immunotherapy with Keytruda. Not candidate for ongoing treatments due to poor functional status. [facility] (7) Cancer associated pain: continue current meds (8) Palliative care encounter: Recurrent squamous cell carcinoma of mouth. Palliative care on board (9) HTN (hypertension): Continue metoprolol. (10) Do not resuscitate status: DNI/DNR POLST: No attempted resuscitation, No feeding tubes, No other extraordinary measures. (11) Discharge planning issues: Waiting for rehab--SNF placement Case Management to help with discharge planning Family Medicine follow-up with Dr. Britt Del Toro. Palliative Medicine follow-up with Dr. Chery. Admission and Anticipated Discharge Date Admission Date: May 25, 2020 Subjective Patient is seen and examined at bedside Ambulating in hallway on wheelchair Concerned about wound healing Requests re-eval by wound care provider for possible debridement Discussed with patient's orthopedic radiologic technologist at bedside Leg pain is controlled Denies chest pain, SOB, dizziness, nausea, abd pain No recurrence of rectal bleeding Review of Systems Review of Systems: All systems reviewed & are unremarkable except as noted in HPI & below Physical Exam Physical Exam: Physical Exam: Vitals signs as noted above General Appearance: Chronically appearing, poorly groomed, no apparent distress Head: normocephalic, Atraumatic, +Thrush,+ poor dentition, +Jaw deformity Eyes: normal inspection, EOMI Neck: supple, Trachea midline Respiratory/Chest: Normal breath sounds, CTA, No accessory muscle use Cardiovascular: S1, S2, No murmur Abdomen/GI:Soft, Non tender, Bowel sounds present Extremities/Musculoskelatal:normal inspection, Venous stasis changes, LLE wounds in dressing, edema Neurologic/Psych:AAOX3, Bedbound mostly, could not perform complete neurological exam. Skin: normal color, warm Results & Data Results & Data ([facility]) Vital Signs (Past 12 Hours) Vital Signs Temp Pulse Pulse Resp BP Pulse Ox 06/08/20 15:14 36.6 C 77 20 127/75 97 06/08/20 07:27 36.4 C L 66 17 139/89 98 Laboratory Results Short CBC 06/08/20 Range/Units 05:43 Hgb 9.1 L (14.0-18.0) g/dL Hct 30.1 L (42-52) % (1) Venous stasis ulcer Venous stasis ulcer site: other part of lower leg Varicose vein presence: without varicose veins Laterality: left Non-pressure ulcer stage: unspecified non-pressure ulcer stage Qualified Code(s): I87.2 - Venous insufficiency (chronic) (peripheral); L97.829 - Non-pressure chronic ulcer of other part of left lower leg with unspecified severity
[2020-06-08] MEDS: bisacodyL 5 MG TABEC PO SCH (19:47)
[2020-06-08] MEDS: MIRTAZAPINE TAB 15 MG TAB PO SCH (21:40)
[2020-06-09 07:24] LABS: Hematocrit (blood only) 34.6 % (42-52); Hemoglobin 10.4 g/dL (14.0-18.0); Mean Corpuscular Hemoglobin 30.8 pg (25-34); Mean Corpuscular Hgb Conc 30.1 g/dL (32-36); Mean Corpuscular Volume 102.4 fL (80-100); Mean Platelet Volume 9.5 fL (7.4-10.4); Nucleated RBC # (auto) 0.02 K/uL (0-0); Nucleated RBC % (auto) 0.3 %; Platelet Count 131 K/uL (130-400); RDW Standard Deviation 67.2 fL (36.4-46.3); Red Blood Count 3.38 M/uL (4.7-6.1); White Blood Count 5.82 K/uL (4.8-10.8)
[2020-06-09] MEDS: CHECK FENTANYL PATCH PLACEMENT SCH ×2 (07:44→15:34)
[2020-06-09] MEDS: METOPROLOL SUCC 50MG EXT REL TAB PO SCH ×2 (07:48→20:15)
[2020-06-09] MEDS: CEFDINIR 300 MG CAP PO SCH (07:48)
[2020-06-09] MEDS: BuPROPion XL 150 MG TABCR PO SCH (07:48)
[2020-06-09] MEDS: THIAMINE HCL 100 MG TAB PO SCH (07:48)
[2020-06-09] MEDS: DOCUSATE SODIUM 100 MG CAP PO SCH ×2 (07:48→20:15)
[2020-06-09] MEDS: BusPIRone 15 MG TAB PO SCH ×3 (07:49→20:17)
[2020-06-09] MEDS: dexAMETHasone 4 MG TAB PO SCH (07:49)
[2020-06-09] MEDS: ASCORBIC ACID 500 MG TAB PO SCH (07:49)
[2020-06-09] MEDS: COLLAGENASE OINT 30 GM TUBE EXT SCH (07:49)
[2020-06-09 07:50] LABS: BUN Creatinine Ratio 34.7 (10-20); Calcium 9.4 mg/dl (8.5-10.1); Creatinine Clr Calc Pharmacy 183.2 ml/min; Est GFR (African American) 133.5; Est GFR (Non-African American) 115.2; Potassium 3.8 mmol/L (3.5-5.1)
[2020-06-09] MEDS: ATORVASTATIN 40 MG TAB PO SCH (07:50)
[2020-06-09] MEDS: APIXABAN 5 MG TABLET PO SCH ×2 (07:50→20:18)
[2020-06-09] MEDS: FOLIC ACID 1 MG TAB PO SCH (07:50)
[2020-06-09] MEDS: MAGNESIUM OXIDE 400 MG TAB PO SCH (07:50)
[2020-06-09] MEDS: POTASSIUM CHLORIDE PWD 20 MEQ PACK PO SCH (07:51)
[2020-06-09] MEDS: CLOTRIMAZOLE 1% CR 15 GM TUBE EXT SCH ×2 (07:52→20:18)
[2020-06-09] MEDS: PSYLLIUM 58.6% POWDER PACKET PO SCH (07:52)
[2020-06-09] MEDS: POLYETHYLENE (MIRALAX) 17 GM PACK PO SCH ×2 (07:52→20:18)
[2020-06-09] MEDS: fentaNYL 75 MCG/HR TDSY TD SCH (07:56)
--- NOTE | 2020-06-09 13:36 | Wound Progress Note ---
Date of Service June 09, 2020 Assessment & Plan (1) Ulcer of left foot: Wound is clinically improving. Wound debridement. Topical Xylocaine was applied. After obtaining permission using a curette, the wound was divided of fibrin and slough. Minimal bleeding was controlled pressure. Patient tolerated the procedure well with no complications. This represents non-excisional debridement of 6 cm. Will be dressed with Aquacel Ag. (2) Venous stasis ulcer: Left lower anterior leg cluster is clinically improving. Wounds need debridement. Topical Xylocaine was applied. After obtaining permission and using a curette the wound was parted of fibrin and slough. Minimal bleeding was controlled with pressure. Patient tolerated the procedure well with no complications. This represents a non-excisional debridement of all 10 cm. Total debridement is less than 20 cm. Continue to dress wounds with Santyl and foam. Can likely stop antibiotics as patient has had it for 2 weeks. Thank for limited participate in the care of this patient. Please call with any questions. We will see patient in the office after discharge. Admission and Anticipated Discharge Date Admission Date: May 25, 2020 Subjective Patient seen sitting in wheel chair with WOCN. He is stating he just wants to go home. No new complaints. Review of Systems Review of Systems: All systems reviewed & are unremarkable except as noted in HPI & below Physical Exam Physical Exam: Temp Pulse Resp BP Pulse Ox 36.6 C 64 16 134/81 94 06/09/20 07:51 06/09/20 07:51 06/09/20 07:51 06/09/20 07:51 06/09/20 07:51 Constitutional: WD/WN, vitals as above Skin: Wound measuring as recorded in nursing documentation. Wounds are covered with fibrin and slough. Left dorsal periwound is macerated. Neurologic: awake; not confused Psychiatric: A+Ox3, euthymic affect Results & Data ([facility]) Vital Signs (Past 12 Hours) Vital Signs Temp Pulse Resp BP Pulse Ox 06/09/20 07:51 36.6 C 64 16 134/81 94 PG Care Time/CCT Total # of Minutes Spent Total Time Spent with Patient: Total time spent is greater than 50% in coordination of care (as documented) at patient's floor/unit and/or counseling patient: Coding Level of Care Code 50782 Subseq Hosp Care Lvl 2 Diagnoses Ulcer of left foot L97.529 Venous stasis ulcer I87.2; L97.829 Venous stasis ulcer site: other part of lower leg Varicose vein presence: without varicose veins Laterality: left Non-pressure ulcer stage: unspecified non-pressure ulcer stage (1) Venous stasis ulcer Venous stasis ulcer site: other part of lower leg Varicose vein presence: without varicose veins Laterality: left Non-pressure ulcer stage: unspecified non-pressure ulcer stage Qualified Code(s): I87.2 - Venous insufficiency (chronic) (peripheral); L97.829 - Non-pressure chronic ulcer of other part of left lower leg with unspecified severity
--- NOTE | 2020-06-09 18:23 | Hospitalist Progress Note ---
Date of Service June 09, 2020 Assessment & Plan (1) Venous stasis ulcer: Multiple ulcers left lower extremity, infested with maggots at time of admission.. Seen by Wound Care Team and General Surgery. No apparent osteo per MRI. Wound culture growing Morganella morganii and Serratia marcescens. Received IV antibiotic therapy with piperacillin / tazobactam, then transitioned to ceftriaxone 2 gms IV daily per sensitivities. Seen by Wound Care physician today. OK to discontinue antibiotic therapy. (2) Encephalopathy: Confused, lethargic, agitated on 05/28. Suspected delirium secondary to alcohol withdrawal as discussed below. Meds (benzodiazepines, narcotics) may have been contributing factors. = toxic / metabolic encephalopathy. Improved, back to baseline. (3) Alcohol withdrawal: Reportedly drinks 5 White Russians / day (maybe more). Confusion / agitation / tremors 05/28 consistent with alcohol withdrawal. Received thiamine, folate, chlordiazepoxide, lorazepam. Chlordiazepoxide may have been contributing to lethargy / confusion. Transitioned to gabapentin protocol. Improved. (4) DVT (deep venous thrombosis): Duplex left lower extremity demonstrated extensive DVT- present on admission. Started on IV heparin. History of intracranial aneurysm noted. Benefits of anticoagulation outweigh risks. Transitioned from IV heparin to SQ enoxaparin. Patient would like oral anticoagulant. Transitioned to apixaban 10 mg BID x 7 days, then 5 mg BID. (5) Stage III pressure ulcer of left buttock: Present on admission. Wound Care Team consulted. Local care + repositioning. 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 Status post surgical resection, radiation therapy, chemotherapy, immunotherapy with Keytruda. Not candidate for ongoing treatments due to poor functional status. (7) Cancer associated pain: Fentanyl dose decreased to 50 mcg 05/29 due to lethargy and change of mental status. Increased dose to 75 mcg/hr on 05/31. Monitor symptoms and titrate therapy as necessary. (8) Palliative care encounter: Recurrent squamous cell carcinoma of mouth. Palliative Medicine consulted. (9) HTN (hypertension): Hemodynamically stable. Continue metoprolol. (10) Hematochezia: Episode of rectal bleeding. Severe constipation. Receiving apixaban for acute DVT. Seen by GI. H/H stable. Rectal bleeding may have been due to hemorrhoids or rectal fissure. Colonoscopy not recommended. Bowel regimen as ordered. (11) Do not resuscitate status: Advanced directives discussed with Palliative Medicine & his friend Stephanie who is his Health Care Proxy on 05/28. Patient completed a POLST indicating no attempted resuscitation, no feeding tubes, no other extraordinary measures. Stephanie confirmed that POLST is consistent with his wishes. Code status changed to DNR. (12) Discharge planning issues: Poor functional status and not safe for discharge to home at this time. Needs skilled care or inpt rehab. PT / OT evaluations requested. Case Management following. Family Medicine follow-up with Dr. Britt Del Toro. Palliative Medicine follow-up with Dr. Chery. Admission and Anticipated Discharge Date Admission Date: May 25, 2020 Subjective Recheck for multiple problems. Patient seen in their room around 1000. Afebrile. Minimal cough. No SOB. Mandibular pain fairly well-controlled; had fentanyl patch + oxycodone PRN. Complains of right knee pain- chronic problem followed by Ortho. Review of Systems: Constitutional- no fever. Cardiac- no chest pain. Pulmonary- as noted above. GI- constipation improved; no nausea, vomiting, diarrhea, melena, hematochezia. - no urinary symptoms. Otherwise, as noted above. Physical Exam Constitutional: + ill appearing ENMT: Cushingoid facies Respiratory: no respiratory distress Cardiovascular: Rate/Rhythm: regular rate and regular rhythm Vessels: no JVD Extremities: + edema (trace pretibal); no calf tenderness Gastrointestinal (Abdomen): normal bowel sounds, soft, nontender, no hepatosplenomegaly Musculoskeletal: Extremities: + extremities abnormal to inspection (wounds left leg dressed) and no cyanosis Psychiatric: Orientation: alert and oriented x 3 (mild confusion, but O x 3) Motor Behavior: + tremor (improved) Results & Data Results & Data ([facility]) Vital Signs (Past 12 Hours) Vital Signs Temp Pulse Pulse Resp BP BP Pulse Ox 06/09/20 15:30 36.7 C 71 22 116/70 94 06/09/20 07:51 36.6 C 64 16 134/81 94 Laboratory Results - last 24 hr 06/09/20 06/09/20 07:11 07:11 WBC 5.82 RBC 3.38 L Hgb 10.4 L Hct 34.6 L MCV 102.4 H MCH 30.8 MCHC 30.1 L RDW Std Deviation 67.2 H RDW Coeff of Ulises 18.0 H Plt Count 131 MPV 9.5 Absolute Nucleated RBC 0.02 H Nucleated RBC % (auto) 0.3 Sodium 142 Potassium 3.8 Chloride 105 Carbon Dioxide 30 Anion Gap 6.0 BUN 18 Creatinine 0.51 L Est Cr Clr Drug Dosing 183.2 Est GFR ( Amer) 133.5 Est GFR (Non-Af Amer) 115.2 BUN/Creatinine Ratio 34.7 H Glucose 69 L Calcium 9.4 (1) Venous stasis ulcer Venous stasis ulcer site: other part of lower leg Varicose vein presence: without varicose veins Laterality: left Non-pressure ulcer stage: unspecified non-pressure ulcer stage Qualified Code(s): I87.2 - Venous insufficiency (chronic) (peripheral); L97.829 - Non-pressure chronic ulcer of other part of left lower leg with unspecified severity
[2020-06-09] MEDS: bisacodyL 5 MG TABEC PO SCH (20:14)
[2020-06-09] MEDS: MIRTAZAPINE TAB 15 MG TAB PO SCH (20:19)
[2020-06-09] MEDS: OXYCODONE HCL IR 5 MG TAB (IMMEDIATE RELEASE) PO PRN (20:23)
[2020-06-10] MEDS: CHECK FENTANYL PATCH PLACEMENT SCH ×3 (00:08→15:20)
[2020-06-10] MEDS: PSYLLIUM 58.6% POWDER PACKET PO SCH (08:56)
[2020-06-10] MEDS: POLYETHYLENE (MIRALAX) 17 GM PACK PO SCH ×2 (08:56→20:10)
[2020-06-10] MEDS: POTASSIUM CHLORIDE PWD 20 MEQ PACK PO SCH (08:57)
[2020-06-10] MEDS: FOLIC ACID 1 MG TAB PO SCH (08:57)
[2020-06-10] MEDS: ASCORBIC ACID 500 MG TAB PO SCH (08:57)
[2020-06-10] MEDS: ATORVASTATIN 40 MG TAB PO SCH (08:57)
[2020-06-10] MEDS: MAGNESIUM OXIDE 400 MG TAB PO SCH (08:57)
[2020-06-10] MEDS: THIAMINE HCL 100 MG TAB PO SCH (08:58)
[2020-06-10] MEDS: dexAMETHasone 4 MG TAB PO SCH (08:58)
[2020-06-10] MEDS: APIXABAN 5 MG TABLET PO SCH ×2 (08:58→20:10)
[2020-06-10] MEDS: BusPIRone 15 MG TAB PO SCH ×3 (08:59→20:10)
[2020-06-10] MEDS: METOPROLOL SUCC 50MG EXT REL TAB PO SCH ×2 (08:59→20:10)
[2020-06-10] MEDS: DOCUSATE SODIUM 100 MG CAP PO SCH ×2 (08:59→20:10)
[2020-06-10] MEDS: BuPROPion XL 150 MG TABCR PO SCH (08:59)
[2020-06-10] MEDS: CLOTRIMAZOLE 1% CR 15 GM TUBE EXT SCH ×2 (08:59→22:04)
[2020-06-10] MEDS: COLLAGENASE OINT 30 GM TUBE EXT SCH (09:28)
--- NOTE | 2020-06-10 17:25 | Palliative Care Progress Note ---
Date of Service June 10, 2020 Assessment & Plan (1) Palliative care encounter: Patient is well-known to me-has been a patient in the palliative care clinic since September [id number]. 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 He has left lower extremity vascular wounds-followed by wound clinic. Has been on multiple p.o. antibiotics at home. Patient was sent to the emergency room when he called wound clinic and reported maggots in his wounds. Patient treated with IV antibiotics as well as wound care -Patient seen and examined in room 358-patient's friend and KATHARINEAStephanie at [facility] -Patient is active with [facility]-his functional status is declining to the point where he will no longer be able to receive his Keytruda. Patient overestimates his ability to care for himself-was able to convince patient that a short rehab stay would be needed in order for him to return home as his friend Stephanie cannot care for him in his current physical state -Patient's cancer is progressing-has eaten through the mandible-increased pain due to dislocation of bone. Patient is on Decadron for bone pain as well as fentanyl patches -he was on 100 mcg every 72 hours at home-this is been weaned back down to 75 mcg. At home his breakthrough pain was treated with oxycodone 5 mg as needed. -Patient is not a surgical candidate for repair of his mandible -Patient with draining wounds from both sides of the jaw-has been on Flagyl in the past to control odor and halitosis. -CODE STATUS was discussed in outpatient clinic-patient had requested DO NOT RESUSCITATE, no feeding tube if needed, limited interventions as far as IV antibiotics. -Patient has named Stephanie as his healthcare surrogate if KATHARINEA. -Patient reports his brother is able to assist financially -Stephanie is not sure that that is true. -Collaborated with case management regarding plan for rehab at nursing home facility. -PPS 30% (2) Squamous cell carcinoma: No longer a candidate for further Keytruda due to poor functional status (3) Cancer associated pain: Doing well on fentanyl patch at 75 mcg with as needed oxycodone at 5 mg (4) Mouth cancer: (5) Ulcer of left foot: Followed at wound care clinic Admission and Anticipated Discharge Date Admission Date: May 25, 2020 Subjective Patient seen and examined in room 358, patient's friend who is also his POA, Xavi mc, at bedside. Patient has repeatedly stated he wants to go home, has poor insight in regards to his physical limitations-Stephanie and I were able to persuade patient to agree to nursing home facility for rehab. Patient was concerned that he would be at the facility today-we let patient know that the rehab stay would be for several weeks till he can get stronger and return home. Patient does not have the financial capabilities of hiring 24-hour caregivers, patient's friend is unable to care for him at home alone. Patient's pain has been well controlled on fentanyl at 75 mcg, he is on Decadron 4 mg daily for pain related to bone mets-he required 1 as needed oxycodone at 5 mg in the past 24 hours. Review of Systems Review of Systems: Patient denies fever, chills, chest pain, shortness of breath, or abdominal pain Physical Exam Physical Exam: PE: Patient awake and alert, some increased confusion compared to when last seen in outpatient clinic HEENT: Facial fullness, continues to have draining bilateral general wounds Respirations: Unlabored CV: Regular rate Abdomen: Soft, nontender Extremities: Left lower extremity wounds with dressings in place Neuro: Positive memory issues and mild cognitive deficits-patient forgets recent discussions Results & Data ([facility]) Vital Signs (Past 12 Hours) Vital Signs Temp Pulse Pulse Resp BP Pulse Ox 06/10/20 14:58 97.3 F L 72 16 111/66 94 06/10/20 07:34 97.3 F L 69 17 118/64 96 PG Care Time/CCT Total # of Minutes Spent Total Time Spent with Patient: Total time spent 35 minutes with greater than 50% of the time spent at bedside discussing goals of care with patient and his POAStephanie. Collaborated with case management Coding Level of Care Code 51624 Subseq Hosp Care Lvl 3 Diagnoses Palliative care encounter Z51.5 Squamous cell carcinoma Cancer associated pain G89.3 Mouth cancer C06.9 Ulcer of left foot L97.529 Time Spent (min) 35
[2020-06-10] MEDS: bisacodyL 5 MG TABEC PO SCH (18:31)
[2020-06-10] MEDS: MIRTAZAPINE TAB 15 MG TAB PO SCH (20:10)
--- NOTE | 2020-06-10 20:51 | Hospitalist Progress Note ---
Date of Service June 10, 2020 Assessment & Plan (1) Venous stasis ulcer: Multiple ulcers left lower extremity, infested with maggots at time of admission.. Seen by Wound Care Team and General Surgery. No apparent osteo per MRI. Wound culture growing Morganella morganii and Serratia marcescens. Received IV antibiotic therapy with piperacillin / tazobactam, then transitioned to ceftriaxone 2 gms IV daily per sensitivities. Seen by Wound Care physician for f/u 06/09.. Antibiotic therapy discontinued. (2) Encephalopathy: Confused, lethargic, agitated on 05/28. Suspected delirium secondary to alcohol withdrawal as discussed below. Meds (benzodiazepines, narcotics) may have been contributing factors. = toxic / metabolic encephalopathy. Improved, back to baseline. (3) Alcohol withdrawal: Reportedly drinks 5 White Russians / day (maybe more). Confusion / agitation / tremors 05/28 consistent with alcohol withdrawal. Received thiamine, folate, chlordiazepoxide, lorazepam. Chlordiazepoxide may have been contributing to lethargy / confusion. Transitioned to gabapentin protocol. Improved. (4) DVT (deep venous thrombosis): Duplex left lower extremity demonstrated extensive DVT- present on admission. Started on IV heparin. History of intracranial aneurysm noted. Benefits of anticoagulation outweigh risks. Transitioned from IV heparin to SQ enoxaparin. Patient would like oral anticoagulant. Transitioned to apixaban 10 mg BID x 7 days, then 5 mg BID. (5) Stage III pressure ulcer of left buttock: Present on admission. Wound Care Team consulted. Local care + repositioning. 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 Status post surgical resection, radiation therapy, chemotherapy, immunotherapy with Keytruda. Not candidate for ongoing treatments due to poor functional status. Chronic drainage from sinus tract. (7) Cancer associated pain: Fentanyl dose decreased to 50 mcg 05/29 due to lethargy and change of mental status. Increased dose to 75 mcg/hr on 05/31. Monitor symptoms and titrate therapy as necessary. (8) Palliative care encounter: Recurrent squamous cell carcinoma of mouth. Palliative Medicine consulted. (9) HTN (hypertension): Hemodynamically stable. Continue metoprolol. (10) Hematochezia: Episode of rectal bleeding. Severe constipation. Receiving apixaban for acute DVT. Seen by GI. H/H stable. Rectal bleeding may have been due to hemorrhoids or rectal fissure. Colonoscopy not recommended. Bowel regimen as ordered. (11) Do not resuscitate status: Advanced directives discussed with Palliative Medicine & his friend Stephanie who is his Health Care Proxy on 05/28. Patient completed a POLST indicating no attempted resuscitation, no feeding tubes, no other extraordinary measures. Stephanie confirmed that POLST is consistent with his wishes. Code status changed to DNR. (12) Discharge planning issues: Poor functional status and not safe for discharge to home at this time. Needs skilled care or inpt rehab. PT / OT evaluations requested. Case Management following. Family Medicine follow-up with Dr. Britt Del Toro. Palliative Medicine follow-up with Dr. Chery. Admission and Anticipated Discharge Date Admission Date: May 25, 2020 Subjective Recheck for multiple problems. Patient seen in their room around 1140. Afebrile. Minimal cough. No SOB. Mandibular pain fairly well-controlled. Having some drainage from sinus tract inferior right mandible- chronic, intermittent problem. Review of Systems: Constitutional- no fever. Cardiac- no chest pain. Pulmonary- as noted above. GI- constipation improved; no nausea, vomiting, diarrhea, melena, hematochezia. - no urinary symptoms. Otherwise, as noted above. Physical Exam Constitutional: + ill appearing; no acute distress Neck: drainage of necrotic appearing material right inferior mandible Respiratory: normal respiratory effort, lungs clear to auscultation no respiratory distress Cardiovascular: Rate/Rhythm: regular rate and regular rhythm Vessels: no JVD Extremities: + edema (trace pretibal); no calf tenderness Gastrointestinal (Abdomen): normal bowel sounds, soft, nontender, no hepatosplenomegaly Musculoskeletal: Extremities: + extremities abnormal to inspection (wounds left leg dressed) and no cyanosis Psychiatric: Orientation: alert and oriented x 3 (mild confusion, but O x 3) Results & Data Results & Data ([facility]) Vital Signs (Past 12 Hours) Vital Signs Temp Pulse Resp BP Pulse Ox 06/10/20 20:06 75 106/70 06/10/20 14:58 36.3 C L 72 16 111/66 94 (1) Venous stasis ulcer Venous stasis ulcer site: other part of lower leg Varicose vein presence: without varicose veins Laterality: left Non-pressure ulcer stage: unspecified non-pressure ulcer stage Qualified Code(s): I87.2 - Venous insufficiency (chronic) (peripheral); L97.829 - Non-pressure chronic ulcer of other part of left lower leg with unspecified severity
[2020-06-11] MEDS: CHECK FENTANYL PATCH PLACEMENT SCH ×4 (00:29→23:10)
[2020-06-11] MEDS: METOPROLOL SUCC 50MG EXT REL TAB PO SCH ×2 (10:00→21:28)
[2020-06-11] MEDS: BusPIRone 15 MG TAB PO SCH ×3 (10:01→21:28)
[2020-06-11] MEDS: DOCUSATE SODIUM 100 MG CAP PO SCH ×2 (10:01→21:28)
[2020-06-11] MEDS: POLYETHYLENE (MIRALAX) 17 GM PACK PO SCH ×2 (10:02→21:28)
[2020-06-11] MEDS: POTASSIUM CHLORIDE PWD 20 MEQ PACK PO SCH (10:02)
[2020-06-11] MEDS: ATORVASTATIN 40 MG TAB PO SCH (10:02)
[2020-06-11] MEDS: PSYLLIUM 58.6% POWDER PACKET PO SCH (10:03)
[2020-06-11] MEDS: ASCORBIC ACID 500 MG TAB PO SCH (10:03)
[2020-06-11] MEDS: MAGNESIUM OXIDE 400 MG TAB PO SCH (10:04)
[2020-06-11] MEDS: FOLIC ACID 1 MG TAB PO SCH (10:04)
[2020-06-11] MEDS: BuPROPion XL 150 MG TABCR PO SCH (10:04)
[2020-06-11] MEDS: APIXABAN 5 MG TABLET PO SCH ×2 (10:05→21:28)
[2020-06-11] MEDS: THIAMINE HCL 100 MG TAB PO SCH (10:05)
[2020-06-11] MEDS: dexAMETHasone 4 MG TAB PO SCH (10:05)
[2020-06-11] MEDS: CLOTRIMAZOLE 1% CR 15 GM TUBE EXT SCH ×2 (10:06→21:29)
[2020-06-11] MEDS: COLLAGENASE OINT 30 GM TUBE EXT SCH (10:09)
[2020-06-11] MEDS: bisacodyL 5 MG TABEC PO SCH (18:32)
[2020-06-11] MEDS: MIRTAZAPINE TAB 15 MG TAB PO SCH (21:28)
--- NOTE | 2020-06-11 23:42 | Hospitalist Progress Note ---
Date of Service June 11, 2020 Assessment & Plan (1) Venous stasis ulcer: Multiple ulcers left lower extremity, infested with maggots at time of admission.. Seen by Wound Care Team and General Surgery. No apparent osteo per MRI. Wound culture growing Morganella morganii and Serratia marcescens. Received IV antibiotic therapy with piperacillin / tazobactam, then transitioned to ceftriaxone 2 gms IV daily per sensitivities. Seen by Wound Care physician for f/u 06/09. Ulcers debrided and antibiotics discontinued. Continue local wound care. (2) Encephalopathy: Confused, lethargic, agitated on 05/28. Suspected delirium secondary to alcohol withdrawal as discussed below. Meds (benzodiazepines, narcotics) may have been contributing factors. = toxic / metabolic encephalopathy. Improved, back to baseline. (3) Alcohol withdrawal: Reportedly drinks 5-10 White Russians / day (maybe more). Confusion / agitation / tremors 05/28 consistent with alcohol withdrawal. Received thiamine, folate, chlordiazepoxide, lorazepam. Transitioned to gabapentin protocol. Improved. (4) DVT (deep venous thrombosis): Duplex left lower extremity demonstrated extensive DVT- present on admission. Started on IV heparin. History of intracranial aneurysm noted. Benefits of anticoagulation outweigh risks. Transitioned from IV heparin to SQ enoxaparin. Patient would like oral anticoagulant. Transitioned to apixaban 10 mg BID x 7 days, then 5 mg BID. (5) Stage III pressure ulcer of left buttock: Present on admission. Wound Care Team consulted. Local care + repositioning. 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 Status post surgical resection, radiation therapy, chemotherapy, immunotherapy with Keytruda. Not candidate for ongoing treatments due to poor functional status. Chronic drainage from sinus tract. (7) Cancer associated pain: Fentanyl dose decreased to 50 mcg 05/29 due to lethargy and change of mental status. Increased dose to 75 mcg/hr on 05/31. Monitor symptoms and titrate therapy as necessary. (8) Palliative care encounter: Recurrent squamous cell carcinoma of mouth. Palliative Medicine consulted. (9) HTN (hypertension): Hemodynamically stable. Continue metoprolol. (10) Hematochezia: Episode of rectal bleeding. Severe constipation. Receiving apixaban for acute DVT. Seen by GI. H/H stable. Rectal bleeding may have been due to hemorrhoids or rectal fissure. Colonoscopy not recommended. Bowel regimen as ordered. (11) Do not resuscitate status: Advanced directives discussed with Palliative Medicine & his friend Stephanie who is his Health Care Proxy on 05/28. Patient completed a POLST indicating no attempted resuscitation, no feeding tubes, no other extraordinary measures. Stephanie confirmed that POLST is consistent with his wishes. Code status changed to DNR. (12) Discharge planning issues: Poor functional status and not safe for discharge to home at this time. Needs skilled care or inpt rehab- approved for skilled care at [facility]; bed available tomorrow. PT / OT evaluations requested. Case Management following. Family Medicine follow-up with Dr. Britt Del Toro. Palliative Medicine follow-up with Dr. Chery. Admission and Anticipated Discharge Date Admission Date: May 25, 2020 Subjective Recheck for multiple problems. Patient seen in their room around 1830. Friend Stephanie visiting. Out of bed in wheelchair. Afebrile. Bowel movements more regular on current regimen. Pain fairly well controlled. Review of Systems: Constitutional- no fever. Cardiac- no chest pain. Pulmonary- as noted above. GI- constipation improved; no nausea, vomiting, diarrhea, melena, hematochezia. - no urinary symptoms. Otherwise, as noted above. Physical Exam Constitutional: + ill appearing; no acute distress Respiratory: normal respiratory effort, lungs clear to auscultation no respiratory distress Cardiovascular: Rate/Rhythm: regular rate and regular rhythm Vessels: no JVD Extremities: + edema (trace pretibal); no calf tenderness Gastrointestinal (Abdomen): normal bowel sounds, soft, nontender, no hepatosplenomegaly Musculoskeletal: Extremities: + extremities abnormal to inspection (wounds left leg dressed) and no cyanosis Psychiatric: Orientation: alert and oriented x 3 Motor Behavior: + tremor (improved) Results & Data Results & Data ([facility]) Vital Signs (Past 12 Hours) Vital Signs Temp Pulse Pulse Resp BP Pulse Ox 06/11/20 23:15 36.3 C L 78 20 128/79 94 06/11/20 21:25 75 114/72 06/11/20 16:11 36.2 C L 76 18 100/68 95 (1) Venous stasis ulcer Venous stasis ulcer site: other part of lower leg Varicose vein presence: without varicose veins Laterality: left Non-pressure ulcer stage: unspecified non-pressure ulcer stage Qualified Code(s): I87.2 - Venous insufficiency (chronic) (peripheral); L97.829 - Non-pressure chronic ulcer of other part of left lower leg with unspecified severity
[2020-06-12] MEDS: CHECK FENTANYL PATCH PLACEMENT SCH (08:18)
[2020-06-12] MEDS: fentaNYL 75 MCG/HR TDSY TD SCH (08:32)
[2020-06-12] MEDS: FOLIC ACID 1 MG TAB PO SCH (08:36)
[2020-06-12] MEDS: DOCUSATE SODIUM 100 MG CAP PO SCH (08:36)
[2020-06-12] MEDS: dexAMETHasone 4 MG TAB PO SCH (08:36)
[2020-06-12] MEDS: THIAMINE HCL 100 MG TAB PO SCH (08:36)
[2020-06-12] MEDS: MAGNESIUM OXIDE 400 MG TAB PO SCH (08:36)
[2020-06-12] MEDS: APIXABAN 5 MG TABLET PO SCH (08:37)
[2020-06-12] MEDS: POLYETHYLENE (MIRALAX) 17 GM PACK PO SCH (08:37)
[2020-06-12] MEDS: ATORVASTATIN 40 MG TAB PO SCH (08:37)
[2020-06-12] MEDS: POTASSIUM CHLORIDE PWD 20 MEQ PACK PO SCH (08:37)
[2020-06-12] MEDS: CLOTRIMAZOLE 1% CR 15 GM TUBE EXT SCH (08:37)
[2020-06-12] MEDS: ASCORBIC ACID 500 MG TAB PO SCH (08:37)
[2020-06-12] MEDS: BusPIRone 15 MG TAB PO SCH ×2 (08:37→14:15)
[2020-06-12] MEDS: PSYLLIUM 58.6% POWDER PACKET PO SCH (08:37)
[2020-06-12] MEDS: BuPROPion XL 150 MG TABCR PO SCH (08:37)
[2020-06-12] MEDS: METOPROLOL SUCC 50MG EXT REL TAB PO SCH (08:37)
[2020-06-12] MEDS: COLLAGENASE OINT 30 GM TUBE EXT SCH (08:38)
--- NOTE | 2020-06-12 11:54 | Hospitalist Progress Note ---
Date of Service June 12, 2020 Assessment & Plan (1) Venous stasis ulcer: Presented with multiple ulcers left lower extremity, infested with maggots at time of admission.. Seen by Wound Care Team and General Surgery. No apparent osteo per MRI. Wound culture growing Morganella morganii and Serratia marcescens. Received IV antibiotic therapy with piperacillin / tazobactam, then transitioned to ceftriaxone 2 gms IV daily per sensitivities. Seen by Wound Care physician for f/u 06/09. Ulcers debrided and antibiotics discontinued. Continue local wound care as instructed by Wound Care Team. (2) Alcohol withdrawal: Reportedly drinks 5-10 White Russians / day (maybe more). Confusion / agitation / tremors 05/28 consistent with alcohol withdrawal = toxic / metabolic encephalopathy. Received thiamine, folate, chlordiazepoxide, lorazepam. Transitioned to gabapentin protocol. Improved. (3) DVT (deep venous thrombosis): Duplex left lower extremity demonstrated extensive DVT- present on admission. Started on IV heparin. History of intracranial aneurysm noted. Benefits of anticoagulation outweigh risks. Transitioned from IV heparin to SQ enoxaparin. Patient would like oral anticoagulant. Transitioned to apixaban 10 mg BID x 7 days, then 5 mg BID. 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 (4) Stage III pressure ulcer of left buttock: Present on admission. Wound Care Team consulted. Local care + repositioning. 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 Status post surgical resection, radiation therapy, chemotherapy, immunotherapy with Keytruda. Not candidate for ongoing treatments due to poor functional status. Chronic necrotic drainage from sinus tract inferior mandible. (6) Cancer associated pain: Fentanyl dose decreased to 50 mcg 05/29 due to lethargy and change of mental status. Increased dose to 75 mcg/hr on 05/31. Monitor symptoms and titrate therapy as necessary. (7) Palliative care encounter: Recurrent squamous cell carcinoma of mouth. Palliative Medicine consulted. (8) HTN (hypertension): Hemodynamically stable. Continue metoprolol. (9) Hematochezia: Episode of rectal bleeding. Severe constipation. Receiving apixaban for acute DVT. Seen by GI. H/H stable. Rectal bleeding may have been due to hemorrhoids or rectal fissure. Colonoscopy not recommended. Bowel regimen as ordered. (10) Do not resuscitate status: Advanced directives discussed with Palliative Medicine & his friend Stephanie who is his Health Care Proxy on 05/28. Patient completed a POLST indicating no attempted resuscitation, no feeding tubes, no other extraordinary measures. Stephanie confirmed that POLST is consistent with his wishes. Code status changed to DNR. (11) Discharge planning issues: Poor functional status and not safe for discharge to home at this time. Needs skilled care or inpt rehab- approved for skilled care at [facility]; bed available today. Family Medicine follow-up with Dr. Britt Del Toro. Palliative Medicine follow-up with Dr. Chery. Admission and Anticipated Discharge Date Admission Date: May 25, 2020 Subjective Recheck for multiple problems. Patient seen in their room around 1000. Doing well. Afebrile. Occasional cough, no SOB. Bowel movements more regular on current regimen. Pain fairly well controlled. Physical Exam Constitutional: no acute distress Respiratory: normal respiratory effort, lungs clear to auscultation no respiratory distress Auscultation: + rhonchi (few) Cardiovascular: Rate/Rhythm: regular rate and regular rhythm Vessels: no JVD Extremities: + edema (trace pretibal); no calf tenderness Gastrointestinal (Abdomen): normal bowel sounds, soft, nontender, no hepatosplenomegaly Musculoskeletal: Extremities: + extremities abnormal to inspection (wounds left leg dressed) and no cyanosis Psychiatric: Orientation: alert and oriented x 3 Results & Data Results & Data ([facility]) Vital Signs (Past 12 Hours) Vital Signs Temp Pulse Resp BP Pulse Ox 06/12/20 07:05 36.4 C L 67 17 130/82 95 (1) Venous stasis ulcer Venous stasis ulcer site: other part of lower leg Varicose vein presence: without varicose veins Laterality: left Non-pressure ulcer stage: unspecified non-pressure ulcer stage Qualified Code(s): I87.2 - Venous insufficiency (chronic) (peripheral); L97.829 - Non-pressure chronic ulcer of other part of left lower leg with unspecified severity
--- NOTE | 2020-06-12 12:18 | Discharge Summary ---
Date of Service Date of Admission: 05/25/20 Date of Discharge: 06/12/20 Admission HPI Per Admitting Provider This is a 64-year-old male who has significant past medical history of HTN, HLD, alcoholism, chronic tobacco abuse, squamous cell carcinoma of the mouth, brain aneurysm, depression who presents to ED at recommendation of wound care secondary to worsening wounds of the left lower extremity with visibility of maggots. He was initially seen and evaluated by wound clinic on 05/19/2020 and found to have venostasis ulcerations on the left lower extremity along with a stage II pressure ulcer of left buttock. He underwent debridement at that time, cultures were obtained and he was started on Bactrim DS. Wound culture grew Serratia marcescens and stenotrophomonas maltophilia, both sensitive to Bactrim. He elicits increased pain and swelling in the left lower extremity. He denies any known history of arterial disease to the lower extremities. He did undergo CANDACE to the lower extremities which was negative. Per patient wound has been worsening and he noted maggots attached to wound, which prompted him to seek care immediately. He denies any recent fever, chills, sweats, lightheadedness, dizziness, chest pain, shortness of breath, nausea, vomiting, abdominal pain. Patient is mostly confined to wheelchair secondary to prior cervical and thoracic vertebral fractures due to injury. He is a everyday smoker and does drink 5 white Ni[place]an alcoholic beverages daily. His last drink was at 9 AM. Overall appetite has been stable. He notes his immunotherapy for squamous cell carcinoma of mouth is currently on hold. He had been receiving Keytruda. Follows Dr. Singh. In ED patient remained hemodynamically stable. Lab work notable for WBC 8.12, H&H 10.9 and 34.0, platelet 139, sodium 135, creatinine 0.56, ethyl alcohol less than 3.0. Prior to my evaluation he did not undergo any imaging studies and was not treated with any IV medications. Per ED provider patient did have visible maggots on wound of left lower extremity, which have since been removed. Principal Diagnosis venous stasis ulcers left lower extremity, infected OTHER ACUTE / NEW DIAGNOSES DVT left lower extremity, present on admission metabolic encephalopathy secondary to alcohol withdrawal Discharge Data Allergies Allergy/AdvReac Type Severity Reaction Status Date / Time acetaminophen Allergy Intermediate CONTRAINDIC Verified 05/25/20 12:57 ATED aspirin Allergy Intermediate STOMACH Verified 05/25/20 12:57 BLEEDING NSAIDS (Non-Steroidal Allergy Intermediate GI PROBLEMS Verified 05/25/20 12:57 Anti-Inflamma codeine Allergy Mild high fever Verified 05/25/20 12:57 lisinopril Allergy Mild edema Verified 05/25/20 12:57 bee venom protein (honey bee) Allergy Unknown go into Verified 05/25/20 12:57 shock Consultations 05/25/20 12:34 ED Decision to Admit Stat 05/25/20 13:00 Consult Wound Care Provider Routine 05/25/20 13:20 Consult General Surgery Routine 05/25/20 14:51 Consult Case Management - Discharge Planning Routine 05/27/20 12:32 Consult Palliative Care Routine 06/02/20 12:10 Consult Orthopedic Surgery Routine 06/04/20 14:57 Consult Gastroenterology Routine Ordered Studies 05/25/20 13:37 MR lower leg LT wo/w con Routine US arterial duplex LE BI Stat Hospital Course (1) Venous stasis ulcer: Presented with multiple ulcers left lower extremity, infested with maggots at time of admission.. Seen by Wound Care Team and General Surgery. No apparent osteo per MRI. Wound culture growing Morganella morganii and Serratia marcescens. Received IV antibiotic therapy with piperacillin / tazobactam, then transitioned to ceftriaxone 2 gms IV daily per sensitivities. Seen by Wound Care physician for f/u 06/09. Ulcers debrided and antibiotics discontinued. Continue local wound care as instructed by Wound Care Team. (2) Alcohol withdrawal: Reportedly drinks 5-10 White Russians / day. Confusion / agitation / tremors 05/28 consistent with alcohol withdrawal = toxic / metabolic encephalopathy. Received thiamine, folate, chlordiazepoxide, lorazepam. Transitioned to gabapentin protocol. Improved; cognitive status back to baseline. (3) DVT (deep venous thrombosis): Duplex left lower extremity demonstrated extensive DVT- present on admission. Started on IV heparin. History of intracranial aneurysm noted. Benefits of anticoagulation outweigh risks. Transitioned from IV heparin to SQ enoxaparin. Patient would like oral anticoagulant. Transitioned to apixaban 10 mg BID x 7 days, then 5 mg BID. Ongoing risk for recurrent VTE, so continue anticoagulation termination clerk unless contraindications develop. (4) Stage III pressure ulcer of left buttock: Present on admission. Wound Care Team consulted. Local care + repositioning. 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 Status post surgical resection, radiation therapy, chemotherapy, immunotherapy with Keytruda. Not candidate for ongoing treatments due to poor functional status. Continue dexamethasone. Chronic necrotic drainage from sinus tract inferior mandible. (6) Cancer associated pain: Fentanyl dose decreased to 50 mcg 05/29 due to lethargy and change of mental status. Increased dose to 75 mcg/hr on 05/31. Monitor symptoms and titrate therapy as necessary. (7) Palliative care encounter: Recurrent squamous cell carcinoma of mouth. Palliative Medicine consulted. (8) HTN (hypertension): Hemodynamically stable. Continue metoprolol. (9) Hematochezia: Episode of rectal bleeding. Severe constipation. Receiving apixaban for acute DVT. Seen by GI. H/H stable. Rectal bleeding may have been due to hemorrhoids or rectal fissure. Colonoscopy not recommended. Bowel regimen as ordered. (10) COVID-19 ruled out: SARS-CoV-2 PCR negative 06/12/20 (11) Do not resuscitate status: Advanced directives discussed with Palliative Medicine & his friend Stephanie who is his Health Care Proxy on 05/28. Patient completed a POLST indicating no attempted resuscitation, no feeding tubes, no other extraordinary measures. Stephanie confirmed that POLST is consistent with his wishes. Code status changed to DNR. (12) Discharge planning issues: Poor functional status and not safe for discharge to home at this time. Arrangements being made for transfer to [facility] for skilled care. Patient hopes that he will eventually be able to return home with hospice. Family Medicine follow-up with Dr. Britt Del Toro. Palliative Medicine follow-up with Dr. Chery. Wound Care follow-up with Dr. Fajardo. Total Time Total Time Spent Total Time Spent (In Minutes): 45 Discharge Plan Discharge Items Patient Disposition: Transfer Longterm Fac Reason For Visit: infected leg ulcers Discharge Diagnosis: alcohol withdrawal DVT left lower extremity Activity: As commented below Activity Comment: as tolerated with assistance Non-emergency contact: Primary Care Provider and Hospitalist Call non-emergency contact if: you have any medication questions Follow-up/Referrals: Britt Del Toro, [Primary Care Provider] - Diet: Regular Diet Texture: Pureed (blended smooth) Addtl Attending Provider Instructions: MEDICATION NOTES: -new fentanyl patch placed 06/12/20 at 0832 -dexamethasone dose of 4 mg daily has been chronic and should not be tapered u nless instructed to do so by Oncology or Palliative Medicine COVID-19 PCR negative 06/12/20. Fall precautions. Aspiration precautions. Skin precautions. Reposition at least every 2 hours. Wound care as instructed by Wound Care Team. Soft cervical collar PRN. Please contact [facility] and arrange for follow-up. Thank you for receiving this patient in transfer. Please call if you have any questions. Raj Alvarado Pending Studies at Discharge: No Stand-Alone Forms: My [facility] Skilled Items Patient informed of condition?: Yes DNR: Yes Discharge Level of Care: Skilled Communicable Disease: No Discharge Prognosis: Improving Lines: None Urinary Catheter: No Medications and DC Order Prescriptions: New Eliquis 5 mg Tablet 5 mg PO BID Qty: 30 RF: 0 metoprolol succinate 50 mg Tablet Extended Release 24 Hr 50 mg PO BID Qty: 60 RF: 0 fentanyl 75 mcg/hr Patch 72 Hour 75 mcg transdermal Q3D@0900 Qty: 5 RF: 0 polyethylene glycol 3350 [Miralax] 17 gram Powder In Packet 17 g PO BID Qty: 30 RF: 0 docusate sodium 100 mg Capsule 100 mg PO BID Qty: 60 RF: 0 Metamucil (with sugar) 3.4 gram Powder In Packet 1 ea PO QAM Qty: 30 RF: 0 Santyl 250 unit/gram Ointment 1 applic EXT DAILY Qty: 30 RF: 0 thiamine HCl (vitamin B1) [Vitamin B-1] 100 mg Tablet 100 mg PO QAM Qty: 30 RF: 0 folic acid 1 mg Tablet 1 mg PO QAM Qty: 30 RF: 0 Continued bupropion HCl [Wellbutrin XL] 150 mg tablet extended release 24 hr 150 mg PO QAM RF: 0 mirtazapine [Remeron] 15 mg tablet 15 mg PO HS RF: 0 albuterol sulfate 90 mcg/actuation HFA aerosol inhaler 2 puff inhalation Q4H PRN (Reason: shortness of breath or wheezing) RF: 0 ondansetron HCl [Zofran] 4 mg tablet 4 - 8 mg PO Q8H PRN (Reason: nausea and vomiting) RF: 0 magnesium oxide,aspartate,citr 400 mg magnesium capsule 400 mg PO DAILY RF: 0 dexamethasone [Decadron] 4 mg tablet 4 mg PO DAILY RF: 0 lidocaine 5 % Ointment 1 applic TOPICAL DAILY PRN (Reason: Pain) RF: 0 atorvastatin 40 mg Tablet 40 mg PO QAM RF: 0 pentoxifylline 400 mg Tablet Extended Release 400 mg PO TID RF: 0 diclofenac sodium 1 % Gel 2 g TOPICAL QID PRN (Reason: Pain) RF: 0 furosemide [Lasix] 20 mg Tablet 20 mg PO BID PRN (Reason: EDEMA/FLUID RETENTION) RF: 0 potassium chloride 20 mEq packet 40 meq PO DAILY RF: 0 ascorbic acid (vitamin C) [Vitamin C] 500 mg Tablet 500 mg PO DAILY RF: 0 nystatin 100,000 unit/gram powder 1 applic TOPICAL TID RF: 0 ninrxaclrxa-hbzbj-kjk-vit C-Mn 500-400-166.6 mg Tablet 2 tab PO BID RF: 0 Calmoseptine 0.44-20.6 % ointment 1 applic TOPICAL DAILY PRN (Reason: .) RF: 0 Probiotic 3 billion cell Capsule 0 mmu cells PO DAILY RF: 0 buspirone 15 mg tablet 15 mg PO TID RF: 0 oxycodone 5 mg Tablet 5 mg PO Q6H PRN (Reason: Pain) Qty: 12 RF: 0 Discontinued metoprolol succinate [Toprol XL] 100 mg tablet extended release 24 hr 100 mg PO BID RF: 0 fentanyl [Duragesic] 50 mcg/hr patch 72 hour 1 patch transdermal Q72H RF: 0 (DME) Immunotherapy Drug 1 RF: 0 thiamine HCl (vitamin B1) [Vitamin B-1] 50 mg tablet 50 mg PO DAILY RF: 0 fentanyl 12 mcg/hr patch 72 hour 12 mcg transdermal Q72H RF: 0 Admission Data Admit Date/Time: 05/25/20 13:00 Attending Provider: Raj Alvarado Admit Provider: Temo Carter Primary Care Provider: Britt Del Toro Other Providers: [facility] ; Harris Thomas ; Temo Carter ; Jonah Fajardo ; Fidencio Lang ; Lynne Chery ; Jack Flaherty ; [place], ; Bessy Sheikh ; Hedy Forman [facility]
--- NOTE | 2020-07-02 08:52 | Coding Query ---
PATHOLOGY To promote full compliance with coding requirements relating to patient care, physician participation is requested in all cases of personnel training officer uncertainty. Please assist us with the question(s) below: Please review the Pathology report and please document any relevant diagnosis(es) below: Diagnosis(es): Thank you! Hansa BARTH
== END 2020-06-12 14:59 | DRG 299 ==
LOC: ED 09:54 → SUATTDRO 13:00 → 3N 13:00 → 2E 05-28 11:03 → 3W 05-30 15:07
DX: M17.0 Bilateral primary osteoarthritis of knee; I82.432 Acute embolism and thrombosis of left popliteal vein; Z66 Do not resuscitate; C02.9 Malignant neoplasm of tongue, unspecified; F17.210 Nicotine dependence, cigarettes, uncomplicated; L97.529 Non-pressure chronic ulcer of other part of left foot with unspecified severity; B87.1 Wound myiasis; E78.5 Hyperlipidemia, unspecified; E87.6 Hypokalemia; I10 Essential (primary) hypertension; I87.2 Venous insufficiency (chronic) (peripheral); G89.3 Neoplasm related pain (acute) (chronic); F32.9 Major depressive disorder, single episode, unspecified; Z79.899 Other long term (current) drug therapy; L89.323 Pressure ulcer of left buttock, stage 3; Z92.3 Personal history of irradiation; G93.41 Metabolic encephalopathy; F10.231 Alcohol dependence with withdrawal delirium; I82.412 Acute embolism and thrombosis of left femoral vein; K64.9 Unspecified hemorrhoids

== ENCOUNTER 2020-10-12 08:51 | Inpatient (IN) ==
[2020-10-12 09:30] LABS: Base Excess VBG -1.5 mEq/L; HCO3 VBG 27 mmol/L; PCO2 VBG 62 mmHg (38-50); PO2 VBG 36 mmHg; pH VBG 7.25 (7.36-7.41)
[2020-10-12 09:31] LABS: Basophils # (auto) 0.01 K/uL (0-0.2); Basophils % (auto) 0.2 %; Eosinophils # (auto) 0.04 K/uL (0-0.5); Eosinophils % (auto) 0.7 %; Hematocrit (blood only) 38.4 % (42-52); Hemoglobin 11.9 g/dL (14.0-18.0); Immature Granulocytes # (auto) 0.03 K/uL (0.00-0.02); Immature Granulocytes % (auto) 0.5 %; Lymphocytes # (auto) 0.81 K/uL (1.2-3.4); Lymphocytes % (auto) 14.4 %; Mean Corpuscular Hemoglobin 27.4 pg (25-34); Mean Corpuscular Volume 88.5 fL (80-100); Monocytes # (auto) 0.67 K/uL (0.11-0.59); Monocytes % (auto) 11.9 %; Neutrophils # (auto) 4.07 K/uL (1.4-6.5); Neutrophils % (auto) 72.3 %; Nucleated RBC # (auto) 0.02 K/uL (0-0); Nucleated RBC % (auto) 0.4 %; Oxygen Saturation VBG < 60.0 %; Platelet Count 213 K/uL (130-400); RDW Coefficient of Variation 18.1 % (11.5-14.5); RDW Standard Deviation 56.5 fL (36.4-46.3); Red Blood Count 4.34 M/uL (4.7-6.1); White Blood Count 5.63 K/uL (4.8-10.8)
[2020-10-12 09:38] LABS: iSTAT Creatinine 2.9 mg/dl (0.6-1.3); iSTAT Hemoglobin 12.6 g/dl (14.0-18.0); iSTAT Ionized Calcium 1.04 mmol/l (1.12-1.32); iSTAT Potassium 3.3 mmol/L (3.3-5.0)
[2020-10-12 09:43] LABS: INR 1.4 (0.9-1.1); Partial Thromboplastin Ratio 1.1; Partial Thromboplastin Time 30.5 Seconds (21.0-31.0); Prothrombin Time 14.7 Seconds (9.0-12.0)
[2020-10-12 09:53] LABS: Alanine Aminotransferase 17 U/L (12-78); Albumin Level 2.6 gm/dl (3.4-5.0); Aspartate Aminotransferase 14 U/L (15-37); BUN Creatinine Ratio 8.4 (10-20); Blood Urea Nitrogen 23 mg/dl (7-18); Carbon Dioxide 34 mmol/L (21-32); Chloride 98 mmol/L (98-107); Creatinine Clr Calc Pharmacy 34.5 ml/min; Est GFR (Non-African American) 23.3; Glucose 99 mg/dl (70-99); Potassium 3.4 mmol/L (3.5-5.1); Sodium 139 mmol/L (136-145)
[2020-10-12 09:58] LABS: Albumin Globulin Ratio 0.7 (0.9-2); Alkaline Phosphatase 105 U/L (45-117); Bilirubin,Total 0.8 mg/dl (0.2-1); Total Protein 6.6 gm/dl (6.4-8.2); Troponin I < 0.015 ng/ml (0-0.045)
--- NOTE | 2020-10-12 10:15 | CT Scan Report ---
HEAD CT NONCONTRAST CT DOSE: HISTORY: Altered mental status. TECHNIQUE: Multiaxial CT images of the head were performed without the use of intravenous contrast. A utomated exposure control was utilized for this study. A dose lowering technique was utilized adheri ng to the principles of ALARA. Comparison: Head CT 04/17/2019. Findings: The paranasal sinuses and mastoid air cells are clear. The calvarium and skull base are int act. There is no mass, hematoma, midline shift, acute infarct. White matter hypodensity is nonspecifi c but suggestive of microvascular ischemic change. The ventricles and sulci demonstrate mild age-rela chanell involutional changes. Motion artifact. Impression: Motion artifact. No definite acute intracranial abnormality. ACT 112: Negative or not required by law. Electronically signed by: Rock Hart M.D. 10/12/2020 10:13 AM
--- NOTE | 2020-10-12 10:16 | XRay Report ---
XR chest 1V portable HISTORY: SEPSIS COMPARISON: Chest 05/29/2020. FINDINGS: The cardiac silhouette remains enlarged. There are patchy bibasilar densities. No pneumotho rax. No pleural effusions. Perihilar interstitial/vascular thickening. This suggests mild congestive change. IMPRESSION: 1. Cardiomegaly with mild congestive change. 2. Patchy bibasilar densities. This may represent atelectasis or pneumonia. ACT 112: Negative or not required by law. Electronically signed by: Rock Hart M.D. 10/12/2020 10:14 AM
--- NOTE | 2020-10-12 10:21 | CT Scan Report ---
CT SCAN OF THE ABDOMEN AND PELVIS WITHOUT IV CONTRAST CLINICAL HISTORY: Acute renal insufficiency. Unspecified cancer history. COMPARISON STUDY: PET CT dated 07/03/2018. TECHNIQUE: CT scan of the abdomen and pelvis is performed from the lung bases to the proximal femora. Images are reviewed in the axial, sagittal, and coronal planes. IV contrast was not administered for this examination. A dose lowering technique was utilized adhering to the principles of ALARA. The ex amination is degraded by motion artifact, as well as by streak artifact from the arms which could not be elevated above the abdomen. CT DOSE: 3376.76 mGy.cm FINDINGS: Lung bases: The heart is enlarged and without pericardial effusion. The coronary arteries are densely calcified. There is a small hiatal hernia. There are trace pleural effusions with dependent consolid ation. Liver: The unenhanced liver is cirrhotic in morphology and heterogeneous in attenuation. There is nod ularity of the hepatic surface contour. There is no intrahepatic biliary ductal dilatation. Gallbladder: Distended but otherwise normal in appearance. Spleen: Normal in size and attenuation. Pancreas: The unenhanced pancreas is moderately atrophic and grossly unremarkable. Adrenal glands: Unremarkable. Kidneys: The unenhanced kidneys demonstrate cortical atrophy and are without hydronephrosis. There ar e no renal calculi identified. There is no evidence of contour deforming renal mass lesion. Abdominal vasculature: The abdominal aorta is normal in course and caliber noting moderate to advance d atherosclerotic calcification. Bowel: There is no bowel obstruction. There are scattered colonic diverticula without CT evidence of acute diverticulitis. The appendix is well-visualized and normal. Peritoneum: There is no intraperitoneal free air or abdominal ascites. Lymphadenopathy: None. Pelvic viscera: The prostate gland is mildly enlarged and heterogeneous noting median lobe hypertroph y. The bladder wall is thickened and trabeculated indicating chronic outlet obstruction. Skeletal structures: The skeletal structures are osteopenic. Moderate lumbosacral spondylosis is obse rved. No lytic or blastic lesions are seen. There is chronic posttraumatic deformity of the lower sac rum. IMPRESSION: 1. There are no acute infectious or inflammatory findings in the abdomen or pelvis. 2. Cirrhotic liver morphology. 3. Cardiomegaly and trace pleural effusions. 4. Dependent consolidation is seen at both lung bases, likely representing scarring/atelectasis. Clin ical correlation will be required. 5. Additional findings as above. ACT 112: Negative or not required by law. Electronically signed by: Frankie Ma M.D. 10/12/2020 10:20 AM
[2020-10-12] MEDS ORDERED: LORazepam 1 MG/2 ML VIAL IV STA (10:35)
--- NOTE | 2020-10-12 10:42 | CT Scan Report ---
CT SCAN OF THE NECK WITHOUT IV CONTRAST; CT SCAN OF THE FACIAL BONES WITHOUT IV CONTRAST CLINICAL HISTORY: Hypoxia. Reported history of jaw cancer. COMPARISON STUDY: CT of the cervical spine dated 04/17/2019. CT of the neck dated 06/24/2018. PET/CT d ated 07/03/2018. TECHNIQUE: Unenhanced CT scan of the soft tissues of the neck was performed from the skull base to th e upper chest. Additionally, high-resolution CT scan of the facial bones is performed. Images for bot h examinations are reviewed in the axial, sagittal, and coronal planes. IV contrast was not administ ered for this examination. Note that the examination is significantly suboptimal without IV contrast. A dose lowering technique was utilized adhering to the principles of ALARA. FINDINGS: Pharynx: The unenhanced pharyngeal soft tissues are grossly unremarkable. The airway is widely patent . There is no evidence of mass lesion. The vocal cords are symmetric. The parapharyngeal fat is well maintained. The prevertebral/retropharyngeal soft tissues are within normal limits. The epiglottis is normal. Lymphadenopathy: There are numerous calcified cervical chain lymph nodes. These are unchanged and a cervical spine CT. The largest measures up to 1.8 cm. No additional/progressive cervical dragan nopathy is identified. Thyroid: Normal in size and heterogeneous in attenuation. Low-attenuation thyroid nodules measure up to 1.5 cm. Salivary glands: The parotid and submandibular glands are within normal limits. Brain parenchyma: The visualized brain parenchyma at the skull base is normal in appearance noting ag e-related involutional change. Skeletal structures: The skeletal structures are osteopenic. Imaged portions of the calvarium at the skull base are within normal limits. The cervical spine appears intact noting advanced multilevel spo ndylosis. No lytic or blastic lesions are seen involving the calvarium or the cervical spine. Facial bones: There is no evidence of acute facial bone fracture. The bony orbits are intact and the orbital contents are within normal limits. The zygomatic arches, nasal bones, and pterygoid plates ar e preserved. The maxilla is intact. Extensive destructive change is again seen involving the mandible with expansion and bony fragmentation. There is pathological fracture of the right mandibular body, likely chronic. There is likely postoperative change within the overlying soft tissues. The sublingua l soft tissue lesion seen on the 2018 PET examination is no longer identified. There is are no layeri ng blood products within the paranasal sinuses. There are numerous dental caries involving the maxill ben teeth. No mandibular teeth are identified. Sinuses and mastoids: There is trace mucosal thickening within the maxillary antra in the frontal sin uses. The remaining paranasal sinuses are clear. The mastoid air cells are well pneumatized. Lung apices: Emphysematous change is noted at the lung apices. Apical lung parenchyma is otherwise cl ear as imaged. IMPRESSION: 1. Significantly suboptimal examination without IV contrast. 2. No acute abnormality is identified. 3. There is extensive chronic destructive change involving the mandible, with bony expansion, fragmen tation, and chronic appearing pathologic fracture of the right mandibular body. Overlying postoperati ve change is suggested, with no residual extraosseous soft tissue component clearly identified. This likely represents treated disease. Correlation with the patient's oncological history and any recent prior imaging studies will be essential. 4. No acute facial bone fracture is identified. 5. Calcified cervical lymph nodes are unchanged from a [address] and likely represent tr eated disease. There is no evidence of progressive cervical adenopathy. 6. Advanced periodontal disease is seen involving the remaining maxillary teeth. Nonemergent follow-u p with dentistry is recommended. 7. Emphysema. 8. The unenhanced pharyngeal soft tissues are grossly unremarkable. ACT 112: Negative or not required by law. Electronically signed by: Frankie Ma M.D. 10/12/2020 10:40 AM
--- NOTE | 2020-10-12 10:53 | Emergency Department Note ---
History of Present Illness General Chief complaint: Respiratory Problems Time Seen by Provider: 10/12/20 08:59 Source: EMS Limitations: altered mental status History of Present Illness Provider complaint: Shortness of breath altered mental status Maximum Pain Intensity: 3 64-year-old male with history of mouth cancer presents to the emergency department via EMS. Per EMS the patient family member called EMS due to altered mental status. On arrival EMS stated that the patient was hypoxic at 50% on room air. They placed him on nonrebreather which improved his oxygen saturation. They reported no falls or traumas. Home Medications Medication Instructions Recorded Confirmed Type atorvastatin 40 mg PO QAM 07/24/18 09/20/20 History diclofenac sodium 2 g TOPICAL QID PRN 07/24/18 09/20/20 History lidocaine 1 applic TOPICAL DAILY PRN 07/24/18 09/20/20 History pentoxifylline 400 mg PO TID 07/24/18 09/20/20 History furosemide [Lasix] 20 mg PO BID PRN 01/09/19 09/20/20 History albuterol sulfate 90 mcg/actuation 2 puff INHALATION Q4H PRN 05/19/20 09/20/20 History aerosol inhaler bupropion HCl 150 mg 24 hr tablet, 150 mg PO QAM 05/19/20 09/20/20 History extended release magnesium oxide,aspartate,citr 400 mg PO DAILY cap 05/19/20 09/20/20 History mirtazapine 15 mg tablet 15 mg PO HS 05/19/20 09/20/20 History ondansetron HCl 4 mg tablet 4 - 8 mg PO Q8H PRN 05/19/20 09/20/20 History Probiotic 0 mmu cells PO DAILY 05/25/20 09/20/20 History ascorbic acid (vitamin C) [Vitamin 500 mg PO DAILY 05/25/20 09/20/20 History C] potassium chloride 40 meq PO DAILY 05/25/20 09/20/20 History buspirone 15 mg PO TID 05/28/20 09/20/20 History apixaban [Eliquis] 5 mg PO BID #30 tab 06/12/20 09/20/20 Rx collagenase clostridium histo. 1 applic EXT DAILY #30 g 06/12/20 09/20/20 Rx [Santyl] docusate sodium 100 mg PO BID #60 cap 06/12/20 09/20/20 Rx fentanyl 75 mcg TRANSDERMAL Q3D@0900 #5 ea 06/12/20 09/20/20 Rx folic acid 1 mg PO QAM #30 tab 06/12/20 09/20/20 Rx metoprolol succinate 50 mg PO BID #60 tab 06/12/20 09/20/20 Rx polyethylene glycol 3350 [Miralax] 17 g PO BID #30 ea 06/12/20 09/20/20 Rx psyllium husk (with sugar) 1 ea PO QAM #30 ea 06/12/20 09/20/20 Rx [Metamucil (with sugar)] thiamine HCl (vitamin B1) [Vitamin 100 mg PO QAM #30 tab 06/12/20 09/20/20 Rx B-1] doxycycline hyclate 100 mg tablet 100 mg PO bid #28 tab 08/27/20 08/27/20 Rx oxycodone 20 mg PO Q4H PRN 10/12/20 10/12/20 History Allergies Allergy/AdvReac Type Severity Reaction Status Date / Time acetaminophen Allergy Intermediate CONTRAINDIC Verified 10/12/20 10:55 ATED aspirin Allergy Intermediate STOMACH Verified 10/12/20 10:55 BLEEDING NSAIDS (Non-Steroidal Allergy Intermediate GI PROBLEMS Verified 10/12/20 10:55 Anti-Inflamma codeine Allergy Mild high fever Verified 10/12/20 10:55 lisinopril Allergy Mild edema Verified 10/12/20 10:55 bee venom protein (honey bee) Allergy Unknown go into Verified 10/12/20 10:55 shock Past Med/Surg History Medical History Alcohol abuse Anxiety Bilateral knee pain Brain aneurysm LILIA Aneursym Cardiac murmur Depression Do not resuscitate status DVT (deep venous thrombosis) extensive DVT LLE 05/25/20 Hyperlipidemia Hypertension Major depressive disorder Osteoarthritis 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", chemo Surgical History H/O skin graft off leg to mouth History of colonoscopy History of esophagogastroduodenoscopy (EGD) History of lung surgery "scrap inside and outside of my lungs for strep pneumonia" History of tooth extraction most of teeth Family History Other No pertinent family history Social History Smoking Status: Current some day smoker Tobacco Type: Cigarettes Cigarettes Per Day: 5 cigarettes/day; Second Hand Exposure: No; Hx Alcohol Use: Yes Alcohol type: hard liquor Alcohol Intake Frequency: 4 or More x per/Week Alcohol Intake Frequency Comment: daily 5 -18oz drinks with 2-3 shots per drink Hx Substance Use: Yes Last Used Substance: Hours (ago) Last Used Substance Other:: last night Substance Use Type Other:: occasioally Preferred Language: Malay Communication Ability: Effective Customs Compliance Specialist Required: No Beliefs That Will Affect Care: None marital status: Current Living Situation: Significant Other Current Living Situation Comment: with friend Stephanie current occupational status: retired and disabled Feels Safe at Home: Yes Assistive Devices: Walker Review of Systems Unobtainable due to cognitive status Physical Exam Vital Signs Vital Signs - 24 hr 10/12/20 08:56 10/12/20 09:28 10/12/20 10:00 Temperature 36.8 C Temperature Source Oral Pulse Rate 91 H Pulse Rate [Left Finger] 143 H Respiratory Rate 20 22 Blood Pressure 96/75 L Blood Pressure [Left Arm] 95/57 L Blood Pressure Mean 82 Blood Pressure Mean [Left Arm] 69 Pulse Oximetry 100 100 100 Oxygen Delivery Method Non-rebreather Non-rebreather Non-rebreather Oxygen Flow Rate 15 15 15 Sepsis Recent Fever Within 48 Hours No Sepsis New/Unexplained Change in Mental Status N/A Sepsis Action Taken by Nursing No Action Required 10/12/20 10:49 Temperature Temperature Source Pulse Rate Pulse Rate [Left Finger] 75 Respiratory Rate 20 Blood Pressure Blood Pressure [Left Arm] 96/79 L Blood Pressure Mean Blood Pressure Mean [Left Arm] 84 Pulse Oximetry 98 Oxygen Delivery Method Non-rebreather Oxygen Flow Rate 15 Sepsis Recent Fever Within 48 Hours Sepsis New/Unexplained Change in Mental Status Sepsis Action Taken by Nursing Physical Exam Head: Swollen and distorted face. Eyes: Pupils 2 and reactive bilaterally. NECK: Discharge coming from his bilateral necks. CV: Normal rate, regular rhythm, normal heart sounds and intact distal pulses. There is no peripheral edema. Palpable radial pulses bue. Chest wall: No tenderness or crepitus. PULM/CHEST: Diminished breath sounds bilaterally. ABD: The abdomen is soft. NEURO: GCS eye subscore is 4. GCS verbal subscore is 2. GCS motor subscore is 4 Course Course 858: The patient was evaluated in room A12. A complete history and physical exam was performed. Patient was seen in full airborne precautions. Patient was seen in N95's, gloves, gowns, face shield by myself and staff. Cardiac monitoring: An order was placed for continuous cardiac monitoring. The monitor shows a rate of 80 with sinus rhythm EMR reviewed. As of May 2020, the patient is DNR/DNI. Patient has a history of mouth cancer and tongue cancer. 1015: Patient vitals are stable on nonrebreather mask. Labs show a creatinine of 2.78. Creatinine is usually within normal limits. Caregiver/roommate is at bedside and states that the patient has not been eating or drinking properly for the last 3 days. She states that the [facility] care nurse came to check up on the patient yesterday and found his oxygen level to be 70% but did not tell her to come to the emergency department. Patient will be admitted to the [facility] team given his hypoxia and acute kidney injury. Due to acute kidney injury contrast studies for imaging cannot be used. Noncontrast CT showed no acute changes. Chest x-ray shows cardiomegaly with cephalization but also be contributing to the patient's hypoxia. Patient will be admitted to the [facility] team. Spoke with Sammi Bryant PA-C who stated to admit to Dr. Sams. They will evaluate the patient and decide if they want to give the patient diuretics given his acute kidney injury. Administered Medications Discontinued Medications Lorazepam (Ativan) 1 mg in 2 mls @ 2 mls/min IV NOW STA Stop: 10/12/20 10:36 Last Admin: 10/12/20 10:47 Dose: 2 mls/min Documented by: [id number] Critical Care Time Critical Care Time: Yes Total Critical Care Time: 62 I have personally spent greater than 62 minutes of critical care time in the direct management of this patient. This includes bedside care, interpretation of diagnostic studies, and testing, discussion with consultants, patient, and family members, and other required patient management activities. This 62 minutes is in excess of all separately billable procedures. Medical Decision Making Laboratory Data Result diagrams: 10/12/20 09:19 10/12/20 09:19 Lab Results 10/12/20 10/12/20 10/12/20 Range/Units 09:12 09:12 09:19 WBC (4.8-10.8) K/uL RBC (4.7-6.1) M/uL Hgb (14.0-18.0) g/dL POC Hgb (14.0-18.0) g/dl Hct (42-52) % POC Hct (42-52) % MCV (80-100) fL MCH (25-34) pg MCHC (32-36) g/dL RDW Std Deviation (36.4-46.3) fL RDW Coeff of Ulises (11.5-14.5) % Plt Count (130-400) K/uL MPV (7.4-10.4) fL Immature Gran % (Auto) % Neut % (Auto) % Lymph % (Auto) % [place] % (Auto) % Eos % (Auto) % Baso % (Auto) % Neut # (Auto) (1.4-6.5) K/uL Lymph # (Auto) (1.2-3.4) K/uL [place] # (Auto) (0.11-0.59) K/uL Eos # (Auto) (0-0.5) K/uL Baso # (Auto) (0-0.2) K/uL Immature Gran # (Auto) (0.00-0.02) K/uL Absolute Nucleated RBC (0-0) K/uL Nucleated RBC % (auto) % PT (9.0-12.0) Seconds INR (0.9-1.1) APTT (21.0-31.0) Seconds PTT Ratio VBG pH 7.25 L (7.36-7.41) VBG pCO2 62 H (38-50) mmHg VBG pO2 36 mmHg VBG HCO3 27 mmol/L VBG O2 Saturation < 60.0 % VBG Base Excess -1.5 mEq/L Barometric Pressure 735.8 mm/Hg POC Sodium (135-144) mmol/L Sodium (136-145) mmol/L POC Potassium (3.3-5.0) mmol/L Potassium (3.5-5.1) mmol/L POC Chloride (101-112) mmol/L Chloride (98-107) mmol/L Carbon Dioxide (21-32) mmol/L POC Total CO2 (24-31) mmol/L Anion Gap (3-11) POC Anion Gap (16-25) mmol/L POC BUN (7-18) mg/dl BUN (7-18) mg/dl Creatinine (0.6-1.4) mg/dl POC Creatinine (0.6-1.3) mg/dl Est Cr Clr Drug Dosing ml/min Est GFR ( Amer) Est GFR (Non-Af Amer) BUN/Creatinine Ratio (10-20) Glucose (70-99) mg/dl POC Glucose (other) (70-99) mg/dl Lactate (0.4-2.0) mmol/L Calcium (8.5-10.1) mg/dl POC Ioniz Calcium Concha (1.12-1.32) mmol/l Magnesium (1.8-2.4) mg/dl Total Bilirubin (0.2-1) mg/dl AST (15-37) U/L ALT (12-78) U/L Alkaline Phosphatase (45-117) U/L Troponin I (0-0.045) ng/ml NT-Pro-B Natriuret Pep (0-900) pg/ml Total Protein (6.4-8.2) gm/dl Albumin (3.4-5.0) gm/dl Globulin (2.5-4.0) gm/dl Albumin/Globulin Ratio (0.9-2) Procalcitonin (0-0.5) ng/ml COVID-19 Eval Order Covid19 IDNow [facility] SARS-CoV-2, RNA, NAAT NEGATIVE (NEGATIVE) 10/12/20 10/12/20 10/12/20 Range/Units 09:19 09:19 09:19 WBC 5.63 (4.8-10.8) K/uL RBC 4.34 L (4.7-6.1) M/uL Hgb 11.9 L (14.0-18.0) g/dL POC Hgb (14.0-18.0) g/dl Hct 38.4 L (42-52) % POC Hct (42-52) % MCV 88.5 (80-100) fL MCH 27.4 (25-34) pg MCHC 31.0 L (32-36) g/dL RDW Std Deviation 56.5 H (36.4-46.3) fL RDW Coeff of Ulises 18.1 H (11.5-14.5) % Plt Count 213 (130-400) K/uL MPV 9.0 (7.4-10.4) fL Immature Gran % (Auto) 0.5 % Neut % (Auto) 72.3 % Lymph % (Auto) 14.4 % [place] % (Auto) 11.9 % Eos % (Auto) 0.7 % Baso % (Auto) 0.2 % Neut # (Auto) 4.07 (1.4-6.5) K/uL Lymph # (Auto) 0.81 L (1.2-3.4) K/uL [place] # (Auto) 0.67 H (0.11-0.59) K/uL Eos # (Auto) 0.04 (0-0.5) K/uL Baso # (Auto) 0.01 (0-0.2) K/uL Immature Gran # (Auto) 0.03 H (0.00-0.02) K/uL Absolute Nucleated RBC 0.02 H (0-0) K/uL Nucleated RBC % (auto) 0.4 % PT 14.7 H (9.0-12.0) Seconds INR 1.4 H (0.9-1.1) APTT 30.5 (21.0-31.0) Seconds PTT Ratio 1.1 VBG pH (7.36-7.41) VBG pCO2 (38-50) mmHg VBG pO2 mmHg VBG HCO3 mmol/L VBG O2 Saturation % VBG Base Excess mEq/L Barometric Pressure mm/Hg POC Sodium (135-144) mmol/L Sodium 139 (136-145) mmol/L POC Potassium (3.3-5.0) mmol/L Potassium 3.4 L (3.5-5.1) mmol/L POC Chloride (101-112) mmol/L Chloride 98 (98-107) mmol/L Carbon Dioxide 34 H (21-32) mmol/L POC Total CO2 (24-31) mmol/L Anion Gap 7.0 (3-11) POC Anion Gap (16-25) mmol/L POC BUN (7-18) mg/dl BUN 23 H (7-18) mg/dl Creatinine 2.78 H (0.6-1.4) mg/dl POC Creatinine (0.6-1.3) mg/dl Est Cr Clr Drug Dosing 34.5 ml/min Est GFR ( Amer) 27.0 Est GFR (Non-Af Amer) 23.3 BUN/Creatinine Ratio 8.4 L (10-20) Glucose 99 (70-99) mg/dl POC Glucose (other) (70-99) mg/dl Lactate (0.4-2.0) mmol/L Calcium 9.0 (8.5-10.1) mg/dl POC Ioniz Calcium Concha (1.12-1.32) mmol/l Magnesium 2.0 (1.8-2.4) mg/dl Total Bilirubin 0.8 (0.2-1) mg/dl AST 14 L (15-37) U/L ALT 17 (12-78) U/L Alkaline Phosphatase 105 (45-117) U/L Troponin I < 0.015 (0-0.045) ng/ml NT-Pro-B Natriuret Pep (0-900) pg/ml Total Protein 6.6 (6.4-8.2) gm/dl Albumin 2.6 L (3.4-5.0) gm/dl Globulin 4.0 (2.5-4.0) gm/dl Albumin/Globulin Ratio 0.7 L (0.9-2) Procalcitonin (0-0.5) ng/ml COVID-19 Eval Order SARS-CoV-2, RNA, NAAT (NEGATIVE) 10/12/20 10/12/20 10/12/20 Range/Units 09:19 09:19 09:19 WBC (4.8-10.8) K/uL RBC (4.7-6.1) M/uL Hgb (14.0-18.0) g/dL POC Hgb (14.0-18.0) g/dl Hct (42-52) % POC Hct (42-52) % MCV (80-100) fL MCH (25-34) pg MCHC (32-36) g/dL RDW Std Deviation (36.4-46.3) fL RDW Coeff of Ulises (11.5-14.5) % Plt Count (130-400) K/uL MPV (7.4-10.4) fL Immature Gran % (Auto) % Neut % (Auto) % Lymph % (Auto) % [place] % (Auto) % Eos % (Auto) % Baso % (Auto) % Neut # (Auto) (1.4-6.5) K/uL Lymph # (Auto) (1.2-3.4) K/uL [place] # (Auto) (0.11-0.59) K/uL Eos # (Auto) (0-0.5) K/uL Baso # (Auto) (0-0.2) K/uL Immature Gran # (Auto) (0.00-0.02) K/uL Absolute Nucleated RBC (0-0) K/uL Nucleated RBC % (auto) % PT (9.0-12.0) Seconds INR (0.9-1.1) APTT (21.0-31.0) Seconds PTT Ratio VBG pH (7.36-7.41) VBG pCO2 (38-50) mmHg VBG pO2 mmHg VBG HCO3 mmol/L VBG O2 Saturation % VBG Base Excess mEq/L Barometric Pressure mm/Hg POC Sodium (135-144) mmol/L Sodium (136-145) mmol/L POC Potassium (3.3-5.0) mmol/L Potassium (3.5-5.1) mmol/L POC Chloride (101-112) mmol/L Chloride (98-107) mmol/L Carbon Dioxide (21-32) mmol/L POC Total CO2 (24-31) mmol/L Anion Gap (3-11) POC Anion Gap (16-25) mmol/L POC BUN (7-18) mg/dl BUN (7-18) mg/dl Creatinine (0.6-1.4) mg/dl POC Creatinine (0.6-1.3) mg/dl Est Cr Clr Drug Dosing ml/min Est GFR ( Amer) Est GFR (Non-Af Amer) BUN/Creatinine Ratio (10-20) Glucose (70-99) mg/dl POC Glucose (other) (70-99) mg/dl Lactate 1.2 (0.4-2.0) mmol/L Calcium (8.5-10.1) mg/dl POC Ioniz Calcium Concha (1.12-1.32) mmol/l Magnesium (1.8-2.4) mg/dl Total Bilirubin (0.2-1) mg/dl AST (15-37) U/L ALT (12-78) U/L Alkaline Phosphatase (45-117) U/L Troponin I (0-0.045) ng/ml NT-Pro-B Natriuret Pep 5095 H (0-900) pg/ml Total Protein (6.4-8.2) gm/dl Albumin (3.4-5.0) gm/dl Globulin (2.5-4.0) gm/dl Albumin/Globulin Ratio (0.9-2) Procalcitonin 0.16 (0-0.5) ng/ml COVID-19 Eval Order SARS-CoV-2, RNA, NAAT (NEGATIVE) 10/12/20 Range/Units 09:26 WBC (4.8-10.8) K/uL RBC (4.7-6.1) M/uL Hgb (14.0-18.0) g/dL POC Hgb 12.6 L (14.0-18.0) g/dl Hct (42-52) % POC Hct 37 L (42-52) % MCV (80-100) fL MCH (25-34) pg MCHC (32-36) g/dL RDW Std Deviation (36.4-46.3) fL RDW Coeff of Ulises (11.5-14.5) % Plt Count (130-400) K/uL MPV (7.4-10.4) fL Immature Gran % (Auto) % Neut % (Auto) % Lymph % (Auto) % [place] % (Auto) % Eos % (Auto) % Baso % (Auto) % Neut # (Auto) (1.4-6.5) K/uL Lymph # (Auto) (1.2-3.4) K/uL [place] # (Auto) (0.11-0.59) K/uL Eos # (Auto) (0-0.5) K/uL Baso # (Auto) (0-0.2) K/uL Immature Gran # (Auto) (0.00-0.02) K/uL Absolute Nucleated RBC (0-0) K/uL Nucleated RBC % (auto) % PT (9.0-12.0) Seconds INR (0.9-1.1) APTT (21.0-31.0) Seconds PTT Ratio VBG pH (7.36-7.41) VBG pCO2 (38-50) mmHg VBG pO2 mmHg VBG HCO3 mmol/L VBG O2 Saturation % VBG Base Excess mEq/L Barometric Pressure mm/Hg POC Sodium 138 (135-144) mmol/L Sodium (136-145) mmol/L POC Potassium 3.3 (3.3-5.0) mmol/L Potassium (3.5-5.1) mmol/L POC Chloride 94 L (101-112) mmol/L Chloride (98-107) mmol/L Carbon Dioxide (21-32) mmol/L POC Total CO2 33 H (24-31) mmol/L Anion Gap (3-11) POC Anion Gap 15.0 L (16-25) mmol/L POC BUN 22 H (7-18) mg/dl BUN (7-18) mg/dl Creatinine (0.6-1.4) mg/dl POC Creatinine 2.9 H (0.6-1.3) mg/dl Est Cr Clr Drug Dosing ml/min Est GFR ( Amer) Est GFR (Non-Af Amer) BUN/Creatinine Ratio (10-20) Glucose (70-99) mg/dl POC Glucose (other) 102 H (70-99) mg/dl Lactate (0.4-2.0) mmol/L Calcium (8.5-10.1) mg/dl POC Ioniz Calcium Concha 1.04 L (1.12-1.32) mmol/l Magnesium (1.8-2.4) mg/dl Total Bilirubin (0.2-1) mg/dl AST (15-37) U/L ALT (12-78) U/L Alkaline Phosphatase (45-117) U/L Troponin I (0-0.045) ng/ml NT-Pro-B Natriuret Pep (0-900) pg/ml Total Protein (6.4-8.2) gm/dl Albumin (3.4-5.0) gm/dl Globulin (2.5-4.0) gm/dl Albumin/Globulin Ratio (0.9-2) Procalcitonin (0-0.5) ng/ml COVID-19 Eval Order SARS-CoV-2, RNA, NAAT (NEGATIVE) Imaging Data Radiologist's Impression: CT SCAN OF THE NECK WITHOUT IV CONTRAST; CT SCAN OF THE FACIAL BONES WITHOUT IV CONTRAST CLINICAL HISTORY: Hypoxia. Reported history of jaw cancer. COMPARISON STUDY: CT of the cervical spine dated 04/17/2019. CT of the neck dated 06/24/2018. PET/CT dated 07/03/2018. TECHNIQUE: Unenhanced CT scan of the soft tissues of the neck was performed from the skull base to the upper chest. Additionally, high-resolution CT scan of the facial bones is performed. Images for both examinations are reviewed in the axial, sagittal, and coronal planes. IV contrast was not administered for this examination. Note that the examination is significantly suboptimal without IV contrast. A dose lowering technique was utilized adhering to the principles of ALARA. FINDINGS: Pharynx: The unenhanced pharyngeal soft tissues are grossly unremarkable. The airway is widely patent. There is no evidence of mass lesion. The vocal cords are symmetric. The parapharyngeal fat is well maintained. The prevertebral/retropharyngeal soft tissues are within normal limits. The epiglottis is normal. Lymphadenopathy: There are numerous calcified cervical chain lymph nodes. These are unchanged and a 04/17/[address] The largest measures up to 1.8 cm. No additional/progressive cervical adenopathy is identified. Thyroid: Normal in size and heterogeneous in attenuation. Low-attenuation thyroid nodules measure up to 1.5 cm. Salivary glands: The parotid and submandibular glands are within normal limits. Brain parenchyma: The visualized brain parenchyma at the skull base is normal in appearance noting age-related involutional change. Skeletal structures: The skeletal structures are osteopenic. Imaged portions of the calvarium at the skull base are within normal limits. The cervical spine appears intact noting advanced multilevel spondylosis. No lytic or blastic lesions are seen involving the calvarium or the cervical spine. Facial bones: There is no evidence of acute facial bone fracture. The bony orbits are intact and the orbital contents are within normal limits. The zygomatic arches, nasal bones, and pterygoid plates are preserved. The maxilla is intact. Extensive destructive change is again seen involving the mandible with expansion and bony fragmentation. There is pathological fracture of the right mandibular body, likely chronic. There is likely postoperative change within the overlying soft tissues. The sublingual soft tissue lesion seen on the 2018 PET examination is no longer identified. There is are no layering blood products within the paranasal sinuses. There are numerous dental caries involving the maxillary teeth. No mandibular teeth are identified. Sinuses and mastoids: There is trace mucosal thickening within the maxillary antra in the frontal sinuses. The remaining paranasal sinuses are clear. The mastoid air cells are well pneumatized. Lung apices: Emphysematous change is noted at the lung apices. Apical lung parenchyma is otherwise clear as imaged. IMPRESSION: 1. Significantly suboptimal examination without IV contrast. 2. No acute abnormality is identified. 3. There is extensive chronic destructive change involving the mandible, with bony expansion, fragmentation, and chronic appearing pathologic fracture of the right mandibular body. Overlying postoperative change is suggested, with no residual extraosseous soft tissue component clearly identified. This likely represents treated disease. Correlation with the patient's oncological history and any recent prior imaging studies will be essential. 4. No acute facial bone fracture is identified. 5. Calcified cervical lymph nodes are unchanged from a [address] and likely represent treated disease. There is no evidence of progressive cervical adenopathy. 6. Advanced periodontal disease is seen involving the remaining maxillary teeth. Nonemergent follow-up with dentistry is recommended. 7. Emphysema. 8. The unenhanced pharyngeal soft tissues are grossly unremarkable. ACT 112: Negative or not required by law. Electronically signed by: Frankie Ma M.D. 10/12/2020 10:40 AM Dictated: 10/12/20 1020 Transcribed: 10/12/[address] SCAN OF THE ABDOMEN AND PELVIS WITHOUT IV CONTRAST CLINICAL HISTORY: Acute renal insufficiency. Unspecified cancer history. COMPARISON STUDY: PET CT dated 07/03/2018. TECHNIQUE: CT scan of the abdomen and pelvis is performed from the lung bases to the proximal femora. Images are reviewed in the axial, sagittal, and coronal planes. IV contrast was not administered for this examination. A dose lowering technique was utilized adhering to the principles of ALARA. The examination is degraded by motion artifact, as well as by streak artifact from the arms which could not be elevated above the abdomen. CT DOSE: 3376.76 mGy.cm FINDINGS: Lung bases: The heart is enlarged and without pericardial effusion. The coronary arteries are densely calcified. There is a small hiatal hernia. There are trace pleural effusions with dependent consolidation. Liver: The unenhanced liver is cirrhotic in morphology and heterogeneous in attenuation. There is nodularity of the hepatic surface contour. There is no intrahepatic biliary ductal dilatation. Gallbladder: Distended but otherwise normal in appearance. Spleen: Normal in size and attenuation. Pancreas: The unenhanced pancreas is moderately atrophic and grossly unremarkable. Adrenal glands: Unremarkable. Kidneys: The unenhanced kidneys demonstrate cortical atrophy and are without hydronephrosis. There are no renal calculi identified. There is no evidence of contour deforming renal mass lesion. Abdominal vasculature: The abdominal aorta is normal in course and caliber noting moderate to advanced atherosclerotic calcification. Bowel: There is no bowel obstruction. There are scattered colonic diverticula without CT evidence of acute diverticulitis. The appendix is well-visualized and normal. Peritoneum: There is no intraperitoneal free air or abdominal ascites. Lymphadenopathy: None. Pelvic viscera: The prostate gland is mildly enlarged and heterogeneous noting median lobe hypertrophy. The bladder wall is thickened and trabeculated indicating chronic outlet obstruction. Skeletal structures: The skeletal structures are osteopenic. Moderate lumbosacral spondylosis is observed. No lytic or blastic lesions are seen. There is chronic posttraumatic deformity of the lower sacrum. IMPRESSION: 1. There are no acute infectious or inflammatory findings in the abdomen or pelvis. 2. Cirrhotic liver morphology. 3. Cardiomegaly and trace pleural effusions. 4. Dependent consolidation is seen at both lung bases, likely representing scarring/atelectasis. Clinical correlation will be required. 5. Additional findings as above. ACT 112: Negative or not required by law. Electronically signed by: Frankie Ma M.D. 10/12/2020 10:20 AM Dictated: 10/12/20 1009 Transcribed: 10/12/[address] DOSE: HISTORY: Altered mental status. TECHNIQUE: Multiaxial CT images of the head were performed without the use of intravenous contrast. Automated exposure control was utilized for this study. A dose lowering technique was utilized adhering to the principles of ALARA. Comparison: Head CT 04/17/2019. Findings: The paranasal sinuses and mastoid air cells are clear. The calvarium and skull base are intact. There is no mass, hematoma, midline shift, acute infarct. White matter hypodensity is nonspecific but suggestive of microvascular ischemic change. The ventricles and sulci demonstrate mild age-related involutional changes. Motion artifact. Impression: Motion artifact. No definite acute intracranial abnormality. ACT 112: Negative or not required by law. Electronically signed by: Rock Hart M.D. 10/12/2020 10:13 AM Dictated: 10/12/20 1001 Transcribed: 10/12/20 1001 XR chest 1V portable HISTORY: SEPSIS COMPARISON: Chest 05/29/2020. FINDINGS: The cardiac silhouette remains enlarged. There are patchy bibasilar densities. No pneumothorax. No pleural effusions. Perihilar interstitial/vascular thickening. This suggests mild congestive change. IMPRESSION: 1. Cardiomegaly with mild congestive change. 2. Patchy bibasilar densities. This may represent atelectasis or pneumonia. ACT 112: Negative or not required by law. Electronically signed by: Rock Hart M.D. 10/12/2020 10:14 AM Dictated: 10/12/20 1013 Transcribed: 10/12/20 1013 ECG Data Indication: + SOB/dyspnea Rate (beats per minute): 80 Rhythm: + normal sinus ECG Intervals/blocks: + Normal QRS, + Normal MA and + Normal QT-c ECG ST segments: + Normal ST segments Additional Comments: Artifact due to patient's tachypnea and movement [facility] Narrative 0859: The patient was evaluated in room A12. A complete history and physical exam was performed. Patient was seen in full airborne precautions. Patient was seen in N95's, gloves, gowns, face shield by myself and staff. Cardiac monitoring: An order was placed for continuous cardiac monitoring. The monitor shows a rate of 80 with sinus rhythm EMR reviewed. As of May 2020, the patient is DNR/DNI. Patient has a history of mouth cancer and tongue cancer. 1015: Patient vitals are stable on nonrebreather mask. Labs show a creatinine of 2.78. Creatinine is usually within normal limits. Caregiver/roommate is at bedside and states that the patient has not been eating or drinking properly for the last 3 days. She states that the [facility] care nurse came to check up on the patient yesterday and found his oxygen level to be 70% but did not tell her to come to the emergency department. Patient will be admitted to the [facility] team given his hypoxia and acute kidney injury. Due to acute kidney injury contrast studies for imaging cannot be used. Noncontrast CT showed no acute changes. Chest x-ray shows cardiomegaly with cephalization but also be contributing to the patient's hypoxia. Patient will be admitted to the [facility] hospitalist team. Spoke with Sammi Bryant PA-C who stated to admit to Dr. Sams. They will evaluate the patient and decide if they want to give the patient diuretics given his acute kidney injury. Impression & Plan Hypoxia, Tongue cancer, Mouth cancer, CELSO (acute kidney injury) Discharge Plan Visit Data Chief Complaint: Respiratory Problems ED Provider: Audie Pyle Discharge Problem: Hypoxia, Tongue cancer, Mouth cancer, CELSO (acute kidney injury) Patient Disposition: Admitted As Inpatient Forms Stand Alone Forms: [facility] Prescriptions Prescriptions: No Action bupropion HCl [Wellbutrin XL] 150 mg tablet extended release 24 hr 150 mg PO QAM RF: 0 mirtazapine [Remeron] 15 mg tablet 15 mg PO HS RF: 0 albuterol sulfate 90 mcg/actuation HFA aerosol inhaler 2 puff inhalation Q4H PRN (Reason: shortness of breath or wheezing) RF: 0 ondansetron HCl [Zofran] 4 mg tablet 4 - 8 mg PO Q8H PRN (Reason: nausea and vomiting) RF: 0 magnesium oxide,aspartate,citr 400 mg magnesium capsule 400 mg PO DAILY RF: 0 doxycycline hyclate 100 mg tablet 100 mg PO bid Qty: 28 RF: 0 lidocaine 5 % Ointment 1 applic TOPICAL DAILY PRN (Reason: Pain) RF: 0 atorvastatin 40 mg Tablet 40 mg PO QAM RF: 0 pentoxifylline 400 mg Tablet Extended Release 400 mg PO TID RF: 0 diclofenac sodium 1 % Gel 2 g TOPICAL QID PRN (Reason: Pain) RF: 0 furosemide [Lasix] 20 mg Tablet 20 mg PO BID PRN (Reason: EDEMA/FLUID RETENTION) RF: 0 potassium chloride 20 mEq packet 40 meq PO DAILY RF: 0 ascorbic acid (vitamin C) [Vitamin C] 500 mg Tablet 500 mg PO DAILY RF: 0 Probiotic 3 billion cell Capsule 0 mmu cells PO DAILY RF: 0 buspirone 15 mg tablet 15 mg PO TID RF: 0 Eliquis 5 mg Tablet 5 mg PO BID Qty: 30 RF: 0 metoprolol succinate 50 mg Tablet Extended Release 24 Hr 50 mg PO BID Qty: 60 RF: 0 fentanyl 75 mcg/hr Patch 72 Hour 75 mcg transdermal Q3D@0900 Qty: 5 RF: 0 polyethylene glycol 3350 [Miralax] 17 gram Powder In Packet 17 g PO BID Qty: 30 RF: 0 docusate sodium 100 mg Capsule 100 mg PO BID Qty: 60 RF: 0 Metamucil (with sugar) 3.4 gram Powder In Packet 1 ea PO QAM Qty: 30 RF: 0 Santyl 250 unit/gram Ointment 1 applic EXT DAILY Qty: 30 RF: 0 thiamine HCl (vitamin B1) [Vitamin B-1] 100 mg Tablet 100 mg PO QAM Qty: 30 RF: 0 folic acid 1 mg Tablet 1 mg PO QAM Qty: 30 RF: 0 oxycodone 20 mg tablet 20 mg PO Q4H PRN (Reason: Pain) RF: 0 Referrals Referrals: Britt Del Toro DO [Primary Care Provider] -
--- NOTE | 2020-10-12 11:32 | History & Physical Report ---
Date of Service October 12, 2020 Assessment & Plan (1) Encephalopathy: Metabolic encephalopathy-decreased responsiveness and change in mental status noted since this morning Multifactorial-hypoxia, use of narcotics, hypotension , CELSO and possible cellulitis Has a history of metabolic encephalopathy before Supportive care and will monitor (2) Hypoxia: Has been noted to be hypoxic at home for the last 3 days with moderate shortness of breath Saturation was noted to be upper 70s at home Causes of hypoxia could be low blood pressure, possible sepsis and is complicated by CHF Has been requiring nonrebreather to maintain saturation (3) Shortness of breath: As above (4) CELSO (acute kidney injury): Has been eating and drinking and/or eating for the last 3 days Creatinine went up to 2.78 from normal in May of lastyear We will give cautious amount of intravenous fluid given low blood pressure and evidence of CHF been CXR Monitor PRP (5) Edema: Has bilateral leg edema and has been on Lasix as an outpatient Has erythematous changes in the legs including up to lower part of the abdomen We will give Ancef for possible cellulitis (6) Cancer associated pain: Has been taking OxyContin and also fentanyl patch to control pain from cancer We will hold off dose for now due to change in mental status and hypotension (7) Cellulitis: Has generalized erythema mostly involving the legs likely secondary to spreading cellulitis No evidence of sepsis We will try Ancef Consult wound care nurse (8) Squamous cell carcinoma: No continue ongoing treatment (9) HTN (hypertension): Has been on beta-alida and Lasix We will hold his medicine for now given hypotension DVT prophylaxis Has been on Eliquis and will continue CODE STATUS DNR/DNI History of Present Illness Chief Complaint: Decreased responsiveness, change in mental status and hypoxemia Primary Care Provider: Britt Del Toro DO He is a 64-year-old male with significant past medical history of squamous cell carcinoma of the mouth, brain aneurysm, depression, hypertension, hyperlipidemia, chronic tobacco abuse and alcoholism was brought into the emergency room with 2 to 3 days history of weakness, inability to eat or drink, decreased responsiveness with hypoxia. The history was taken from the caregiver and significant other at the patient was less responsive during examination. He has not been eating or drinking for the last 2 to 3 days and has had dry heaves but no documented fever and/or chills. He was seen by the home nurse yesterday has noted to have a low saturation of 70% on room air without any significant shortness of breath. This morning the caregiver found him to be very less responsive and generally weak and today he was taken to the emergency room by the EMS. The EMS personnel could not make him awake during the transport and in the emergency room he was requiring 100% nonrebreather to maintain saturation and he was noted to have low blood pressure, CELSO and possible pulmonary edema. His EKG was with nonspecific findings and troponin is negative. He has been mostly bedbound for the last few days and before that he was able to come out of bed by himself and he used a motorized wheelchair to move around. He was a started with intravenous antibiotic with Ancef and was put on 100% nonrebreather to maintain saturation. Will be given cautious amount of intravenous fluid to improve dehydration and kidney function. He was admitted to telemetry floor for continuation of management. Allergies Allergy/AdvReac Type Severity Reaction Status Date / Time acetaminophen Allergy Intermediate CONTRAINDIC Verified 10/12/20 10:55 ATED aspirin Allergy Intermediate STOMACH Verified 10/12/20 10:55 BLEEDING NSAIDS (Non-Steroidal Allergy Intermediate GI PROBLEMS Verified 10/12/20 10:55 Anti-Inflamma codeine Allergy Mild high fever Verified 10/12/20 10:55 lisinopril Allergy Mild edema Verified 10/12/20 10:55 bee venom protein (honey bee) Allergy Unknown go into Verified 10/12/20 10:55 shock Home Medications Medication Instructions Recorded Confirmed Type atorvastatin 40 mg PO QAM 07/24/18 10/12/20 History diclofenac sodium 2 g TOPICAL QID PRN 07/24/18 10/12/20 History lidocaine 1 applic TOPICAL DAILY PRN 07/24/18 10/12/20 History pentoxifylline 400 mg PO TID 07/24/18 10/12/20 History furosemide [Lasix] 20 mg PO BID PRN 01/09/19 10/12/20 History albuterol sulfate 90 mcg/actuation 2 puff INHALATION Q4H PRN 05/19/20 10/12/20 History aerosol inhaler bupropion HCl 150 mg 24 hr tablet, 150 mg PO QAM 05/19/20 10/12/20 History extended release magnesium oxide,aspartate,citr 400 mg PO DAILY cap 05/19/20 10/12/20 History mirtazapine 15 mg tablet 15 mg PO HS 05/19/20 10/12/20 History ondansetron HCl 4 mg tablet 4 - 8 mg PO Q8H PRN 05/19/20 10/12/20 History Probiotic 0 mmu cells PO DAILY 05/25/20 10/12/20 History ascorbic acid (vitamin C) [Vitamin 500 mg PO DAILY 05/25/20 10/12/20 History C] potassium chloride 40 meq PO DAILY 05/25/20 10/12/20 History buspirone 15 mg PO TID 05/28/20 10/12/20 History apixaban [Eliquis] 5 mg PO BID #30 tab 06/12/20 10/12/20 Rx collagenase clostridium histo. 1 applic EXT DAILY #30 g 06/12/20 10/12/20 Rx [Santyl] docusate sodium 100 mg PO BID #60 cap 06/12/20 10/12/20 Rx fentanyl 75 mcg TRANSDERMAL Q3D@0900 #5 ea 06/12/20 10/12/20 Rx folic acid 1 mg PO QAM #30 tab 06/12/20 10/12/20 Rx metoprolol succinate 50 mg PO BID #60 tab 06/12/20 10/12/20 Rx polyethylene glycol 3350 [Miralax] 17 g PO BID #30 ea 06/12/20 10/12/20 Rx psyllium husk (with sugar) 1 ea PO QAM #30 ea 06/12/20 10/12/20 Rx [Metamucil (with sugar)] thiamine HCl (vitamin B1) [Vitamin 100 mg PO QAM #30 tab 06/12/20 10/12/20 Rx B-1] doxycycline hyclate 100 mg tablet 100 mg PO bid #28 tab 08/27/20 10/12/20 Rx oxycodone 20 mg PO Q4H PRN 10/12/20 10/12/20 History Past Med/Surg History Medical History Alcohol abuse Anxiety Bilateral knee pain Brain aneurysm LILIA Aneursym Cardiac murmur Depression Do not resuscitate status DVT (deep venous thrombosis) extensive DVT LLE 05/25/20 Hyperlipidemia Hypertension Major depressive disorder Osteoarthritis 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", chemo Surgical History H/O skin graft off leg to mouth History of colonoscopy History of esophagogastroduodenoscopy (EGD) History of lung surgery "scrap inside and outside of my lungs for strep pneumonia" History of tooth extraction most of teeth Family History Other No pertinent family history Social History Smoking Status: Current some day smoker Tobacco Type: Cigarettes Cigarettes Per Day: 5 cigarettes/day; Second Hand Exposure: No; Hx Alcohol Use: Yes Alcohol type: hard liquor Alcohol Intake Frequency: 4 or More x per/Week Alcohol Intake Frequency Comment: daily 5 -18oz drinks with 2-3 shots per drink Hx Substance Use: Yes Last Used Substance: Hours (ago) Last Used Substance Other:: last night Substance Use Type Other:: occasioally Preferred Language: [place] Communication Ability: Effective Digestion Operator Required: No Beliefs That Will Affect Care: None marital status: Current Living Situation: Significant Other Current Living Situation Comment: with friend Stephanie current occupational status: retired and disabled Feels Safe at Home: Yes Assistive Devices: Walker Review of Systems Review of Systems: Unobtainable due to reduced consciousness Physical Exam Physical Exam: Lying in bed with pain moderate shortness of breath Constitutional: well developed, well nourished, + acute distress (Moderate iesha rtness of breath) and + altered mental status ENMT: external ear and nose normal, oropharynx normal Neck: trachea midline, no thyromegaly Respiratory: + respiratory distress (Moderate shortness of breath at rest) Auscultation: + diminished lung sounds and + crackles (Bibasilar crackles); no wheezes Cardiovascular: Rate/Rhythm: regular rate and regular rhythm Heart Sounds: no murmur Extremities: + edema (1+ chronic bilateral leg edema with chronic ischemic changes) Gastrointestinal (Abdomen): Inspection/Auscultation: normal bowel sounds; abdomen not distended Percussion/Palpation: abdomen soft; abdomen nontender Skin: + crusts, + dry skin, + ecchymosis, + erythema and + excoriations Neurologic: + obtunded Results & Data Results & Data ([facility]) Vital Signs (Past 12 Hours) Vital Signs Temp Pulse Pulse Resp BP BP Pulse Ox 10/12/20 10:49 75 20 96/79 L 98 10/12/20 10:00 143 H 22 95/57 L 100 10/12/20 09:28 100 10/12/20 08:56 36.8 C 91 H 20 96/75 L 100 Laboratory Results Short CBC 10/12/20 Range/Units 09:19 WBC 5.63 (4.8-10.8) K/uL Hgb 11.9 L (14.0-18.0) g/dL Hct 38.4 L (42-52) % Plt Count 213 (130-400) K/uL BMP 10/12/20 09:19 Sodium 139 Potassium 3.4 L Chloride 98 Carbon Dioxide 34 H BUN 23 H Creatinine 2.78 H Glucose 99 Calcium 9.0 Cardiac Enzymes 10/12/20 Range/Units 09:19 Troponin I < 0.015 (0-0.045) ng/ml Liver Function 10/12/20 Range/Units 09:19 Total Bilirubin 0.8 (0.2-1) mg/dl AST 14 L (15-37) U/L ALT 17 (12-78) U/L Alkaline Phosphatase 105 (45-117) U/L Albumin 2.6 L (3.4-5.0) gm/dl Code Status & VTE Plan VTE Prophylaxis Plan VTE Prophylaxis will be ordered: Yes
[2020-10-12 11:47] LABS: Appearance Urine Cloudy (Clear); Bacteria Urine Automated Negative (Negative); Blood Urine Trace (Negative); Color Urine Dark Yellow; Epithelial Cell Urine Auto 20-30 /lpf (0-5); Glucose Urine UA Negative (Negative); Ketones Urine Trace (Negative); Leukocyte Esterase Urine Trace (Negative); Nitrite Urine Negative (Negative); Protein Urine Trace (Negative); RBC Urine Automated 0-4 /hpf (0-4); Specific Gravity Urine 1.022 (1.000-1.030); Urobilinogen Urine Negative (Negative)
[2020-10-12 11:54] LABS: Bilirubin Urine 2+ (Negative)
[2020-10-12 12:01] LABS: Cast Urine Automated >30 /lpf (0-5)
[2020-10-12] MEDS ORDERED: DICLOFENAC SOD 1% GEL 100 GM TUBE EXT PRN (12:52)
[2020-10-12] MEDS ORDERED: ALBUTEROL HFA 8 GM INHALER INH PRN (12:52)
[2020-10-12] MEDS ORDERED: LIDOCAINE HCL 5% OINT 30 GM TUBE TOP PRN (12:52)
[2020-10-12] MEDS: ceFAZolin 1000MG 1,000 MG/7.5 ML SYR IV SCH ×2 (14:04→20:35)
[2020-10-12] MEDS: NSS + 20MEQ KCL 20 MEQ/1,000 ML BAG IV SCH (14:04)
[2020-10-12] MEDS: PENTOXIFYLLINE 400MG EXT REL TAB PO SCH ×2 (14:05→20:35)
[2020-10-12] MEDS: POLYETHYLENE (MIRALAX) 17 GM PACK PO SCH (20:35)
[2020-10-12] MEDS: DOCUSATE SODIUM 100 MG CAP PO SCH (20:35)
[2020-10-12] MEDS: APIXABAN 5 MG TABLET PO SCH (20:35)
[2020-10-13] MEDS: NSS + 20MEQ KCL 20 MEQ/1,000 ML BAG IV SCH (00:05)
[2020-10-13] MEDS: ceFAZolin 1000MG 1,000 MG/7.5 ML SYR IV SCH (04:57)
[2020-10-13 06:22] LABS: Basophils # (auto) 0.01 K/uL (0-0.2); Basophils % (auto) 0.2 %; Eosinophils # (auto) 0.07 K/uL (0-0.5); Eosinophils % (auto) 1.2 %; Hematocrit (blood only) 36.3 % (42-52); Immature Granulocytes # (auto) 0.01 K/uL (0.00-0.02); Immature Granulocytes % (auto) 0.2 %; Lymphocytes # (auto) 0.49 K/uL (1.2-3.4); Lymphocytes % (auto) 8.2 %; Mean Corpuscular Hemoglobin 27.6 pg (25-34); Mean Corpuscular Hgb Conc 30.3 g/dL (32-36); Mean Platelet Volume 9.1 fL (7.4-10.4); Monocytes # (auto) 0.52 K/uL (0.11-0.59); Monocytes % (auto) 8.7 %; Neutrophils # (auto) 4.91 K/uL (1.4-6.5); Neutrophils % (auto) 81.5 %; Nucleated RBC # (auto) 0.02 K/uL (0-0); Nucleated RBC % (auto) 0.4 %; Platelet Count 210 K/uL (130-400); RDW Coefficient of Variation 18.3 % (11.5-14.5); RDW Standard Deviation 59.1 fL (36.4-46.3); Red Blood Count 3.99 M/uL (4.7-6.1); White Blood Count 6.01 K/uL (4.8-10.8)
--- NOTE | 2020-10-13 06:41 | Electrocardiogram Report ---
Test Reason : Blood Pressure : / mmHG Vent. Rate : 080 BPM Atrial Rate : 080 BPM P-R Int : 188 ms QRS Dur : 100 ms QT Int : 406 ms P-R-T Axes : 010 -30 105 degrees QTc Int : 468 ms Poor data quality, interpretation may be adversely affected Sinus rhythm with Premature atrial complexes Left axis deviation Incomplete right bundle branch block Cannot rule out Anterior infarct , age undetermined Possible Inferior infarct Nonspecific ST and T wave abnormality Abnormal ECG When compared with ECG of 18-DEC-2018 16:52, Premature atrial complexes are now Present Minimal criteria for Anterior infarct are now Present ST now depressed in Anterior leads T wave inversion now evident in Lateral leads Confirmed by Jonny Douglass ([id number]) on 10/13/2020 6:41:03 AM Referred By: REFERRED SELF Confirmed By:Jonny Douglass
[2020-10-13 06:51] LABS: BUN Creatinine Ratio 11.9 (10-20); Calcium 8.6 mg/dl (8.5-10.1); Creatinine Clr Calc Pharmacy 43.2 ml/min; Est GFR (African American) 34.9; Est GFR (Non-African American) 30.1; Potassium 3.4 mmol/L (3.5-5.1)
[2020-10-13 06:52] LABS: Phosphorus 5.1 mg/dl (2.5-4.9)
[2020-10-13] MEDS ORDERED: COLLAGENASE OINT 30 GM TUBE EXT SCH (09:00)
[2020-10-13] MEDS ORDERED: dexAMETHasone 1 MG TAB PO SCH (09:00)
[2020-10-13] MEDS ORDERED: THIAMINE HCL 100 MG TAB PO SCH (09:00)
[2020-10-13] MEDS ORDERED: ASCORBIC ACID 500 MG TAB PO SCH (09:00)
[2020-10-13] MEDS ORDERED: FOLIC ACID 1 MG TAB PO SCH (09:00)
[2020-10-13] MEDS ORDERED: POTASSIUM CHLORIDE PWD 20 MEQ PACK PO SCH ×2 (09:00)
[2020-10-13] MEDS ORDERED: ATORVASTATIN 40 MG TAB PO SCH (09:00)
[2020-10-13] MEDS ORDERED: PSYLLIUM 58.6% POWDER PACKET PO SCH (09:00)
--- NOTE | 2020-10-13 10:03 | XRay Report ---
XR chest 1V portable CLINICAL HISTORY: Hypoxia COMPARISON STUDY: 10/12/2020 FINDINGS: The heart is enlarged. There is elevation of interstitium. Small pleural effusions are susp ected. There are progressive bibasilar airspace opacities.[ IMPRESSION: 1. Cardiomegaly and radiographic evidence of mild congestive failure/fluid overload. 2. Small bilateral pleural effusions 3. Progressive bibasilar airspace opacities. These could represent atelectasis or pneumonia. ACT 112: Negative or not required by law. Electronically signed by: Timothy Valentin M.D. 10/13/2020 10:02 AM
[2020-10-13] MEDS ORDERED: FUROSEMIDE 80 MG in SYRINGE 0 ML IV ONE (10:45)
[2020-10-13 11:01] LABS: Allen Test Pos (Pos); HCO3 ABG 31 mmol/L (19-24); Oxygen Saturation ABG 98.9 % (90-95); PCO2 ABG 79 mmHg (35-46); PO2 ABG 165 mmHg (80-95); pH ABG 7.21 (7.35-7.45)
[2020-10-13] MEDS: DOCUSATE SODIUM 100 MG CAP PO SCH (11:04)
[2020-10-13] MEDS: APIXABAN 5 MG TABLET PO SCH (11:05)
[2020-10-13] MEDS: POLYETHYLENE (MIRALAX) 17 GM PACK PO SCH ×2 (11:07→20:02)
[2020-10-13] MEDS: PENTOXIFYLLINE 400MG EXT REL TAB PO SCH (11:07)
[2020-10-13] MEDS: POTASSIUM CHLORIDE / WTR 10 MEQ/100 ML PLCT IV SCH ×2 (11:43→13:59)
--- NOTE | 2020-10-13 12:29 | Consultation Report ---
DATE OF CONSULTATION: 10/13/2020 NEPHROLOGY CONSULTATION NOTE REASON FOR CONSULT: Acute renal failure. HISTORY OF PRESENT ILLNESS: The patient is a 64-year-old male with previously normal kidney function with a baseline creatinine of 0.6 as of 07/22/2020 who presented to the hospital yesterday for a multitude of issues including fever, altered mental status, shortness of breath and many other issues as well as encephalopathy. The patient has a very complicated history, and at this point, he is unable to give me any history as he is very encephalopathic and is on a nonrebreather mask. Based on the medical record, it appears he has squamous cell cancer in the floor of his mouth and his treatment is on hold with the last treatment that was given in 03/2020. In the interim, for the last 5-6 months, he has had very complicated issues including DVT, multiple infections, for which he is being followed by wound clinic and various surgeons. I have been consulted for etiology and evaluation of acute renal failure. The patient's urine appears very consistent with ATN with lots of hyaline casts and squamous epithelial cells. He has had chest x-rays and CT scan, which shows pulmonary edema with pleural effusion. The patient is very hypoxic and short of breath at this time and is requiring 100% nonrebreather mask. Overnight, he got about 2 liters of fluid without any improvement in his overall status. He had acute renal failure at the time of admission with a creatinine of 2.78 and this morning it is 2.25. He has a Marroquin catheter and he did make some urine. CT scan of the abdomen and pelvis is already done and he does not have hydronephrosis. The patient was already extensively followed by palliative medicine for the last few months for various issues with cancer as well as pain. REVIEW OF SYSTEMS: Unable to obtain as the patient is not answering questions and is very encephalopathic. ALLERGIES: List was reviewed in detail from the medication list and H and P. HOME MEDICATIONS: List is also very extensive and was reviewed in detail from the medicine reconciliation list. It does not appear he was on any type of diuretics. 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 Cohen, spinal cord injury, multiple issues with wound and infection requiring extensive surgeries. FAMILY HISTORY: Unable to obtain. SOCIAL HISTORY: He is a smoker, still smoking, heavy alcohol use in the past, unable to confirm current alcohol use. He is retired and disabled. He lives with his friend, Stephanie. He uses walker at home to walk. PHYSICAL EXAMINATION: GENERAL: Middle-aged white male who is very encephalopathic, unable to give me any history. He briefly opened his eyes on command. He is in bed with moderate shortness of breath and is requiring a nonrebreather mask at this time, but even with that, he is hypoxic. He is minimally alert. HEENT: He has a very erythematous face with facial swelling. CHEST: Decreased breath sounds with very poor inspiratory effort. CARDIOVASCULAR: S1 and S2 regular. ABDOMEN: Soft, nontender with some abdominal wall edema. EXTREMITIES: Show pitting edema in the upper thigh in the dependent part. SKIN: He has excoriated skin lesions as well as open wound in multiple areas and very erythematous-appearing skin. NEUROLOGIC: He is not following command, is encephalopathic, briefly opened his eyes. LABORATORY TESTS: Baseline creatinine is 0.6 as of 06/2020. At the time of admission, he had a creatinine of 2.78, this morning it is 2.25, potassium 3.4, sodium 142, BUN 27. Hemoglobin is 11, WBC count 6, platelet count 210. Urine dipstick was done and shows cloudy urine with lots of hyaline casts, epithelial cells consistent with ATN. Chest x-ray shows pulmonary congestion, pulmonary edema with pleural effusion and cardiomegaly. CT abdomen and pelvis done yesterday shows, kidneys are without hydronephrosis. There is some cortical atrophy. He was also found to have liver cirrhosis, cardiomegaly, pleural effusion. ASSESSMENT AND PLAN: A 64-year-old male with previously normal creatinine at baseline, now has acute renal failure for which I have been consulted. The patient has very complicated acute as well as chronic medical problems as detailed in history of present illness and hospitalist history and physical. Acute renal failure: This appears to be acute tubular necrosis based on the urine finding. He has significant hypoxia, pulmonary distress with findings of pulmonary congestion, cardiomegaly, pleural effusion as well as possible infection. We will have to treat him for both pulmonary edema as well as pulmonary infection. Even though the patient has not been eating much for the last few days, he does not appear to be volume depleted. Given the very precarious situation of his breathing, I would give him Lasix 80 mg IV x1 now and possibly more in the coming hours to days. Creatinine dropped a little bit from last night, but that could be just because of the IV fluid he received. I would stop the IV fluid at this time. The patient's management is very complex involving multiple organ system.
[2020-10-13] MEDS ORDERED: HYDROmorphone INJ 0.5 MG/0.5 ML SYR IV ONE (12:35)
--- NOTE | 2020-10-13 12:50 | Dermatology Consultation ---
Date of Consultation October 13, 2020 Assessment & Plan (1) Stasis dermatitis of both legs: Mild stasis dermatitis with a few residual healing venous ulcerations: - No sign of secondary infection/cellulitis on exam today. - Volume management as per primary MD/Nephrology to help with dependent edema. - As per discussion with primary MD, patient is now comfort measures only. General moisturization to the lower legs twice daily with vaseline can be considered to prevent irritation/dryness if needed. 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 - Given that patient is now comfort measures only, vaseline to the areas to the area of the neck twice daily can be considered to prevent irritation. - If patient is itching/scratching at areas, then I would recommend Triamcinolone 0.1% ointment to the skin of the neck twice daily. Present on Admission?: Yes (3) Tinea corporis: Favor tinea corporis for the annular eruption on the buttocks/posterior thighs (he has coexisting onychomycosis of multiple toenails). A gyrate erythema could also be considered: - Given that patient is now comfort measures only, no specific therapy is needed unless the skin is causing irritation. If that occurs, I would recommend starting Ketoconazole 2% cream to areas of the buttocks, posterior thighs twice daily x 2 weeks. Present on Admission?: Yes History of Present Illness Reason for Consultation: Rash Requesting Physician: Harris Thomas MD Attending Physician: Harris Thomas MD History of Present Illness Patient is a 64-year old with complex medical history, including SCC of the mouth/tongue, brain aneurysm, hypertension, hyperlipidemia, chronic tobacco use and alcoholism who was admitted to [facility] on 10/12/2020 due to altered mental status and respiratory failure. Upon admission he was round to have CELSO and pulmonary edema. I have been consulted to evaluate areas of rash on the neck, back/buttocks and legs. Patient is not able to provide any specific history as to how long his skin issues have been present. Nursing staff is also only able to provide limited history. He has been following at the wound care center from June-August 2020 for venous stasis ulcerations and prior associated cellulitis. He was last seen at the wound care center on 09/20/2020. At that time there was no sign of cellulitis. According to nursing staff, the wound care nurse saw him late this morning and cleaned the skin on the legs and re-bandaged a small ulceration on the right dorsal foot. He also has a history of radiation dermatitis on the anterior neck with fistula formation. It is unclear if any particular skin care was being done to this area prior to admission. Some drainage was noted from the fistula region at time of admission, and a wound culture was taken. Preliminary results show growth of yeast (not susan). Finally, a red rash on the buttocks, posterior thighs/lower back was noted on admission. Timing of onset is not known. He does have a history of stage II decubitus ulcer on the lower back/buttocks region, but no mention of rash in this region was reported previously in wound care notes. No current therapy. Allergies Allergy/AdvReac Type Severity Reaction Status Date / Time acetaminophen Allergy Intermediate CONTRAINDIC Verified 10/12/20 10:55 ATED aspirin Allergy Intermediate STOMACH Verified 10/12/20 10:55 BLEEDING NSAIDS (Non-Steroidal Allergy Intermediate GI PROBLEMS Verified 10/12/20 10:55 Anti-Inflamma codeine Allergy Mild high fever Verified 10/12/20 10:55 lisinopril Allergy Mild edema Verified 10/12/20 10:55 bee venom protein (honey bee) Allergy Unknown go into Verified 10/12/20 10:55 shock Home Medications Medication Instructions Recorded Confirmed Type atorvastatin 40 mg PO QAM 07/24/18 10/12/20 History diclofenac sodium 2 g TOPICAL QID PRN 07/24/18 10/12/20 History lidocaine 1 applic TOPICAL DAILY PRN 07/24/18 10/12/20 History pentoxifylline 400 mg PO TID 07/24/18 10/12/20 History furosemide [Lasix] 20 mg PO BID PRN 01/09/19 10/12/20 History albuterol sulfate 90 mcg/actuation 2 puff INHALATION Q4H PRN 05/19/20 10/12/20 History aerosol inhaler magnesium oxide,aspartate,citr 400 mg PO DAILY cap 05/19/20 10/12/20 History mirtazapine 15 mg tablet 15 mg PO HS 05/19/20 10/12/20 History ondansetron HCl 4 mg tablet 4 - 8 mg PO Q8H PRN 05/19/20 10/12/20 History Probiotic 0 mmu cells PO DAILY 05/25/20 10/12/20 History ascorbic acid (vitamin C) [Vitamin 500 mg PO DAILY 05/25/20 10/12/20 History C] potassium chloride 40 meq PO DAILY 05/25/20 10/12/20 History buspirone 15 mg PO TID 05/28/20 10/12/20 History apixaban [Eliquis] 5 mg PO BID #30 tab 06/12/20 10/12/20 Rx collagenase clostridium histo. 1 applic EXT DAILY #30 g 06/12/20 10/12/20 Rx [Santyl] docusate sodium 100 mg PO BID #60 cap 06/12/20 10/12/20 Rx fentanyl 75 mcg TRANSDERMAL Q3D@0900 #5 ea 06/12/20 10/12/20 Rx folic acid 1 mg PO QAM #30 tab 06/12/20 10/12/20 Rx metoprolol succinate 50 mg PO BID #60 tab 06/12/20 10/12/20 Rx polyethylene glycol 3350 [Miralax] 17 g PO BID #30 ea 06/12/20 10/12/20 Rx psyllium husk (with sugar) 1 ea PO QAM #30 ea 06/12/20 10/12/20 Rx [Metamucil (with sugar)] thiamine HCl (vitamin B1) [Vitamin 100 mg PO QAM #30 tab 06/12/20 10/12/20 Rx B-1] doxycycline hyclate 100 mg tablet 100 mg PO bid #28 tab 08/27/20 10/12/20 Rx oxycodone 20 mg PO Q4H PRN 10/12/20 10/12/20 History baclofen 10 mg PO TID PRN 10/13/20 10/13/20 History bupropion HCl 150 mg PO DAILY 10/13/20 10/13/20 History dexamethasone 2 mg PO DAILY 10/13/20 10/13/20 History omeprazole 20 mg PO DAILYBB 10/13/20 10/13/20 History sertraline 50 mg PO DAILY 10/13/20 10/13/20 History Patient History Medical History (Updated 10/13/20 @ 14:06 by Barrie Hammer MD) Alcohol abuse Anxiety Bilateral knee pain Brain aneurysm LILIA Aneursym Cardiac murmur Depression Do not resuscitate status DVT (deep venous thrombosis) extensive DVT LLE 05/25/20 Hyperlipidemia Hypertension Major depressive disorder Osteoarthritis Osteoradionecrosis of jaw Radiation dermatitis 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 Cohen Spinal cord injury 16 yrs old---accident--broke neck and back--normal rom Stasis dermatitis of both legs T2 vertebral fracture Tinea corporis Tongue cancer 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", chemo Surgical History H/O skin graft off leg to mouth History of colonoscopy History of esophagogastroduodenoscopy (EGD) History of lung surgery "scrap inside and outside of my lungs for strep pneumonia" History of tooth extraction most of teeth Family History Other No pertinent family history Social History Smoking Status: Light tobacco smoker Tobacco Type: Cigarettes Cigarettes Per Day: 5 cigarettes/day; Second Hand Exposure: No; Do You Dip or Chew Tobacco: No; Tobacco Cessation Education Requested by Patient: No Hx Alcohol Use: Yes Alcohol type: hard liquor Alcohol Intake Frequency: 4 or More x per/Week Alcohol Intake Frequency Comment: daily 5 -18oz drinks with 2-3 shots per drink Hx Substance Use: Yes Last Used Substance: Unknown Last Used Substance Other:: last night Substance Use Type Other:: occasioally Preferred Language: Khmer Communication Ability: Effective School Age Program Teacher Required: No Beliefs That Will Affect Care: None marital status: Current Living Situation: Significant Other Current Living Situation Comment: with friend Stephanie current occupational status: retired and disabled Other Information That Helps Us Care for You: No Feels Safe at Home: Yes Safety Concerns: Feels Safe At This Time Assistive Devices: Oxygen - Continuous Review of Systems Review of Systems: Unobtainable due to cognitive status Physical Exam Constitutional: + altered mental status Skin: Skin Type: 2 Neck: erythematous, slightly scaly patches with some areas of crusting and associated fistula with yellow drainage at prior radiation site on the left anterior neck, mid anterior neck Right Lower Extremity: erythematous, slightly scaly patches with background 1-2+ pitting edema on the lower leg +bandaged ulceration on the dorsal foot +few small, healing superficial ulcerations on the law + annular, erythematous, slightly scaly thin plaques on the posterior thigh Left Lower Extremity: erythematous, slightly scaly patches with background 1-2+ pitting edema on the lower leg +few small, healing superficial ulcerations on the law +annular, erythematous, slightly scaly thin plaques on the posterior thigh Back: no sign of active dermatitis Buttocks/Groin/Genitalia: +bandaged decubitus ulceration at the gluteal cleft +annular, erythematous, slightly scaly thin plaques on the right buttock, left buttock Right Upper Extremity: +xerosis; no sign of active dermatitis Left Upper Extremity: +xerosis; no sign of active dermatitis Chest/Breast/Axillae: no sign of active dermatitis Abdomen: no sign of active dermatitis Nails: +changed of onychomycosis in multiple toenails bilaterally Results & Data ([facility]) Vital Signs (Past 12 Hours) Vital Signs Temp Pulse Resp BP Pulse Ox Pulse Ox 10/13/20 12:00 91 10/13/20 11:18 36.6 C 96 H 18 104/66 95 10/13/20 09:00 94 10/13/20 08:40 36.6 C 88 24 112/75 86 L 10/13/20 08:00 92 10/13/20 04:00 36.7 C 85 20 101/61 92 10/13/20 00:53 36.6 C 72 18 89/55 L 91 Laboratory Results 10/13/20 10/13/20 10/13/20 Range/Units 10:41 05:46 05:46 WBC 6.01 (4.8-10.8) K/uL RBC 3.99 L (4.7-6.1) M/uL Hgb 11.0 L (14.0-18.0) g/dL Hct 36.3 L (42-52) % MCV 91.0 (80-100) fL MCH 27.6 (25-34) pg MCHC 30.3 L (32-36) g/dL RDW Std Deviation 59.1 H (36.4-46.3) fL RDW Coeff of Ulises 18.3 H (11.5-14.5) % Plt Count 210 (130-400) K/uL MPV 9.1 (7.4-10.4) fL Immature Gran % (Auto) 0.2 % Neut % (Auto) 81.5 % Lymph % (Auto) 8.2 % [place] % (Auto) 8.7 % Eos % (Auto) 1.2 % Baso % (Auto) 0.2 % Neut # (Auto) 4.91 (1.4-6.5) K/uL Lymph # (Auto) 0.49 L (1.2-3.4) K/uL [place] # (Auto) 0.52 (0.11-0.59) K/uL Eos # (Auto) 0.07 (0-0.5) K/uL Baso # (Auto) 0.01 (0-0.2) K/uL Immature Gran # (Auto) 0.01 (0.00-0.02) K/uL Absolute Nucleated RBC 0.02 H (0-0) K/uL Nucleated RBC % (auto) 0.4 % ABG pH 7.21 L (7.35-7.45) ABG pCO2 79 H (35-46) mmHg ABG pO2 165 H (80-95) mmHg ABG HCO3 31 H (19-24) mmol/L ABG O2 Saturation 98.9 H (90-95) % ABG Base Excess 2.0 H (-9-1.8) mEq/L Ck Test Pos (Pos) Barometric Pressure 735.6 mm/Hg Oxygen Given 2 Sodium 142 (136-145) mmol/L Potassium 3.4 L (3.5-5.1) mmol/L Chloride 104 (98-107) mmol/L Carbon Dioxide 32 (21-32) mmol/L Anion Gap 6.0 (3-11) BUN 27 H (7-18) mg/dl Creatinine 2.25 H D (0.6-1.4) mg/dl Est Cr Clr Drug Dosing 43.2 ml/min Est GFR ( Amer) 34.9 Est GFR (Non-Af Amer) 30.1 BUN/Creatinine Ratio 11.9 (10-20) Glucose 79 (70-99) mg/dl Calcium 8.6 (8.5-10.1) mg/dl Phosphorus 5.1 H (2.5-4.9) mg/dl Magnesium 2.0 (1.8-2.4) mg/dl 10/12/20 08:57 Gram Stain - Final Neck PG Care Time/CCT Total # of Minutes Spent Total Time Spent with Patient: Total time spent is greater than 50% in coordination of care (as documented) at patient's floor/unit and/or counseling patient: Coding Level of Care Code 93677 Initial Inpt Care Lvl 2 Diagnoses Stasis dermatitis of both legs I87.2 Radiation dermatitis L58.9 Tinea corporis B35.4
--- NOTE | 2020-10-13 12:58 | Hospitalist Progress Note ---
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 Chronic venous stasis ulcers Tobacco use disorder History of deep vein thrombosis Hypertension Radiation dermatitis Tinea corporis Chronic anemia Hypokalemia Cirrhotic liver morphology on CT abdomen DNI/DNR status as per POA Did not tolerated BiPAP/also difficulty with seal due to facial anatomy from prior cancer Poor functional status at baseline Discussed with patient's POA in detail about patient's condition, complications and consequences Currently not getting Immunotherapy due to comorbidities/poor status Very poor Prognosis Mostly bedbound, wheelchair bound at baseline Patient's POA recommends to transition patient to comfort measures given patient's clinical condition, comorbidities and poor functional status at baseline Appreciate Nephrology, palliative care, dermatology Input Currently on Comfort measures only Admission and Anticipated Discharge Date Admission Date: October 12, 2020 Subjective Patient is seen and examined at bedside Patient obtunded, unable to provide any history In respiratory distress, on nonrebreather ABG consistent with respiratory acidosis with hypercarbia Unable to tolerate BiPAP Discussed with patient's POA in detail about patient's condition, complications and consequences Very poor functional status at baseline Mostly bedbound, wheelchair bound Patient's POA recommends to transition patient to comfort measures given patient's clinical condition, comorbidities and poor functional status at baseline Also discussed with nephrology, palliative care, dermatology Review of Systems Review of Systems: Unobtainable due to cognitive status and Unobtainable due to reduced consciousness Physical Exam Physical Exam: Physical Exam: Vitals signs as noted above General Appearance: Chronically appearing, + distress, Non verbal Head/Neck: normocephalic, Atraumatic, + Erythematous, post radiation changes, + neck--fistula with yellow discharge Eyes: normal inspection, EOMI Respiratory/Chest:Decreased breath sounds, +Respiratory distress, B/L crackles Cardiovascular: S1, S2, No murmur Abdomen/GI:Soft, Non tender, Bowel sounds present Extremities/Musculoskelatal:B/L LE edema, chronic venous stasis changes, healing venous ulcerations Neurologic/Psych: Obtunded, unable to perform complete neurological exam, Non verbal Skin: Back: Tinea corporis with annular eruptions, B/L LE: Stasis dermatitis; radiation dermatitis of neck Results & Data Results & Data ([facility]) Vital Signs (Past 12 Hours) Vital Signs Temp Pulse Resp BP Pulse Ox Pulse Ox 10/13/20 12:00 91 10/13/20 11:18 36.6 C 96 H 18 104/66 95 10/13/20 09:00 94 10/13/20 08:40 36.6 C 88 24 112/75 86 L 10/13/20 08:00 92 10/13/20 04:00 36.7 C 85 20 101/61 92 Laboratory Results Short CBC 10/13/20 Range/Units 05:46 WBC 6.01 (4.8-10.8) K/uL Hgb 11.0 L (14.0-18.0) g/dL Hct 36.3 L (42-52) % Plt Count 210 (130-400) K/uL BMP 10/13/20 05:46 Sodium 142 Potassium 3.4 L Chloride 104 Carbon Dioxide 32 BUN 27 H Creatinine 2.25 H D Glucose 79 Calcium 8.6
[2020-10-13] MEDS: MoRPHine SULFATE 2 MG/ML CARP IV PRN ×4 (13:28→21:57)
[2020-10-13] MEDS: LORazepam 1 MG/2 ML VIAL IV PRN (22:15)
[2020-10-14] MEDS: MoRPHine SULFATE 2 MG/ML CARP IV PRN (04:48)
[2020-10-14] MEDS: LORazepam 1 MG/2 ML VIAL IV PRN ×2 (06:04→21:33)
[2020-10-14] MEDS ORDERED: PANTOprazole 40 MG TAB PO SCH (06:30)
[2020-10-14] MEDS: POLYETHYLENE (MIRALAX) 17 GM PACK PO SCH ×2 (07:33→20:13)
[2020-10-14] MEDS: HYDROmorphone INJ 0.5 MG/0.5 ML SYR IV PRN ×5 (13:31→23:59)
[2020-10-14] MEDS: GLYCOPYRROLATE 0.2 MG/ML VIAL IV PRN (13:32)
--- NOTE | 2020-10-14 14:33 | Hospitalist Progress Note ---
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 Chronic venous stasis ulcers Tobacco use disorder History of deep vein thrombosis Hypertension Radiation dermatitis Tinea corporis Chronic anemia Hypokalemia Cirrhotic liver morphology on CT abdomen DNI/DNR status as per POA Did not tolerated BiPAP/also difficulty with seal due to facial anatomy from prior cancer Poor functional status at baseline Discussed with patient's POA in detail about patient's condition, complications and consequences Currently not getting Immunotherapy due to comorbidities/poor status Very poor Prognosis Mostly bedbound, wheelchair bound at baseline Patient's POA recommends to transition patient to comfort measures given patient's clinical condition, comorbidities and poor functional status at baseline Appreciate Nephrology, palliative care, dermatology Input Currently on Comfort measures only Continue current management Admission and Anticipated Discharge Date Admission Date: October 12, 2020 Subjective Patient is seen and examined at bedside Obtunded Mild respiratory distress on exam Unable to provide any history On comfort measures only Review of Systems Review of Systems: Unobtainable due to reduced consciousness Physical Exam Physical Exam: Physical Exam: Vitals signs as noted above General Appearance: Chronically appearing, + distress, Non verbal Head/Neck: normocephalic, Atraumatic, + Erythematous, post radiation changes, + neck--fistula with yellow discharge Eyes: normal inspection, EOMI Respiratory/Chest:Decreased breath sounds, +Respiratory distress, B/L crackles Cardiovascular: S1, S2, No murmur Abdomen/GI:Soft, Non tender, Bowel sounds present Extremities/Musculoskelatal:B/L LE edema, chronic venous stasis changes, healing venous ulcerations Neurologic/Psych: Obtunded, unable to perform complete neurological exam, Non verbal Skin: Back: Tinea corporis with annular eruptions, B/L LE: Stasis dermatitis; radiation dermatitis of neck
--- NOTE | 2020-10-14 14:41 | Palliative Care Consultation ---
Date of Consultation October 14, 2020 Assessment & Plan (1) Palliative care encounter: This unfortunate gentleman's care is now focused on comfort only. He had been on over 200 oral morphine equivalents prior to admission. At this point, the fentanyl reservoir from his patch will be mostly cleared. He is likely to need increased opioid dosing to maintain adequate pain management as that clears and with his CELSO, he would be at risk for toxicity on higher doses of morphine. I did rotate his opioid to dilaudid at equivalent dose. Will monitor for efficacy as his fentanyl clears. He made need dose adjustment. Thank you for allowing us to participate in his care. (2) Mouth cancer: History of Present Illness Reason for Consultation: goals of care Requesting Physician: Dr. Thomas Attending Physician: Harris Thomas MD History of Present Illness 64 yo gentleman with SCC of mouth and hypoxic, hypercapnic respiratory failure, metabolic encephalopathy and CELSO and most recent GFR of 30. He is unable to tolerate bipap due to tumor mass and does not desire intubation. He is not a candidate for further immunotherapy given his poor functional status. After discussion by Dr. Thomas with his friend and POA, the determination was made to pursue comfort care only. He has been receiving morphine for pain and is lethargic but arousable at time of visit. He does open his eyes when his name is spoken. He shakes his head no when asked if comfortable but is unable to elaborate on this. He did nod at one point when asked if he had pain. He is not having any facial grimacing. He had been on a 75mcg fentanyl patch as an outpatient which was stopped on admission due to concern about contributing to his respiratory failure. Allergies Allergy/AdvReac Type Severity Reaction Status Date / Time acetaminophen Allergy Intermediate CONTRAINDIC Verified 10/12/20 10:55 ATED aspirin Allergy Intermediate STOMACH Verified 10/12/20 10:55 BLEEDING NSAIDS (Non-Steroidal Allergy Intermediate GI PROBLEMS Verified 10/12/20 10:55 Anti-Inflamma codeine Allergy Mild high fever Verified 10/12/20 10:55 lisinopril Allergy Mild edema Verified 10/12/20 10:55 bee venom protein (honey bee) Allergy Unknown go into Verified 10/12/20 10:55 shock Home Medications Medication Instructions Recorded Confirmed Type atorvastatin 40 mg PO QAM 07/24/18 10/12/20 History diclofenac sodium 2 g TOPICAL QID PRN 07/24/18 10/12/20 History lidocaine 1 applic TOPICAL DAILY PRN 07/24/18 10/12/20 History pentoxifylline 400 mg PO TID 07/24/18 10/12/20 History furosemide [Lasix] 20 mg PO BID PRN 01/09/19 10/12/20 History albuterol sulfate 90 mcg/actuation 2 puff INHALATION Q4H PRN 05/19/20 10/12/20 History aerosol inhaler magnesium oxide,aspartate,citr 400 mg PO DAILY cap 05/19/20 10/12/20 History mirtazapine 15 mg tablet 15 mg PO HS 05/19/20 10/12/20 History ondansetron HCl 4 mg tablet 4 - 8 mg PO Q8H PRN 05/19/20 10/12/20 History Probiotic 0 mmu cells PO DAILY 05/25/20 10/12/20 History ascorbic acid (vitamin C) [Vitamin 500 mg PO DAILY 05/25/20 10/12/20 History C] potassium chloride 40 meq PO DAILY 05/25/20 10/12/20 History buspirone 15 mg PO TID 05/28/20 10/12/20 History apixaban [Eliquis] 5 mg PO BID #30 tab 06/12/20 10/12/20 Rx collagenase clostridium histo. 1 applic EXT DAILY #30 g 06/12/20 10/12/20 Rx [Santyl] docusate sodium 100 mg PO BID #60 cap 06/12/20 10/12/20 Rx fentanyl 75 mcg TRANSDERMAL Q3D@0900 #5 ea 06/12/20 10/12/20 Rx folic acid 1 mg PO QAM #30 tab 06/12/20 10/12/20 Rx metoprolol succinate 50 mg PO BID #60 tab 06/12/20 10/12/20 Rx polyethylene glycol 3350 [Miralax] 17 g PO BID #30 ea 06/12/20 10/12/20 Rx psyllium husk (with sugar) 1 ea PO QAM #30 ea 06/12/20 10/12/20 Rx [Metamucil (with sugar)] thiamine HCl (vitamin B1) [Vitamin 100 mg PO QAM #30 tab 06/12/20 10/12/20 Rx B-1] doxycycline hyclate 100 mg tablet 100 mg PO bid #28 tab 08/27/20 10/12/20 Rx oxycodone 20 mg PO Q4H PRN 10/12/20 10/12/20 History baclofen 10 mg PO TID PRN 10/13/20 10/13/20 History bupropion HCl 150 mg PO DAILY 10/13/20 10/13/20 History dexamethasone 2 mg PO DAILY 10/13/20 10/13/20 History omeprazole 20 mg PO DAILYBB 10/13/20 10/13/20 History sertraline 50 mg PO DAILY 10/13/20 10/13/20 History Patient History Medical History Alcohol abuse Anxiety Bilateral knee pain Brain aneurysm LILIA Aneursym Cardiac murmur Depression Do not resuscitate status DVT (deep venous thrombosis) extensive DVT LLE 05/25/20 Hyperlipidemia Hypertension Major depressive disorder Osteoarthritis Osteoradionecrosis of jaw Radiation dermatitis 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 Cohen Spinal cord injury 16 yrs old---accident--broke neck and back--normal rom Stasis dermatitis of both legs T2 vertebral fracture Tinea corporis Tongue cancer 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", chemo Surgical History H/O skin graft off leg to mouth History of colonoscopy History of esophagogastroduodenoscopy (EGD) History of lung surgery "scrap inside and outside of my lungs for strep pneumonia" History of tooth extraction most of teeth Family History Other No pertinent family history Social History Smoking Status: Light tobacco smoker Tobacco Type: Cigarettes Cigarettes Per Day: 5 cigarettes/day; Second Hand Exposure: No; Do You Dip or Chew Tobacco: No; Tobacco Cessation Education Requested by Patient: No Hx Alcohol Use: Yes Alcohol type: hard liquor Alcohol Intake Frequency: 4 or More x per/Week Alcohol Intake Frequency Comment: daily 5 -18oz drinks with 2-3 shots per drink Hx Substance Use: Yes Last Used Substance: Unknown Last Used Substance Other:: last night Substance Use Type Other:: occasioally Preferred Language: Arabic Communication Ability: Effective Detective Required: No Beliefs That Will Affect Care: None marital status: Current Living Situation: Significant Other Current Living Situation Comment: with friend Stephanie current occupational status: retired and disabled Other Information That Helps Us Care for You: No Feels Safe at Home: Yes Safety Concerns: Feels Safe At This Time Assistive Devices: Oxygen - Continuous Review of Systems Review of Systems: Unobtainable due to reduced consciousness Palliative Performance Score 20% Physical Exam Constitutional: + lethargic ENMT: visible tumor right jaw with open area on right cheek Neck: radiation skin changes noted Respiratory: + uses accessory muscles Gastrointestinal (Abdomen): Percussion/Palpation: abdomen nontender Skin: no mottling PG Care Time/CCT Total # of Minutes Spent Total Time Spent with Patient: Total time spent is greater than 50% in coordination of care (as documented) at patient's floor/unit and/or counseling patient: Total time spent 60 minutes with more than 50% of time spent on symptom management and coordination of care. Coding Level of Care Code 42920 Inpt Consult Level 3 Diagnoses Palliative care encounter Z51.5 Mouth cancer C06.9
[2020-10-15] MEDS: GLYCOPYRROLATE 0.2 MG/ML VIAL IV PRN ×4 (00:02→14:21)
[2020-10-15] MEDS: LORazepam 1 MG/2 ML VIAL IV PRN ×2 (01:29→09:05)
[2020-10-15] MEDS ORDERED: SCOPOLAMINE 1.5 MG TDSY TD SCH (05:00)
[2020-10-15] MEDS: CHECK SCOPOLAMINE PATCH PLACEMENT SCH ×2 (07:39→15:36)
[2020-10-15] MEDS: POLYETHYLENE (MIRALAX) 17 GM PACK PO SCH (07:39)
[2020-10-15] MEDS: HYDROmorphone INJ 0.5 MG/0.5 ML SYR IV PRN (07:42)
[2020-10-15] MEDS ORDERED: STAT IV Infusion **Titration per Protocol STA (09:27)
--- NOTE | 2020-10-15 09:32 | Palliative Care Progress Note ---
Date of Service October 15, 2020 Assessment & Plan (1) Shortness of breath: Hypoxic respiratory failure in the setting of advanced oral cancer. He is clearly labored and not able to tolerate bipap with tumor mass. Will start dilaudid infusion for air hunger as well as pain management. Will change ativan to routine dosing for anxiety related to dyspnea. (2) Pain: Secondary to advanced oral cancer. He had been on over 200 OME prior to admission for pain. Fentanyl has now cleared and he is clearly uncomfortable. He would benefit from dilaudid infusion for consistent level of analgesia. Discussed with nursing and pharmacy. Notified Dr. Thomas. (3) Mouth cancer: (4) Palliative care encounter: Admission and Anticipated Discharge Date Admission Date: October 12, 2020 Subjective Restless, opens eyes but does not follow. Facial grimace. He has had multiple doses of low dose hydromorphone. Review of Systems Review of Systems: Unobtainable due to reduced consciousness [place] Symptom Assessment Scale Pain by observation 2/3 Dyspnea by observation 2/3 Drowsiness 2/3 Palliative Performance Score 20% Physical Exam Constitutional: + lethargic; + uncomfortable ENMT: Visible tumor right cheek and chin with open areas, radiation skin changes Neck: radiation skin changes Respiratory: + respiratory distress, + labored breathing and + uses accessory muscles Cardiovascular: Extremities: + edema Neurologic: moves all extremities PG Care Time/CCT Total # of Minutes Spent Total Time Spent with Patient: Total time spent is greater than 50% in coordination of care (as documented) at patient's floor/unit and/or counseling patient: Total time spent 40 minutes with more than 50% of time spent on symptom management and coordination of care. Coding Level of Care Code 28693 Subseq Hosp Care Lvl 3 Diagnoses Shortness of breath R06.02 Pain R52 Mouth cancer C06.9 Palliative care encounter Z51.5
[2020-10-15] MEDS ORDERED: SODIUM CHLORIDE 0.9% 1000ML 1,000 ML IV SCH (09:45)
[2020-10-15] MEDS ORDERED: HYDROmorphone/NSS 100 MG/100 ML BAG IV SCH (10:00)
[2020-10-15] MEDS: LORazepam 1 MG/2 ML VIAL IV SCH ×2 (10:18→12:56)
--- NOTE | 2020-10-15 13:42 | Hospitalist Progress Note ---
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 Chronic venous stasis ulcers Tobacco use disorder History of deep vein thrombosis Hypertension Radiation dermatitis Tinea corporis Chronic anemia Hypokalemia Cirrhotic liver morphology on CT abdomen DNI/DNR status as per POA Did not tolerated BiPAP/also difficulty with seal due to facial anatomy from prior cancer Poor functional status at baseline Discussed with patient's POA in detail about patient's condition, complications and consequences Currently not getting Immunotherapy due to comorbidities/poor status Very poor Prognosis Mostly bedbound, wheelchair bound at baseline Patient's POA recommends to transition patient to comfort measures given patient's clinical condition, comorbidities and poor functional status at baseline Appreciate Nephrology, palliative care, dermatology Input Currently on Comfort measures only Palliative care following Admission and Anticipated Discharge Date Admission Date: October 12, 2020 Subjective Patient is seen and examined at bedside Obtunded Noted respiratory distress Unable to obtain any history On comfort measures only Doesn't respond to commands Discussed with palliative care today Review of Systems Review of Systems: Unobtainable due to reduced consciousness Physical Exam Physical Exam: Physical Exam: Vitals signs as noted above General Appearance: Chronically appearing, + distress, Non verbal Head/Neck: normocephalic, Atraumatic, + Erythematous, post radiation changes, + neck--fistula with yellow discharge Eyes: normal inspection, EOMI Respiratory/Chest:Decreased breath sounds, +Respiratory distress, B/L crackles Cardiovascular: S1, S2, No murmur Abdomen/GI:Soft, Non tender, Bowel sounds present Extremities/Musculoskelatal:B/L LE edema, chronic venous stasis changes, healing venous ulcerations Neurologic/Psych: Obtunded, unable to perform complete neurological exam, Non verbal Skin: Back: Tinea corporis with annular eruptions, B/L LE: Stasis dermatitis; radiation dermatitis of neck
[2020-10-15] MEDS ORDERED: Nursing to Pharmacy Communication ONE (20:15)
--- NOTE | 2020-10-15 20:41 | Discharge Summary ---
Date of Service October 15, 2020 Admission HPI Per Admitting Provider He is a 64-year-old male with significant past medical history of squamous cell carcinoma of the mouth, brain aneurysm, depression, hypertension, hyperlipidemia, chronic tobacco abuse and alcoholism was brought into the emergency room with 2 to 3 days history of weakness, inability to eat or drink, decreased responsiveness with hypoxia. The history was taken from the caregiver and significant other at the patient was less responsive during examination. He has not been eating or drinking for the last 2 to 3 days and has had dry heaves but no documented fever and/or chills. He was seen by the home nurse yesterday has noted to have a low saturation of 70% on room air without any significant shortness of breath. This morning the caregiver found him to be very less responsive and generally weak and today he was taken to the emergency room by the EMS. The EMS personnel could not make him awake during the transport and in the emergency room he was requiring 100% nonrebreather to maintain saturation and he was noted to have low blood pressure, CELSO and possible pulmonary edema. His EKG was with nonspecific findings and troponin is negative. He has been mostly bedbound for the last few days and before that he was able to come out of bed by himself and he used a motorized wheelchair to move around. He was a started with intravenous antibiotic with Ancef and was put on 100% nonrebreather to maintain saturation. Will be given cautious amount of intravenous fluid to improve dehydration and kidney function. He was admitted to telemetry floor for continuation of management. Admission Exam Per Admitting Provider Physical Exam Physical Exam: Lying in bed with pain moderate shortness of breath Constitutional: well developed, well nourished, + acute distress (Moderate shortness of breath) and + altered mental status ENMT: external ear and nose normal, oropharynx normal Neck: trachea midline, no thyromegaly Respiratory: + respiratory distress (Moderate shortness of breath at rest) Auscultation: + diminished lung sounds and + crackles (Bibasilar crackles); no wheezes Cardiovascular: Rate/Rhythm: regular rate and regular rhythm Heart Sounds: no murmur Extremities: + edema (1+ chronic bilateral leg edema with chronic ischemic changes) Gastrointestinal (Abdomen): Inspection/Auscultation: normal bowel s ounds; abdomen not distended Percussion/Palpation: abdomen soft; abdomen nontender Skin: + crusts, + dry skin, + ecchymosis, + erythema and + excoriations Neurologic: + obtunded Principal Diagnosis Acute metabolic/Toxic encephalopathy Acute renal failure likely ATN Volume overload/bilateral pleural effusions Possible acute CHF Acute respiratory failure with hypoxia, hypercarbia Acute respiratory acidosis Polypharmacy Possible B/L LE cellulitis 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 Discharge Data Allergies Allergy/AdvReac Type Severity Reaction Status Date / Time acetaminophen Allergy Intermediate CONTRAINDIC Verified 10/12/20 10:55 ATED aspirin Allergy Intermediate STOMACH Verified 10/12/20 10:55 BLEEDING NSAIDS (Non-Steroidal Allergy Intermediate GI PROBLEMS Verified 10/12/20 10:55 Anti-Inflamma codeine Allergy Mild high fever Verified 10/12/20 10:55 lisinopril Allergy Mild edema Verified 10/12/20 10:55 bee venom protein (honey bee) Allergy Unknown go into Verified 10/12/20 10:55 shock Consultations 10/12/20 10:46 ED Decision to Admit Stat 10/13/20 09:30 Consult Palliative Care Routine 10/13/20 10:14 Consult Nephrology Routine 10/13/20 16:05 Consult Dermatology Routine Ordered Studies 10/12/20 09:07 CT facial bones wo con Stat CT head/brain wo con Stat 10/12/20 09:37 CT abd pelvis wo con Stat CT soft tissue neck wo con Stat Hospital Course (1) Encephalopathy: Acute metabolic/Toxic encephalopathy Acute renal failure likely ATN Volume overload/bilateral pleural effusions Possible acute CHF Acute respiratory failure with hypoxia, hypercarbia Acute respiratory acidosis Polypharmacy--on chronic narcotics Possible B/L LE cellulitis 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 Chronic venous stasis ulcers Tobacco use disorder History of deep vein thrombosis Hypertension Radiation dermatitis Tinea corporis Chronic anemia Hypokalemia Cirrhotic liver morphology on CT abdomen DNI/DNR status as per POA Did not tolerated BiPAP/also difficulty with seal due to facial anatomy from prior cancer Poor functional status at baseline Discussed with patient's POA in detail about patient's condition, complications and consequences Currently not getting Immunotherapy due to comorbidities/poor status Very poor Prognosis Mostly bedbound, wheelchair bound at baseline Patient's POA recommends to transition patient to comfort measures given patient's clinical condition, comorbidities and poor functional status at baseline Appreciate Nephrology, palliative care, dermatology Input Currently on Comfort measures only Palliative care following PATIENT WHILE ON COMFORT MEASURES Total Time Total Time Spent Total Time Spent (In Minutes): 25 minutes Discharge Plan Discharge Items Patient Disposition: Discharge Diagnosis: Acute metabolic/Toxic encephalopathy Acute renal failure likely ATN Volume overload/bilateral pleural effusions Possible acute CHF Acute respiratory failure with hypoxia, hypercarbia Acute respiratory acidosis Polypharmacy Possible B/L LE cellulitis 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
== END 2020-10-15 22:09 | disposition expired | DRG 70 ==
LOC: ED 08:51 → 2S 11:25 → SUATTDRO 11:25 → 2S 12:13 → 3W 10-13 14:11